=== PATIENT | female | born 1940 | race Caucasian/White ===

== ENCOUNTER 2016-06-15 11:02 | Inpatient (IN) | payer OTHER ==
[2016-06-15 11:31] VITALS: BMI 35.0
--- NOTE | 2016-06-15 11:35 | PDOC ---
History of Present Illness <Jos Kothari - Last Filed: 06/15/16 13:16> - General History Source: Patient, Old Records Exam Limitations: No Limitations - History of Present Illness Initial Comments: 06/15/16 12:43 The patient is a 76 year old female, accompanied by daughter, with a significant past medical history of Diabetes, HTN, Vascular insufficiency, and CAD, breast cancer (s/p mastectomy) and extensive surgical history presents to the emergency department, from wound clinic by Dr. White, for further evaluation of left lower extremity ischemia. As per daughter the patients left great toe is black. The patient presents for a further evaluation and work up. <Be Sainz - Last Filed: 06/15/16 13:28> - General Chief Complaint: Wound Infection Stated Complaint: (WOUND CARE SENT) Time Seen by Provider: 06/15/16 11:35 Past History - Past Medical History Cancer: Yes (BREAST CANCER) Cardiac Disorders: Yes (OPEN HEART SX 02/19/12 3 BLOCKAGES) Dementia: Yes Diabetes: Yes HTN: Yes Hypercholesterolemia: Yes - Surgical History Cardiac Surgery: Yes (3 BLOCKAGES 02/20) Cholecystectomy: Yes (1980) - Psycho/Social/Smoking Cessation Hx Suicidal Ideation: No Smoking Status: No Smoking History: Former smoker Have you smoked in the past 12 months: No Number of Cigarettes Smoked Daily: 0 If you are a former smoker, when did you quit?: FEBRUARY Information on smoking cessation initiated: No Hx Alcohol Use: No Drug/Substance Use Hx: No Substance Use Type: None <Jos Kothari - Last Filed: 06/15/16 13:16> <Be Sainz - Last Filed: 06/15/16 13:28> - Past Medical History Allergies/Adverse Reactions: Allergies Allergy/AdvReac Type Severity Reaction Status Date / Time Anesthetics - Amide Type AdvReac Vomiting Verified 06/15/16 11:27 Home Medications: Ambulatory Orders Amiodarone HCl [Cordarone -] 200 mg PO DAILY 02/27/12 Aspirin [ASA -] 162 mg PO DAILY 02/27/12 Folic Acid - 1 mg PO DAILY 02/27/12 Metoprolol Tartrate [Lopressor -] 50 mg PO BID 02/27/12 Glipizide [Glipizide ER] 10 mg PO BID 05/20/12 Lisinopril [Prinivil -] 20 mg PO DAILY 05/20/12 Metformin HCl [Glucophage -] 1,000 mg PO BID 05/20/12 Oxycodone HCl/Acetaminophen [Percocet 5-325 mg Tablet] 1 tab PO Q6H #120 tablet MDD 4 01/27/16 Atorvastatin Ca [Lipitor] 40 mg PO HS 06/15/16 Cholecalciferol (Vitamin D3) [Vitamin D3 -] 400 unit PO BID 06/15/16 Clopidogrel Bisulfate [Plavix -] 75 mg PO DAILY 06/15/16 Review of Systems - Review of Systems Able to Perform ROS?: Yes Comments:: 06/15/16 12:43 GENERAL/CONSTITUTIONAL: No fever or chills. No weakness. HEAD, EYES, EARS, NOSE AND THROAT: No change in vision. No ear pain or discharge. No sore throat. CARDIOVASCULAR: No chest pain or shortness of breath. RESPIRATORY: No cough, wheezing, or hemoptysis. GASTROINTESTINAL: No nausea, vomiting, diarrhea or constipation. GENITOURINARY: No dysuria, frequency, or change in urination. MUSCULOSKELETAL: Yes Left great toe ischemia. No joint or muscle swelling or pain. No neck or back pain. SKIN: No rash NEUROLOGIC: No headache, vertigo, loss of consciousness, or change in strength/ sensation. ENDOCRINE: No increased thirst. No abnormal weight change. HEMATOLOGIC/LYMPHATIC: No anemia, easy bleeding, or history of blood clots. ALLERGIC/IMMUNOLOGIC: No hives or skin allergy. <Be Sainz - Last Filed: 06/15/16 13:28> *Physical Exam - Vital Signs Last Vital Signs Temp Pulse Resp BP Pulse Ox 97.9 F 72 19 169/45 95 06/15/16 11:27 06/15/16 11:27 06/15/16 11:27 06/15/16 11:27 06/15/16 11:27 <Jos Kothari - Last Filed: 06/15/16 13:16> - Vital Signs Last Vital Signs Temp Pulse Resp BP Pulse Ox 97.9 F 72 19 169/45 95 06/15/16 11:27 06/15/16 11:27 06/15/16 11:27 06/15/16 11:27 06/15/16 11:27 - Physical Exam Comments: 06/15/16 12:43 GENERAL: Awake, alert, and fully oriented, in no acute distress HEAD: No signs of trauma EYES: PERRLA, EOMI, sclera anicteric, conjunctiva clear ENT: Auricles normal inspection, hearing grossly normal, nares patent, oropharynx clear without exudates. Moist mucosa NECK: Normal ROM, supple, no lymphadenopathy, JVD, or masses LUNGS: Breath sounds equal, clear to auscultation bilaterally. No wheezes, and no crackles HEART: Regular rate and rhythm, normal S1 and S2, no murmurs, rubs or gallops ABDOMEN: Soft, nontender, normoactive bowel sounds. No guarding, no rebound. No masses EXTREMITIES: Normal range of motion, no edema. No clubbing or cyanosis. No cords, erythema, or tenderness NEUROLOGICAL: Cranial nerves II through XII grossly intact. Normal speech. SKIN: Warm, Dry, normal turgor, no rashes or lesions noted. <Be Sainz - Last Filed: 06/15/16 13:28> Heart Score/ECG Review - ECG Impressions Comment:: 06/15/16 13:04 ECG Impression: Accelerated junctional rhythm. Left axis deviation. Anterior infarct , age undetermined. Prolonged QT. Abnormal ECG. <Be Sainz - Last Filed: 06/15/16 13:28> ED Treatment Course - LABORATORY CBC & Chemistry Diagram: 06/15/16 12:18 06/15/16 12:18 <Jos Kothari - Last Filed: 06/15/16 13:16> - LABORATORY CBC & Chemistry Diagram: 06/15/16 12:18 06/15/16 12:18 - RADIOLOGY Radiograph Interpretation: 06/15/16 13:28 EXAM#: TYPE/EXAM: RESULT: [id number] RAD/CHEST X-RAY PORTABLE* Clinical history: This of breath. COMPARISON: None. A lordotic and rotated portable chest film shows post CABG status with cardiomegaly and mild vascular prominence. There are clips over the right axilla as well as possible post mastectomy status. There are small calcifications in the apical regions and there are is unfolding of the aorta. IMPRESSION: Status post CABG with cardiomegaly and mild vascular engorgement. Right axillary clips and possible right mastectomy. Clinical correlation advised. Reported By: Victor M Paniagua MD 06/15/16 1303 <EmeliBe - Last Filed: 06/15/16 13:28> Medical Decision Making - Medical Decision Making 06/15/16 12:06 Dr. White Called. Case discussed. <LayocheoBe - Last Filed: 06/15/16 13:28> *DC/Admit/Observation/Transfer - Discharge Dispostion Admit: Yes - Attestations Physician Attestion: 06/15/16 11:35 I, Dr. Jos Kothari, attest that this document has been prepared under my direction and personally reviewed by me in its entirety. I further attest, that it accurately reflects all work, treatment, procedures and medical decision -making performed by me. <Jos Kothari - Last Filed: 06/15/16 13:16> - Attestations Scribe Attestion: 06/15/16 12:43 Documentation prepared by Be Sainz, acting as certified court/medical interpreter for Jos Kothari DO. <Be Sainz - Last Filed: 06/15/16 13:28> Diagnosis at time of Disposition: Vascular disease Diabetes mellitus Qualifiers: Diabetes mellitus type: type 2 Diabetes mellitus complication status: with circulatory complication Diabetes mellitus complication detail: with peripheral angiopathy without gangrene Diabetes mellitus termite control representative insulin use: with alf use Qualified Code(s): E11.51 - Type 2 diabetes mellitus with diabetic peripheral angiopathy without gangrene Hypertension Qualifiers: Hypertension type: essential hypertension Qualified Code(s): I10 - Essential ( primary) hypertension Coronary artery disease Qualifiers: Coronary Disease-Associated Artery/Lesion type: unspecified vessel or lesion type [place] vs. transplanted heart: [place] heart Associated angina: angina presence unspecified Qualified Code(s): I25.10 - Atherosclerotic heart disease of [place] coronary artery without angina pectoris Cellulitis Qualifiers: Site of cellulitis: extremity Site of cellulitis of extremity: lower extremity Laterality: left Qualified Code(s): L03.116 - Cellulitis of left lower limb Foot ulcer, left Qualifiers: Non-pressure ulcer stage: with necrosis of muscle Qualified Code(s): L97.523 - Non-pressure chronic ulcer of other part of left foot with necrosis of muscle - Discharge Dispostion Condition at time of disposition: Improved - Referrals Referrals: Carmen Salazar MD [Primary Care Provider] -
[2016-06-15 12:56] LABS: BASOPHIL 0.7 % (0-2.0); EOSINOPHIL 0.2 % (0-4.5); MCH 30.6 pg (25.7-33.7); MCHC 33.1 g/dl (32.0-36.0); MEAN CELL VOLUME 92.2 fl (80-96); MEAN PLT VOLUME 8.1 fl (7.5-11.1); NEUTROPHILS 88.5 % (42.8-82.8); PLATELET COUNT 321 K/MM3 (134-434); RDW 13.6 % (11.6-15.6); WHITE BLOOD COUNT 25.5 K/mm3 (4.0-10.0)
[2016-06-15 12:59] LABS: VENOUS PH 7.37 (7.32-7.42)
[2016-06-15 13:00] LABS: VENOUS BLOOD GAS HCO3 23.5 meq/L (19-25)
[2016-06-15 13:09] LABS: INR 1.25 (0.82-1.09); PROTHROMBIN TIME (PATIENT) 13.8 SEC (9.98-11.88)
[2016-06-15] MEDS ORDERED: PIPERACILLIN/TAZOB 3.375 GM/50 ML PRE-DOCKED IV ONE (13:24)
[2016-06-15] MEDS ORDERED: VANCOMYCIN 1 GRAM (PRE-DOCKED) 1,000 MG/250 ML BAG IVPB ONE (13:24)
[2016-06-15 13:30] LABS: ALBUMIN 2.1 g/dl (3.4-5.0); ALK PHOS 124 U/L (45-117); ANION GAP 14 (8-16); BILIRUBIN,TOTAL 0.5 mg/dL (0.2-1.0); CALCIUM 7.8 mg/dL (8.5-10.1); CO2 24 mmol/L (21-32); CREATININE 0.9 mg/dL (0.55-1.02); SGOT/AST 13 U/L (15-37); SGPT/ALT 22 U/L (12-78)
[2016-06-15 13:33] LABS: GLUCOSE,RANDOM 308 mg/dL (74-106)
[2016-06-15] MEDS ORDERED: PIPERACILLIN/TAZOB 3.375 GM 50 ML IVPB ONE (13:34)
[2016-06-15 13:43] LABS: PLATELET ESTIMATE ADEQUATE (NORMAL)
[2016-06-15] MEDS ORDERED: VANCOMYCIN 1 GRAM (PRE-DOCKED) 250 ML IVPB ONE (13:44)
[2016-06-15] MEDS ORDERED: HEPARIN NA (PORCINE) 5,000 UNITS/ML 1ML VIAL IVPUSH ONE (15:27)
[2016-06-15] MEDS ORDERED: HEPARIN NA (PORCINE) 5,000 UNITS/ML 1ML VIAL IVPUSH PRN (15:28)
[2016-06-15] MEDS ORDERED: SODIUM CHLORIDE 1,000 ML IV SCH ×2 (15:30→17:30)
[2016-06-15] MEDS ORDERED: OXYCODONE/APAP 5/325MG COMBO TABLET PO PRN (17:20)
[2016-06-15] MEDS ORDERED: DOCUSATE SODIUM 100 MG CAPSULE (FP) PO PRN (17:22)
--- NOTE | 2016-06-15 17:37 | HP ---
Admitting History and Physical - Primary Care Physician PCP: Carmen Salazar - Admission History of Present Illness: The patient is a 76 year old female, accompanied by daughter, with a significant past medical history of Diabetes, HTN, Vascular insufficiency, and CAD,-- s/p cabg , obesity , peripheral vascular disease--status post right lower extremity bypass, breast cancer (s/p mastectomy) and extensive surgical history presents to the emergency department, from wound clinic by Dr. White, for further evaluation of left lower extremity ischemia. I discussed the case with Dr. White patient being admitted to the hospital for further management and possibly bypass of left lower extremity. pt seen / examined in er. Patient given broad-spectrum antibiotics patient is elevated to 25,000 patient otherwise comfortable Denies chest pain or shortness of breath Denies fever or chills No headache or dizziness. History Source: Patient Limitations to Obtaining History: No Limitations - Past Medical History ...: No - Smoking History Smoking history: Former smoker Have you smoked in the past 12 months: No Aproximately how many cigarettes per day: 0 If you are a former smoker, when did you quit?: FEBRUARY - Alcohol/Substance Use Hx Alcohol Use: No Home Medications - Allergies Allergies/Adverse Reactions: Allergies Allergy/AdvReac Type Severity Reaction Status Date / Time Anesthetics - Amide Type AdvReac Vomiting Verified 06/15/16 11:27 - Home Medications Home Medications: Ambulatory Orders Amiodarone HCl [Cordarone -] 200 mg PO DAILY 02/27/12 Aspirin [ASA -] 162 mg PO DAILY 02/27/12 Folic Acid - 1 mg PO DAILY 02/27/12 Metoprolol Tartrate [Lopressor -] 50 mg PO BID 02/27/12 Glipizide [Glipizide ER] 10 mg PO BID 05/20/12 Lisinopril [Prinivil -] 20 mg PO DAILY 05/20/12 Metformin HCl [Glucophage -] 1,000 mg PO BID 05/20/12 Atorvastatin Ca [Lipitor] 40 mg PO HS 06/15/16 Cholecalciferol (Vitamin D3) [Vitamin D3 -] 400 unit PO BID 06/15/16 Clopidogrel Bisulfate [Plavix -] 75 mg PO DAILY 06/15/16 Oxycodone HCl/Acetaminophen [Percocet 5-325 mg Tablet] 1 tab PO Q6H PRN MDD 4 Review of Systems Findings/Remarks: see [place] Physical Examination Vital Signs: Vital Signs Temperature 98.4 F 06/15/16 17:07 Pulse Rate 73 06/15/16 17:07 Respiratory Rate 18 06/15/16 17:07 Blood Pressure 193/73 06/15/16 17:07 O2 Sat by Pulse Oximetry (%) 98 06/15/16 17:07 Constitutional: Yes: No Distress, Calm Eyes: Yes: Conjunctiva Clear Neck: Yes: Supple Cardiovascular: Yes: Regular Rate and Rhythm Respiratory: Yes: CTA Bilaterally Gastrointestinal: Yes: Soft, Abdomen, Obese Extremities: Yes: Cool, Other (left lower extremity). No: Cold Edema: No Neurological: Yes: Alert Imaging - Results Chest X-ray: Report Reviewed EKG: Report Reviewed Problem List - Problems (1) Cellulitis Code(s): L03.90 - CELLULITIS, UNSPECIFIED Qualifiers: Site of cellulitis: extremity Site of cellulitis of extremity: lower extremity Laterality: left Qualified Code(s): L03.116 - Cellulitis of left lower limb (2) Coronary artery disease Code(s): I25.10 - ATHSCL HEART DISEASE OF [place] CORONARY ARTERY W/O ANG PCTRS Qualifiers: Coronary Disease-Associated Artery/Lesion type: unspecified vessel or lesion type [place] vs. transplanted heart: [place] heart Associated angina: angina presence unspecified Qualified Code(s): I25.10 - Atherosclerotic heart disease of [place] coronary artery without angina pectoris (3) Diabetes mellitus Code(s): E11.9 - TYPE 2 DIABETES MELLITUS WITHOUT COMPLICATIONS Qualifiers: Diabetes mellitus type: type 2 Diabetes mellitus complication status: with circulatory complication Diabetes mellitus complication detail: with peripheral angiopathy without gangrene Diabetes mellitus director long term care insulin use: with director long term care use Qualified Code(s): E11.51 - Type 2 diabetes mellitus with diabetic peripheral angiopathy without gangrene; Z79.4 - watermaster (current) use of insulin (4) Foot ulcer, left Code(s): L97.529 - NON-PRESSURE CHRONIC ULCER OTH PRT LEFT FOOT W UNSP SEVERITY Qualifiers: Non-pressure ulcer stage: with necrosis of muscle Qualified Code(s): L97.523 - Non-pressure chronic ulcer of other part of left foot with necrosis of muscle (5) Hypertension Code(s): I10 - ESSENTIAL (PRIMARY) HYPERTENSION Qualifiers: Hypertension type: essential hypertension Qualified Code(s): I10 - Essential (primary) hypertension (7) Ischemia of both lower extremities Code(s): I99.8 - OTHER DISORDER OF CIRCULATORY SYSTEM (8) Obesity Code(s): E66.9 - OBESITY, UNSPECIFIED Assessment/Plan admit to [facility] evaluation Antibiotics Discontinue fluids Monitor blood sugar and blood pressure Discontinue by mouth diabetic medications Start on basal insulin--- it should be noted that patient has been refusing insulin in outpatient setting Continue other medications heparin drip Cardiology evaluation Will follow
[2016-06-15] MEDS: HEPARIN INFUSION - 500 ML IVPB SCH (18:03)
[2016-06-15] MEDS ORDERED: ACETAMINOPHEN 325 MG TABLET (FP) PO PRN (18:04)
--- NOTE | 2016-06-15 18:13 | PN ---
Progress Note (short form) - Note Progress Note: Vascular surgery Left foot gangrene for over 2 weeks. Saw pt in wound care clinic today. US shows SFA occlusion. SFA has been occluded for years. But now pt is symptomatic. Right lower ext bypass done in past by us. Will need angiogram, possible bypass next week. Please intiiate cardiology clearance. IV heparin started. Will follow Abhilash White DO
--- NOTE | 2016-06-15 18:14 | PN ---
Progress Note (short form) - Note Progress Note: Vascular surgery WBC is 25.5. Will need IV antibiotics. Rec ID connor White DO
[2016-06-15] MEDS ORDERED: METOPROLOL TARTRATE 50 MG TABLET (FP) PO ONE ×2 (18:30→22:00)
[2016-06-15] MEDS: ACETAMINOPHEN 325 MG TABLET (FP) PO PRN (18:45)
[2016-06-15] MEDS: oxyCODONE HCL 5 MG TABLET PO PRN (18:48)
[2016-06-15] MEDS ORDERED: INSULIN (NOVOLOG) ASPART 100 UNITS/ML 10ML VIAL SQ ONE (19:00)
[2016-06-15 19:03] LABS: MCH 30.6 pg (25.7-33.7); MCHC 33.2 g/dl (32.0-36.0); MEAN CELL VOLUME 92.1 fl (80-96); MEAN PLT VOLUME 8.6 fl (7.5-11.1); PLATELET COUNT 340 K/MM3 (134-434); RDW 13.7 % (11.6-15.6); WHITE BLOOD COUNT 21.8 K/mm3 (4.0-10.0)
[2016-06-15 19:29] LABS: INR 1.41 (0.82-1.09); PROTHROMBIN TIME (PATIENT) 15.6 SEC (9.98-11.88)
[2016-06-15 19:30] LABS: ALBUMIN 1.9 g/dl (3.4-5.0); BILIRUBIN,TOTAL 0.4 mg/dL (0.2-1.0); CALCIUM 7.6 mg/dL (8.5-10.1); COCKROFT - GAULT 75.565; TOT PROT 5.9 g/dl (6.4-8.2)
[2016-06-15 20:04] LABS: URINE APPEARANCE CLEAR; URINE BILIRUBIN NEGATIVE (NEGATIVE); URINE COLOR LTYELLOW; URINE GLUCOSE (UA) 3+ (NEGATIVE); URINE KETONE 1+ (NEGATIVE); URINE LEUK ESTERASE NEGATIVE (NEGATIVE); URINE NITRITE NEGATIVE (NEGATIVE); URINE UROBILINOGEN NEGATIVE E.U./dl (0.2-1.0)
[2016-06-15 20:11] LABS: URINE BLOOD 1+ (NEGATIVE); URINE PROTEIN 1+ (NEGATIVE)
[2016-06-15 20:18] LABS: URINE RBC 1 /hpf (0-3); URINE WBC 2 /hpf (3-5)
[2016-06-15] MEDS ORDERED: PT OWN MED DRAWER 7, Y5N ONE (21:44)
[2016-06-15] MEDS ORDERED: INSULIN (NOVOLOG) ASPART 100 UNITS/ML 10ML VIAL ONE (21:45)
[2016-06-15] MEDS ORDERED: INSULIN DETEMIR 100 UNITS/ML MDV SQ SCH (22:00)
[2016-06-15 22:05] LABS: HYPOCHROMIA 1+; MICROCYTOSIS 1+; PLATELET ESTIMATE ADEQUATE (NORMAL)
[2016-06-15] MEDS: CHOLECALCIFEROL (VITAMIN D3) 400 UNIT TABLET (FP) PO SCH (22:40)
[2016-06-15] MEDS: ATORVASTATIN CA 40 MG TABLET (FP) PO SCH (22:40)
[2016-06-15] MEDS: INSULIN SLIDING SCALE (NOVOLOG) 1 VIAL SQ SCH (22:48)
[2016-06-16] MEDS: HEPARIN NA (PORCINE) 5,000 UNITS/ML 1ML VIAL IVPUSH PRN (02:59)
[2016-06-16] MEDS: HEPARIN INFUSION - 500 ML IVPB SCH ×3 (02:59→15:45)
[2016-06-16] MEDS: INSULIN SLIDING SCALE (NOVOLOG) 1 VIAL SQ SCH ×4 (06:20→21:50)
[2016-06-16] MEDS: oxyCODONE HCL 5 MG TABLET PO PRN ×2 (06:22→12:50)
[2016-06-16] MEDS ORDERED: INSULIN DETEMIR 100 UNITS/ML MDV SQ ONE (07:11)
[2016-06-16] MEDS ORDERED: INSULIN (NOVOLOG) ASPART 100 UNITS/ML 10ML VIAL ONE ×3 (07:12→20:12)
[2016-06-16] MEDS ORDERED: PT OWN MED DRAWER 7, Y5N ONE ×3 (09:05→11:39)
[2016-06-16 09:15] LABS: THYROID STIMULATING HORMONE 0.62 uIU/ml (0.358-3.74)
[2016-06-16] MEDS: CHOLECALCIFEROL (VITAMIN D3) 400 UNIT TABLET (FP) PO SCH ×2 (09:40→21:56)
[2016-06-16] MEDS: PANTOPRAZOLE 20 MG TABLET (FP) PO SCH (09:40)
[2016-06-16] MEDS: CLOPIDOGREL BISULFATE 75 MG TABLET (FP) PO SCH (09:40)
[2016-06-16] MEDS: METOPROLOL TARTRATE 50 MG TABLET (FP) PO SCH ×2 (09:40→21:50)
[2016-06-16] MEDS: FOLIC ACID 1 MG TABLET (FP) PO SCH (09:40)
[2016-06-16] MEDS: AMIODARONE HCL 200 MG TABLET (FP) PO SCH (09:40)
[2016-06-16] MEDS: LISINOPRIL 20 MG TABLET (FP) PO SCH (09:40)
[2016-06-16] MEDS: ASPIRIN 81 MG CHEWABLE TABLETS PO SCH (09:40)
--- NOTE | 2016-06-16 09:50 | PN ---
Progress Note, Physician Chief Complaint: Events noted Foul smelling left foot wound No distress No diarrhea no pain in foot - Current Medication List Current Medications: Active Medications Acetaminophen (Tylenol -) 650 mg PO Q4H PRN PRN Reason: FEVER OR PAIN Last Admin: 06/15/16 18:45 Dose: 650 mg Acetaminophen (Tylenol -) 325 mg PO Q6H PRN PRN Reason: FEVER OR PAIN Amiodarone HCl (Cordarone -) 200 mg PO DAILY [facility] Last Admin: 06/16/16 09:40 Dose: 200 mg Aspirin (Asa -) 81 mg PO DAILY [facility] Last Admin: 06/16/16 09:40 Dose: 81 mg Atorvastatin Calcium (Lipitor -) 40 mg PO HS [facility] Last Admin: 06/15/16 22:40 Dose: 40 mg Cholecalciferol (Vitamin D3 -) 400 unit PO BID [facility] Last Admin: 06/16/16 09:40 Dose: 400 unit Clopidogrel Bisulfate (Plavix -) 75 mg PO DAILY [facility] Last Admin: 06/16/16 09:40 Dose: 75 mg Docusate Sodium (Colace -) 100 mg PO Q12H PRN PRN Reason: CONSTIPATION Folic Acid (Folic Acid -) 1 mg PO DAILY [facility] Last Admin: 06/16/16 09:40 Dose: 1 mg Heparin Sodium (Porcine) (Heparin -) 1,000 unit IVPUSH PRN PRN PRN Reason: Heparin Heparin Sodium (Porcine) (Heparin -) 5,000 unit IVPUSH PRN PRN PRN Reason: Heparin Last Admin: 06/16/16 02:59 Dose: 5,000 unit Heparin Sodium/Dextrose (Heparin Infusion -) 500 mls @ 20 mls/hr IVPB TITR [facility] ; 1,000 UNITS/HR PRN Reason: Protocol Last Admin: 06/16/16 02:59 Dose: 23 mls/hr Insulin Aspart (Novolog Vial Sliding Scale -) 1 vial SQ ACHS [facility] PRN Reason: Protocol Last Admin: 06/16/16 06:20 Dose: 3 units Insulin Detemir (Levemir Vial) 15 units SQ HS [facility] Last Admin: 06/15/16 22:48 Dose: 15 units Lisinopril (Prinivil) 20 mg PO DAILY [facility] Last Admin: 06/16/16 09:40 Dose: 20 mg Metoprolol Tartrate (Lopressor -) 50 mg PO BID [facility] Last Admin: 06/16/16 09:40 Dose: 50 mg Oxycodone HCl (Roxicodone -) 5 mg PO Q6H PRN Last Admin: 06/16/16 06:22 Dose: 5 mg Pantoprazole Sodium (Protonix -) 20 mg PO DAILY [facility] Last Admin: 06/16/16 09:40 Dose: 20 mg - Objective Vital Signs: Vital Signs Temperature 98.2 F 06/16/16 06:00 Pulse Rate 64 06/16/16 06:00 Respiratory Rate 18 06/16/16 06:00 Blood Pressure 136/54 06/16/16 06:00 O2 Sat by Pulse Oximetry (%) 99 06/15/16 21:00 Constitutional: Yes: No Distress Cardiovascular: Yes: Regular Rate and Rhythm Respiratory: Yes: Diminished Gastrointestinal: Yes: Normal Bowel Sounds, Soft. No: Distention, Tenderness Extremities: Yes: Other (left foot wound) Edema: Yes Edema: LLE: 1+ Psychiatric: Yes: Alert, Oriented Labs: CBC, BMP 06/15/16 18:30 06/15/16 18:30 INR, PTT INR 1.41 (0.82-1.09) H 06/15/16 18:30 Problem List - Problems (1) Coronary artery disease Code(s): I25.10 - ATHSCL HEART DISEASE OF [place] CORONARY ARTERY W/O ANG PCTRS Qualifiers: Coronary Disease-Associated Artery/Lesion type: unspecified vessel or lesion type [place] vs. transplanted heart: [place] heart Associated angina: angina presence unspecified Qualified Code(s): I25.10 - Atherosclerotic heart disease of [place] coronary artery without angina pectoris (2) Diabetes mellitus Code(s): E11.9 - TYPE 2 DIABETES MELLITUS WITHOUT COMPLICATIONS Qualifiers: Diabetes mellitus type: type 2 Diabetes mellitus complication status: with circulatory complication Diabetes mellitus complication detail: with peripheral angiopathy without gangrene Diabetes mellitus long term care social worker insulin use: with correction use Qualified Code(s): E11.51 - Type 2 diabetes mellitus with diabetic peripheral angiopathy without gangrene; Z79.4 - [facility] (current) use of insulin (3) Foot ulcer, left Code(s): L97.529 - NON-PRESSURE CHRONIC ULCER OTH PRT LEFT FOOT W UNSP SEVERITY Qualifiers: Non-pressure ulcer stage: with necrosis of muscle Qualified Code(s): L97.523 - Non-pressure chronic ulcer of other part of left foot with necrosis of muscle (4) Hypertension Code(s): I10 - ESSENTIAL (PRIMARY) HYPERTENSION Qualifiers: Hypertension type: essential hypertension Qualified Code(s): I10 - Essential (primary) hypertension (5) Obesity Code(s): E66.9 - OBESITY, UNSPECIFIED Assessment/Plan PLAN continue with Zosyn- pending ID approval- contacted Dr [facility]iology eval for clearance Echo ordered Continue with meds Increase Levemir-- blood sugars elevated likely due to infection check ESR and CRP received Zosyn and Vanco yesterday on Heparin infusion for PAD --SFA occlusion
[2016-06-16] MEDS ORDERED: PATIENT'S OWN MEDICATION (NON-FORMULARY) (Lisinopril [Prinivil -] 20 MG) PO SCH (10:00)
[2016-06-16] MEDS ORDERED: PIPERACILLIN/TAZOB 2.25 GM 2.25 GM in DEXTROSE 5%-WATER - 50 ML IVPB SCH (10:15)
--- NOTE | 2016-06-16 10:42 | PN ---
Progress Note (short form) - Note Progress Note: ID Consult dictated Gangrene L great toe Marked leukocytosis, possible sepsis Perpheral vascular disease Pending sepsis workup, empiric vancomycin/ zosyn
[2016-06-16] MEDS: PIPERACILLIN/TAZOB 2.25 GM 50 ML IVPB SCH ×2 (11:33→17:33)
[2016-06-16] MEDS: VANCOMYCIN 1 GRAM (PRE-DOCKED) 250 ML IVPB SCH ×3 (11:34→22:51)
--- NOTE | 2016-06-16 11:41 | CONS ---
DATE OF CONSULTATION: DATE OF DICTATION: 06/16/2016 HISTORY OF PRESENT ILLNESS: The patient is a 76-year-old female with a history of diabetes mellitus and peripheral vascular disease evaluated for marked leukocytosis. The patient developed worsening gangrene of the left great toe. She has had worsening necrotic changes of the left great toe over the past 2 weeks. She also developed ulcerations on the 2nd, 3rd, and 4th toes as well as the plantar aspect of the foot and the heel. [facility] a [facility]ogram showed superficial femoral artery occlusion. She was referred to the hospital for admission. On admission, her white blood cell count was noted to be 25,000. She has been afebrile. Patient complains of pain of the left foot especially with manipulation. No reports of high grade fever or shaking chills. No reports of purulent wound drainage. PAST MEDICAL HISTORY: Positive for diabetes mellitus, peripheral vascular disease, hypertension, coronary artery disease, breast cancer. PAST SURGICAL HISTORY: Status post right lower extremity bypass, mastectomy, coronary artery bypass. ALLERGIES: To AMIDE-TYPE ANESTHETICS. MEDICATIONS: Include Cordarone, aspirin, folic acid, Lopressor, glipizide, Prinivil, Glucophage, Lipitor, Plavix. SOCIAL HISTORY: She lives at home. She is a former smoker. SYSTEMS REVIEW: Neurologic: No loss of consciousness, seizure activity, or focal weakness. Cardiac: Negative for chest pain or palpitations. Respiratory: Negative for cough or sputum production. Gastrointestinal: Negative for vomiting or diarrhea. Genitourinary: Negative for urinary tract infection. LABORATORY DATA: White count on admission 25,000, hematocrit 32.4, platelets 340. BUN 14, creatinine 1.0. Urinalysis 2 white cells. Glucose 354. PHYSICAL EXAMINATION: General: She is awake and alert. She is not acutely toxic-appearing. She is morbidly obese. Vital signs: Temperature 98.2, blood pressure 136/54, pulse 64 and regular, respirations 18 per minute. HEENT: Sclerae anicteric. Heart: Heart sounds S1, S2. Lungs: Clear bilaterally. No rhonchi, rales, or wheezing. Abdomen: Obese, soft, nontender. Extremities: Examination of the right lower extremity, there is a healed surgical scar present on the right lower extremity, no lesions present on the right foot. Examination of the left foot, there is dry gangrene involving the left great toe. There are ischemic changes involving the remaining toes with dry ulcerations present on the 2nd, 3rd, and 4th toes, and in addition, an ulceration is present on the plantar aspect of the foot and on the heel. There is no purulent wound drainage. IMPRESSION: 1. Gangrene of the left great toe. 2. Marked leukocytosis, possible sepsis. 3. Peripheral vascular disease. 4. Diabetes mellitus. Pending sepsis workup, empiric antibiotic coverage in this diabetic female with Zosyn and vancomycin, surgical followup, local wound care. Will follow. Thank you for the kind referral. DANIELLA WARNER M.D. DULCE [id number]
--- NOTE | 2016-06-16 15:12 | CON.CARD ---
Consult Consult Specialty:: cardiology Reason for Consultation:: severe PAD; for planned revasularization - History of Present Illness Chief Complaint: Pt c/o intense pain in left foot/great toe History of Present Illness: The patient is a 76 year old white female, accompanied by daughter earlier in ER , with a significant past medical history of Diabetes, HTN, Vascular insufficiency, and CAD (?CABG 10 yrs ago), breast cancer (s/p right mastectomy) and extensive surgical history presents to the emergency department, from wound clinic by Dr. White, for further evaluation of left lower extremity ischemia. As per daughter the patients left great toe is black. The patient presents for a further evaluation and work up. 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) Cardio/Vascular: Yes: CAD, CHF, HTN Pulmonary: No: COPD Reproductive: Yes: Postmenopausal ...: No - Past Surgical History Additional Surgical History: right LE revascularization - Alcohol/Substance Use Hx Alcohol Use: No - Smoking History Smoking history: Former smoker Have you smoked in the past 12 months: No Aproximately how many cigarettes per day: 0 If you are a former smoker, when did you quit?: FEBRUARY Home Medications - Allergies Allergies/Adverse Reactions: Allergies Allergy/AdvReac Type Severity Reaction Status Date / Time Anesthetics - Amide Type AdvReac Vomiting Verified 06/15/16 11:27 - Home Medications Home Medications: Ambulatory Orders Amiodarone HCl [Cordarone -] 200 mg PO DAILY 02/27/12 Aspirin [ASA -] 162 mg PO DAILY 02/27/12 Folic Acid - 1 mg PO DAILY 02/27/12 Metoprolol Tartrate [Lopressor -] 50 mg PO BID 02/27/12 Glipizide [Glipizide ER] 10 mg PO BID 05/20/12 Lisinopril [Prinivil -] 20 mg PO DAILY 05/20/12 Metformin HCl [Glucophage -] 1,000 mg PO BID 05/20/12 Atorvastatin Ca [Lipitor] 40 mg PO HS 06/15/16 Cholecalciferol (Vitamin D3) [Vitamin D3 -] 400 unit PO BID 06/15/16 Clopidogrel Bisulfate [Plavix -] 75 mg PO DAILY 06/15/16 Oxycodone HCl/Acetaminophen [Percocet 5-325 mg Tablet] 1 tab PO Q6H PRN MDD 4 Family Disease History - Family Disease History Family History: Denies Review of Systems - Review of Systems Constitutional: reports: Weakness Eyes: reports: No Symptoms HENT: reports: No Symptoms Neck: reports: No Symptoms Cardiovascular: denies: Chest Pain Respiratory: reports: No Symptoms Gastrointestinal: reports: No Symptoms Breasts: reports: No Symptoms Reported Musculoskeletal: reports: Extremity Pain (left foot), Muscle Weakness Integumentary: reports: Change in Color (left foot), Wound Neurological: reports: Unsteady Gait, Weakness Psychiatric: reports: No Symptoms - Risk Factors Known Risk Factors: Yes: Age, Hypertension, Physical Inactivity, Other (obesity) Vital Signs: Vital Signs Temperature 98.2 F 06/16/16 06:00 Pulse Rate 64 06/16/16 06:00 Respiratory Rate 18 06/16/16 06:00 Blood Pressure 136/54 06/16/16 06:00 O2 Sat by Pulse Oximetry (%) 99 06/15/16 21:00 Constitutional: Yes: Calm Eyes: Yes: WNL HENT: Yes: WNL Neck: Yes: WNL Respiratory: Yes: Regular Gastrointestinal: Yes: Soft, Abdomen, Obese Renal/: No: Anuria Heart Sounds: Yes: S1 (split), Split S2, S4 Murmur: Yes: Systolic Murmur, Grade 2 Musculoskeletal: Yes: Joint Stiffness, Muscle Weakness Extremities: Yes: Cool, Other (left foot large area of purpura, left big toe blackened with spongy blue-quinn large lesion leading from big toe along top of foot; punctate lesions on sole) Peripheral Pulses WNL: No Peripheral Pulses: 1+ Left Doralis Pedis Integumentary: Yes: Bruising, Venous Stasis Changes, Other Neurological: Yes: Alert, Oriented Psychiatric: Yes: WNL - Other Data Labs, Other Data: CBC, BMP 06/15/16 18:30 06/15/16 18:30 INR, PTT INR 1.41 (0.82-1.09) H 06/15/16 18:30 Troponin, BNP 06/16/16 07:40 B-Natriuretic Peptide 3784.30 H Troponin, BNP 06/16/16 07:40 B-Natriuretic Peptide 3784.30 H Imaging - Results Chest X-ray: Image Reviewed (no acute pathology) EKG: Image Reviewed (NSR; incomplete LBBB; 1st degress AVB) Problem List - Problems (1) Cellulitis Code(s): L03.90 - CELLULITIS, UNSPECIFIED Qualifiers: Site of cellulitis: extremity Site of cellulitis of extremity: lower extremity Laterality: left Qualified Code(s): L03.116 - Cellulitis of left lower limb (2) Coronary artery disease Assessment/Plan: s/p CABG ? 2006 (obtain records, if possible). On amiodarone; she says it was restarted 3 years ago, but she says she has not seen a mechanical design drafter since. F/u ECHO for LVEF, chamber sizes, wall motion, valve status. Would stronly consider stopping amiodarone because of its many potential side effects (eg, pt believes a rash across her chest started after the mediication was restarted, and has been there ever since). Of more concern is the potential for thyroid disorder, pulmonary fibrosis. Code(s): I25.10 - ATHSCL HEART DISEASE OF [place] CORONARY ARTERY W/O ANG PCTRS Qualifiers: Coronary Disease-Associated Artery/Lesion type: unspecified vessel or lesion type [place] vs. transplanted heart: [place] heart Associated angina: angina presence unspecified Qualified Code(s): I25.10 - Atherosclerotic heart disease of [place] coronary artery without angina pectoris (3) Diabetes mellitus Code(s): E11.9 - TYPE 2 DIABETES MELLITUS WITHOUT COMPLICATIONS Qualifiers: Diabetes mellitus type: type 2 Diabetes mellitus complication status: with circulatory complication Diabetes mellitus complication detail: with peripheral angiopathy without gangrene Diabetes mellitus machine long goods helper insulin use: with machine long goods helper use Qualified Code(s): E11.51 - Type 2 diabetes mellitus with diabetic peripheral angiopathy without gangrene; Z79.4 - bed bug exterminator (current) use of insulin (4) Hypertension Code(s): I10 - ESSENTIAL (PRIMARY) HYPERTENSION Qualifiers: Hypertension type: essential hypertension Qualified Code(s): I10 - Essential (primary) hypertension (5) Ischemia of both lower extremities Assessment/Plan: Examined pt's left foot with Dr. White;: severe ischemia, with imperative need for early revascularization; left great toe almost surely will need to be amputated. F/u ECHO for LVEF, wall motion, valve status. Pt's BP is elevated: pain and anxiety management; start hydralazine and Imdur; f/u LVEF, BUN/Cr, electrolytes. Code(s): I99.8 - OTHER DISORDER OF CIRCULATORY SYSTEM (6) Obesity Code(s): E66.9 - OBESITY, UNSPECIFIED (7) On amiodarone therapy Assessment/Plan: It is unclear why pt is on this medication; she says it was restarted three years ago, and she has not seen a mechanical design drafter since then (was seeing Dr. Johnson until that time). She feels she has had a rash across her chest since restarting amiodarone. Given the many potential and serious side-effects, will get blood level, ECHO, records of prior cardiac workup, and strongly consider stopping the medication unless she has refractory arrhythmias. TSH is WNL. Code(s): Z79.899 - OTHER DETENTION (CURRENT) DRUG THERAPY
[2016-06-16] MEDS: ISOSORBIDE MONONITRATE 30 MG TAB.SR.24H (FP) PO SCH (15:38)
[2016-06-16] MEDS: hydrALAZINE HCL 25 MG TABLET (FP) PO SCH ×2 (15:38→21:48)
--- NOTE | 2016-06-16 15:49 | PN ---
Progress Note (short form) - Note Progress Note: VAscular Surgery Pt seen and examined. Left foot gangrene. WBC now 21 Echo ordered for saturday by cardio. Will do angiogram on then. Spoke to pt about plan and she understands. Cont iv antibiotics and IV heparin. Abhilash White DO
--- NOTE | 2016-06-16 16:19 | EKG ---
Test Reason : Blood Pressure : / mmHG Vent. Rate : 063 BPM Atrial Rate : 063 BPM P-R Int : 000 ms QRS Dur : 112 ms QT Int : 502 ms P-R-T Axes : 006 025 075 degrees QTc Int : 513 ms SINUS RHYTHM WITH 1ST DEGREE A-V BLOCK INCOMPLETE LEFT BUNDLE BRANCH BLOCK PROLONGED QT ABNORMAL ECG WHEN COMPARED WITH ECG OF 15-JUN-2016 12:48, SINUS RHYTHM HAS REPLACED JUNCTIONAL RHYTHM Confirmed by VENU SWANSON, STEVE ([id number]) on 06/16/2016 4:18:30 PM Referred By: Sindy JOE Confirmed By:STEVE LEA MD
--- NOTE | 2016-06-16 16:27 | EKG ---
Test Reason : Blood Pressure : / mmHG Vent. Rate : 072 BPM Atrial Rate : 074 BPM P-R Int : 000 ms QRS Dur : 116 ms QT Int : 468 ms P-R-T Axes : 000 -46 070 degrees QTc Int : 512 ms ACCELERATED JUNCTIONAL RHYTHM LEFT AXIS DEVIATION ANTERIOR INFARCT , AGE UNDETERMINED PROLONGED QT ABNORMAL ECG WHEN COMPARED WITH ECG OF 23-MAY-2012 09:23, SIGNIFICANT CHANGES HAVE OCCURRED Confirmed by STEVE LEA MD ([id number]) on 06/16/2016 4:27:12 PM Referred By: Confirmed By:STEVE LEA MD
[2016-06-16] MEDS: INSULIN DETEMIR 100 UNITS/ML MDV SQ SCH (21:49)
[2016-06-16] MEDS: ATORVASTATIN CA 40 MG TABLET (FP) PO SCH (21:50)
[2016-06-16] MEDS ORDERED: hydrALAZINE HCL 25 MG TABLET (FP) PO SCH (22:00)
[2016-06-16] MEDS ORDERED: ONDANSETRON 4 MG/2 ML VIAL IVPB PRN (22:12)
[2016-06-17] MEDS: PIPERACILLIN/TAZOB 2.25 GM 50 ML IVPB SCH ×3 (02:08→17:40)
[2016-06-17] MEDS: INSULIN SLIDING SCALE (NOVOLOG) 1 VIAL SQ SCH ×4 (06:32→21:58)
[2016-06-17 08:01] LABS: MCH 30.4 pg (25.7-33.7); MCHC 33.4 g/dl (32.0-36.0); MEAN CELL VOLUME 91.1 fl (80-96); MEAN PLT VOLUME 8.1 fl (7.5-11.1); PLATELET COUNT 350 K/MM3 (134-434); RDW 13.7 % (11.6-15.6); WHITE BLOOD COUNT 21.3 K/mm3 (4.0-10.0)
--- NOTE | 2016-06-17 08:03 | PN ---
Progress Note, Physician Chief Complaint: Events noted Foul smelling left foot wound No distress No diarrhea no pain in foot - Current Medication List Current Medications: Active Medications Acetaminophen (Tylenol -) 650 mg PO Q4H PRN PRN Reason: FEVER OR PAIN Last Admin: 06/15/16 18:45 Dose: 650 mg Acetaminophen (Tylenol -) 325 mg PO Q6H PRN PRN Reason: FEVER OR PAIN Amiodarone HCl (Cordarone -) 200 mg PO DAILY [facility] Last Admin: 06/16/16 09:40 Dose: 200 mg Aspirin (Asa -) 81 mg PO DAILY [facility] Last Admin: 06/16/16 09:40 Dose: 81 mg Atorvastatin Calcium (Lipitor -) 40 mg PO HS [facility] Last Admin: 06/16/16 21:50 Dose: 40 mg Cholecalciferol (Vitamin D3 -) 400 unit PO BID [facility] Last Admin: 06/16/16 21:56 Dose: 400 unit Clopidogrel Bisulfate (Plavix -) 75 mg PO DAILY [facility] Last Admin: 06/16/16 09:40 Dose: 75 mg Docusate Sodium (Colace -) 100 mg PO Q12H PRN PRN Reason: CONSTIPATION Folic Acid (Folic Acid -) 1 mg PO DAILY [facility] Last Admin: 06/16/16 09:40 Dose: 1 mg Heparin Sodium (Porcine) (Heparin -) 1,000 unit IVPUSH PRN PRN PRN Reason: Heparin Heparin Sodium (Porcine) (Heparin -) 5,000 unit IVPUSH PRN PRN PRN Reason: Heparin Last Admin: 06/16/16 02:59 Dose: 5,000 unit Hydralazine HCl (Apresoline -) 25 mg PO BID [facility] Last Admin: 06/16/16 21:48 Dose: 25 mg Heparin Sodium/Dextrose (Heparin Infusion -) 500 mls @ 20 mls/hr IVPB TITR [facility] ; 1,000 UNITS/HR PRN Reason: Protocol Last Admin: 06/16/16 15:45 Dose: 26 mls/hr Vancomycin HCl (Vancomycin (Pre-Docked)) 250 mls @ 166.667 mls/hr IVPB 1130, 2330 [facility] Last Admin: 06/16/16 22:51 Dose: 166.667 mls/hr Piperacillin Sod/Tazobactam Sod (Zosyn 2.25gm Ivpb (Pre-Docked)) 50 mls @ 100 mls/hr IVPB Q8H-IV [facility] PRN Reason: Protocol Last Admin: 06/17/16 02:08 Dose: 100 mls/hr Insulin Aspart (Novolog Vial Sliding Scale -) 1 vial SQ ACHS [facility] PRN Reason: Protocol Last Admin: 06/17/16 06:32 Dose: 5 units Insulin Detemir (Levemir Vial) 18 units SQ HS [facility] Last Admin: 06/16/16 21:49 Dose: 18 units Isosorbide Mononitrate (Imdur -) 30 mg PO DAILY [facility] Last Admin: 06/16/16 15:38 Dose: 30 mg Lisinopril (Prinivil) 20 mg PO DAILY [facility] Last Admin: 06/16/16 09:40 Dose: 20 mg Metoprolol Tartrate (Lopressor -) 50 mg PO BID [facility] Last Admin: 06/16/16 21:50 Dose: 50 mg Ondansetron HCl (Zofran Injection) 4 mg IVPB Q8H PRN PRN Reason: NAUSEA AND/OR VOMITING Last Admin: 06/16/16 22:51 Dose: 4 mg Oxycodone HCl (Roxicodone -) 5 mg PO Q6H PRN Last Admin: 06/16/16 12:50 Dose: 5 mg Pantoprazole Sodium (Protonix -) 20 mg PO DAILY [facility] Last Admin: 06/16/16 09:40 Dose: 20 mg - Objective Vital Signs: Vital Signs Temperature 98 F 06/17/16 06:37 Pulse Rate 65 06/17/16 06:37 Respiratory Rate 20 06/17/16 06:37 Blood Pressure 138/62 06/17/16 06:37 O2 Sat by Pulse Oximetry (%) 90 L 06/16/16 21:00 Constitutional: Yes: No Distress Cardiovascular: Yes: Regular Rate and Rhythm Respiratory: Yes: Diminished Gastrointestinal: Yes: Normal Bowel Sounds, Soft. No: Tenderness Extremities: Yes: Other (left foot examined along with nurse-- extensive wet and dry gangrene over dorsum of left big toe and entire big toe.cyanotic toes, foul smelling, plantar surface has a necrotic ulcer) Edema: Yes Labs: CBC, BMP 06/15/16 18:30 INR, PTT INR 1.41 (0.82-1.09) H 06/15/16 18:30 Problem List - Problems (1) Coronary artery disease Code(s): I25.10 - ATHSCL HEART DISEASE OF [place] CORONARY ARTERY W/O ANG PCTRS Qualifiers: Coronary Disease-Associated Artery/Lesion type: unspecified vessel or lesion type [place] vs. transplanted heart: [place] heart Associated angina: angina presence unspecified Qualified Code(s): I25.10 - Atherosclerotic heart disease of [place] coronary artery without angina pectoris (2) Diabetes mellitus Code(s): E11.9 - TYPE 2 DIABETES MELLITUS WITHOUT COMPLICATIONS Qualifiers: Diabetes mellitus type: type 2 Diabetes mellitus complication status: with circulatory complication Diabetes mellitus complication detail: with peripheral angiopathy without gangrene Diabetes mellitus buttermaker helper insulin use: with usp use Qualified Code(s): E11.51 - Type 2 diabetes mellitus with diabetic peripheral angiopathy without gangrene; Z79.4 - halfway (current) use of insulin (3) Foot ulcer, left Code(s): L97.529 - NON-PRESSURE CHRONIC ULCER OTH PRT LEFT FOOT W UNSP SEVERITY Qualifiers: Non-pressure ulcer stage: with necrosis of muscle Qualified Code(s): L97.523 - Non-pressure chronic ulcer of other part of left foot with necrosis of muscle (4) Hypertension Code(s): I10 - ESSENTIAL (PRIMARY) HYPERTENSION Qualifiers: Hypertension type: essential hypertension Qualified Code(s): I10 - Essential (primary) hypertension (5) Obesity Code(s): E66.9 - OBESITY, UNSPECIFIED Assessment/Plan PLAN continue with Zosyn Cardiology eval noted or clearance Echo ordered Continue with meds Increase Levemir-- blood sugars elevated likely due to infection on Heparin infusion for PAD --SFA occlusion for angiogram likely Saturday
[2016-06-17] MEDS ORDERED: SENNOSIDES 8.6MG TABLET (FP) PO PRN (08:34)
[2016-06-17] MEDS: HEPARIN NA (PORCINE) 5,000 UNITS/ML 1ML VIAL IVPUSH PRN ×2 (09:19→18:51)
[2016-06-17] MEDS: DOCUSATE SODIUM 100 MG CAPSULE (FP) PO SCH ×2 (09:21→21:45)
[2016-06-17] MEDS: hydrALAZINE HCL 25 MG TABLET (FP) PO SCH ×2 (09:25→21:48)
[2016-06-17] MEDS: FOLIC ACID 1 MG TABLET (FP) PO SCH (09:26)
[2016-06-17] MEDS: ISOSORBIDE MONONITRATE 30 MG TAB.SR.24H (FP) PO SCH (09:26)
[2016-06-17] MEDS: METOPROLOL TARTRATE 50 MG TABLET (FP) PO SCH ×2 (09:26→21:48)
[2016-06-17] MEDS: ASPIRIN 81 MG CHEWABLE TABLETS PO SCH (09:26)
[2016-06-17] MEDS: AMIODARONE HCL 200 MG TABLET (FP) PO SCH (09:26)
[2016-06-17] MEDS: LISINOPRIL 20 MG TABLET (FP) PO SCH (09:27)
[2016-06-17] MEDS: CLOPIDOGREL BISULFATE 75 MG TABLET (FP) PO SCH (09:27)
[2016-06-17] MEDS: PANTOPRAZOLE 20 MG TABLET (FP) PO SCH (09:27)
[2016-06-17] MEDS: CHOLECALCIFEROL (VITAMIN D3) 400 UNIT TABLET (FP) PO SCH ×2 (09:27→21:48)
[2016-06-17] MEDS: oxyCODONE HCL 5 MG TABLET PO PRN ×2 (09:28→15:27)
[2016-06-17] MEDS: POLYETHYLENE GLYCOL 3350 119 GM BTL PO SCH (09:31)
[2016-06-17] MEDS: VANCOMYCIN 1 GRAM (PRE-DOCKED) 250 ML IVPB SCH ×2 (10:42→23:52)
[2016-06-17] MEDS: HEPARIN INFUSION - 500 ML IVPB SCH ×2 (12:32→18:52)
[2016-06-17] MEDS: ACETAMINOPHEN 325 MG TABLET (FP) PO PRN (14:33)
[2016-06-17] MEDS ORDERED: LISINOPRIL 10 MG TABLET (FP) PO ONE (15:07)
--- NOTE | 2016-06-17 15:11 | PN ---
Progress Note, Physician Chief Complaint: Pt denies chest pain, palpitations, dyspnea. still with + pain in left foot. History of Present Illness: The patient is a 76 year old white female, accompanied by daughter earlier in ER , with a significant past medical history of Diabetes, HTN, Vascular insufficiency, and CAD (?CABG 10 yrs ago), breast cancer (s/p right mastectomy) and extensive surgical history, who presents to the emergency department, from wound clinic by Dr. White, for further evaluation of left lower extremity ischemia. As per daughter the patients left great toe is black. The patient presents for a further evaluation and work up. - Current Medication List Current Medications: Active Medications Acetaminophen (Tylenol -) 650 mg PO Q4H PRN PRN Reason: FEVER OR PAIN Last Admin: 06/17/16 14:33 Dose: 650 mg Amiodarone HCl (Cordarone -) 200 mg PO DAILY [facility] Last Admin: 06/17/16 09:26 Dose: 200 mg Aspirin (Asa -) 81 mg PO DAILY [facility] Last Admin: 06/17/16 09:26 Dose: 81 mg Atorvastatin Calcium (Lipitor -) 40 mg PO HS [facility] Last Admin: 06/16/16 21:50 Dose: 40 mg Cholecalciferol (Vitamin D3 -) 400 unit PO BID [facility] Last Admin: 06/17/16 09:27 Dose: 400 unit Clopidogrel Bisulfate (Plavix -) 75 mg PO DAILY [facility] Docusate Sodium (Colace -) 100 mg PO Q12H [facility] Last Admin: 06/17/16 09:21 Dose: 100 mg Folic Acid (Folic Acid -) 1 mg PO DAILY [facility] Last Admin: 06/17/16 09:26 Dose: 1 mg Heparin Sodium (Porcine) (Heparin -) 1,000 unit IVPUSH PRN PRN PRN Reason: Heparin Heparin Sodium (Porcine) (Heparin -) 5,000 unit IVPUSH PRN PRN PRN Reason: Heparin Last Admin: 06/17/16 09:19 Dose: 5,000 unit Hydralazine HCl (Apresoline -) 25 mg PO BID [facility] Last Admin: 06/17/16 09:25 Dose: 25 mg Heparin Sodium/Dextrose (Heparin Infusion -) 500 mls @ 20 mls/hr IVPB TITR [facility] ; 1,000 UNITS/HR PRN Reason: Protocol Last Admin: 06/17/16 12:32 Dose: 29 mls/hr Vancomycin HCl (Vancomycin (Pre-Docked)) 250 mls @ 166.667 mls/hr IVPB 1130, 2330 [facility] Last Admin: 06/17/16 10:42 Dose: 166.667 mls/hr Piperacillin Sod/Tazobactam Sod (Zosyn 2.25gm Ivpb (Pre-Docked)) 50 mls @ 100 mls/hr IVPB Q8H-IV [facility] PRN Reason: Protocol Last Admin: 06/17/16 09:27 Dose: 100 mls/hr Insulin Aspart (Novolog Vial Sliding Scale -) 1 vial SQ ACHS [facility] PRN Reason: Protocol Last Admin: 06/17/16 12:15 Dose: 7 units Insulin Detemir (Levemir Vial) 18 units SQ HS [facility] Last Admin: 06/16/16 21:49 Dose: 18 units Isosorbide Mononitrate (Imdur -) 30 mg PO DAILY [facility] Last Admin: 06/17/16 09:26 Dose: 30 mg Lisinopril (Prinivil) 20 mg PO DAILY [facility] Last Admin: 06/17/16 09:27 Dose: 20 mg Metoprolol Tartrate (Lopressor -) 50 mg PO BID [facility] Last Admin: 06/17/16 09:26 Dose: 50 mg Ondansetron HCl (Zofran Injection) 4 mg IVPB Q8H PRN PRN Reason: NAUSEA AND/OR VOMITING Last Admin: 06/16/16 22:51 Dose: 4 mg Oxycodone HCl (Roxicodone -) 10 mg PO Q6H PRN PRN Reason: PAIN LEVEL 6-10 Last Admin: 06/17/16 09:28 Dose: 10 mg Pantoprazole Sodium (Protonix -) 20 mg PO DAILY [facility] Last Admin: 06/17/16 09:27 Dose: 20 mg Polyethylene Glycol (Miralax (For Daily Use) -) 17 gm PO DAILY [facility] Last Admin: 06/17/16 09:31 Dose: 17 gm Senna (Senna -) 2 tab PO HS PRN PRN Reason: CONSTIPATION - Objective Vital Signs: Vital Signs Temperature 98.2 F 06/17/16 09:35 Pulse Rate 64 06/17/16 09:35 Respiratory Rate 20 06/17/16 09:35 Blood Pressure 159/64 06/17/16 09:35 O2 Sat by Pulse Oximetry (%) 92 L 06/17/16 09:00 Constitutional: Yes: Calm Eyes: Yes: WNL HENT: Yes: WNL Neck: Yes: WNL Cardiovascular: Yes: Regular Rate and Rhythm, S4 Gastrointestinal: Yes: Soft ...Rectal Exam: Yes: Deferred Genitourinary: No: Anuria Musculoskeletal: Yes: Muscle Weakness Extremities: Yes: Cold Edema: Yes Edema: LLE: 1+ Peripheral Pulses WNL: No Peripheral Pulses: Left Doralis Pedis: 0, Right Dorsalis Pedis: 1+ Integumentary: Yes: Other Wound/Incision: Yes: Open to air, Other Neurological: Yes: Alert, Oriented, Weakness Psychiatric: Yes: Alert, Oriented Labs: CBC, BMP 06/17/16 07:00 06/15/16 18:30 INR, PTT INR 1.41 (0.82-1.09) H 06/15/16 18:30 Problem List - Problems (1) Cellulitis Code(s): L03.90 - CELLULITIS, UNSPECIFIED Qualifiers: Site of cellulitis: extremity Site of cellulitis of extremity: lower extremity Laterality: left Qualified Code(s): L03.116 - Cellulitis of left lower limb (2) Coronary artery disease Assessment/Plan: s/p CABG ? 2006 (obtain records, if possible). On amiodarone; she says it was restarted 3 years ago, but she says she has not seen a supervisor concrete block plant since. F/u ECHO for LVEF, chamber sizes, wall motion, valve status. Would strongly consider stopping amiodarone because of its many potential side effects (eg, pt believes a rash across her chest started after the mediication was restarted, and has been there ever since. Of more concern is the potential for eg thyroid disorder, pulmonary fibrosis). Code(s): I25.10 - ATHSCL HEART DISEASE OF [place] CORONARY ARTERY W/O ANG PCTRS Qualifiers: Coronary Disease-Associated Artery/Lesion type: unspecified vessel or lesion type [place] vs. transplanted heart: [place] heart Associated angina: angina presence unspecified Qualified Code(s): I25.10 - Atherosclerotic heart disease of [place] coronary artery without angina pectoris (3) Diabetes mellitus Code(s): E11.9 - TYPE 2 DIABETES MELLITUS WITHOUT COMPLICATIONS Qualifiers: Diabetes mellitus type: type 2 Diabetes mellitus complication status: with circulatory complication Diabetes mellitus complication detail: with peripheral angiopathy without gangrene Diabetes mellitus superintendent container terminal insulin use: with superintendent container terminal use Qualified Code(s): E11.51 - Type 2 diabetes mellitus with diabetic peripheral angiopathy without gangrene; Z79.4 - correction (current) use of insulin (4) Hypertension Assessment/Plan: BP remains elevated. Will increase lisinopril from 20 mg to 30 mg daily; F/u BP, BUN/Cr, electrolytes. Code(s): I10 - ESSENTIAL (PRIMARY) HYPERTENSION Qualifiers: Hypertension type: essential hypertension Qualified Code(s): I10 - Essential (primary) hypertension (5) Ischemia of both lower extremities Assessment/Plan: Examined pt's left foot with Dr. White;: severe ischemia, with imperative need for early revascularization; left great toe almost surely will need to be amputated. F/u ECHO for LVEF, wall motion, valve status. Pt's BP is elevated: pain and anxiety management; start hydralazine and Imdur; f/u LVEF, BUN/Cr, electrolytes. Planning for left LE revascularization and possible amputation of toe/s/foot tomorrow. Will get ECHO early, as this will help determine medical management. Pt has multiple risks for jillian-operative cardiac event, but needs the surgery as soon as possible. Code(s): I99.8 - OTHER DISORDER OF CIRCULATORY SYSTEM (6) Obesity Code(s): E66.9 - OBESITY, UNSPECIFIED (7) On amiodarone therapy Assessment/Plan: It is unclear why pt is on this medication; she says it was restarted three years ago, and she has not seen a supervisor concrete block plant since then (was seeing Dr. Johnson until that time). She feels she has had a rash across her chest since restarting amiodarone. Given the many potential and serious side-effects, will get blood level, ECHO, records of prior cardiac workup, and strongly consider stopping the medication unless she has refractory arrhythmias combined with severe LV dysfunction. TSH is WNL. Code(s): Z79.899 - OTHER JAIL (CURRENT) DRUG THERAPY
[2016-06-17] MEDS ORDERED: oxyCODONE HCL 5 MG TABLET PO PRN (15:47)
[2016-06-17] MEDS ORDERED: INSULIN (NOVOLOG) ASPART 100 UNITS/ML 10ML VIAL ONE (21:34)
[2016-06-17] MEDS: INSULIN DETEMIR 100 UNITS/ML MDV SQ SCH (21:48)
[2016-06-17] MEDS: ATORVASTATIN CA 40 MG TABLET (FP) PO SCH (21:48)
[2016-06-18] MEDS: PIPERACILLIN/TAZOB 2.25 GM 50 ML IVPB SCH ×3 (02:42→17:26)
[2016-06-18] MEDS: HEPARIN NA (PORCINE) 5,000 UNITS/ML 1ML VIAL IVPUSH PRN ×2 (03:04→09:53)
[2016-06-18] MEDS: HEPARIN INFUSION - 500 ML IVPB SCH ×5 (03:05→22:43)
[2016-06-18] MEDS: INSULIN SLIDING SCALE (NOVOLOG) 1 VIAL SQ SCH ×4 (06:11→22:46)
[2016-06-18] MEDS: DOCUSATE SODIUM 100 MG CAPSULE (FP) PO SCH ×2 (07:57→22:41)
[2016-06-18 08:56] LABS: BASOPHIL 0.4 % (0-2.0); EOSINOPHIL 1.2 % (0-4.5); MCH 30.5 pg (25.7-33.7); MCHC 33.1 g/dl (32.0-36.0); MEAN CELL VOLUME 92.2 fl (80-96); NEUTROPHILS 84.6 % (42.8-82.8); PLATELET COUNT 378 K/MM3 (134-434); RDW 13.9 % (11.6-15.6); WHITE BLOOD COUNT 20.7 K/mm3 (4.0-10.0)
--- NOTE | 2016-06-18 09:02 | PN ---
Progress Note (short form) - Note Progress Note: Subjective Patient seen and examined. Chart reviewed. For angiogram today. Denies chest pain or SOB. Pain in L foot. Objective Last Vital Signs Temp Pulse Resp BP Pulse Ox 98.2 F 62 20 157/62 94 L 06/18/16 05:00 06/18/16 05:00 06/18/16 05:00 06/18/16 05:00 06/17/16 21:00 CBC, BMP 06/18/16 07:10 06/18/16 07:10 Laboratory Results - last 24 hr 06/17/16 06/17/16 06/17/16 11:16 16:54 18:11 WBC RBC Hgb Hct MCV MCHC RDW Plt Count MPV Neutrophils % Lymphocytes % Monocytes % Eosinophils % Basophils % PTT (Actin FS) 39.2 H Sodium Potassium Chloride Carbon Dioxide Anion Gap BUN Creatinine Creat Clearance w eGFR POC Glucometer 267 263 Random Glucose Calcium Total Bilirubin AST ALT Alkaline Phosphatase Total Protein Albumin 06/17/16 06/18/16 06/18/16 21:54 00:50 06:10 WBC RBC Hgb Hct MCV MCHC RDW Plt Count MPV Neutrophils % Lymphocytes % Monocytes % Eosinophils % Basophils % PTT (Actin FS) 31.7 Sodium Potassium Chloride Carbon Dioxide Anion Gap BUN Creatinine Creat Clearance w eGFR POC Glucometer 204 259 Random Glucose Calcium Total Bilirubin AST ALT Alkaline Phosphatase Total Protein Albumin 06/18/16 06/18/16 06/18/16 07:10 07:10 07:10 WBC 20.7 H RBC 3.28 L Hgb 10.0 L Hct 30.3 L MCV 92.2 MCHC 33.1 RDW 13.9 Plt Count 378 MPV 8.0 Neutrophils % 84.6 H Lymphocytes % 7.0 L D Monocytes % 6.8 Eosinophils % 1.2 D Basophils % 0.4 PTT (Actin FS) 33.0 Sodium 132 L Potassium 3.8 Chloride 92 L Carbon Dioxide 30 Anion Gap 10 BUN 10 D Creatinine 1.1 H Creat Clearance w eGFR 48.16 POC Glucometer Random Glucose 219 H D Calcium 7.5 L Total Bilirubin 0.3 D AST 11 L D ALT 19 Alkaline Phosphatase 112 Total Protein 5.4 L Albumin 1.5 L D Physical Exam Constitutional: Yes: No Distress Cardiovascular: Yes: Regular Rate and Rhythm Respiratory: Yes: Diminished Gastrointestinal: Yes: Normal Bowel Sounds, Soft. No: Distention, Tenderness Extremities: Yes: Other (left foot wound)--- L greater toe necrotic/ischemic Edema: Yes Edema: LLE: 1+ Psychiatric: Yes: Alert, Oriented Assessment and Plan Continue abx. Heparin Monitor BGM. Increase Levemir. Scheduled for angiogram today. Will need amputation of L great toe. Will follow. Echo today. Cardiology on case. Documentation prepared by Carrie Marsh, acting as a medical oncology physician for Carmen Salazar MD. <Carrie Marsh - Last Filed: 06/18/16 09:47> Problem List - Problems (1) Cellulitis Code(s): L03.90 - CELLULITIS, UNSPECIFIED Qualifiers: Site of cellulitis: extremity Site of cellulitis of extremity: lower extremity Laterality: left Qualified Code(s): L03.116 - Cellulitis of left lower limb (2) Coronary artery disease Code(s): I25.10 - ATHSCL HEART DISEASE OF [place] CORONARY ARTERY W/O ANG PCTRS Qualifiers: Coronary Disease-Associated Artery/Lesion type: unspecified vessel or lesion type [place] vs. transplanted heart: [place] heart Associated angina: angina presence unspecified Qualified Code(s): I25.10 - Atherosclerotic heart disease of [place] coronary artery without angina pectoris (3) Diabetes mellitus Code(s): E11.9 - TYPE 2 DIABETES MELLITUS WITHOUT COMPLICATIONS Qualifiers: Diabetes mellitus type: type 2 Diabetes mellitus complication status: with circulatory complication Diabetes mellitus complication detail: with peripheral angiopathy without gangrene Diabetes mellitus termination clerk insulin use: with termination clerk use Qualified Code(s): E11.51 - Type 2 diabetes mellitus with diabetic peripheral angiopathy without gangrene; Z79.4 - rn long term care (current) use of insulin (4) Foot ulcer, left Code(s): L97.529 - NON-PRESSURE CHRONIC ULCER OTH PRT LEFT FOOT W UNSP SEVERITY Qualifiers: Non-pressure ulcer stage: with necrosis of muscle Qualified Code(s) : L97.523 - Non-pressure chronic ulcer of other part of left foot with necrosis of muscle (5) Hypertension Code(s): I10 - ESSENTIAL (PRIMARY) HYPERTENSION Qualifiers: Hypertension type: essential hypertension Qualified Code(s): I10 - Essential (primary) hypertension (7) Ischemia of both lower extremities Code(s): I99.8 - OTHER DISORDER OF CIRCULATORY SYSTEM (8) Obesity Code(s): E66.9 - OBESITY, UNSPECIFIED <Carmen Salazar - Last Filed: 06/18/16 09:01>
[2016-06-18 09:09] LABS: ALBUMIN 1.5 g/dl (3.4-5.0); CALCIUM 7.5 mg/dL (8.5-10.1); COCKROFT - GAULT 68.697; CREATININE 1.1 mg/dL (0.55-1.02)
[2016-06-18 09:11] LABS: BILIRUBIN,TOTAL 0.3 mg/dL (0.2-1.0); TOT PROT 5.4 g/dl (6.4-8.2)
[2016-06-18] MEDS: hydrALAZINE HCL 25 MG TABLET (FP) PO SCH ×2 (09:31→22:41)
[2016-06-18] MEDS: METOPROLOL TARTRATE 50 MG TABLET (FP) PO SCH ×2 (09:31→22:41)
[2016-06-18] MEDS: ISOSORBIDE MONONITRATE 30 MG TAB.SR.24H (FP) PO SCH (09:31)
[2016-06-18] MEDS: ASPIRIN 81 MG CHEWABLE TABLETS PO SCH (09:31)
[2016-06-18] MEDS: PANTOPRAZOLE 20 MG TABLET (FP) PO SCH (09:32)
[2016-06-18] MEDS: AMIODARONE HCL 200 MG TABLET (FP) PO SCH (09:32)
[2016-06-18] MEDS: POLYETHYLENE GLYCOL 3350 119 GM BTL PO SCH (09:32)
[2016-06-18] MEDS: CHOLECALCIFEROL (VITAMIN D3) 400 UNIT TABLET (FP) PO SCH ×2 (09:32→22:41)
[2016-06-18] MEDS: FOLIC ACID 1 MG TABLET (FP) PO SCH (09:32)
--- NOTE | 2016-06-18 09:36 | PN ---
Progress Note (short form) - Note Progress Note: Vascular Surgery Pt seen and examined. Left foot gangrene for the last two weeks. White count elevated -- 21. For angiogram, with crosser device to open occluded SFA. Echo done this morning. awaiting results. Cont IV heparin. Abhilash White DO
[2016-06-18] MEDS ORDERED: CLOPIDOGREL BISULFATE 75 MG TABLET (FP) PO SCH (10:00)
[2016-06-18] MEDS ORDERED: LISINOPRIL 10 MG TABLET (FP) PO SCH (10:00)
[2016-06-18] MEDS: VANCOMYCIN 1 GRAM (PRE-DOCKED) 250 ML IVPB SCH (10:41)
[2016-06-18] MEDS ORDERED: HEPARIN INFUSION - 500 ML IVPB SCH ×2 (11:00→13:46)
[2016-06-18] MEDS ORDERED: HEPARIN NA (PORCINE) 5,000 UNITS/ML 1ML VIAL IVPUSH PRN ×8 (11:01→13:46)
[2016-06-18] MEDS ORDERED: INSULIN (NOVOLOG) ASPART 100 UNITS/ML 10ML VIAL ONE (11:25)
[2016-06-18] MEDS ORDERED: MIDAZOLAM HCL 2 MG/2 ML SINGLE DOSE VIAL ONE (11:54)
[2016-06-18] MEDS ORDERED: ceFAZolin SODIUM 1 GM VIAL ONE (12:31)
[2016-06-18] MEDS ORDERED: ceFAZolin SODIUM 1 GM VIAL IVPB ONE (12:38)
[2016-06-18] MEDS ORDERED: HEPARIN NA (PORCINE) 5,000 UNITS/ML 1ML VIAL ONE (12:39)
[2016-06-18] MEDS ORDERED: ACETAMINOPHEN 1000 MG/100 ML VIAL (NON FORMULARY) IVPB PRN (13:29)
--- NOTE | 2016-06-18 13:29 | PN ---
Progress Note (short form) - Note Progress Note: Vascular Surgery Angiogram LLE performed. Pt has severe calicifications of all blood vessels. Left SFA is occluded from the origin. Reconstitutes at popliteal level. Will perform angiogram, retrograde santo to open SFA. If unsuccessful , pt will need fem-distal bypass. Echo reading pending. NPO past midnight. Cont IV heparin. Abhilash White DO
[2016-06-18] MEDS ORDERED: SODIUM CHLORIDE 1,000 ML IV SCH (13:30)
[2016-06-18] MEDS ORDERED: SENNOSIDES 8.6MG TABLET (FP) PO PRN (13:46)
[2016-06-18] MEDS ORDERED: ONDANSETRON 4 MG/2 ML VIAL IVPB PRN (13:46)
[2016-06-18] MEDS ORDERED: oxyCODONE HCL 5 MG TABLET PO PRN (13:46)
[2016-06-18] MEDS ORDERED: ACETAMINOPHEN 325 MG TABLET (FP) PO PRN (13:46)
[2016-06-18] MEDS ORDERED: ATORVASTATIN CA 40 MG TABLET (FP) PO SCH (22:00)
[2016-06-18] MEDS ORDERED: INSULIN DETEMIR 100 UNITS/ML MDV SQ SCH ×2 (22:00)
[2016-06-18 22:17] LABS: INR 1.31 (0.82-1.09); PROTHROMBIN TIME (PATIENT) 14.5 SEC (9.98-11.88)
[2016-06-19] MEDS: VANCOMYCIN 1 GRAM (PRE-DOCKED) 250 ML IVPB SCH ×2 (00:18→12:09)
[2016-06-19] MEDS: HEPARIN INFUSION - 500 ML IVPB SCH ×2 (02:00→16:40)
[2016-06-19] MEDS: PIPERACILLIN/TAZOB 2.25 GM 50 ML IVPB SCH ×3 (03:01→17:28)
[2016-06-19] MEDS: INSULIN SLIDING SCALE (NOVOLOG) 1 VIAL SQ SCH ×4 (06:39→22:17)
[2016-06-19 08:43] LABS: MCH 30.2 pg (25.7-33.7); MEAN CELL VOLUME 91.6 fl (80-96); PLATELET COUNT 412 K/MM3 (134-434); RDW 13.8 % (11.6-15.6); WHITE BLOOD COUNT 19.5 K/mm3 (4.0-10.0)
[2016-06-19] MEDS: hydrALAZINE HCL 25 MG TABLET (FP) PO SCH ×2 (09:23→21:54)
[2016-06-19] MEDS: METOPROLOL TARTRATE 50 MG TABLET (FP) PO SCH ×2 (09:23→21:54)
[2016-06-19] MEDS: DOCUSATE SODIUM 100 MG CAPSULE (FP) PO SCH ×2 (09:27→21:53)
[2016-06-19] MEDS: CHOLECALCIFEROL (VITAMIN D3) 400 UNIT TABLET (FP) PO SCH ×2 (09:28→21:55)
--- NOTE | 2016-06-19 09:50 | PN ---
Progress Note, Physician Chief Complaint: Denies chest pain. History of Present Illness: Dr. Paige's weekend notes reviewed: "76 year old white female, accompanied by daughter earlier in ER, with a significant past medical history of Diabetes, HTN, Vascular insufficiency, and CAD (?CABG 10 yrs ago), breast cancer (s/p right mastectomy) and extensive surgical history, who presents to the emergency department, from wound clinic by Dr. White, for further evaluation of left lower extremity ischemia. As per daughter the patients left great toe is black. The patient presents for a further evaluation and work up. " Discussed with Dr. White: plan is for attempt at perc revasc today. May need open bypass if not successful (would be tomorrow or ) Echo: EF low normal. - Current Medication List Current Medications: Active Medications Acetaminophen (Tylenol -) 650 mg PO Q4H PRN PRN Reason: FEVER OR PAIN Amiodarone HCl (Cordarone -) 200 mg PO DAILY [facility] Last Admin: 06/19/16 09:28 Dose: Not Given Aspirin (Asa -) 81 mg PO DAILY [facility] Last Admin: 06/19/16 09:27 Dose: Not Given Atorvastatin Calcium (Lipitor -) 40 mg PO HS [facility] Last Admin: 06/18/16 22:41 Dose: 40 mg Cholecalciferol (Vitamin D3 -) 400 unit PO BID [facility] Last Admin: 06/19/16 09:28 Dose: Not Given Clopidogrel Bisulfate (Plavix -) 75 mg PO DAILY [facility] Last Admin: 06/19/16 09:28 Dose: Not Given Docusate Sodium (Colace -) 100 mg PO BID [facility] Last Admin: 06/19/16 09:27 Dose: Not Given Fentanyl (Sublimaze Injection -) 25 mcg IVPUSH [id number] PRN PRN Reason: PAIN Stop: 06/21/16 13:31 Folic Acid (Folic Acid -) 1 mg PO DAILY [facility] Last Admin: 06/19/16 09:28 Dose: Not Given Heparin Sodium (Porcine) (Heparin -) 1,000 unit IVPUSH PRN PRN PRN Reason: Heparin Heparin Sodium (Porcine) (Heparin -) 5,000 unit IVPUSH PRN PRN PRN Reason: Heparin Heparin Sodium (Porcine) (Heparin -) 1,000 unit IVPUSH PRN PRN PRN Reason: Heparin Heparin Sodium (Porcine) (Heparin -) 5,000 unit IVPUSH PRN PRN PRN Reason: Heparin Hydralazine HCl (Apresoline -) 25 mg PO BID [facility] Last Admin: 06/19/16 09:23 Dose: 25 mg Heparin Sodium/Dextrose (Heparin Infusion -) 500 mls @ 20 mls/hr IVPB TITR [facility] ; 1,000 UNITS/HR PRN Reason: Protocol Last Admin: 06/19/16 02:00 Dose: 20 mls/hr Heparin Sodium/Dextrose (Heparin Infusion -) 500 mls @ 20 mls/hr IVPB TITR [facility] ; 1,000 UNITS/HR PRN Reason: Protocol Last Admin: 06/18/16 17:54 Dose: Not Given Piperacillin Sod/Tazobactam Sod (Zosyn 2.25gm Ivpb (Pre-Docked)) 50 mls @ 100 mls/hr IVPB Q8H-IV [facility] PRN Reason: Protocol Last Admin: 06/19/16 09:24 Dose: 100 mls/hr Vancomycin HCl (Vancomycin (Pre-Docked)) 250 mls @ 166.667 mls/hr IVPB 1130, 2330 [facility] Last Admin: 06/19/16 00:18 Dose: 166.667 mls/hr Insulin Aspart (Novolog Vial Sliding Scale -) 1 vial SQ ACHS [facility] PRN Reason: Protocol Last Admin: 06/19/16 06:39 Dose: 7 unit Insulin Detemir (Levemir Vial) 22 units SQ HS [facility] Last Admin: 06/18/16 22:41 Dose: Not Given Isosorbide Mononitrate (Imdur -) 30 mg PO DAILY [facility] Last Admin: 06/19/16 09:23 Dose: 30 mg Lisinopril (Prinivil) 30 mg PO DAILY [facility] Last Admin: 06/19/16 09:23 Dose: 30 mg Metoprolol Tartrate (Lopressor -) 50 mg PO BID [facility] Last Admin: 06/19/16 09:23 Dose: 50 mg Ondansetron HCl (Zofran Injection) 4 mg IVPB Q8H PRN PRN Reason: NAUSEA AND/OR VOMITING Oxycodone HCl (Roxicodone -) 10 mg PO Q4H PRN PRN Reason: PAIN LEVEL 6-10 Last Admin: 04/11/17 09:22 Dose: 10 mg Pantoprazole Sodium (Protonix -) 20 mg PO DAILY [facility] Last Admin: 06/19/16 09:28 Dose: Not Given Polyethylene Glycol (Miralax (For Daily Use) -) 17 gm PO DAILY [facility] Last Admin: 06/19/16 09:28 Dose: Not Given Senna (Senna -) 2 tab PO HS PRN PRN Reason: CONSTIPATION - Objective Vital Signs: Vital Signs Temperature 99.4 F 06/19/16 09:36 Pulse Rate 63 06/19/16 09:36 Respiratory Rate 18 06/19/16 09:36 Blood Pressure 175/82 06/19/16 09:36 O2 Sat by Pulse Oximetry (%) 98 06/18/16 21:00 Constitutional: Yes: No Distress Cardiovascular: Yes: Regular Rate and Rhythm Respiratory: Yes: CTA Bilaterally Gastrointestinal: Yes: Soft (non-tender) Edema: No Labs: CBC, BMP 06/19/16 07:45 06/18/16 07:10 INR, PTT INR 1.31 (0.82-1.09) H 06/18/16 20:20 Assessment/Plan IMP: Severe PAD w/ gangrene LLE History CAD REC: Plan is for attempt at percutaneous revascularization today, no cardiac contraindications. If patient requires open bypass, would perform persantine MIBI prior for further risk stratification. D/W Dr. White- we can stress in AM with possible open bypass later in day pending results. BP is slightly above goal this AM, would monitor closely through day and titrate Lisinopril if remains persistently elevated. AC and antiplatelet therapy as per Vascular Surgery.
--- NOTE | 2016-06-19 09:54 | PN ---
Progress Note, Physician Chief Complaint: Pt A&Ox3; besides pain in left foot, pt denies symptoms. History of Present Illness: The patient is a 76 year old white female, accompanied by daughter earlier in ER , with a significant past medical history of Diabetes, HTN, Vascular insufficiency, and CAD (?CABG 10 yrs ago), breast cancer (s/p right mastectomy) and extensive surgical history, who presents to the emergency department, from wound clinic by Dr. White, for further evaluation of left lower extremity ischemia. As per daughter the patients left great toe is black. The patient presents for a further evaluation and work up. - Current Medication List Current Medications: Active Medications Acetaminophen (Tylenol -) 650 mg PO Q4H PRN PRN Reason: FEVER OR PAIN Amiodarone HCl (Cordarone -) 200 mg PO DAILY [facility] Last Admin: 06/19/16 09:28 Dose: Not Given Aspirin (Asa -) 81 mg PO DAILY [facility] Last Admin: 06/19/16 09:27 Dose: Not Given Atorvastatin Calcium (Lipitor -) 40 mg PO HS [facility] Last Admin: 06/18/16 22:41 Dose: 40 mg Cholecalciferol (Vitamin D3 -) 400 unit PO BID [facility] Last Admin: 06/19/16 09:28 Dose: Not Given Clopidogrel Bisulfate (Plavix -) 75 mg PO DAILY [facility] Last Admin: 06/19/16 09:28 Dose: Not Given Docusate Sodium (Colace -) 100 mg PO BID [facility] Last Admin: 06/19/16 09:27 Dose: Not Given Fentanyl (Sublimaze Injection -) 25 mcg IVPUSH [id number] PRN PRN Reason: PAIN Stop: 06/21/16 13:31 Folic Acid (Folic Acid -) 1 mg PO DAILY [facility] Last Admin: 06/19/16 09:28 Dose: Not Given Heparin Sodium (Porcine) (Heparin -) 1,000 unit IVPUSH PRN PRN PRN Reason: Heparin Heparin Sodium (Porcine) (Heparin -) 5,000 unit IVPUSH PRN PRN PRN Reason: Heparin Heparin Sodium (Porcine) (Heparin -) 1,000 unit IVPUSH PRN PRN PRN Reason: Heparin Heparin Sodium (Porcine) (Heparin -) 5,000 unit IVPUSH PRN PRN PRN Reason: Heparin Hydralazine HCl (Apresoline -) 25 mg PO BID [facility] Last Admin: 04/11/17 09:23 Dose: 25 mg Heparin Sodium/Dextrose (Heparin Infusion -) 500 mls @ 20 mls/hr IVPB TITR [facility] ; 1,000 UNITS/HR PRN Reason: Protocol Last Admin: 06/19/16 02:00 Dose: 20 mls/hr Heparin Sodium/Dextrose (Heparin Infusion -) 500 mls @ 20 mls/hr IVPB TITR [facility] ; 1,000 UNITS/HR PRN Reason: Protocol Last Admin: 06/18/16 17:54 Dose: Not Given Piperacillin Sod/Tazobactam Sod (Zosyn 2.25gm Ivpb (Pre-Docked)) 50 mls @ 100 mls/hr IVPB Q8H-IV [facility] PRN Reason: Protocol Last Admin: 06/19/16 09:24 Dose: 100 mls/hr Vancomycin HCl (Vancomycin (Pre-Docked)) 250 mls @ 166.667 mls/hr IVPB 1130, 2330 [facility] Last Admin: 06/19/16 00:18 Dose: 166.667 mls/hr Insulin Aspart (Novolog Vial Sliding Scale -) 1 vial SQ ACHS [facility] PRN Reason: Protocol Last Admin: 06/19/16 06:39 Dose: 7 unit Insulin Detemir (Levemir Vial) 22 units SQ HS [facility] Last Admin: 06/18/16 22:41 Dose: Not Given Isosorbide Mononitrate (Imdur -) 30 mg PO DAILY [facility] Last Admin: 06/19/16 09:23 Dose: 30 mg Lisinopril (Prinivil) 30 mg PO DAILY [facility] Last Admin: 06/19/16 09:23 Dose: 30 mg Metoprolol Tartrate (Lopressor -) 50 mg PO BID [facility] Last Admin: 06/19/16 09:23 Dose: 50 mg Ondansetron HCl (Zofran Injection) 4 mg IVPB Q8H PRN PRN Reason: NAUSEA AND/OR VOMITING Oxycodone HCl (Roxicodone -) 10 mg PO Q4H PRN PRN Reason: PAIN LEVEL 6-10 Last Admin: 06/19/16 09:22 Dose: 10 mg Pantoprazole Sodium (Protonix -) 20 mg PO DAILY [facility] Last Admin: 06/19/16 09:28 Dose: Not Given Polyethylene Glycol (Miralax (For Daily Use) -) 17 gm PO DAILY [facility] Last Admin: 06/19/16 09:28 Dose: Not Given Senna (Senna -) 2 tab PO HS PRN PRN Reason: CONSTIPATION - Objective Vital Signs: Vital Signs Temperature 99.4 F 06/19/16 09:36 Pulse Rate 63 06/19/16 09:36 Respiratory Rate 18 06/19/16 09:36 Blood Pressure 175/82 06/19/16 09:36 O2 Sat by Pulse Oximetry (%) 98 06/18/16 21:00 Constitutional: Yes: Calm Eyes: Yes: WNL HENT: Yes: WNL Neck: Yes: WNL Cardiovascular: Yes: Regular Rate and Rhythm Respiratory: Yes: Regular Gastrointestinal: Yes: Soft, Abdomen, Obese ...Rectal Exam: Yes: Deferred Genitourinary: No: Anuria Musculoskeletal: Yes: Muscle Weakness Extremities: Yes: Cool Peripheral Pulses WNL: No Wound/Incision: Yes: Other (gangrene big toe (left)) Neurological: Yes: Alert, Oriented, Weakness Psychiatric: Yes: WNL Labs: CBC, BMP 06/19/16 07:45 06/18/16 07:10 INR, PTT INR 1.31 (0.82-1.09) H 06/18/16 20:20 Problem List - Problems (1) Cellulitis Code(s): L03.90 - CELLULITIS, UNSPECIFIED Qualifiers: Site of cellulitis: extremity Site of cellulitis of extremity: lower extremity Laterality: left Qualified Code(s): L03.116 - Cellulitis of left lower limb (2) Coronary artery disease Assessment/Plan: s/p CABG ? 2006 (obtain records, if possible). On amiodarone; she says it was restarted 3 years ago, but she says she has not seen a fashion consultant sales since. ECHO: low normal LVEF. . WIll stop amiodarone; await cardiac records. Code(s): I25.10 - ATHSCL HEART DISEASE OF [place] CORONARY ARTERY W/O ANG PCTRS Qualifiers: Coronary Disease-Associated Artery/Lesion type: unspecified vessel or lesion type [place] vs. transplanted heart: [place] heart Associated angina: angina presence unspecified Qualified Code(s): I25.10 - Atherosclerotic heart disease of [place] coronary artery without angina pectoris (3) Diabetes mellitus Code(s): E11.9 - TYPE 2 DIABETES MELLITUS WITHOUT COMPLICATIONS Qualifiers: Diabetes mellitus type: type 2 Diabetes mellitus complication status: with circulatory complication Diabetes mellitus complication detail: with peripheral angiopathy without gangrene Diabetes mellitus predatory animal exterminator insulin use: with mcc use Qualified Code(s): E11.51 - Type 2 diabetes mellitus with diabetic peripheral angiopathy without gangrene; Z79.4 - intermediate school teacher (current) use of insulin (4) Hypertension Code(s): I10 - ESSENTIAL (PRIMARY) HYPERTENSION Qualifiers: Hypertension type: essential hypertension Qualified Code(s): I10 - Essential (primary) hypertension (5) Ischemia of both lower extremities Assessment/Plan: Examined pt's left foot with Dr. White;: severe ischemia, with imperative need for early revascularization; left great toe almost surely will need to be amputated. F/u ECHO for LVEF, wall motion, valve status. Pt's BP is elevated: pain and anxiety management; start hydralazine and Imdur; f/u LVEF, BUN/Cr, electrolytes. ECHO: preliminary reading shows minimally decreased or normal LVEF; +mild MR and TR. From a cardiac standpoint, there are no absolute contraindications for Ms. Alberto to undergo LE angiogram and possible amputation of toes and/or foot. Code(s): I99.8 - OTHER DISORDER OF CIRCULATORY SYSTEM (6) Obesity Code(s): E66.9 - OBESITY, UNSPECIFIED (7) On amiodarone therapy Code(s): Z79.899 - OTHER CINDER BLOCK MAKER (CURRENT) DRUG THERAPY
[2016-06-19] MEDS ORDERED: PANTOPRAZOLE 20 MG TABLET (FP) PO SCH (10:00)
[2016-06-19] MEDS ORDERED: LISINOPRIL 10 MG TABLET (FP) PO SCH (10:00)
[2016-06-19] MEDS ORDERED: FOLIC ACID 1 MG TABLET (FP) PO SCH (10:00)
[2016-06-19] MEDS ORDERED: CLOPIDOGREL BISULFATE 75 MG TABLET (FP) PO SCH (10:00)
[2016-06-19] MEDS ORDERED: POLYETHYLENE GLYCOL 3350 119 GM BTL PO SCH (10:00)
[2016-06-19] MEDS ORDERED: AMIODARONE HCL 200 MG TABLET (FP) PO SCH (10:00)
[2016-06-19] MEDS ORDERED: ISOSORBIDE MONONITRATE 30 MG TAB.SR.24H (FP) PO SCH (10:00)
[2016-06-19] MEDS ORDERED: ASPIRIN 81 MG CHEWABLE TABLETS PO SCH (10:00)
[2016-06-19] MEDS ORDERED: HEPARIN NA (PORCINE) 5,000 UNITS/ML 1ML VIAL ONE (10:33)
[2016-06-19] MEDS ORDERED: LIDOCAINE HCL 1%, 10 MG/ML (20ML VIAL) ONE (10:34)
[2016-06-19] MEDS ORDERED: MIDAZOLAM HCL 2 MG/2 ML SINGLE DOSE VIAL ONE (10:42)
[2016-06-19] MEDS ORDERED: PROPOFOL 20 ML ONE ×2 (10:43)
--- NOTE | 2016-06-19 11:21 | PN ---
[id number]: Active Medications Acetaminophen (Tylenol -) 650 mg PO Q4H PRN PRN Reason: FEVER OR PAIN Amiodarone HCl (Cordarone -) 200 mg PO DAILY [facility] Last Admin: 06/19/16 09:28 Dose: Not Given Aspirin (Asa -) 81 mg PO DAILY [facility] Last Admin: 06/19/16 09:27 Dose: Not Given Atorvastatin Calcium (Lipitor -) 40 mg PO HS [facility] Last Admin: 06/18/16 22:41 Dose: 40 mg Cholecalciferol (Vitamin D3 -) 400 unit PO BID [facility] Last Admin: 06/19/16 09:28 Dose: Not Given Clopidogrel Bisulfate (Plavix -) 75 mg PO DAILY [facility] Last Admin: 06/19/16 09:28 Dose: Not Given Docusate Sodium (Colace -) 100 mg PO BID [facility] Last Admin: 06/19/16 09:27 Dose: Not Given Fentanyl (Sublimaze Injection -) 25 mcg IVPUSH [id number] PRN PRN Reason: PAIN Stop: 06/21/16 13:31 Folic Acid (Folic Acid -) 1 mg PO DAILY [facility] Last Admin: 06/19/16 09:28 Dose: Not Given Heparin Sodium (Porcine) (Heparin -) 1,000 unit IVPUSH PRN PRN PRN Reason: Heparin Heparin Sodium (Porcine) (Heparin -) 5,000 unit IVPUSH PRN PRN PRN Reason: Heparin Last Admin: 06/19/16 10:20 Dose: 5,000 unit Heparin Sodium (Porcine) (Heparin -) 1,000 unit IVPUSH PRN PRN PRN Reason: Heparin Heparin Sodium (Porcine) (Heparin -) 5,000 unit IVPUSH PRN PRN PRN Reason: Heparin Hydralazine HCl (Apresoline -) 25 mg PO BID [facility] Last Admin: 06/19/16 09:23 Dose: 25 mg Heparin Sodium/Dextrose (Heparin Infusion -) 500 mls @ 20 mls/hr IVPB TITR [facility] ; 1,000 UNITS/HR PRN Reason: Protocol Last Admin: 06/19/16 02:00 Dose: 20 mls/hr Heparin Sodium/Dextrose (Heparin Infusion -) 500 mls @ 20 mls/hr IVPB TITR [facility] ; 1,000 UNITS/HR PRN Reason: Protocol Last Admin: 06/18/16 17:54 Dose: Not Given Piperacillin Sod/Tazobactam Sod (Zosyn 2.25gm Ivpb (Pre-Docked)) 50 mls @ 100 mls/hr IVPB Q8H-IV [facility] PRN Reason: Protocol Last Admin: 06/19/16 09:24 Dose: 100 mls/hr Vancomycin HCl (Vancomycin (Pre-Docked)) 250 mls @ 166.667 mls/hr IVPB 1130, 2330 [facility] Last Admin: 06/19/16 00:18 Dose: 166.667 mls/hr Insulin Aspart (Novolog Vial Sliding Scale -) 1 vial SQ ACHS [facility] PRN Reason: Protocol Last Admin: 06/19/16 06:39 Dose: 7 unit Insulin Detemir (Levemir Vial) 22 units SQ HS [facility] Last Admin: 06/18/16 22:41 Dose: Not Given Isosorbide Mononitrate (Imdur -) 30 mg PO DAILY [facility] Last Admin: 06/19/16 09:23 Dose: 30 mg Lisinopril (Prinivil) 30 mg PO DAILY [facility] Last Admin: 06/19/16 09:23 Dose: 30 mg Metoprolol Tartrate (Lopressor -) 50 mg PO BID [facility] Last Admin: 06/19/16 09:23 Dose: 50 mg Ondansetron HCl (Zofran Injection) 4 mg IVPB Q8H PRN PRN Reason: NAUSEA AND/OR VOMITING Oxycodone HCl (Roxicodone -) 10 mg PO Q4H PRN PRN Reason: PAIN LEVEL 6-10 Last Admin: 06/19/16 09:22 Dose: 10 mg Pantoprazole Sodium (Protonix -) 20 mg PO DAILY [facility] Last Admin: 06/19/16 09:28 Dose: Not Given Polyethylene Glycol (Miralax (For Daily Use) -) 17 gm PO DAILY [facility] Last Admin: 06/19/16 09:28 Dose: Not Given Senna (Senna -) 2 tab PO HS PRN PRN Reason: CONSTIPATION - Objective Vital Signs: Vital Signs Temperature 99.4 F 06/19/16 09:36 Pulse Rate 63 06/19/16 09:36 Respiratory Rate 18 06/19/16 09:36 Blood Pressure 175/82 06/19/16 09:36 O2 Sat by Pulse Oximetry (%) 98 06/18/16 21:00 Constitutional: Yes: No Distress Cardiovascular: Yes: Regular Rate and Rhythm Respiratory: Yes: Diminished Gastrointestinal: Yes: Normal Bowel Sounds, Soft, Abdomen, Obese. No: Tenderness Edema: Yes Labs: CBC, BMP 06/19/16 07:45 06/18/16 07:10 INR, PTT INR 1.31 (0.82-1.09) H 06/18/16 20:20 Problem List - Problems (1) Coronary artery disease Code(s): I25.10 - ATHSCL HEART DISEASE OF [place] CORONARY ARTERY W/O ANG PCTRS Qualifiers: Coronary Disease-Associated Artery/Lesion type: unspecified vessel or lesion type [place] vs. transplanted heart: [place] heart Associated angina: angina presence unspecified Qualified Code(s): I25.10 - Atherosclerotic heart disease of [place] coronary artery without angina pectoris (2) Diabetes mellitus Code(s): E11.9 - TYPE 2 DIABETES MELLITUS WITHOUT COMPLICATIONS Qualifiers: Diabetes mellitus type: type 2 Diabetes mellitus complication status: with circulatory complication Diabetes mellitus complication detail: with peripheral angiopathy without gangrene Diabetes mellitus keno terminal operator insulin use: with keno terminal operator use Qualified Code(s): E11.51 - Type 2 diabetes mellitus with diabetic peripheral angiopathy without gangrene; Z79.4 - half-way (current) use of insulin (3) Foot ulcer, left Code(s): L97.529 - NON-PRESSURE CHRONIC ULCER OTH PRT LEFT FOOT W UNSP SEVERITY Qualifiers: Non-pressure ulcer stage: with necrosis of muscle Qualified Code(s): L97.523 - Non-pressure chronic ulcer of other part of left foot with necrosis of muscle (4) Hypertension Code(s): I10 - ESSENTIAL (PRIMARY) HYPERTENSION Qualifiers: Hypertension type: essential hypertension Qualified Code(s): I10 - Essential (primary) hypertension (5) Obesity Code(s): E66.9 - OBESITY, UNSPECIFIED Assessment/Plan PLAN continue with antibiotics for angiogram will need stress test prior to bypass surgery Echo noted Continue with meds on Heparin infusion for PAD --SFA occlusion
[2016-06-19] MEDS ORDERED: LIDOCAINE HCL 1%, 10 MG/ML (50 mL VIAL) IJ ONE ×2 (11:37)
[2016-06-19] MEDS ORDERED: GLYCOPYRROLATE 0.2 MG/1 ML VIAL ONE (11:39)
[2016-06-19] MEDS ORDERED: VANCOMYCIN 1,000 MG VIAL (RESTRICTED TO ID ONLY) IVPB ONE (12:15)
--- NOTE | 2016-06-19 13:34 | PN ---
Progress Note (short form) - Note Progress Note: Vascular Surgery Angiogram done left lower ext - retrograde from popliteal artery Unable to cross entire occlusion. Pt has peroneal runoff into foot. Spoke to cardiology -- they will perform stress test on her santo Will do bypass santo. Explained to pt that her bypass might have to be done with PTFE instead of vein. Vein is small in left thigh and might not have adequate length. Also patency rates for fem-distal bypass with PTFE are about 30% at one year. Explained this to pt as well. Left foot infection secondary to ulcer on plantar aspect. Now infected and not able to heal due to circulation being compromised. Also spoke to pt about other options such as BKA. Will speak to family again to decide on a plan. Abhilash White DO
[2016-06-19] MEDS ORDERED: HEPARIN NA (PORCINE) 5,000 UNITS/ML 1ML VIAL IVPUSH PRN ×3 (13:38→13:45)
[2016-06-19] MEDS ORDERED: ONDANSETRON 4 MG/2 ML VIAL IVPB PRN (13:45)
[2016-06-19] MEDS ORDERED: ACETAMINOPHEN 325 MG TABLET (FP) PO PRN (13:45)
[2016-06-19] MEDS ORDERED: HEPARIN INFUSION - 500 ML IVPB SCH (13:45)
[2016-06-19] MEDS ORDERED: SENNOSIDES 8.6MG TABLET (FP) PO PRN (13:45)
[2016-06-19] MEDS ORDERED: ACETAMINOPHEN 500 MG TABLET (FP) PO PRN (13:50)
[2016-06-19] MEDS ORDERED: LACTATED RINGERS SOLUTION 1,000 ML IV SCH (14:00)
[2016-06-19] MEDS: oxyCODONE HCL 5 MG TABLET PO PRN ×2 (17:30→22:07)
[2016-06-19] MEDS: HEPARIN NA (PORCINE) 5,000 UNITS/ML 1ML VIAL IVPUSH PRN (21:55)
[2016-06-19] MEDS ORDERED: INSULIN DETEMIR 100 UNITS/ML MDV SQ SCH (22:00)
[2016-06-19] MEDS ORDERED: ATORVASTATIN CA 40 MG TABLET (FP) PO SCH (22:00)
[2016-06-19] MEDS ORDERED: INSULIN (NOVOLOG) ASPART 100 UNITS/ML 10ML VIAL ONE (22:15)
[2016-06-19] MEDS ORDERED: POLYETHYLENE GLYCOL 3350 119 GM BTL PO ONE (22:45)
[2016-06-20 00:06] LABS: AMIODARONE 1.6 ug/mL (1.0-2.5); NORAMIODARONE 1.2 ug/mL (1.0-2.5)
[2016-06-20] MEDS: VANCOMYCIN 1 GRAM (PRE-DOCKED) 250 ML IVPB SCH ×2 (00:22→14:08)
[2016-06-20] MEDS: PIPERACILLIN/TAZOB 2.25 GM 50 ML IVPB SCH ×3 (03:34→18:56)
[2016-06-20] MEDS: HEPARIN INFUSION - 500 ML IVPB SCH ×2 (03:34→15:05)
[2016-06-20] MEDS: HEPARIN NA (PORCINE) 5,000 UNITS/ML 1ML VIAL IVPUSH PRN ×2 (04:34→15:02)
[2016-06-20] MEDS: INSULIN SLIDING SCALE (NOVOLOG) 1 VIAL SQ SCH ×3 (06:22→17:45)
[2016-06-20 09:07] LABS: ALBUMIN 1.4 g/dl (3.4-5.0); CALCIUM 7.6 mg/dL (8.5-10.1)
[2016-06-20 09:10] LABS: BILIRUBIN,TOTAL 0.6 mg/dL (0.2-1.0); COCKROFT - GAULT 62.968; CREATININE 1.2 mg/dL (0.55-1.02); TOT PROT 5.2 g/dl (6.4-8.2)
[2016-06-20] MEDS ORDERED: DIPYRIDAMOLE STRESS TEST 50 MG in DEXTROSE 5%-WATER - 40 ML IVPB ONE (09:30)
[2016-06-20] MEDS ORDERED: POLYETHYLENE GLYCOL 3350 119 GM BTL PO SCH (10:00)
[2016-06-20] MEDS ORDERED: CLOPIDOGREL BISULFATE 75 MG TABLET (FP) PO SCH (10:00)
[2016-06-20] MEDS ORDERED: ASPIRIN 81 MG CHEWABLE TABLETS PO SCH (10:00)
[2016-06-20] MEDS ORDERED: LISINOPRIL 10 MG TABLET (FP) PO SCH (10:00)
[2016-06-20] MEDS ORDERED: PANTOPRAZOLE 20 MG TABLET (FP) PO SCH (10:00)
[2016-06-20] MEDS ORDERED: AMIODARONE HCL 200 MG TABLET (FP) PO SCH (10:00)
[2016-06-20] MEDS ORDERED: ISOSORBIDE MONONITRATE 30 MG TAB.SR.24H (FP) PO SCH (10:00)
[2016-06-20] MEDS ORDERED: FOLIC ACID 1 MG TABLET (FP) PO SCH (10:00)
--- NOTE | 2016-06-20 10:33 | PN ---
Progress Note (short form) - Note Progress Note: VAscular Surgery Pt seen and examined. Left foot gangrene. Now with positive blood cultures. Will debride foot and do great toe amputation today to drain foot. Abhilash White DO
--- NOTE | 2016-06-20 11:14 | PN ---
[id number] 06/19/16 06/19/16 06/19/16 13:05 13:20 13:35 Temperature 98 F Pulse Rate 62 63 60 Respiratory 16 18 18 Rate Blood Pressure 145/49 156/47 155/51 O2 Sat by Pulse 95 95 95 Oximetry (%) 06/19/16 06/19/16 06/19/16 13:50 14:05 14:20 Temperature 98.2 F Pulse Rate 60 60 61 Respiratory 18 18 18 Rate Blood Pressure 168/53 168/52 165/55 O2 Sat by Pulse 94 L 97 96 Oximetry (%) 06/19/16 06/19/16 06/19/16 14:41 18:59 21:00 Temperature 97.9 F 97.6 F Pulse Rate 62 64 Respiratory 17 18 18 Rate Blood Pressure 161/59 156/50 O2 Sat by Pulse 98 98 Oximetry (%) 06/20/16 06/20/16 02:00 06:00 Temperature 98.4 F 98.0 F Pulse Rate 62 61 Respiratory 18 20 Rate Blood Pressure 179/72 176/68 O2 Sat by Pulse Oximetry (%) Current Medications Generic Name Dose Route Start Last Admin Trade Name Freq PRN Reason Stop Dose Admin Acetaminophen 650 mg 06/19/16 13:45 Tylenol - PO Q4H PRN FEVER OR PAIN Amiodarone HCl 200 mg 06/20/16 10:00 Cordarone - PO DAILY [facility] Aspirin 81 mg 06/20/16 10:00 Asa - PO DAILY [facility] Atorvastatin Calcium 40 mg 06/19/16 22:00 06/19/16 21:54 Lipitor - PO 40 mg HS [facility] Administration Cholecalciferol 400 unit 06/19/16 22:00 06/19/16 21:55 Vitamin D3 - PO 400 unit BID [facility] Administration Clopidogrel Bisulfate 75 mg 06/20/16 10:00 Plavix - PO DAILY [facility] Docusate Sodium 100 mg 06/19/16 22:00 06/19/16 21:53 Colace - PO 100 mg BID [facility] Administration Folic Acid 1 mg 06/20/16 10:00 Folic Acid - PO DAILY [facility] Heparin Sodium (Porcine) 1,000 unit 06/19/16 13:45 Heparin - IVPUSH PRN PRN Heparin Heparin Sodium (Porcine) 5,000 unit 06/19/16 13:45 06/20/16 04:34 Heparin - IVPUSH 5,000 unit PRN PRN Administration Heparin Hydralazine HCl 25 mg 06/19/16 22:00 06/19/16 21:54 Apresoline - PO 25 mg BID [facility] Administration Heparin Sodium/Dextrose 500 mls @ 20 mls/hr 06/19/16 13:45 06/20/16 04:35 Heparin Infusion - IVPB 1,300 units/hr TITR [facility] Titration Protocol 1,000 UNITS/HR Piperacillin Sod/Tazobactam Sod 50 mls @ 100 mls/hr 06/19/16 18:00 06/20/16 03: 34 Zosyn 2.25gm Ivpb (Pre-Docked) IVPB 100 mls/hr Q8H-IV [facility] Administration Protocol Vancomycin HCl 250 mls @ 166.667 mls/hr 06/19/16 23:30 06/20/16 00:22 Vancomycin (Pre-Docked) IVPB 166.667 mls/hr 1130,2330 [facility] Administration Insulin Aspart 1 vial 06/19/16 16:30 06/20/16 06:22 Novolog Vial Sliding Scale - SQ 7 units ACHS [facility] Administration Protocol Insulin Detemir 22 units 06/19/16 22:00 Levemir Vial SQ HS [facility] Isosorbide Mononitrate 30 mg 06/20/16 10:00 Imdur - PO DAILY [facility] Lisinopril 30 mg 06/20/16 10:00 Prinivil PO DAILY [facility] Metoprolol Tartrate 50 mg 06/19/16 22:00 06/19/16 21:54 Lopressor - PO 50 mg BID [facility] Administration Ondansetron HCl 4 mg 06/19/16 13:45 Zofran Injection IVPB Q8H PRN NAUSEA AND/OR VOMITING Oxycodone HCl 10 mg 06/19/16 13:45 06/19/16 22:07 Roxicodone - PO 10 mg Q4H PRN Administration PAIN LEVEL 6-10 Pantoprazole Sodium 20 mg 06/20/16 10:00 Protonix - PO DAILY [facility] Polyethylene Glycol 17 gm 06/20/16 10:00 Miralax (For Daily Use) - PO DAILY [facility] Senna 2 tab 06/19/16 13:45 06/19/16 21:55 Senna - PO 2 tab HS PRN Administration CONSTIPATION Laboratory Results - last 24 hr 06/17/16 06/19/1606/19/17 07:00 16:41 19:24 PTT (Actin FS) 27.4 Sodium Potassium Chloride Carbon Dioxide Anion Gap BUN Creatinine Creat Clearance w eGFR POC Glucometer 270 Random Glucose Calcium Total Bilirubin AST ALT Alkaline Phosphatase Total Protein Albumin Amiodarone 1.6 Noramiodarone 1.2 06/19/16 06/20/16 06/20/16 22:12 03:28 06:18 PTT (Actin FS) 28.5 Sodium Potassium Chloride Carbon Dioxide Anion Gap BUN Creatinine Creat Clearance w eGFR POC Glucometer 245 283 Random Glucose Calcium Total Bilirubin AST ALT Alkaline Phosphatase Total Protein Albumin Amiodarone Noramiodarone 06/20/16 06/20/16 07:45 07:45 PTT (Actin FS) 32.6 Sodium 130 L Potassium 3.8 Chloride 89 L Carbon Dioxide 30 Anion Gap 11 BUN 10 Creatinine 1.2 H Creat Clearance w eGFR 43.56 POC Glucometer Random Glucose 253 H Calcium 7.6 L Total Bilirubin 0.6 D AST 6 L D ALT 12 D Alkaline Phosphatase 114 Total Protein 5.2 L Albumin 1.4 L Amiodarone Noramiodarone left foot foul smelling, dressing in place edema+ PLAN spoke with ID and Vascular pt now has positive blood cultures She will need foot debridement first unable to undergo bypass due to positive cultures iv antibiotics repeat cultures Problem List - Problems (1) Coronary artery disease Code(s): I25.10 - ATHSCL HEART DISEASE OF [place] CORONARY ARTERY W/O ANG PCTRS Qualifiers: Coronary Disease-Associated Artery/Lesion type: unspecified vessel or lesion type [place] vs. transplanted heart: [place] heart Associated angina: angina presence unspecified Qualified Code(s): I25.10 - Atherosclerotic heart disease of [place] coronary artery without angina pectoris (2) Diabetes mellitus Code(s): E11.9 - TYPE 2 DIABETES MELLITUS WITHOUT COMPLICATIONS Qualifiers: Diabetes mellitus type: type 2 Diabetes mellitus complication status: with circulatory complication Diabetes mellitus complication detail: with peripheral angiopathy without gangrene Diabetes mellitus exterminator helper insulin use: with exterminator helper use Qualified Code(s): E11.51 - Type 2 diabetes mellitus with diabetic peripheral angiopathy without gangrene; Z79.4 - FPC (current) use of insulin (3) Foot ulcer, left Code(s): L97.529 - NON-PRESSURE CHRONIC ULCER OTH PRT LEFT FOOT W UNSP SEVERITY Qualifiers: Non-pressure ulcer stage: with necrosis of muscle Qualified Code(s): L97.523 - Non-pressure chronic ulcer of other part of left foot with necrosis of muscle (4) Hypertension Code(s): I10 - ESSENTIAL (PRIMARY) HYPERTENSION Qualifiers: Hypertension type: essential hypertension Qualified Code(s): I10 - Essential (primary) hypertension (5) Obesity Code(s): E66.9 - OBESITY, UNSPECIFIED
--- NOTE | 2016-06-20 11:27 | PN ---
Progress Note, Physician Chief Complaint: seen and examined in stress lab + blood cultures Has not yet started stress test - Current Medication List Current Medications: Active Medications Acetaminophen (Tylenol -) 650 mg PO Q4H PRN PRN Reason: FEVER OR PAIN Amiodarone HCl (Cordarone -) 200 mg PO DAILY [facility] Aspirin (Asa -) 81 mg PO DAILY [facility] Atorvastatin Calcium (Lipitor -) 40 mg PO HS [facility] Last Admin: 06/19/16 21:54 Dose: 40 mg Cholecalciferol (Vitamin D3 -) 400 unit PO BID [facility] Last Admin: 06/19/16 21:55 Dose: 400 unit Clopidogrel Bisulfate (Plavix -) 75 mg PO DAILY [facility] Docusate Sodium (Colace -) 100 mg PO BID [facility] Last Admin: 06/19/16 21:53 Dose: 100 mg Folic Acid (Folic Acid -) 1 mg PO DAILY [facility] Heparin Sodium (Porcine) (Heparin -) 1,000 unit IVPUSH PRN PRN PRN Reason: Heparin Heparin Sodium (Porcine) (Heparin -) 5,000 unit IVPUSH PRN PRN PRN Reason: Heparin Last Admin: 06/20/16 04:34 Dose: 5,000 unit Hydralazine HCl (Apresoline -) 25 mg PO BID [facility] Last Admin: 06/19/16 21:54 Dose: 25 mg Heparin Sodium/Dextrose (Heparin Infusion -) 500 mls @ 20 mls/hr IVPB TITR [facility] ; 1,000 UNITS/HR PRN Reason: Protocol Last Titration: 06/20/16 04:35 Dose: 1,300 units/hr Piperacillin Sod/Tazobactam Sod (Zosyn 2.25gm Ivpb (Pre-Docked)) 50 mls @ 100 mls/hr IVPB Q8H-IV [facility] PRN Reason: Protocol Last Admin: 06/20/16 03:34 Dose: 100 mls/hr Vancomycin HCl (Vancomycin (Pre-Docked)) 250 mls @ 166.667 mls/hr IVPB 1130, 2330 [facility] Last Admin: 06/20/16 00:22 Dose: 166.667 mls/hr Insulin Aspart (Novolog Vial Sliding Scale -) 1 vial SQ ACHS [facility] PRN Reason: Protocol Last Admin: 06/20/16 06:22 Dose: 7 units Insulin Detemir (Levemir Vial) 22 units SQ HS [facility] Isosorbide Mononitrate (Imdur -) 30 mg PO DAILY [facility] Lisinopril (Prinivil) 30 mg PO DAILY [facility] Metoprolol Tartrate (Lopressor -) 50 mg PO BID [facility] Last Admin: 06/19/16 21:54 Dose: 50 mg Ondansetron HCl (Zofran Injection) 4 mg IVPB Q8H PRN PRN Reason: NAUSEA AND/OR VOMITING Oxycodone HCl (Roxicodone -) 10 mg PO Q4H PRN PRN Reason: PAIN LEVEL 6-10 Last Admin: 06/19/16 22:07 Dose: 10 mg Pantoprazole Sodium (Protonix -) 20 mg PO DAILY [facility] Polyethylene Glycol (Miralax (For Daily Use) -) 17 gm PO DAILY [facility] Senna (Senna -) 2 tab PO HS PRN PRN Reason: CONSTIPATION Last Admin: 06/19/16 21:55 Dose: 2 tab - Objective Vital Signs: Vital Signs Temperature 98.0 F 06/20/16 06:00 Pulse Rate 61 06/20/16 06:00 Respiratory Rate 20 06/20/16 06:00 Blood Pressure 176/68 06/20/16 06:00 O2 Sat by Pulse Oximetry (%) 98 06/19/16 21:00 Constitutional: Yes: No Distress Cardiovascular: Yes: Regular Rate and Rhythm Respiratory: Yes: CTA Bilaterally Gastrointestinal: Yes: Soft (non-tender) Edema: Yes Edema: LLE: 1+, RLE: 1+ Neurological: Yes: Alert, Oriented ...Motor Strength: WNL Labs: CBC, BMP 06/20/16 07:45 INR, PTT INR 1.31 (0.82-1.09) H 06/18/16 20:20 Laboratory Tests 06/20/16 06/20/16 07:45 07:45 WBC Pending Hgb Pending Plt Count Pending Sodium 130 L Potassium 3.8 Creatinine 1.2 H Assessment/Plan IMP: Severe PAD w/ gangrene LLE History CAD REC: Attempted perc revasc yesterday was not successful due to anatomy. Now needs urgent debridement as blood cultures + this AM D/W Dr. White, no absolute cardiac contraindication to this urgent debridement planned for early afternoon. Ultimate plan for LE bypass, although likelihood of evaluation assistant success is unclear given her anatomy. This was reviewed w/ patient and with family by Vascular Surgery and they have decided to try the bypass. Stress test to be completed this AM. (Cannot adequately assess her exercise capacity and sx because she is rather sedentary)
[2016-06-20] MEDS ORDERED: AMINOPHYLLINE 250 MG/10 ML VIAL ONE (13:22)
[2016-06-20] MEDS: hydrALAZINE HCL 25 MG TABLET (FP) PO SCH (13:25)
[2016-06-20] MEDS: METOPROLOL TARTRATE 50 MG TABLET (FP) PO SCH (13:26)
[2016-06-20] MEDS ORDERED: LIDOCAINE HCL 1%, 10 MG/ML (20ML VIAL) ONE (13:54)
[2016-06-20] MEDS: DOCUSATE SODIUM 100 MG CAPSULE (FP) PO SCH (14:10)
[2016-06-20] MEDS: CHOLECALCIFEROL (VITAMIN D3) 400 UNIT TABLET (FP) PO SCH (14:10)
[2016-06-20] MEDS: oxyCODONE HCL 5 MG TABLET PO PRN (16:33)
--- NOTE | 2016-06-20 17:14 | PN ---
Progress Note (short form) - Note Progress Note: Nuclear stress test was reviewed. Pt. deemed to high risk for vascular surgery here given anterior wall ischemia seen on nuclear stress test. She was accepted [facility] by Vascular surgery and interventional cardiology with a plan for either cardiac cath prior to surgery or surgery first with cardiac collaborating supervising physician on standby in case of a cardiac complication during surgery.
[2016-06-20 17:23] LABS: MCH 30.5 pg (25.7-33.7); MCHC 32.5 g/dl (32.0-36.0); MEAN CELL VOLUME 93.7 fl (80-96); MEAN PLT VOLUME 8.1 fl (7.5-11.1); PLATELET COUNT 461 K/MM3 (134-434); RDW 14.4 % (11.6-15.6); WHITE BLOOD COUNT 21.3 K/mm3 (4.0-10.0)
[2016-06-20 18:34] LABS: METAMYELOCYTE 1 % (0-2)
[2016-06-20 18:35] LABS: PLATELET ESTIMATE INCREASED (NORMAL)
[2016-06-20 18:54] VITALS: BP 161/72; PULSE 65; TEMP 97.5
--- NOTE | 2016-06-20 23:12 | DS ---
[id number] Rate 20 06/20/16 18:50 Blood Pressure 161/72 06/20/16 18:50 O2 Sat by Pulse Oximetry (%) 94 L 06/20/16 08:30 Constitutional: Yes: No Distress Cardiovascular: Yes: Regular Rate and Rhythm Respiratory: Yes: Diminished Gastrointestinal: Yes: Normal Bowel Sounds, Soft, Abdomen, Obese. No: Tenderness Extremities: Yes: Other (left foot dressing in place) Edema: Yes Labs: CBC, BMP 06/20/16 07:45 06/20/16 07:45 Discharge Summary Reason For Visit: DIABETIC FOOT INFECTION/DM/CAD/CELLULITIS Hospital Course: Admitted for left foot gangrene - she was scheduled for bypass and salvaging the foot . Seen by Vascular , Cardiology and ID ON iv antibiotics Had undergone angiogram Stress test yesterday showed large area of anterior wall ischemia Pt transferred to [facility] for further management Condition: Guarded - Instructions Referrals: Carmen Salazar MD [Primary Care Provider] - Disposition: TRANSFER ACUTE CARE/OTHER HOSP - Home Medications Comprehensive Discharge Medication List: Ambulatory Orders Amiodarone HCl [Cordarone -] 200 mg PO DAILY 02/27/12 Aspirin [ASA -] 162 mg PO DAILY 02/27/12 Folic Acid - 1 mg PO DAILY 02/27/12 Metoprolol Tartrate [Lopressor -] 50 mg PO BID 02/27/12 Glipizide [Glipizide ER] 10 mg PO BID 05/20/12 Lisinopril [Prinivil -] 20 mg PO DAILY 05/20/12 Metformin HCl [Glucophage -] 1,000 mg PO BID 05/20/12 Atorvastatin Ca [Lipitor] 40 mg PO HS 06/15/16 Cholecalciferol (Vitamin D3) [Vitamin D3 -] 400 unit PO BID 06/15/16 Clopidogrel Bisulfate [Plavix -] 75 mg PO DAILY 06/15/16 Oxycodone HCl/Acetaminophen [Percocet 5-325 mg Tablet] 1 tab PO Q6H PRN MDD 4
== END 2016-06-20 20:00 | disposition short-term general hospital (02) | DRG 300 ==
LOC: JER 11:02 → JERBED 13:23 → J5S 16:10
PROVIDERS: ADMIT Internal Medicine; ATTEND Internal Medicine
PROC: B40GYZZ Plain Radiography of Left Lower Extremity Arteries using Other Contrast (ICD-10-PCS; principal; 2016-06-18 12:00)
DX: E11.52 Type 2 diabetes mellitus with diabetic peripheral angiopathy with gangrene (principal); L03.116 Cellulitis of left lower limb; I25.10 Atherosclerotic heart disease of native coronary artery without angina pectoris; E78.5 Hyperlipidemia, unspecified; I10 Essential (primary) hypertension; I99.8 Other disorder of circulatory system; E11.621 Type 2 diabetes mellitus with foot ulcer; L97.529 Non-pressure chronic ulcer of other part of left foot with unspecified severity; R94.39 Abnormal result of other cardiovascular function study; N95.9 Unspecified menopausal and perimenopausal disorder; E66.8 Other obesity; Z68.35 Body mass index [BMI] 35.0-35.9, adult; Z71.3 Dietary counseling and surveillance; Z79.899 Other long term (current) drug therapy; Z79.4 Long term (current) use of insulin; Z85.3 Personal history of malignant neoplasm of breast; Z95.1 Presence of aortocoronary bypass graft; Z87.891 Personal history of nicotine dependence
CPT/HCPCS: 36415; 71010-TC; 76000-TC; 78452-TC; 80053; 80061; 80299; 81003; 81015; 82009; 82803; 83605; 83721; 83880; 84443; 85025; 85027; 85610; 85651; 85730; 86140; 87040; 87086; 93005; 93010; 93017; 93306-TC; 94760; 99282-25; A9502; G0463-25; J1245; J1644

== ENCOUNTER 2017-08-13 10:28 | Inpatient (IN) | payer OTHER ==
--- NOTE | 2017-08-13 10:58 | PDOC ---
History of Present Illness - General Chief Complaint: Chest Pain Stated Complaint: IRREGULAR HEARTBEAT (PCP SENT) Time Seen by Provider: 08/13/17 10:53 - History of Present Illness Initial Comments: 08/13/17 11:38 The patient is a 77 year old female with a history of HTN, HLD, DM, CAD s/p CABG , Breast CA who presents for evaluation of right shoulder pain and SOB. The patient reports worsening right shoulder pain with radiation to her back and neck over the past 3 weeks with associated SOB. The patient initially presented to her PCP Dr. Salazar today and was noted to have EKG changes prompting her presentation to the ED for further evaluation. The patient otherwise denies fevers, chills, chest pain, nausea, vomiting, abdominal pain, or changes with urination or bowel movements. Past History - Past Medical History Allergies/Adverse Reactions: Allergies Allergy/AdvReac Type Severity Reaction Status Date / Time Anesthetics - Amide Type AdvReac Vomiting Verified 08/13/17 10:30 Home Medications: Ambulatory Orders Amiodarone HCl [Cordarone -] 200 mg PO DAILY 02/27/12 Aspirin [ASA -] 162 mg PO DAILY 02/27/12 Folic Acid - 1 mg PO DAILY 02/27/12 Metoprolol Tartrate [Lopressor -] 50 mg PO BID 02/27/12 Glipizide [Glipizide ER] 10 mg PO BID 05/20/12 Lisinopril [Prinivil -] 20 mg PO DAILY 05/20/12 metFORMIN HCL [Glucophage -] 1,000 mg PO BID 05/20/12 Atorvastatin Ca [Lipitor] 40 mg PO HS 06/15/16 Cholecalciferol (Vitamin D3) [Vitamin D3 -] 400 unit PO BID 06/15/16 Clopidogrel Bisulfate [Plavix -] 75 mg PO DAILY 06/15/16 Oxycodone HCl/Acetaminophen [Percocet 5-325 mg Tablet] 1 tab PO Q6H PRN MDD 4 Unobtainable 08/13/17 Cancer: Yes (BREAST CANCER) Cardiac Disorders: Yes (OPEN HEART SX 02/19/12 3 BLOCKAGES) COPD: No Dementia: Yes Diabetes: Yes HTN: Yes Hypercholesterolemia: Yes - Surgical History Cardiac Surgery: Yes (3 BLOCKAGES 02/20) Cholecystectomy: Yes (1980) - Immunization History Immunization Up to Date: Yes - Suicide/Smoking/Psychosocial Hx Smoking Status: No Smoking History: Former smoker Have you smoked in the past 12 months: No Number of Cigarettes Smoked Daily: 0 If you are a former smoker, when did you quit?: 2011 Information on smoking cessation initiated: No Hx Alcohol Use: No Drug/Substance Use Hx: No Substance Use Type: None Review of Systems - Review of Systems Comments:: 08/13/17 11:45 Constitutional: No fevers, chills, fatigue, malaise HEENT: No Rhinorrhea, nasal congestion, visual changes Cardiovascular: No chest pain, syncope, palpitations, lightheadedness Respiratory: SOB. No Cough, Hemoptysis, Gastrointestinal: No Abdominal pain, Nausea, Vomiting, Constipation, Diarrhea, Melena Genitourinary: No Dysuria, Frequency, Urgency, Hesitancy, Hematuria, Flank pain Musculoskeletal: Right shoulder, neck and back pain. No Myalgia, arthralgia Skin: No rashes, itching, bruising, pallor Neurologic: No Headache, Dizziness, Numbness, Weakness, or Tingling Psychiatric: No Hallucinations. No SI or HI *Physical Exam - Vital Signs Last Vital Signs Temp Pulse Resp BP Pulse Ox 97.6 F 66 18 140/71 91 L 08/13/17 10:31 08/13/17 10:31 08/13/17 10:31 08/13/17 10:31 08/13/17 10:31 - Physical Exam Comments: 08/13/17 11:45 General Appearance: Nourished. No Apparent Distress HEENT: EOMI, ANGELA. No Pharyngeal Erythema, Tonsillar Exudate, Tonsillar Erythema Neck: No Cervical Lymphadenopathy Respiratory/Chest: Lungs Clear, Normal Breath Sounds. No Crackles, Rales, Rhonchi, Wheezing Cardiovascular: Regular Rhythm, Regular Rate. 2/6 Systolic murmur noted on exam. No Gallops, Rubs Gastrointestinal/Abdominal: Normal Bowel Sounds, Soft. No Guarding, Rebound, Tenderness Musculoskeletal: No CVA Tenderness Extremity: 3+ pitting edema in the right lower extremity. BKA of the left lower extremity. Normal Capillary Refill Integumentary: Normal Color, Dry, Warm Neurologic: Fully Oriented, Alert, Normal Mood/Affect, Normal Response, Heart Score/ECG Review #1 ECG reviewed & interpreted by me at: 11:47 (Atrial Fibullation) General ECG Interpretation: Normal Rate, Normal Intervals, No acute ischemic changes ED Treatment Course - LABORATORY CBC & Chemistry Diagram: 08/14/17 06:20 08/14/17 06:20 Medical Decision Making - Medical Decision Making 08/13/17 11:47 The patient is a 77 year old female with a history of HTN, HLD, DM, CAD s/p CABG , Breast CA who presents for evaluation of right shoulder pain and SOB. Differential includes but is not limited to: Afib, CHF, COPD, Pneumonia, Pneumothorax, infectious, metabolic derangement. The patient appears to have new onset afib on ekg, however, we will obtain a cbc, cmp, tsh, troponin, bnp, chest plain film to evaluate further for possible etiologies. We will treat with iv tylenol here in the meantime and continue to monitor and reassess while in the ED. 08/13/17 14:51 CBC, cmp, tsh are unremarkable. Troponin is elevated to 0.06. BNP is elevated to 9000s. CT chest is negative for PE. It is likely the patient's symptoms are due to new onset afib with CHF. We discussed the case with Dr. Paige who recommended treatment with heparin drip at this time and will evaluate the patient. We will treat with iv lasix and a heparin drip. We discussed the case with the admitting team who accepted the patient for admission. *DC/Admit/Observation/Transfer Diagnosis at time of Disposition: Afib Qualifiers: Atrial fibrillation type: unspecified Qualified Code(s): I48.91 - Unspecified atrial fibrillation CHF (congestive heart failure) Qualifiers: Heart failure type: unspecified Heart failure chronicity: unspecified Qualified Code(s): I50.9 - Heart failure, unspecified - Discharge Dispostion Condition at time of disposition: Stable Decision to Admit order: Yes - Referrals - Patient Instructions - Post Discharge Activity
[2017-08-13] MEDS ORDERED: ACETAMINOPHEN 1000 MG/100 ML VIAL (NON FORMULARY) IVPB ONE (11:23)
[2017-08-13 11:26] LABS: BASO % 0.9 % (0-2.0); EOS % 2.8 % (0-4.5); HEMATOCRIT 38.7 % (32.4-45.2); HEMOGLOBIN 12.7 GM/dL (10.7-15.3); LYMPH % 16.4 % (8-40); MCH 29.5 pg (25.7-33.7); MCHC 32.9 g/dl (32.0-36.0); MEAN CELL VOLUME 89.9 fl (80-96); MEAN PLT VOLUME 8.6 fl (7.5-11.1); NEUT % 73.9 % (42.8-82.8); PLATELET COUNT 339 K/MM3 (134-434); RBC 4.31 M/mm3 (3.60-5.2); WHITE BLOOD COUNT 10.7 K/mm3 (4.0-10.0)
[2017-08-13 11:41] LABS: INR 1.06 (0.82-1.09)
[2017-08-13] MEDS ORDERED: ACETAMINOPHEN INJECTION 100 ML IVPB ONE (11:48)
[2017-08-13 11:54] LABS: ALBUMIN 3.5 g/dl (3.4-5.0); ANION GAP 10 (8-16); BLOOD UREA NITROGEN 23 mg/dL (7-18); CALCIUM 8.8 mg/dL (8.5-10.1); CHLORIDE 103 mmol/L (98-107); CO2 24 mmol/L (21-32); GLUCOSE,RANDOM 187 mg/dL (74-106); POTASSIUM 4.4 mmol/L (3.5-5.1); SODIUM 137 mmol/L (136-145)
--- NOTE | 2017-08-13 11:56 | PDOC ---
Attending Attestation - HPI HPI: 08/13/17 12:00 The patient is a 77 year old female, with a significant PMH of diabetes mellitus , hypertension, vascular insufficiency, CAD s/p CABG , breast cancer (s/p mastectomy), who presents to the emergency department with pleuritic chest pain that radiates to the right shoulder and jaw. The patient states she has noted audible wheezing when lying down. The patient states she was sent to the ER from Dr. Edwards office who noted EKG changes. The patient also reports a productive cough with white sputum. She denies any recent fever or chills. The patient states she has a history of blood clots approx. 20 years ago at the time of her mastectomy. She denies any recent calf swelling or tenderness. Denies fever, chills, nausea, vomit, diarrhea and constipation. Denies dysuria, frequency, urgency and hematuria. Allergies: anesthetics - amide type Documentation prepared by Sanjeev Moser, acting as medical appointment clerk for Mary Mueller MD. <Sanjeev Moser - Last Filed: 08/13/17 12:00> - Resident Resident Name: Maximo Lobo - ED Attending Attestation I have performed the following: I have examined & evaluated the patient, The case was reviewed & discussed with the resident, I agree w/resident's findings & plan, Exceptions are as noted - Physicial Exam PE: 08/13/17 12:18 Lungs are noted for faint crackles at the right lung base and increased crackles left lung base normal respiratory effort. No wheezing. Cardiac exam is known for irregular regular rhythm no murmurs rubs or gallops. Abdomen is soft and nontender extremities are noted for a right lower extremity warm well perfused she does have lateral partial Padilla dictations. She is a left AKA amputation skin is warm and dry no rash no swelling noted. - Medical Decision Making 08/13/17 12:19 Differential diagnosis includes pneumonia, CHF, with pleural effusion, atypical ACS, PE is considered to the pleuritic nature the pain patient's history of prior PE plan bedside echo lung evaluation as well as DrAbhay of right lower extremity. We'll give patient aspirin if she has not taken already today likely admit to telemetry patient has new onset A. fib discuss with Dr. Salazar her blind lacer consider anticoagulation for A. fib <Mary Mueller - Last Filed: 08/13/17 12:21> Heart Score/ECG Review #1 General ECG Interpretation: Normal Rate, Normal Intervals, No acute ischemic changes (TWI I AVL) Compared to previous ECG there are: Changes noted (new onset afib) - ECG Intrepretation Rhythm: Irregularly Irregular - [place]: Normal - ECG Impressions Tachycardia: Afib w/controlled rate <Mary Mueller - Last Filed: 08/13/17 12:21>
[2017-08-13 11:58] LABS: CHOLESTEROL 174 mg/dL (50-200); TRIGLYCERIDES 90 mg/dL (35-160)
[2017-08-13 12:05] LABS: ALK PHOS 137 U/L (45-117); BILIRUBIN,TOTAL 0.5 mg/dL (0.2-1.0); CREATININE 1.3 mg/dL (0.55-1.02); N-TERMINAL BNP 9244.58 pg/ml (5-450); SGOT/AST 15 U/L (15-37); SGPT/ALT 34 U/L (12-78); TOT PROT 7.6 g/dl (6.4-8.2)
[2017-08-13 13:37] LABS: HDL CHOLESTEROL 53 mg/dL (40-60)
[2017-08-13 14:09] LABS: URINE APPEARANCE CLEAR; URINE BILIRUBIN NEGATIVE (<2.0 mg/dL); URINE BLOOD NEGATIVE (NEGATIVE); URINE COLOR LTYELLOW; URINE GLUCOSE (UA) NEGATIVE (NEGATIVE); URINE KETONE NEGATIVE (NEGATIVE); URINE LEUK ESTERASE NEGATIVE (NEGATIVE); URINE NITRITE NEGATIVE (NEGATIVE); URINE PROTEIN NEGATIVE (NEGATIVE); URINE UROBILINOGEN NEGATIVE mg/dL (0.2-1.0)
[2017-08-13] MEDS ORDERED: HEPARIN NA (PORCINE) 5,000 UNITS/ML 1ML VIAL IVPUSH PRN (16:39)
[2017-08-13] MEDS ORDERED: FUROSEMIDE 40 MG/4 ML INJECTABLE VIAL IVPUSH ONE (16:43)
[2017-08-13] MEDS ORDERED: FUROSEMIDE 40 MG/4 ML INJECTABLE VIAL ONE (16:48)
[2017-08-13] MEDS ORDERED: HEPARIN NA (PORCINE) 5,000 UNITS/ML 1ML VIAL ONE (16:48)
[2017-08-13] MEDS ORDERED: HEPARIN INFUSION - 25,000 UNITS/500 ML INFUS.BAG IVPB ONE (16:49)
[2017-08-13] MEDS: HEPARIN - 25,000 UNIT in SODIUM CHLORIDE 495 ML IV SCH (17:00)
[2017-08-13] MEDS: HEPARIN NA (PORCINE) 5,000 UNITS/ML 1ML VIAL IVPUSH PRN (17:00)
--- NOTE | 2017-08-13 17:59 | EKG ---
Test Reason : Blood Pressure : / mmHG Vent. Rate : 061 BPM Atrial Rate : 076 BPM P-R Int : 000 ms QRS Dur : 126 ms QT Int : 462 ms P-R-T Axes : 000 046 109 degrees QTc Int : 465 ms POOR DATA QUALITY, INTERPRETATION MAY BE ADVERSELY AFFECTED ATRIAL FIBRILLATION WITH PREMATURE VENTRICULAR OR ABERRANTLY CONDUCTED COMPLEXES NON-SPECIFIC INTRA-VENTRICULAR CONDUCTION BLOCK CANNOT RULE OUT SEPTAL INFARCT , AGE UNDETERMINED T WAVE ABNORMALITY, CONSIDER LATERAL ISCHEMIA ABNORMAL ECG Confirmed by MD MARIANELA, JOE ([id number]) on 08/13/2017 5:58:39 PM Referred By: Confirmed By:JOE BEAR MD
--- NOTE | 2017-08-13 18:10 | CON.CARD ---
Consult Consult Specialty:: cardiology Reason for Consultation:: new-onset AF - History of Present Illness Chief Complaint: Pt alert; no chest pain or dyspnea; no palpitations; +right shoulder pain. History of Present Illness: The patient is a 77 year old female with a history of HTN, HLD, DM, CAD s/p CABG , Breast CA, morbid obesity, s/p LE amputation, who presents for evaluation of right shoulder pain and SOB. The patient reports worsening right shoulder pain with radiation to her back and neck over the past 3 weeks with associated SOB. The patient initially presented to her PCP Dr. Salazar today and was noted to have EKG changes of new-onset AF, prompting her presentation to the ED for further evaluation. The patient otherwise denies fevers, chills, chest pain, nausea, vomiting, abdominal pain, or changes with urination or bowel movements. 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) Cardio/Vascular: Yes: CAD, CHF, HTN Reproductive: Yes: Postmenopausal ...: No Heme/Onc: No: Anemia - Past Surgical History Past Surgical History: Yes: CABG - Alcohol/Substance Use Hx Alcohol Use: No - Smoking History Smoking history: Former smoker Have you smoked in the past 12 months: No Aproximately how many cigarettes per day: 0 If you are a former smoker, when did you quit?: 2011 Home Medications - Allergies Allergies/Adverse Reactions: Allergies Allergy/AdvReac Type Severity Reaction Status Date / Time Anesthetics - Amide Type AdvReac Vomiting Verified 08/13/17 10:30 - Home Medications Home Medications: Ambulatory Orders Amiodarone HCl [Cordarone -] 200 mg PO DAILY 02/27/12 Aspirin [ASA -] 162 mg PO DAILY 02/27/12 Folic Acid - 1 mg PO DAILY 02/27/12 Metoprolol Tartrate [Lopressor -] 50 mg PO BID 02/27/12 Glipizide [Glipizide ER] 10 mg PO BID 05/20/12 Lisinopril [Prinivil -] 20 mg PO DAILY 05/20/12 metFORMIN HCL [Glucophage -] 1,000 mg PO BID 05/20/12 Atorvastatin Ca [Lipitor] 40 mg PO HS 06/15/16 Cholecalciferol (Vitamin D3) [Vitamin D3 -] 400 unit PO BID 06/15/16 Clopidogrel Bisulfate [Plavix -] 75 mg PO DAILY 06/15/16 Oxycodone HCl/Acetaminophen [Percocet 5-325 mg Tablet] 1 tab PO Q6H PRN MDD 4 Unobtainable 08/13/17 Family Disease History - Family Disease History Family History: Denies Review of Systems - Review of Systems Constitutional: reports: Weakness Eyes: reports: No Symptoms HENT: reports: No Symptoms Neck: reports: No Symptoms Cardiovascular: reports: Palpitations Respiratory: reports: SOB on Exertion Genitourinary: reports: No Symptoms Breasts: reports: Other (s/p right mastectomy) Musculoskeletal: reports: Muscle Weakness Neurological: reports: Unsteady Gait, Weakness - Risk Factors Known Risk Factors: Yes: Age, Diabetes Mellitus, Hypercholesterolemia, Hypertension, Physical Inactivity, Other (CAD-->CABG) Vital Signs: Vital Signs Temperature 97.6 F 08/13/17 10:31 Pulse Rate 64 08/13/17 14:31 Respiratory Rate 18 08/13/17 10:31 Blood Pressure 148/68 08/13/17 14:31 O2 Sat by Pulse Oximetry (%) 98 08/13/17 14:31 Constitutional: Yes: Obese Eyes: Yes: WNL HENT: Yes: WNL Neck: Yes: WNL Respiratory: Yes: Regular Gastrointestinal: Yes: Soft, Abdomen, Obese Renal/: No: Anuria Cardiovascular: Yes: Pulse Irregular JVD: No Carotid Bruit: No PMI: Displaced Heart Sounds: Yes: S1 (varies in intensity), S2 Murmur: Yes: Systolic Murmur, Grade 2 Musculoskeletal: Yes: Muscle Weakness Extremities: Yes: Cool, Other (LLE amputee) Edema: No Peripheral Pulses WNL: Yes Integumentary: Yes: Other (right mastectomy) Neurological: Yes: Alert, Oriented, Weakness Psychiatric: Yes: Alert, Oriented - Other Data Labs, Other Data: CBC, BMP 08/13/17 11:15 08/13/17 11:15 INR, PTT INR 1.06 (0.82-1.09) 08/13/17 11:15 Troponin, BNP 08/13/17 11:15 Troponin I 0.06 H B-Natriuretic Peptide 9244.58 H Troponin, BNP 08/13/17 11:15 Troponin I 0.06 H B-Natriuretic Peptide 9244.58 H Imaging - Results Chest X-ray: Image Reviewed (left pleural effusion) Cat Scan: Image Reviewed (pleural effusion; No PE) EKG: Image Reviewed (AF) Problem List - Problems (1) New onset a-fib Assessment/Plan: Continue metoprolol for HR control. It is unclear why pt is on amiodarone. Start IV heparin, and decide on either warfarin or NOAC. (If amiodarone needs to be continued, NOACs should likely be avoided due to significantly increased bleeding risk with this combination. Warfarin and amiodarone may also have increased bleeding, but dose of warfarin can be adjusted to lower the risk). Code(s): I48.91 - UNSPECIFIED ATRIAL FIBRILLATION (2) Acute on chronic systolic and diastolic heart failure, NYHA class 1 Assessment/Plan: BNP >9,000. CT chest and CXR: CHF TNI 0.06 Continue metoprolol. 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 F/u LFTs, TFTs, chest CT serially. Start lisinopril 2.5 mg daily (systolic CHF; HTN; DM); follow BUN/Cr closely, in view of present renal insufficiency. F/u BUN/Cr, electrolytes, daily weight, Is and Os. Code(s): I50.43 - ACUTE ON CHRONIC COMBINED SYSTOLIC AND DIASTOLIC HRT FAIL (3) Hyperlipidemia Assessment/Plan: on statin; aggressive lowering of LDL. Code(s): E78.5 - HYPERLIPIDEMIA, UNSPECIFIED (4) Coronary artery disease Code(s): I25.10 - ATHSCL HEART DISEASE OF [place] CORONARY ARTERY W/O ANG PCTRS Qualifiers: Coronary Disease-Associated Artery/Lesion type: unspecified vessel or lesion type [place] vs. transplanted heart: [place] heart Associated angina: angina presence unspecified Qualified Code(s): I25.10 - Atherosclerotic heart disease of [place] coronary artery without angina pectoris (5) Diabetes mellitus Code(s): E11.9 - TYPE 2 DIABETES MELLITUS WITHOUT COMPLICATIONS Qualifiers: Diabetes mellitus type: type 2 Diabetes mellitus meterman insulin use: with meterman use Diabetes mellitus complication status: with circulatory complication Diabetes mellitus complication detail: with peripheral angiopathy without gangrene Qualified Code(s): E11.51 - Type 2 diabetes mellitus with diabetic peripheral angiopathy without gangrene (6) Hypertension Code(s): I10 - ESSENTIAL (PRIMARY) HYPERTENSION Qualifiers: Hypertension type: essential hypertension Qualified Code(s): I10 - Essential (primary) hypertension (7) Obesity Code(s): E66.9 - OBESITY, UNSPECIFIED (9) S/P CABG (coronary artery bypass graft) Code(s): Z95.1 - PRESENCE OF AORTOCORONARY BYPASS GRAFT
[2017-08-13] MEDS ORDERED: LISINOPRIL 5 MG TABLET (FP) PO ONE (18:25)
[2017-08-13] MEDS ORDERED: ACETAMINOPHEN 325 MG TABLET (FP) ONE (20:05)
[2017-08-13] MEDS: ATORVASTATIN CA 40 MG TABLET (FP) PO SCH (21:56)
[2017-08-13] MEDS: METOPROLOL TARTRATE 50 MG TABLET (FP) PO SCH (21:57)
[2017-08-13] MEDS: INSULIN (LEVEMIR) 100 UNITS/ML UNITS SQ SCH (22:42)
[2017-08-13 23:18] VITALS: BMI 31.3
[2017-08-14] MEDS: glipiZIDE-XL 10 MG TAB.ER.24 (FP) PO SCH ×2 (06:44→17:33)
[2017-08-14] MEDS: INSULIN SLIDING SCALE (NOVOLOG) 1 VIAL SQ SCH ×3 (06:45→17:33)
[2017-08-14 08:00] LABS: BASO % 0.8 % (0-2.0); EOS % 4.2 % (0-4.5); HEMATOCRIT 32.5 % (32.4-45.2); HEMOGLOBIN 10.8 GM/dL (10.7-15.3); LYMPH % 18.8 % (8-40); MCH 29.7 pg (25.7-33.7); MCHC 33.2 g/dl (32.0-36.0); MEAN CELL VOLUME 89.5 fl (80-96); MONO % 6.1 % (3.8-10.2); NEUT % 70.1 % (42.8-82.8); PLATELET COUNT 253 K/MM3 (134-434); RBC 3.63 M/mm3 (3.60-5.2); RDW 13.8 % (11.6-15.6); WHITE BLOOD COUNT 7.8 K/mm3 (4.0-10.0)
[2017-08-14 08:16] LABS: CHLORIDE 101 mmol/L (98-107); POTASSIUM 4.3 mmol/L (3.5-5.1); SODIUM 135 mmol/L (136-145)
[2017-08-14 08:22] LABS: INR 1.08 (0.82-1.09); PROTHROMBIN TIME (PATIENT) 12.2 SEC (9.7-13.0)
[2017-08-14 08:25] LABS: ACTIVATED PTT 33.1 SECONDS (26.9-34.4)
[2017-08-14 08:34] LABS: ALBUMIN 2.9 g/dl (3.4-5.0); ALK PHOS 111 U/L (45-117); ANION GAP 9 (8-16); BILIRUBIN,TOTAL 0.3 mg/dL (0.2-1.0); BLOOD UREA NITROGEN 23 mg/dL (7-18); CALCIUM 8.1 mg/dL (8.5-10.1); CO2 25 mmol/L (21-32); CREATININE 1.2 mg/dL (0.55-1.02); GLUCOSE,RANDOM 282 mg/dL (74-106); SGOT/AST 9 U/L (15-37); SGPT/ALT 31 U/L (12-78); TOT PROT 6.1 g/dl (6.4-8.2)
--- NOTE | 2017-08-14 09:51 | PN ---
Progress Note, Physician History of Present Illness: The patient is a 77 year old female with a history of HTN, HLD, DM, CAD s/p CABG , Breast CA, morbid obesity, s/p LE amputation, who presents for evaluation of right shoulder pain and SOB. The patient reports worsening right shoulder pain with radiation to her back and neck over the past 3 weeks with associated SOB. The patient initially presented to her PCP Dr. Salazar today and was noted to have EKG changes of new-onset AF, prompting her presentation to the ED for further evaluation. The patient otherwise denies fevers, chills, chest pain, nausea, vomiting, abdominal pain, or changes with urination or bowel movements. - Current Medication List Current Medications: Active Medications Amiodarone HCl (Cordarone -) 200 mg PO DAILY [facility] Aspirin (Asa -) 162 mg PO DAILY [facility] Atorvastatin Calcium (Lipitor -) 40 mg PO HS [facility] Last Admin: 08/13/17 21:56 Dose: 40 mg Clopidogrel Bisulfate (Plavix -) 75 mg PO DAILY [facility] Furosemide (Lasix Injection -) 40 mg IVPUSH DAILY [facility] Glipizide (Glucotrol Xl -) 10 mg PO BIDAC [facility] Last Admin: 08/14/17 06:44 Dose: 10 mg Heparin Sodium (Porcine) (Heparin -) 1,000 unit IVPUSH PRN PRN PRN Reason: Heparin Last Admin: 08/13/17 23:33 Dose: 1,000 unit Heparin Sodium (Porcine) (Heparin -) 5,000 unit IVPUSH PRN PRN PRN Reason: Heparin Last Admin: 08/13/17 17:00 Dose: 5,000 unit Heparin Sodium (Porcine) 25, (000 unit/ Sodium Chloride) 500 mls @ 20 mls/hr IV TITR [facility]; Protocol Last Titration: 08/13/17 23:33 Dose: 1,100 unit/hr, 22 mls/hr Insulin Aspart (Novolog Vial Sliding Scale -) 1 vial SQ TIDAC [facility]; Protocol Last Admin: 08/14/17 06:45 Dose: 6 unit Insulin Detemir (Levemir Vial) 5 units SQ HS [facility] Last Admin: 08/13/17 22:42 Dose: 5 unit Lisinopril (Prinivil) 2.5 mg PO DAILY [facility] Metoprolol Tartrate (Lopressor -) 50 mg PO BID [facility] Last Admin: 08/13/17 21:57 Dose: 50 mg - Objective Vital Signs: Vital Signs Temperature 97.6 F 08/14/17 06:48 Pulse Rate 54 L 08/14/17 06:48 Respiratory Rate 20 08/14/17 06:48 Blood Pressure 137/54 08/14/17 06:48 O2 Sat by Pulse Oximetry (%) 94 L 08/13/17 21:40 Eyes: Yes: WNL, Conjunctiva Clear, EOM Intact HENT: Yes: WNL, Atraumatic, Normocephalic Neck: Yes: WNL, Supple, Trachea Midline Cardiovascular: Yes: Pulse Irregular, S1, S2 Respiratory: Yes: WNL, Regular, CTA Bilaterally Gastrointestinal: Yes: WNL, Normal Bowel Sounds Genitourinary: Yes: WNL Musculoskeletal: Yes: WNL Extremities: Yes: WNL Edema: No Integumentary: Yes: WNL Neurological: Yes: WNL, Alert, Oriented ...Motor Strength: WNL Psychiatric: Yes: WNL Labs: CBC, BMP 08/14/17 06:20 08/14/17 06:20 INR, PTT INR 1.08 (0.82-1.09) 08/14/17 06:20 Assessment/Plan - Problems (1) New onset a-fib Assessment/Plan: Continue metoprolol for HR control. It is unclear why pt is on amiodarone. Start IV heparin, and decide on either warfarin or NOAC. (If amiodarone needs to be continued, NOACs should likely be avoided due to significantly increased bleeding risk with this combination. Warfarin and amiodarone may also have increased bleeding, but dose of warfarin can be adjusted to lower the risk). Code(s): I48.91 - UNSPECIFIED ATRIAL FIBRILLATION (2) Acute on chronic systolic and diastolic heart failure, NYHA class 1 Assessment/Plan: BNP >9,000. CT chest and CXR: CHF TNI 0.06 Continue metoprolol. 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 F/u LFTs, TFTs, chest CT serially. Start lisinopril 2.5 mg daily (systolic CHF; HTN; DM); follow BUN/Cr closely, in view of present renal insufficiency. F/u BUN/Cr, electrolytes, daily weight, Is and Os. Code(s): I50.43 - ACUTE ON CHRONIC COMBINED SYSTOLIC AND DIASTOLIC HRT FAIL (3) Hyperlipidemia Assessment/Plan: on statin; aggressive lowering of LDL. Code(s): E78.5 - HYPERLIPIDEMIA, UNSPECIFIED (4) Coronary artery disease Code(s): I25.10 - ATHSCL HEART DISEASE OF [place] CORONARY ARTERY W/O ANG PCTRS Qualifiers: Coronary Disease-Associated Artery/Lesion type: unspecified vessel or lesion type [place] vs. transplanted heart: [place] heart Associated angina: angina presence unspecified Qualified Code(s): I25.10 - Atherosclerotic heart disease of [place] coronary artery without angina pectoris (5) Diabetes mellitus Code(s): E11.9 - TYPE 2 DIABETES MELLITUS WITHOUT COMPLICATIONS Qualifiers: Diabetes mellitus type: type 2 Diabetes mellitus [place] insulin use: with terminal clerk use Diabetes mellitus complication status: with circulatory complication Diabetes mellitus complication detail: with peripheral angiopathy without gangrene Qualified Code(s): E11.51 - Type 2 diabetes mellitus with diabetic peripheral angiopathy without gangrene (6) Hypertension Code(s): I10 - ESSENTIAL (PRIMARY) HYPERTENSION Qualifiers: Hypertension type: essential hypertension Qualified Code(s): I10 - Essential (primary) hypertension (7) Obesity Code(s): E66.9 - OBESITY, UNSPECIFIED (9) S/P CABG (coronary artery bypass graft) Code(s): Z95.1 - PRESENCE OF AORTOCORONARY BYPASS GRAFT
[2017-08-14] MEDS ORDERED: AMIODARONE HCL 200 MG TABLET (FP) PO SCH (10:00)
[2017-08-14] MEDS: METOPROLOL TARTRATE 50 MG TABLET (FP) PO SCH ×2 (10:47→22:16)
[2017-08-14] MEDS: LISINOPRIL 5 MG TABLET (FP) PO SCH (10:47)
[2017-08-14] MEDS: ASPIRIN 81 MG CHEWABLE TABLETS PO SCH (10:47)
[2017-08-14] MEDS: CLOPIDOGREL BISULFATE 75 MG TABLET (FP) PO SCH (10:47)
[2017-08-14] MEDS: FUROSEMIDE 40 MG/4 ML INJECTABLE VIAL IVPUSH SCH (10:47)
[2017-08-14] MEDS: HEPARIN NA (PORCINE) 5,000 UNITS/ML 1ML VIAL IVPUSH PRN (10:49)
[2017-08-14] MEDS ORDERED: ACETAMINOPHEN WITH CODEINE 300MG/30MG TABLET PO PRN (10:57)
--- NOTE | 2017-08-14 10:57 | HP ---
Admitting History and Physical - Primary Care Physician PCP: Carmen Salazar - Admission Chief Complaint: neck pain and SOB History of Present Illness: ER HISTORY - History of Present Illness Initial Comments: 08/13/17 11:38 The patient is a 77 year old female with a history of HTN, HLD, DM, CAD s/p CABG , Breast CA who presents for evaluation of right shoulder pain and SOB. The patient reports worsening right shoulder pain with radiation to her back and neck over the past 3 weeks with associated SOB. The patient initially presented to her PCP Dr. Salazar today and was noted to have EKG changes prompting her presentation to the ED for further evaluation. The patient otherwise denies fevers, chills, chest pain, nausea, vomiting, abdominal pain, or changes with urination or bowel movements. Pt seen by me in Telemetry- Pt had gone to see Dr Salazar for neck pain .Dr Salazar then sent her to ER for Afib and CHF decompensation. Pt feels SOB at times, she had swelling of right leg. Her pain is from neck to right shoulder She is able to move her right arm. 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) Cardiovascular: Yes: CAD, CHF, HTN - Smoking History Smoking history: Former smoker Have you smoked in the past 12 months: No Aproximately how many cigarettes per day: 0 If you are a former smoker, when did you quit?: 2011 - Alcohol/Substance Use Hx Alcohol Use: No Home Medications - Allergies Allergies/Adverse Reactions: Allergies Allergy/AdvReac Type Severity Reaction Status Date / Time Anesthetics - Amide Type AdvReac Vomiting Verified 08/13/17 10:30 - Home Medications Home Medications: Ambulatory Orders Amiodarone HCl [Cordarone -] 200 mg PO DAILY 02/27/12 Aspirin [ASA -] 162 mg PO DAILY 02/27/12 Folic Acid - 1 mg PO DAILY 02/27/12 Metoprolol Tartrate [Lopressor -] 50 mg PO BID 02/27/12 Glipizide [Glipizide ER] 10 mg PO BID 05/20/12 Lisinopril [Prinivil -] 20 mg PO DAILY 05/20/12 metFORMIN HCL [Glucophage -] 1,000 mg PO BID 05/20/12 Atorvastatin Ca [Lipitor] 40 mg PO HS 06/15/16 Cholecalciferol (Vitamin D3) [Vitamin D3 -] 400 unit PO BID 06/15/16 Clopidogrel Bisulfate [Plavix -] 75 mg PO DAILY 06/15/16 Oxycodone HCl/Acetaminophen [Percocet 5-325 mg Tablet] 1 tab PO Q6H PRN MDD 4 Unobtainable 08/13/17 Review of Systems - Review of Systems Constitutional: denies: Chills, Weakness Cardiovascular: reports: Edema, Shortness of Breath. denies: Chest Pain, Palpitations Respiratory: reports: SOB Physical Examination Vital Signs: Vital Signs Temperature 97.6 F 08/14/17 06:48 Pulse Rate 54 L 08/14/17 06:48 Respiratory Rate 20 08/14/17 06:48 Blood Pressure 137/54 08/14/17 06:48 O2 Sat by Pulse Oximetry (%) 94 L 08/13/17 21:40 Constitutional: Yes: No Distress, Calm Cardiovascular: Yes: Pulse Irregular Respiratory: Yes: Diminished Gastrointestinal: Yes: Normal Bowel Sounds, Soft. No: Tenderness Extremities: Yes: Amputation (left BKA) Edema: Yes Edema: RLE: 2+ Labs: CBC, BMP 08/14/17 06:20 08/14/17 06:20 Imaging - Results Chest X-ray: Image Reviewed (congestion) X-ray: Image Reviewed Cat Scan: Report Reviewed Ultrasound: Report Reviewed (negative for DVT right leg) EKG: Image Reviewed (Afib) Problem List - Problems (1) Neck pain Code(s): M54.2 - CERVICALGIA (2) Acute on chronic systolic and diastolic heart failure, NYHA class 1 Code(s): I50.43 - ACUTE ON CHRONIC COMBINED SYSTOLIC AND DIASTOLIC HRT FAIL (3) Afib Code(s): I48.91 - UNSPECIFIED ATRIAL FIBRILLATION Qualifiers: Atrial fibrillation type: unspecified Qualified Code(s): I48.91 - Unspecified atrial fibrillation (4) CHF (congestive heart failure) Code(s): I50.9 - HEART FAILURE, UNSPECIFIED Qualifiers: Heart failure type: unspecified Heart failure chronicity: unspecified Qualified Code(s): I50.9 - Heart failure, unspecified (5) Hyperlipidemia Code(s): E78.5 - HYPERLIPIDEMIA, UNSPECIFIED (6) New onset a-fib Code(s): I48.91 - UNSPECIFIED ATRIAL FIBRILLATION (7) S/P CABG (coronary artery bypass graft) Code(s): Z95.1 - PRESENCE OF AORTOCORONARY BYPASS GRAFT Assessment/Plan PLAN Heparin drip Echo Cardiac enzymes flat cardiology eval noted Check xray c spine Add Tylenol #3 for pain relief Lasix daily monitor renal function I and O daily
[2017-08-14] MEDS ORDERED: INSULIN (NOVOLOG) ASPART 100 UNITS/ML 10ML VIAL ONE (11:41)
[2017-08-14] MEDS: LIDOCAINE 5% TOPICAL PATCH TP SCH (11:57)
[2017-08-14] MEDS ORDERED: PT OWN MED DRAWER 7, Y5N ONE ×2 (15:42→17:33)
[2017-08-14] MEDS: HEPARIN - 25,000 UNIT in SODIUM CHLORIDE 495 ML IV SCH (17:35)
[2017-08-14] MEDS ORDERED: POLYETHYLENE GLYCOL 3350 119 GM BTL PO ONE (20:38)
[2017-08-14] MEDS: SENNOSIDES 8.6MG TABLET (FP) PO SCH (22:14)
[2017-08-14] MEDS: ATORVASTATIN CA 40 MG TABLET (FP) PO SCH (22:14)
[2017-08-14] MEDS: INSULIN (LEVEMIR) 100 UNITS/ML UNITS SQ SCH (22:14)
[2017-08-14] MEDS: LIDOCAINE PATCH REMOVAL MC SCH (22:15)
[2017-08-14] MEDS: DOCUSATE SODIUM 100 MG CAPSULE (FP) PO SCH (22:15)
[2017-08-15] MEDS ORDERED: PT OWN MED DRAWER 7, Y5N ONE ×3 (06:02→17:06)
[2017-08-15] MEDS: INSULIN SLIDING SCALE (NOVOLOG) 1 VIAL SQ SCH ×3 (06:10→17:18)
[2017-08-15] MEDS: DOCUSATE SODIUM 100 MG CAPSULE (FP) PO SCH ×3 (06:10→22:22)
[2017-08-15] MEDS: glipiZIDE-XL 10 MG TAB.ER.24 (FP) PO SCH ×2 (06:10→17:17)
[2017-08-15 08:19] LABS: CHLORIDE 101 mmol/L (98-107); POTASSIUM 4.2 mmol/L (3.5-5.1); SODIUM 136 mmol/L (136-145)
[2017-08-15 08:46] LABS: ANION GAP 12 (8-16); BLOOD UREA NITROGEN 23 mg/dL (7-18); CALCIUM 7.9 mg/dL (8.5-10.1); CO2 23 mmol/L (21-32); CREATININE 1.1 mg/dL (0.55-1.02); GLUCOSE,RANDOM 175 mg/dL (74-106)
[2017-08-15] MEDS: LIDOCAINE 5% TOPICAL PATCH TP SCH (09:38)
[2017-08-15] MEDS: FUROSEMIDE 40 MG/4 ML INJECTABLE VIAL IVPUSH SCH (09:42)
[2017-08-15] MEDS: METOPROLOL TARTRATE 50 MG TABLET (FP) PO SCH (09:42)
[2017-08-15] MEDS: CLOPIDOGREL BISULFATE 75 MG TABLET (FP) PO SCH (09:43)
[2017-08-15] MEDS: ASPIRIN 81 MG CHEWABLE TABLETS PO SCH ×2 (09:44→14:57)
[2017-08-15] MEDS ORDERED: AMIODARONE HCL 200 MG TABLET (FP) PO SCH (10:00)
--- NOTE | 2017-08-15 10:48 | PN ---
Progress Note, Physician Chief Complaint: feels better no SOB neck pain much improved - Current Medication List Current Medications: Active Medications Acetaminophen/Codeine Phosphate (Tylenol # 3 -) 1 tab PO Q6H PRN PRN Reason: PAIN LEVEL 6-10 Last Admin: 08/14/17 11:56 Dose: 1 tab Aspirin (Asa -) 162 mg PO DAILY [facility] Last Admin: 08/15/17 09:44 Dose: 162 mg Atorvastatin Calcium (Lipitor -) 40 mg PO HS [facility] Last Admin: 08/14/17 22:14 Dose: 40 mg Clopidogrel Bisulfate (Plavix -) 75 mg PO DAILY [facility] Last Admin: 08/15/17 09:43 Dose: 75 mg Docusate Sodium (Colace -) 100 mg PO TID [facility] Last Admin: 08/15/17 06:10 Dose: 100 mg Furosemide (Lasix Injection -) 40 mg IVPUSH DAILY [facility] Last Admin: 08/15/17 09:42 Dose: 40 mg Glipizide (Glucotrol Xl -) 10 mg PO BIDAC [facility] Last Admin: 08/15/17 06:10 Dose: 10 mg Heparin Sodium (Porcine) (Heparin -) 1,000 unit IVPUSH PRN PRN PRN Reason: Heparin Last Admin: 08/13/17 23:33 Dose: 1,000 unit Heparin Sodium (Porcine) (Heparin -) 5,000 unit IVPUSH PRN PRN PRN Reason: Heparin Last Admin: 08/14/17 10:49 Dose: 5,000 unit Heparin Sodium (Porcine) 25, (000 unit/ Sodium Chloride) 500 mls @ 20 mls/hr IV TITR [facility]; Protocol Last Titration: 08/15/17 10:06 Dose: 1,350 unit/hr, 27 mls/hr Insulin Aspart (Novolog Vial Sliding Scale -) 1 vial SQ TIDAC [facility]; Protocol Last Admin: 08/15/17 06:10 Dose: 4 unit Insulin Detemir (Levemir Vial) 5 units SQ [facility] Last Admin: 08/14/17 22:14 Dose: 5 unit Lidocaine (Lidoderm Patch -) 1 patch TP DAILY [facility] Last Admin: 08/15/17 09:38 Dose: 1 patch Lisinopril (Prinivil) 2.5 mg PO DAILY [facility] Last Admin: 08/14/17 10:47 Dose: 2.5 mg Metoprolol Tartrate (Lopressor -) 50 mg PO BID [facility] Last Admin: 08/15/17 09:42 Dose: 50 mg Miscellaneous (Lidoderm Patch Removal) 1 each MC DAILY@2200 [facility] Last Admin: 08/14/17 22:15 Dose: 1 each Senna (Senna -) 2 tab PO HS [facility] Last Admin: 08/14/17 22:14 Dose: 2 tab - Objective Vital Signs: Vital Signs Temperature 97.9 F 08/15/17 06:00 Pulse Rate 63 08/15/17 06:00 Respiratory Rate 18 08/15/17 06:00 Blood Pressure 140/49 08/15/17 06:00 O2 Sat by Pulse Oximetry (%) 95 08/14/17 21:00 Constitutional: Yes: No Distress Cardiovascular: Yes: Pulse Irregular Respiratory: Yes: Diminished. No: Rales Gastrointestinal: Yes: Normal Bowel Sounds, Soft. No: Tenderness Extremities: Yes: Amputation Edema: No Labs: CBC, BMP 08/14/17 06:20 08/15/17 06:00 INR, PTT INR 1.08 (0.82-1.09) 08/14/17 06:20 Problem List - Problems (1) Neck pain Code(s): M54.2 - CERVICALGIA (2) Acute on chronic systolic and diastolic heart failure, NYHA class 1 Code(s): I50.43 - ACUTE ON CHRONIC COMBINED SYSTOLIC AND DIASTOLIC HRT FAIL (3) Afib Code(s): I48.91 - UNSPECIFIED ATRIAL FIBRILLATION Qualifiers: Atrial fibrillation type: unspecified Qualified Code(s): I48.91 - Unspecified atrial fibrillation (4) CHF (congestive heart failure) Code(s): I50.9 - HEART FAILURE, UNSPECIFIED Qualifiers: Heart failure type: unspecified Heart failure chronicity: unspecified Qualified Code(s): I50.9 - Heart failure, unspecified (5) Hyperlipidemia Code(s): E78.5 - HYPERLIPIDEMIA, UNSPECIFIED (6) New onset a-fib Code(s): I48.91 - UNSPECIFIED ATRIAL FIBRILLATION (7) S/P CABG (coronary artery bypass graft) Code(s): Z95.1 - PRESENCE OF AORTOCORONARY BYPASS GRAFT Assessment/Plan PLAN Heparin drip dc Echo noted Cardiac enzymes flat spoke with [facility] about NOAC- will start her on Eliquis dc Plavix-- she was on it for almost 7 years per pt after her CABG. Lidoderm patch and Tylenol #3 helping her neck pain Lasix daily - may change it to PO monitor renal function I and O daily
--- NOTE | 2017-08-15 11:26 | EKG ---
Test Reason : Blood Pressure : / mmHG Vent. Rate : 059 BPM Atrial Rate : 300 BPM P-R Int : 000 ms QRS Dur : 132 ms QT Int : 512 ms P-R-T Axes : 000 -05 113 degrees QTc Int : 506 ms ATRIAL FIBRILLATION WITH SLOW VENTRICULAR RESPONSE NON-SPECIFIC INTRA-VENTRICULAR CONDUCTION BLOCK T WAVE ABNORMALITY, CONSIDER LATERAL ISCHEMIA ABNORMAL ECG WHEN COMPARED WITH ECG OF 13-AUG-2017 10:40, NO SIGNIFICANT CHANGE WAS FOUND Confirmed by MEGHAN SWANSON, CORINNA ([id number]) on 08/15/2017 11:25:59 AM Referred By: STEVE LEA Confirmed By:CORINNA CHRISTIANSON MD
[2017-08-15] MEDS: LISINOPRIL 5 MG TABLET (FP) PO SCH (13:09)
--- NOTE | 2017-08-15 18:33 | PN ---
Progress Note, Physician Chief Complaint: Pt A&Ox3; no chest pain , palpitations, or dyspnea. History of Present Illness: The patient is a 77 year old female with a history of HTN, HLD, DM, CAD s/p CABG , Breast CA, morbid obesity, s/p LE amputation, who presents for evaluation of right shoulder pain and SOB. The patient reports worsening right shoulder pain with radiation to her back and neck over the past 3 weeks with associated SOB. The patient initially presented to her PCP Dr. Salazar today and was noted to have EKG changes of new-onset AF, prompting her presentation to the ED for further evaluation. The patient otherwise denies fevers, chills, chest pain, nausea, vomiting, abdominal pain, or changes with urination or bowel movements. - Current Medication List Current Medications: Active Medications Acetaminophen/Codeine Phosphate (Tylenol # 3 -) 1 tab PO Q6H PRN PRN Reason: PAIN LEVEL 6-10 Last Admin: 08/14/17 11:56 Dose: 1 tab Apixaban (Eliquis -) 5 mg PO BID [facility] Aspirin (Asa -) 81 mg PO DAILY [facility] Last Admin: 08/15/17 14:57 Dose: Not Given Atorvastatin Calcium (Lipitor -) 40 mg PO [facility] Last Admin: 08/14/17 22:14 Dose: 40 mg Clopidogrel Bisulfate (Plavix -) 75 mg PO DAILY [facility] Last Admin: 08/15/17 09:43 Dose: 75 mg Docusate Sodium (Colace -) 100 mg PO TID [facility] Last Admin: 08/15/17 15:00 Dose: 100 mg Furosemide (Lasix Injection -) 40 mg IVPUSH DAILY [facility] Last Admin: 08/15/17 09:42 Dose: 40 mg Glipizide (Glucotrol Xl -) 10 mg PO BIDAC [facility] Last Admin: 08/15/17 17:17 Dose: 10 mg Insulin Aspart (Novolog Vial Sliding Scale -) 1 vial SQ TIDAC [facility]; Protocol Last Admin: 08/15/17 17:18 Dose: 4 unit Insulin Detemir (Levemir Vial) 5 units SQ [facility] Last Admin: 08/14/17 22:14 Dose: 5 unit Lidocaine (Lidoderm Patch -) 1 patch TP DAILY [facility] Last Admin: 08/15/17 09:38 Dose: 1 patch Lisinopril (Prinivil) 2.5 mg PO DAILY [facility] Last Admin: 08/15/17 13:09 Dose: Not Given Metoprolol Tartrate (Lopressor -) 50 mg PO BID [facility] Last Admin: 08/15/17 09:42 Dose: 50 mg Miscellaneous (Lidoderm Patch Removal) 1 each MC DAILY@2200 [facility] Last Admin: 08/14/17 22:15 Dose: 1 each Senna (Senna -) 2 tab PO HS [facility] Last Admin: 08/14/17 22:14 Dose: 2 tab - Objective Vital Signs: Vital Signs Temperature 97.9 F 08/15/17 18:00 Pulse Rate 62 08/15/17 18:00 Respiratory Rate 18 08/15/17 18:00 Blood Pressure 128/63 08/15/17 18:00 O2 Sat by Pulse Oximetry (%) 95 08/15/17 10:00 Eyes: Yes: WNL HENT: Yes: WNL Labs: CBC, BMP 08/14/17 06:20 08/15/17 06:00 INR, PTT INR 1.08 (0.82-1.09) 08/14/17 06:20 Problem List - Problems (1) New onset a-fib Assessment/Plan: Continue metoprolol for HR control. Discontinued amiodarone. Agree with starting NOAC (considerchanging to once a day , e.g. rivaroxaban, as pt is tired of taking so many medications). Will lower dose of metoprolol, as pt has slow VR at times. Follow serially as outpatient (as effect of amiodarone "wears Off" over the next several weeks, HR may increase), and adjust metoprolol accordingly. Code(s): I48.91 - UNSPECIFIED ATRIAL FIBRILLATION (2) Acute on chronic systolic and diastolic heart failure, NYHA class 1 Assessment/Plan: BNP >9,000. CT chest and CXR: CHF TNI 0.06 Continue metoprolol. On lisinopril (ECHO: lownormal LVEF; dilated LV); also for renal protection with DM. Code(s): I50.43 - ACUTE ON CHRONIC COMBINED SYSTOLIC AND DIASTOLIC HRT FAIL (3) Hyperlipidemia Assessment/Plan: on statin; aggressive lowering of LDL. Code(s): E78.5 - HYPERLIPIDEMIA, UNSPECIFIED (4) Coronary artery disease Code(s): I25.10 - ATHSCL HEART DISEASE OF [place] CORONARY ARTERY W/O ANG PCTRS Qualifiers: Coronary Disease-Associated Artery/Lesion type: unspecified vessel or lesion type [place] vs. transplanted heart: [place] heart Associated angina: angina presence unspecified Qualified Code(s): I25.10 - Atherosclerotic heart disease of [place] coronary artery without angina pectoris (5) Diabetes mellitus Code(s): E11.9 - TYPE 2 DIABETES MELLITUS WITHOUT COMPLICATIONS Qualifiers: Diabetes mellitus type: type 2 Diabetes mellitus mcc insulin use: with mcc use Diabetes mellitus complication status: with circulatory complication Diabetes mellitus complication detail: with peripheral angiopathy without gangrene Qualified Code(s): E11.51 - Type 2 diabetes mellitus with diabetic peripheral angiopathy without gangrene (6) Hypertension Code(s): I10 - ESSENTIAL (PRIMARY) HYPERTENSION Qualifiers: Hypertension type: essential hypertension Qualified Code(s): I10 - Essential (primary) hypertension (7) Obesity Code(s): E66.9 - OBESITY, UNSPECIFIED (9) S/P CABG (coronary artery bypass graft) Code(s): Z95.1 - PRESENCE OF AORTOCORONARY BYPASS GRAFT
[2017-08-15] MEDS: LIDOCAINE PATCH REMOVAL MC SCH (22:00)
[2017-08-15] MEDS ORDERED: METOPROLOL TARTRATE 25 MG TABLET (FP) PO ONE (22:00)
[2017-08-15] MEDS: ATORVASTATIN CA 40 MG TABLET (FP) PO SCH (22:21)
[2017-08-15] MEDS: INSULIN (LEVEMIR) 100 UNITS/ML UNITS SQ SCH (22:22)
[2017-08-15] MEDS: APIXABAN 5 MG TABLET PO SCH (22:22)
[2017-08-15] MEDS: SENNOSIDES 8.6MG TABLET (FP) PO SCH (22:22)
[2017-08-16] MEDS ORDERED: PT OWN MED DRAWER 7, Y5N ONE (06:49)
[2017-08-16] MEDS ORDERED: INSULIN (NOVOLOG) ASPART 100 UNITS/ML 10ML VIAL ONE ×2 (06:50→11:45)
[2017-08-16] MEDS ORDERED: INSULIN (LEVEMIR) 100 UNITS/ML UNITS SQ ONE (06:50)
[2017-08-16] MEDS: glipiZIDE-XL 10 MG TAB.ER.24 (FP) PO SCH (06:52)
[2017-08-16] MEDS: DOCUSATE SODIUM 100 MG CAPSULE (FP) PO SCH (06:52)
[2017-08-16] MEDS: INSULIN SLIDING SCALE (NOVOLOG) 1 VIAL SQ SCH ×2 (06:53→11:55)
[2017-08-16] MEDS: FUROSEMIDE 40 MG/4 ML INJECTABLE VIAL IVPUSH SCH (09:45)
[2017-08-16] MEDS: APIXABAN 5 MG TABLET PO SCH (09:45)
[2017-08-16] MEDS: LISINOPRIL 5 MG TABLET (FP) PO SCH (09:45)
[2017-08-16] MEDS: LIDOCAINE 5% TOPICAL PATCH TP SCH (09:45)
[2017-08-16] MEDS: ASPIRIN 81 MG CHEWABLE TABLETS PO SCH (09:46)
[2017-08-16 10:03] VITALS: BP 168/65; PULSE 63; TEMP 98.2
--- NOTE | 2017-08-16 11:22 | PN ---
Progress Note, Physician History of Present Illness: The patient is a 77 year old female with a history of HTN, HLD, DM, CAD s/p CABG , Breast CA, morbid obesity, s/p LE amputation, who presents for evaluation of right shoulder pain and SOB. The patient reports worsening right shoulder pain with radiation to her back and neck over the past 3 weeks with associated SOB. The patient initially presented to her PCP Dr. Salazar today and was noted to have EKG changes of new-onset AF, prompting her presentation to the ED for further evaluation. The patient otherwise denies fevers, chills, chest pain, nausea, vomiting, abdominal pain, or changes with urination or bowel movements. - Current Medication List Current Medications: Active Medications Acetaminophen/Codeine Phosphate (Tylenol # 3 -) 1 tab PO Q6H PRN PRN Reason: PAIN LEVEL 6-10 Last Admin: 08/14/17 11:56 Dose: 1 tab Apixaban (Eliquis -) 5 mg PO BID [facility] Last Admin: 08/16/17 09:45 Dose: 5 mg Aspirin (Asa -) 81 mg PO DAILY [facility] Last Admin: 08/16/17 09:46 Dose: 81 mg Atorvastatin Calcium (Lipitor -) 40 mg PO HS [facility] Last Admin: 08/15/17 22:21 Dose: 40 mg Docusate Sodium (Colace -) 100 mg PO TID [facility] Last Admin: 08/16/17 06:52 Dose: 100 mg Furosemide (Lasix Injection -) 40 mg IVPUSH DAILY [facility] Last Admin: 08/16/17 09:45 Dose: 40 mg Glipizide (Glucotrol Xl -) 10 mg PO BIDAC [facility] Last Admin: 08/16/17 06:52 Dose: 10 mg Insulin Aspart (Novolog Vial Sliding Scale -) 1 vial SQ TIDAC [facility]; Protocol Last Admin: 08/16/17 06:53 Dose: Not Given Insulin Detemir (Levemir Vial) 5 units SQ [facility] Last Admin: 08/15/17 22:22 Dose: 5 unit Lidocaine (Lidoderm Patch -) 1 patch TP DAILY [facility] Last Admin: 08/16/17 09:45 Dose: 1 patch Metoprolol Succinate (Toprol Xl -) 50 mg PO DAILY [facility] Last Admin: 08/16/17 09:45 Dose: 50 mg Miscellaneous (Lidoderm Patch Removal) 1 each MC DAILY@2200 [facility] Last Admin: 08/15/17 22:00 Dose: 1 each Senna (Senna -) 2 tab PO HS [facility] Last Admin: 08/15/17 22:22 Dose: 2 tab - Objective Vital Signs: Vital Signs Temperature 98.2 F 08/16/17 09:00 Pulse Rate 63 08/16/17 09:00 Respiratory Rate 18 08/16/17 09:00 Blood Pressure 168/65 08/16/17 09:00 O2 Sat by Pulse Oximetry (%) 95 08/16/17 09:00 Eyes: Yes: WNL, Conjunctiva Clear, EOM Intact HENT: Yes: WNL, Atraumatic, Normocephalic Neck: Yes: WNL, Supple, Trachea Midline Cardiovascular: Yes: Pulse Irregular, S1, S2 Respiratory: Yes: WNL, Regular, CTA Bilaterally Gastrointestinal: Yes: WNL, Normal Bowel Sounds Genitourinary: Yes: WNL Musculoskeletal: Yes: WNL Extremities: Yes: Amputation Edema: No Integumentary: Yes: WNL Neurological: Yes: WNL, Alert, Oriented ...Motor Strength: WNL Psychiatric: Yes: WNL Labs: CBC, BMP 08/14/17 06:20 08/15/17 06:00 INR, PTT INR 1.08 (0.82-1.09) 08/14/17 06:20 Assessment/Plan - Problems (1) New onset a-fib Assessment/Plan: Continue metoprolol for HR control. Discontinued amiodarone. Agree with starting NOAC (considerchanging to once a day , e.g. rivaroxaban, as pt is tired of taking so many medications). Will lower dose of metoprolol, as pt has slow VR at times. Follow serially as outpatient (as effect of amiodarone "wears Off" over the next several weeks, HR may increase), and adjust metoprolol accordingly. Code(s): I48.91 - UNSPECIFIED ATRIAL FIBRILLATION (2) Acute on chronic systolic and diastolic heart failure, NYHA class 1 Assessment/Plan: BNP >9,000. CT chest and CXR: CHF TNI 0.06 Continue metoprolol. On lisinopril (ECHO: lownormal LVEF; dilated LV); also for renal protection with DM. Code(s): I50.43 - ACUTE ON CHRONIC COMBINED SYSTOLIC AND DIASTOLIC HRT FAIL (3) Hyperlipidemia Assessment/Plan: on statin; aggressive lowering of LDL. Code(s): E78.5 - HYPERLIPIDEMIA, UNSPECIFIED (4) Coronary artery disease Code(s): I25.10 - ATHSCL HEART DISEASE OF [place] CORONARY ARTERY W/O ANG PCTRS Qualifiers: Coronary Disease-Associated Artery/Lesion type: unspecified vessel or lesion type [place] vs. transplanted heart: [place] heart Associated angina: angina presence unspecified Qualified Code(s): I25.10 - Atherosclerotic heart disease of [place] coronary artery without angina pectoris MIBI stress test as outpatient. (5) Diabetes mellitus Code(s): E11.9 - TYPE 2 DIABETES MELLITUS WITHOUT COMPLICATIONS Qualifiers: Diabetes mellitus type: type 2 Diabetes mellitus long-term insulin use: with long-term use Diabetes mellitus complication status: with circulatory complication Diabetes mellitus complication detail: with peripheral angiopathy without gangrene Qualified Code(s): E11.51 - Type 2 diabetes mellitus with diabetic peripheral angiopathy without gangrene (6) Hypertension Code(s): I10 - ESSENTIAL (PRIMARY) HYPERTENSION Qualifiers: Hypertension type: essential hypertension Qualified Code(s): I10 - Essential (primary) hypertension (7) Obesity Code(s): E66.9 - OBESITY, UNSPECIFIED (9) S/P CABG (coronary artery bypass graft) Code(s): Z95.1 - PRESENCE OF AORTOCORONARY BYPASS GRAFT can be d/c home from cardiac point of view
--- NOTE | 2017-08-16 11:23 | PN ---
Progress Note (short form) - Note Progress Note: Vital Signs Temp 98.2 F 08/16/17 09:00 Pulse 63 08/16/17 09:00 Resp 18 08/16/17 09:00 BP 168/65 08/16/17 09:00 Pulse Ox 95 08/16/17 09:00 Intake & Output 08/15/17 08/15/17 08/16/17 11:59 23:59 11:59 Intake Total 300 200 240 Output Total 400 300 Balance 300 -200 -60 Weight 194 lb Intake: IV 300 Heparin - 25,000 Unit In 300 Normal Saline - 495 ml @ 1,000 UNIT/HR 20 mls/hr IV TITR [facility] Rx#: [id number] Oral 200 240 Output: Urine 400 300 Void 400 300 Other: Voiding Method Bedpan Bedpan Bedpan # Unmeasured Voids Void 1 2 1 Bowel Movement Yes Yes # Bowel Movements 1 1 Height 5 ft 6 in Body Mass Index (BMI) 31.3 Active Medications Acetaminophen/Codeine Phosphate (Tylenol # 3 -) 1 tab PO Q6H PRN PRN Reason: PAIN LEVEL 6-10 Last Admin: 08/14/17 11:56 Dose: 1 tab Apixaban (Eliquis -) 5 mg PO BID [facility] Last Admin: 08/16/17 09:45 Dose: 5 mg Aspirin (Asa -) 81 mg PO DAILY [facility] Last Admin: 08/16/17 09:46 Dose: 81 mg Atorvastatin Calcium (Lipitor -) 40 mg PO HS [facility] Last Admin: 08/15/17 22:21 Dose: 40 mg Docusate Sodium (Colace -) 100 mg PO TID [facility] Last Admin: 08/16/17 06:52 Dose: 100 mg Enalapril Maleate (Vasotec -) 10 mg PO DAILY [facility] Furosemide (Lasix Injection -) 40 mg IVPUSH DAILY [facility] Last Admin: 08/16/17 09:45 Dose: 40 mg Glipizide (Glucotrol Xl -) 10 mg PO BIDAC [facility] Last Admin: 08/16/17 06:52 Dose: 10 mg Insulin Aspart (Novolog Vial Sliding Scale -) 1 vial SQ TIDAC [facility]; Protocol Last Admin: 08/16/17 06:53 Dose: Not Given Insulin Detemir (Levemir Vial) 5 units SQ [facility] Last Admin: 08/15/17 22:22 Dose: 5 unit Lidocaine (Lidoderm Patch -) 1 patch TP DAILY [facility] Last Admin: 08/16/17 09:45 Dose: 1 patch Metoprolol Succinate (Toprol Xl -) 50 mg PO DAILY [facility] Last Admin: 08/16/17 09:45 Dose: 50 mg Miscellaneous (Lidoderm Patch Removal) 1 each MC DAILY@2200 [facility] Last Admin: 08/15/17 22:00 Dose: 1 each Senna (Senna -) 2 tab PO HS [facility] Last Admin: 08/15/17 22:22 Dose: 2 tab CBC, BMP 08/14/17 06:20 08/15/17 06:00
[2017-08-16] MEDS ORDERED: ENALAPRIL MALEATE 10 MG TABLET (FP) PO SCH (11:30)
--- NOTE | 2017-08-16 11:37 | DS ---
Physical Examination Vital Signs: Vital Signs Temperature 98.2 F 08/16/17 09:00 Pulse Rate 63 08/16/17 09:00 Respiratory Rate 18 08/16/17 09:00 Blood Pressure 168/65 08/16/17 09:00 O2 Sat by Pulse Oximetry (%) 95 08/16/17 09:00 Labs: CBC, BMP 08/14/17 06:20 08/15/17 06:00 Discharge Summary Reason For Visit: CONGESTIVE HEART FAILURE; ATRIAL FIBRILLATION Current Active Problems Acute on chronic systolic and diastolic heart failure, NYHA class 1 (Acute) Afib (Acute) CHF (congestive heart failure) (Acute) Hyperlipidemia (Acute) Neck pain (Acute) New onset a-fib (Acute) S/P CABG (coronary artery bypass graft) (Acute) Condition: Stable - Instructions Referrals: Carmen Salazar MD [Primary Care Provider] - - Home Medications Comprehensive Discharge Medication List: Ambulatory Orders Aspirin [ASA -] 162 mg PO DAILY 02/27/12 Folic Acid - 1 mg PO DAILY 02/27/12 Glipizide [Glipizide ER] 10 mg PO BID 05/20/12 metFORMIN HCL [Glucophage -] 1,000 mg PO BID 05/20/12 Atorvastatin Ca [Lipitor] 40 mg PO HS 06/15/16 Cholecalciferol (Vitamin D3) [Vitamin D -] 400 unit PO BID 06/15/16 Apixaban [Eliquis -] 5 mg PO BID 30 Days #60 tablet 08/16/17 Docusate Sodium [Colace -] 100 mg PO TID capsule 08/16/17 Enalapril Maleate [Vasotec -] 10 mg PO DAILY 30 Days #30 tablet 08/16/17 Furosemide [Lasix -] 40 mg PO DAILY #30 tablet 08/16/17 Insulin Sliding Scale [Novolog Vial Sliding Scale -] 1 vial SQ TIDAC units 10/26 Lidocaine 5% Patch [Lidoderm -] 1 patch TP DAILY patch 08/16/17 Metoprolol Succinate [Toprol XL -] 50 mg PO DAILY 30 Days #30 tab.sr.24h Sennosides [Senna -] 2 tab PO HS tablet 08/16/17
== END 2017-08-16 14:15 | disposition home or self-care (01) | DRG 308 ==
LOC: JER 10:28 → JERBED 16:44 → J4S 20:27
PROVIDERS: ADMIT Internal Medicine; ATTEND Internal Medicine
DX: I48.91 Unspecified atrial fibrillation (principal); I50.43 Acute on chronic combined systolic (congestive) and diastolic (congestive) heart failure; I11.0 Hypertensive heart disease with heart failure; I25.10 Atherosclerotic heart disease of native coronary artery without angina pectoris; E78.5 Hyperlipidemia, unspecified; I10 Essential (primary) hypertension; F03.90 Unspecified dementia, unspecified severity, without behavioral disturbance, psychotic disturbance, mood disturbance, and anxiety; E66.9 Obesity, unspecified; Z68.31 Body mass index [BMI] 31.0-31.9, adult; E11.51 Type 2 diabetes mellitus with diabetic peripheral angiopathy without gangrene; M54.2 Cervicalgia; Z95.1 Presence of aortocoronary bypass graft; Z87.891 Personal history of nicotine dependence; Z85.3 Personal history of malignant neoplasm of breast; Z89.522 Acquired absence of left knee
CPT/HCPCS: 36415; 71045-TC-FY; 71275-TC; 72050-TC-FY; 80048; 80053; 80061; 81003; 82550; 82962; 83721; 83880; 84439; 84443; 84484; 85025; 85610; 85730; 93005; 93010; 93306-TC; 93971-TC; 99284-25; J0131; J1644

== ENCOUNTER 2018-10-14 18:58 | Inpatient (IN) | payer OTHER ==
[2018-10-14] MEDS ORDERED: METOPROLOL TARTRATE 5 MG/5 ML VIAL ONE (19:20)
--- NOTE | 2018-10-14 21:28 | PDOC ---
History of Present Illness - General Chief Complaint: Respiratory Stated Complaint: DIFFICULTY BREATHING Time Seen by Provider: 10/14/18 21:02 History Source: Patient Exam Limitations: No Limitations - History of Present Illness Initial Comments: 10/14/18 21:43 Patient is a 78F with extensive medical history, including afib, CAD, CHF, IDDM , s/p L AKA, multiple vascular issues here today with shortness of breath slowly worsening over the past week. Patient also endorses increased swelling in her right leg since then. Denies fevers, chills, nausea, vomiting. Denies chest pain and abdominal pain. Endorses compliance with medications. Nursing reports patient was in afib with rvr in field, given 5 metoprolol. Past History - Past Medical History Allergies/Adverse Reactions: Allergies Allergy/AdvReac Type Severity Reaction Status Date / Time Anesthetics - Amide Type AdvReac Vomiting Verified 08/13/17 10:30 Home Medications: Ambulatory Orders Aspirin [ASA -] 162 mg PO BID 02/27/12 Insulin Sliding Scale [Novolog Vial Sliding Scale -] 1 vial SQ TIDAC units 10/26 Amlodipine Besylate 10 mg PO DAILY 10/14/18 Clopidogrel Bisulfate [Clopidogrel] 75 mg PO DAILY 10/14/18 Docusate Sodium [Colace -] 100 mg PO HS 10/14/18 Gabapentin 300 mg PO DAILY 10/14/18 Insulin Detemir [Levemir Flextouch] 14 units SQ HS 10/14/18 Insulin Detemir [Levemir Flextouch] 20 units SQ DAILY 10/14/18 Isosorbide Mononitrate [Isosorbide Mononitrate ER] 30 mg PO DAILY 10/14/18 Lisinopril 20 mg PO DAILY 10/14/18 Metoprolol Tartrate 50 mg PO BID 10/14/18 Pantoprazole Sodium [Protonix -] 20 mg PO DAILY 10/14/18 Cancer: Yes (BREAST CANCER) Cardiac Disorders: Yes (OPEN HEART SX 02/19/12 3 BLOCKAGES, afib) COPD: No Dementia: Yes Diabetes: Yes (IDDM) GI Disorders: Yes (DIverticulitis,gastric ulcers) HTN: Yes Hypercholesterolemia: Yes - Surgical History Cardiac Surgery: Yes (3 BLOCKAGES 2011) Cholecystectomy: Yes (1980) - Immunization History Immunization Up to Date: Yes - Suicide/Smoking/Psychosocial Hx Smoking Status: No Smoking History: Former smoker Have you smoked in the past 12 months: No Number of Cigarettes Smoked Daily: 0 If you are a former smoker, when did you quit?: 2002 Information on smoking cessation initiated: No Hx Alcohol Use: No Drug/Substance Use Hx: No Substance Use Type: None Review of Systems - Review of Systems Able to Perform ROS?: Yes Comments:: 10/14/18 21:46 GENERAL/CONSTITUTIONAL: No fever or chills. No weakness. HEAD, EYES, EARS, NOSE AND THROAT: No change in vision. No ear pain or discharge. No sore throat. CARDIOVASCULAR: No chest pain +shortness of breath RESPIRATORY: No cough, wheezing, or hemoptysis. GASTROINTESTINAL: No nausea, vomiting, diarrhea or constipation. GENITOURINARY: No dysuria, frequency, or change in urination. MUSCULOSKELETAL: +R leg swelling. No neck or back pain. SKIN: No rash NEUROLOGIC: No headache, vertigo, loss of consciousness, or change in strength/ sensation. ENDOCRINE: No increased thirst. No abnormal weight change HEMATOLOGIC/LYMPHATIC: No anemia, easy bleeding. ALLERGIC/IMMUNOLOGIC: No hives or skin allergy. *Physical Exam - Vital Signs Last Vital Signs Temp Pulse Resp BP Pulse Ox 97.9 F 86 19 144/69 86 L 10/14/18 19:26 10/14/18 19:26 10/14/18 19:26 10/14/18 19:26 10/14/18 19:26 - Physical Exam Comments: 10/14/18 21:47 GENERAL: Awake, alert, and fully oriented, in no acute distress HEAD: No signs of trauma, normocephalic, atraumatic EYES: PERRLA, EOMI, sclera anicteric, conjunctiva clear ENT: Auricles normal inspection, hearing grossly normal, nares patent, oropharynx clear without exudates. Moist mucosa NECK: Normal ROM, supple, no lymphadenopathy, JVD, or masses LUNGS: No distress, speaks full sentences, clear to auscultation bilaterally HEART: Regular rate and rhythm, normal S1 and S2, no murmurs, rubs or gallops, peripheral pulses normal and equal bilaterally. ABDOMEN: Soft, nontender, normoactive bowel sounds. No guarding, no rebound. No masses EXTREMITIES: L leg amputation, wound to right foot with surrounding erythema on several toes with minimal discharge, 2+ pitting edema above knee NEUROLOGICAL: Cranial nerves II through XII grossly intact. Normal speech, no focal sensorimotor deficits SKIN: Warm, Dry, normal turgor, no rashes or lesions noted. ED Treatment Course - LABORATORY CBC & Chemistry Diagram: 10/14/18 22:13 10/14/18 22:13 - ADDITIONAL ORDERS Additional order review: Laboratory Results 10/14/18 19:56 POC Glucometer 138 10/14/18 19:56 POC Glucometer 138 - RADIOLOGY Radiology Studies Ordered: Category Date Time Status CHEST X-RAY PORTABLE* [RAD] Stat Radiology 10/14/18 21:10 Ordered FOOT-RIGHT [RAD] Stat Radiology 10/14/18 21:12 Ordered Medical Decision Making - Medical Decision Making 10/14/18 21:48 Patient is a 78F with multiple comorbidities here today with shortness of breath. Vitals initially show hypoxia, resolved with 4L NC. Patient now appears comfortable. DDx includes, but is not limited to: chf, afib with rvr, pneumonia , dvt. Patient states that she takes an anticoagulant, but is not sure what it is. Will evaluate with cardiac labs, bnp, cxr, dvt us. 10/15/18 00:02 CXR consistent with CHF. BNP elevated. Trop 0.05 CBC normal. CMP reassuring. EKG shows afib with two PVCs. Left axis deviation. QRS widened to 132. No st elevations/depressions. No significant t wave abnormalities. Will admit. Will give lasix. 10/15/18 00:32 Jv Mandujano, accepted [facility] *DC/Admit/Observation/Transfer Diagnosis at time of Disposition: CHF exacerbation - Discharge Dispostion Condition at time of disposition: Stable Decision to Admit order: Yes - Referrals Referrals: Carmen Salazar MD [Primary Care Provider] - - Patient Instructions - Post Discharge Activity
[2018-10-14 23:00] LABS: BASO % 1.1 % (0-2.0); EOS % 3.1 % (0-4.5); HEMATOCRIT 43.7 % (32.4-45.2); LYMPH % 16.3 % (8-40); MCH 28.6 pg (25.7-33.7); MEAN CELL VOLUME 89.4 fl (80-96); MEAN PLT VOLUME 9.2 fl (7.5-11.1); MONO % 8.5 % (3.8-10.2); PLATELET COUNT 177 K/MM3 (134-434); RBC 4.88 M/mm3 (3.60-5.2); RDW 15.2 % (11.6-15.6); WHITE BLOOD COUNT 6.5 K/mm3 (4.0-10.0)
[2018-10-14 23:25] LABS: INR 0.93 (0.83-1.09)
[2018-10-14 23:39] LABS: ALBUMIN 3.1 g/dl (3.4-5.0); BILIRUBIN,TOTAL 0.7 mg/dL (0.2-1); BLOOD UREA NITROGEN 17.4 mg/dL (7-18); CALCIUM 8.5 mg/dL (8.5-10.1); CREATININE 0.9 mg/dL (0.55-1.3); N-TERMINAL BNP 31682.2 pg/ml (5-450); POTASSIUM 4.2 mmol/L (3.5-5.1); TOT PROT 7.1 g/dl (6.4-8.2)
[2018-10-15] MEDS ORDERED: FUROSEMIDE 40 MG/4 ML INJECTABLE VIAL IVPUSH ONE (00:04)
--- NOTE | 2018-10-15 00:23 | PDOC ---
Documentation entered by Maryam Reid SCRIBE, acting as scribe for Dorys Bateman DO. Dorys Bateman DO: This documentation has been prepared by the [place] fishman Brenda, SCRIBE, under my direction and personally reviewed by me in its entirety. I confirm that the documentation accurately reflects all work , treatment, procedures, and medical decision making performed by me. Attending Attestation - Resident Resident Name: Allen Dial - ED Attending Attestation I have performed the following: I have examined & evaluated the patient, The case was reviewed & discussed with the resident, I agree w/resident's findings & plan, Exceptions are as noted - HPI HPI: 10/14/18 23:45 The patient is a 78 year old female, with a significant PMH of CAD, CHF, IDDM, s /p L AKA, multiple vascular issues, hypertension, vascular insufficiency, CAD s/ p CABG , breast cancer (s/p mastectomy), who presents to the emergency department with 1 week of progressively worsening shortness of breath. The patient also endorses increased right leg swelling. The patient denies chest pain, headache and dizziness. Denies fever, chills, nausea, vomiting, diarrhea and constipation. Denies dysuria, frequency, urgency and hematuria. Denies any other symptoms. Allergies: NKA Past surgical history: Mastectomy, CABG , Cholecystectomy, OPEN HEART SX 3 BLOCKAGES Social history: Former smoker, quit 2002. PCP: Dr. Sandrita [facility] Vascular Surgeon: Dr. White - Physicial Exam PE: 10/14/18 21:11 Agree with resident's exam. - Medical Decision Making 10/15/18 00:20 78-year-old female with shortness of breath and leg swelling Exam consistent with CHF exacerbation Ultrasound of the right lower extremity is negative for DVT Low-dose of Lasix given IV push in the emergency department EKG does show atrial fibrillation with occasional PVCs , Left anterior fascicular block present Plan for admission to medical service
--- NOTE | 2018-10-15 01:18 | HP ---
Admitting History and Physical - Primary Care Physician PCP: Carmen Salazar - Admission Chief Complaint: SOB, RLE Swelling History of Present Illness: This is a 78 y/o woman with significant medical history of Afib, CAD, CHF, HTN, IDDM, s/p L AKA, PVD. Who presents to the ED with shortness of breath slowly worsening over the past week. Patient also endorses increased swelling in her right leg since then. Denies fevers, chills, nausea, vomiting. Denies chest pain and abdominal pain. Endorses compliance with medications. Nursing reports patient was in Afib with rvr in field, given 5 metoprolol. 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) Cardiovascular: Yes: AFIB, CAD, CHF, HTN Gastrointestinal: Yes: Diverticulitis, Peptic Ulcer Disease Heme/Onc: Yes: Cancer (Breast) - Past Surgical History Past Surgical History: Yes: CABG, Cholecystectomy, Hysterectomy, Mastectomy, Stent (L- leg), Tonsillectomy - Smoking History Smoking history: Former smoker Have you smoked in the past 12 months: No Aproximately how many cigarettes per day: 0 If you are a former smoker, when did you quit?: 2002 - Alcohol/Substance Use Hx Alcohol Use: No - Social History History of Recent Travel: No Home Medications - Allergies Allergies/Adverse Reactions: Allergies Allergy/AdvReac Type Severity Reaction Status Date / Time Anesthetics - Amide Type AdvReac Vomiting Verified 08/13/17 10:30 - Home Medications Home Medications: Ambulatory Orders Aspirin [ASA -] 162 mg PO BID 02/27/12 Insulin Sliding Scale [Novolog Vial Sliding Scale -] 1 vial SQ TIDAC units 10/26 Amlodipine Besylate 10 mg PO DAILY 10/14/18 Clopidogrel Bisulfate [Clopidogrel] 75 mg PO DAILY 10/14/18 Docusate Sodium [Colace -] 100 mg PO HS 10/14/18 Gabapentin 300 mg PO DAILY 10/14/18 Insulin Detemir [Levemir Flextouch] 14 units SQ HS 10/14/18 Insulin Detemir [Levemir Flextouch] 20 units SQ DAILY 10/14/18 Isosorbide Mononitrate [Isosorbide Mononitrate ER] 30 mg PO DAILY 10/14/18 Lisinopril 20 mg PO DAILY 10/14/18 Metoprolol Tartrate 50 mg PO BID 10/14/18 Pantoprazole Sodium [Protonix -] 20 mg PO DAILY 10/14/18 Family Disease History - Family Disease History Family History: Unable to Obtain Review of Systems - Review of Systems Constitutional: reports: No Symptoms Eyes: reports: No Symptoms HENT: reports: No Symptoms Neck: reports: No Symptoms Cardiovascular: reports: Edema, Shortness of Breath Respiratory: reports: SOB, SOB on Exertion Gastrointestinal: reports: No Symptoms Genitourinary: reports: No Symptoms Breasts: reports: No Symptoms Reported Musculoskeletal: reports: No Symptoms Integumentary: reports: No Symptoms Neurological: reports: No Symptoms Endocrine: reports: No Symptoms Hematology/Lymphatic: reports: No Symptoms Psychiatric: reports: No Symptoms Physical Examination Vital Signs: Vital Signs Temperature 98.0 F 10/15/18 00:41 Pulse Rate 93 H 10/15/18 00:41 Respiratory Rate 20 10/15/18 00:41 Blood Pressure 158/66 10/15/18 00:41 O2 Sat by Pulse Oximetry (%) 99 10/15/18 00:41 Constitutional: Yes: Well Nourished, No Distress, Calm, Obese Eyes: Yes: WNL, Conjunctiva Clear, EOM Intact, PERRL HENT: Yes: WNL, Atraumatic, Normocephalic Neck: Yes: WNL, Supple, Trachea Midline Cardiovascular: Yes: Pulse Irregular, S1, S2 Respiratory: Yes: Diminished, On Nasal O2, Rales, SOB on Exertion Gastrointestinal: Yes: Normal Bowel Sounds, Soft, Abdomen, Obese Renal/: Yes: WNL Breast(s): Yes: Right (mastectomy) Extremities: Yes: Amputation (L-Aka) Edema: Yes Edema: RLE: 3+ Peripheral Pulses WNL: Yes Integumentary: Yes: Other (non pressure ulcers to R- toes) Wound/Incision: Yes: Reddened Neurological: Yes: WNL, Alert, Oriented Psychiatric: Yes: WNL, Alert, Oriented Labs: CBC, BMP 10/14/18 22:13 10/14/18 22:13 Laboratory Results - last 24 hr 10/14/18 10/14/18 10/14/18 19:56 22:13 22:13 WBC 6.5 RBC 4.88 Hgb 14.0 Hct 43.7 D MCV 89.4 MCH 28.6 MCHC 32.0 RDW 15.2 D Plt Count 177 D MPV 9.2 Absolute Neuts (auto) 4.6 Neutrophils % 71.0 Lymphocytes % 16.3 Monocytes % 8.5 Eosinophils % 3.1 Basophils % 1.1 Nucleated RBC % 0 PT with INR INR Sodium 140 Potassium 4.2 Chloride 102 Carbon Dioxide 32 Anion Gap 6 L BUN 17.4 Creatinine 0.9 Est GFR (CKD-EPI)AfAm 70.48 Est GFR (CKD-EPI)NonAf 60.81 POC Glucometer 138 Random Glucose 191 H Lactic Acid Calcium 8.5 Magnesium Total Bilirubin 0.7 AST 8 L ALT 17 Alkaline Phosphatase 121 H Creatine Kinase 46 Troponin I 0.05 B-Natriuretic Peptide 71241.2 H Total Protein 7.1 Albumin 3.1 L 10/14/18 10/14/18 10/15/18 22:13 22:13 03:35 WBC RBC Hgb Hct MCV MCH MCHC RDW Plt Count MPV Absolute Neuts (auto) Neutrophils % Lymphocytes % Monocytes % Eosinophils % Basophils % Nucleated RBC % PT with INR 11.00 INR 0.93 Sodium Potassium Chloride Carbon Dioxide Anion Gap BUN Creatinine Est GFR (CKD-EPI)AfAm Est GFR (CKD-EPI)NonAf POC Glucometer Random Glucose Lactic Acid 1.3 Calcium Magnesium 1.9 Total Bilirubin AST ALT Alkaline Phosphatase Creatine Kinase Troponin I B-Natriuretic Peptide Total Protein Albumin 10/15/18 06:24 WBC RBC Hgb Hct MCV MCH MCHC RDW Plt Count MPV Absolute Neuts (auto) Neutrophils % Lymphocytes % Monocytes % Eosinophils % Basophils % Nucleated RBC % PT with INR INR Sodium Potassium Chloride Carbon Dioxide Anion Gap BUN Creatinine Est GFR (CKD-EPI)AfAm Est GFR (CKD-EPI)NonAf POC Glucometer 168 Random Glucose Lactic Acid Calcium Magnesium Total Bilirubin AST ALT Alkaline Phosphatase Creatine Kinase Troponin I B-Natriuretic Peptide Total Protein Albumin Intake & Output 10/12/18 10/13/18 10/14/18 10/15/18 23:59 23:59 23:59 23:59 Weight 86.183 kg 99.337 kg Current Medications Generic Name Dose Route Start Last Admin Trade Name Freq PRN Reason Stop Dose Admin Amlodipine Besylate 10 mg 10/15/18 10:00 10/15/18 09:37 Norvasc - PO 10 mg DAILY [facility] Administration Aspirin 81 mg 10/15/18 10:00 10/15/18 09:38 Asa - PO 81 mg BID [facility] Administration Clopidogrel Bisulfate 75 mg 10/15/18 10:00 10/15/18 09:37 Plavix - PO 75 mg DAILY [facility] Administration Furosemide 40 mg 10/15/18 10:00 10/15/18 09:39 Lasix Injection - IVPUSH 40 mg DAILY [facility] Administration Gabapentin 300 mg 10/15/18 10:00 10/15/18 09:38 Neurontin - PO 300 mg DAILY [facility] Administration Insulin Aspart 1 vial 10/15/18 11:00 Novolog Vial Sliding Scale - SQ TIDAC [facility] Protocol Insulin Detemir 14 units 10/15/18 22:00 Levemir Vial SQ HS [facility] Isosorbide Mononitrate 30 mg 10/15/18 10:00 10/15/18 09:37 Imdur - PO 30 mg DAILY [facility] Administration Lisinopril 20 mg 10/15/18 10:00 10/15/18 09:38 Prinivil PO 20 mg DAILY [facility] Administration Metoprolol Tartrate 50 mg 10/15/18 10:00 10/15/18 09:38 Lopressor - PO 50 mg BID [facility] Administration Pantoprazole Sodium 20 mg 10/15/18 10:00 10/15/18 09:37 Protonix - PO 20 mg DAILY [facility] Administration Imaging - Results Chest X-ray: Report Reviewed (vascular congestion, consolidation, atelectasis, small right plerual effusion probable infiltrates Left lung base), Image Reviewed X-ray: Image Reviewed Ultrasound: Report Reviewed (neg DVT RLE), Image Reviewed EKG: Image Reviewed Problem List - Problems (1) CHF exacerbation Code(s): I50.9 - HEART FAILURE, UNSPECIFIED (2) Acute on chronic systolic and diastolic heart failure, NYHA class 1 Code(s): I50.43 - ACUTE ON CHRONIC COMBINED SYSTOLIC AND DIASTOLIC HRT FAIL (3) Afib Code(s): I48.91 - UNSPECIFIED ATRIAL FIBRILLATION (4) Coronary artery disease Code(s): I25.10 - ATHSCL HEART DISEASE OF [place] CORONARY ARTERY W/O ANG PCTRS Qualifiers: (5) Diabetes mellitus Code(s): E11.9 - TYPE 2 DIABETES MELLITUS WITHOUT COMPLICATIONS (6) S/P CABG (coronary artery bypass graft) Code(s): Z95.1 - PRESENCE OF AORTOCORONARY BYPASS GRAFT Assessment/Plan This is a 78 y/o woman with a PMhx of HTN, IDDM, CAD s/p CABG, Breast Ca s/p mastectomy. Admitted for CHF Exacerbation, Diabetic Wounds R- foot for further evaluation of their emergent condition. Plan: Admit BNP> 3000 Lasix given in ED continue Strict INOs Daily weights EKG-reviewed Chest Xray- vascular congestion Appreciate Cardiology consult Appreciate Vascular consult for diabetic wounds to r- foot O2 Continue home meds BGMs ISS Monitor CBC, BMP Fall Precautions FEN- Replete lytes prn, Low Na, Diabetic Diet DVT ppx- SCD, Continue Plavix Dispo: Requires Inpatient Care Visit type - Emergency Visit Emergency Visit: Yes ED Registration Date: 10/14/18 Care time: The patient presented to the Emergency Department on the above date and was hospitalized for further evaluation of their emergent condition. - New Patient This patient is new to me today: Yes Date on this admission: 10/15/18 - Critical Care Critical Care patient: No
[2018-10-15] MEDS ORDERED: FUROSEMIDE 40 MG/4 ML INJECTABLE VIAL ONE ×2 (01:34→01:35)
[2018-10-15] MEDS: PANTOPRAZOLE 20 MG TABLET (FP) PO SCH (09:37)
[2018-10-15] MEDS: ISOSORBIDE MONONITRATE 30 MG TAB.SR.24H (FP) PO SCH (09:37)
[2018-10-15] MEDS: amLODIPine BESYLATE 10 MG TABLET (FP) PO SCH (09:37)
[2018-10-15] MEDS: LISINOPRIL 20 MG TABLET (FP) PO SCH (09:38)
[2018-10-15] MEDS: METOPROLOL TARTRATE 50 MG TABLET (FP) PO SCH ×2 (09:38→22:08)
[2018-10-15] MEDS: FUROSEMIDE 40 MG/4 ML INJECTABLE VIAL IVPUSH SCH (09:39)
[2018-10-15] MEDS ORDERED: ASPIRIN 81 MG CHEWABLE TABLETS PO SCH (10:00)
[2018-10-15] MEDS ORDERED: CLOPIDOGREL BISULFATE 75 MG TABLET (FP) PO SCH (10:00)
[2018-10-15] MEDS ORDERED: GABAPENTIN 100 MG CAPSULE (FP) PO SCH (10:00)
[2018-10-15 10:32] LABS: EOS % 5.2 % (0-4.5); HEMOGLOBIN 12.9 GM/dL (10.7-15.3); LYMPH % 12.5 % (8-40); MCH 28.7 pg (25.7-33.7); MCHC 32.2 g/dl (32.0-36.0); MEAN CELL VOLUME 88.9 fl (80-96); MEAN PLT VOLUME 9.3 fl (7.5-11.1); MONO % 9.1 % (3.8-10.2); NEUT % 72.2 % (42.8-82.8); PLATELET COUNT 161 K/MM3 (134-434); RDW 15.4 % (11.6-15.6); WHITE BLOOD COUNT 7.6 K/mm3 (4.0-10.0)
[2018-10-15 10:59] LABS: BLOOD UREA NITROGEN 16.9 mg/dL (7-18); CALCIUM 8.4 mg/dL (8.5-10.1); CREATININE 0.9 mg/dL (0.55-1.3)
[2018-10-15] MEDS ORDERED: INSULIN (NOVOLOG) ASPART 100 UNITS/ML 10ML VIAL ONE (11:36)
[2018-10-15] MEDS: INSULIN SLIDING SCALE (NOVOLOG) 1 VIAL SQ SCH ×2 (11:37→17:32)
--- NOTE | 2018-10-15 13:34 | EKG ---
Test Reason : Blood Pressure : / mmHG Vent. Rate : 089 BPM Atrial Rate : 125 BPM P-R Int : 000 ms QRS Dur : 132 ms QT Int : 398 ms P-R-T Axes : 000 -48 148 degrees QTc Int : 484 ms ATRIAL FIBRILLATION WITH PREMATURE VENTRICULAR OR ABERRANTLY CONDUCTED COMPLEXES LEFT AXIS DEVIATION NON-SPECIFIC INTRA-VENTRICULAR CONDUCTION BLOCK POSSIBLE ANTEROLATERAL INFARCT , AGE UNDETERMINED ABNORMAL ECG WHEN COMPARED WITH ECG OF 15-AUG-2017 08:58, SIGNIFICANT CHANGES HAVE OCCURRED Confirmed by STEVE LEA MD ([id number]) on 10/15/2018 1:33:49 PM Referred By: Confirmed By:STEVE LEA MD
--- NOTE | 2018-10-15 16:03 | PN ---
Progress Note, Physician History of Present Illness: pt seen/ examined chart reviewed awake feels better chronic ill appearance denies cp breathing better - Current Medication List Current Medications: Active Medications Amlodipine Besylate (Norvasc -) 10 mg PO DAILY [facility] Last Admin: 10/15/18 09:37 Dose: 10 mg Apixaban (Eliquis -) 5 mg PO BID [facility] Aspirin (Ecotrin -) 81 mg PO DAILY [facility] Atorvastatin Calcium (Lipitor -) 10 mg PO HS [facility] Furosemide (Lasix Injection -) 40 mg IVPUSH DAILY [facility] Last Admin: 10/15/18 09:39 Dose: 40 mg Gabapentin (Neurontin -) 300 mg PO DAILY [facility] Last Admin: 10/15/18 09:38 Dose: 300 mg Insulin Aspart (Novolog Vial Sliding Scale -) 1 vial SQ TIDAC [facility]; Protocol Last Admin: 10/15/18 11:37 Dose: 2 units Insulin Detemir (Levemir Vial) 14 units SQ HS [facility] Isosorbide Mononitrate (Imdur -) 30 mg PO DAILY [facility] Last Admin: 10/15/18 09:37 Dose: 30 mg Lisinopril (Prinivil) 20 mg PO DAILY [facility] Last Admin: 10/15/18 09:38 Dose: 20 mg Metoprolol Tartrate (Lopressor -) 50 mg PO BID [facility] Last Admin: 10/15/18 09:38 Dose: 50 mg Pantoprazole Sodium (Protonix -) 20 mg PO DAILY [facility] Last Admin: 10/15/18 09:37 Dose: 20 mg - Objective Vital Signs: Vital Signs Temperature 98.3 F 10/15/18 15:19 Pulse Rate 79 10/15/18 15:19 Respiratory Rate 18 10/15/18 15:19 Blood Pressure 118/59 L 10/15/18 15:19 O2 Sat by Pulse Oximetry (%) 100 10/15/18 09:00 Constitutional: Yes: No Distress, Obese Eyes: Yes: Conjunctiva Clear Neck: Yes: Supple Cardiovascular: Yes: Pulse Irregular Respiratory: Yes: Other (crackles at bases) Gastrointestinal: Yes: Abdomen, Obese Extremities: Yes: Amputation (left bka right toe-- reddened/ dry wound) Edema: RLE: 2+ Neurological: Yes: Alert Labs: CBC, BMP 10/15/18 10:03 10/15/18 10:03 INR, PTT INR 0.93 (0.83-1.09) 10/14/18 22:13 Problem List - Problems (1) Right foot ulcer Code(s): L97.519 - NON-PRS CHRONIC ULCER OTH PRT RIGHT FOOT W UNSP SEVERITY (2) Pneumonia Code(s): J18.9 - PNEUMONIA, UNSPECIFIED ORGANISM (3) CHF exacerbation Code(s): I50.9 - HEART FAILURE, UNSPECIFIED (4) Afib Code(s): I48.91 - UNSPECIFIED ATRIAL FIBRILLATION (5) Cellulitis Code(s): L03.90 - CELLULITIS, UNSPECIFIED Qualifiers: Site of cellulitis: extremity Site of cellulitis of extremity: lower extremity Laterality: left Qualified Code(s): L03.116 - Cellulitis of left lower limb (6) Coronary artery disease Code(s): I25.10 - ATHSCL HEART DISEASE OF [place] CORONARY ARTERY W/O ANG PCTRS Qualifiers: (7) Diabetes mellitus Code(s): E11.9 - TYPE 2 DIABETES MELLITUS WITHOUT COMPLICATIONS (8) Hyperlipidemia Code(s): E78.5 - HYPERLIPIDEMIA, UNSPECIFIED (9) Ischemia of both lower extremities Code(s): I99.8 - OTHER DISORDER OF CIRCULATORY SYSTEM (10) S/P CABG (coronary artery bypass graft) Code(s): Z95.1 - PRESENCE OF AORTOCORONARY BYPASS GRAFT Assessment/Plan Discussed in detail continue i/v lasix monitor lytes Pneumonia ? superimposed infiltrate ? Abx leg ulcer- vascular consulted will consult i/d also cardiology consult echo Compliance issues meds reviewed pt takes asa/ plaviz and Eliquis Discussed will hold plavix for now continue asa/ Eliquis f/u labs will follow Monitor bgm
[2018-10-15] MEDS ORDERED: ACETAMINOPHEN 325 MG TABLET (FP) PO PRN (16:41)
--- NOTE | 2018-10-15 17:03 | PN ---
Progress Note (short form) - Note Progress Note: ID consult dictated 78 yo female admitted with chf, noted to have some erythema of her right foot cannot r/o pneumonia but suspect chf cellulitis of the right foot prolonged qtc afib echo blood cultures urinary antigen rocephin/doxycycline cardiology consult Problem List - Problems (1) CHF (congestive heart failure) Code(s): I50.9 - HEART FAILURE, UNSPECIFIED Qualifiers: Heart failure type: unspecified Heart failure chronicity: unspecified Qualified Code(s): I50.9 - Heart failure, unspecified (2) Pneumonia Code(s): J18.9 - PNEUMONIA, UNSPECIFIED ORGANISM (3) Cellulitis Code(s): L03.90 - CELLULITIS, UNSPECIFIED Qualifiers: Site of cellulitis: extremity Site of cellulitis of extremity: lower extremity Laterality: left Qualified Code(s): L03.116 - Cellulitis of left lower limb (4) Afib Code(s): I48.91 - UNSPECIFIED ATRIAL FIBRILLATION
[2018-10-15] MEDS ORDERED: DEXTROSE 5%-WATER - 50 ML IVPB ONE (17:26)
[2018-10-15] MEDS ORDERED: ceFAZolin SODIUM 1 GM VIAL ONE (17:26)
[2018-10-15] MEDS ORDERED: DEXTROSE 5%-WATER 100 ML IVPB ONE (17:51)
[2018-10-15] MEDS: CEFTRIAXONE 2 GM in DEXTROSE 5%-WATER 100 ML IVPB SCH (17:52)
[2018-10-15] MEDS ORDERED: CEFAZOLIN 1 GM/D5W 1 GM/50 ML BAG IVPB SCH (18:00)
[2018-10-15] MEDS ORDERED: CEFAZOLIN 1 GM in DEXTROSE 5%-WATER - 50 ML IVPB SCH (18:00)
--- NOTE | 2018-10-15 18:22 | CON.CARD ---
Consult Consult Specialty:: cardiology Reason for Consultation:: shortness of breath - History of Present Illness History of Present Illness: 10/14/18 23:45 The patient is a 78 year old female, with a significant PMH of CAD, CHF, IDDM, s /p L AKA, multiple vascular issues, hypertension, vascular insufficiency, CAD s/ p CABG , breast cancer (s/p mastectomy), who presents to the emergency department with 1 week of progressively worsening shortness of breath. The patient also endorses increased right leg swelling. The patient denies chest pain, headache and dizziness. Denies fever, chills, nausea, vomiting, diarrhea and constipation. Denies dysuria, frequency, urgency and hematuria. Denies any other symptoms. Allergies: NKA Past surgical history: Mastectomy, Cholecystectomy, OPEN HEART SX (CABG) 2011: 3 BLOCKAGES Social history: Former smoker, quit 2002. PCP: Dr. Sandrita Salazar Vascular Surgeon: Dr. 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) Cardio/Vascular: Yes: AFIB, CAD, CHF, HTN Gastrointestinal: Yes: Diverticulitis, Peptic Ulcer Disease Reproductive: Yes: Postmenopausal ...: No Heme/Onc: Yes: Anemia - Past Surgical History Past Surgical History: Yes: CABG (2012), Cholecystectomy, Hysterectomy, Mastectomy, Stent (L- leg), Tonsillectomy - Alcohol/Substance Use Hx Alcohol Use: No - Smoking History Smoking history: Former smoker Have you smoked in the past 12 months: No Aproximately how many cigarettes per day: 0 If you are a former smoker, when did you quit?: 2002 - Social History History of Recent Travel: No Home Medications - Allergies Allergies/Adverse Reactions: Allergies Allergy/AdvReac Type Severity Reaction Status Date / Time Anesthetics - Amide Type AdvReac Vomiting Verified 08/13/17 10:30 - Home Medications Home Medications: Ambulatory Orders Aspirin [ASA -] 162 mg PO BID 02/27/12 Insulin Sliding Scale [Novolog Vial Sliding Scale -] 1 vial SQ TIDAC units 10/26 Amlodipine Besylate 10 mg PO DAILY 10/14/18 Clopidogrel Bisulfate [Clopidogrel] 75 mg PO DAILY 10/14/18 Docusate Sodium [Colace -] 100 mg PO HS 10/14/18 Gabapentin 300 mg PO DAILY 10/14/18 Insulin Detemir [Levemir Flextouch] 14 units SQ HS 10/14/18 Insulin Detemir [Levemir Flextouch] 20 units SQ DAILY 10/14/18 Isosorbide Mononitrate [Isosorbide Mononitrate ER] 30 mg PO DAILY 10/14/18 Lisinopril 20 mg PO DAILY 10/14/18 Metoprolol Tartrate 50 mg PO BID 10/14/18 Pantoprazole Sodium [Protonix -] 20 mg PO DAILY 10/14/18 Vital Signs: Vital Signs Temperature 98.3 F 10/15/18 15:19 Pulse Rate 79 10/15/18 15:19 Respiratory Rate 18 10/15/18 15:19 Blood Pressure 118/59 L 10/15/18 15:19 O2 Sat by Pulse Oximetry (%) 100 10/15/18 09:00 - Other Data Labs, Other Data: CBC, BMP 10/15/18 10:03 10/15/18 10:03 INR, PTT INR 0.93 (0.83-1.09) 10/14/18 22:13 Troponin, BNP 10/14/18 22:13 Troponin I 0.05 B-Natriuretic Peptide 07588.2 H Troponin, BNP 10/14/18 22:13 Troponin I 0.05 B-Natriuretic Peptide 75053.2 H Problem List - Problems (1) Acute on chronic systolic and diastolic heart failure, NYHA class 1 Assessment/Plan: BNP >30,000 (the highest recorded during visits here). CXR: CHF. Continue lisinopril, metoprolol. On furosemide. F/u Is and Os, daily weight, BUN/Cr, electrolytes. ECHO for LVEF, chamber sizes, wall motion, valve status. Code(s): I50.43 - ACUTE ON CHRONIC COMBINED SYSTOLIC AND DIASTOLIC HRT FAIL (2) Afib Assessment/Plan: On metorprolol for HR control (and CHF/HTN). On apixaban for anticoagulation. F/u ECHO. Code(s): I48.91 - UNSPECIFIED ATRIAL FIBRILLATION (3) Hyperlipidemia Assessment/Plan: On atrovastatin F/u lipid profile. Code(s): E78.5 - HYPERLIPIDEMIA, UNSPECIFIED (4) Hypertension Code(s): I10 - ESSENTIAL (PRIMARY) HYPERTENSION Qualifiers: Hypertension type: essential hypertension Qualified Code(s): I10 - Essential (primary) hypertension (5) Ischemia of both lower extremities Code(s): I99.8 - OTHER DISORDER OF CIRCULATORY SYSTEM (6) Obesity Code(s): E66.9 - OBESITY, UNSPECIFIED (7) S/P CABG (coronary artery bypass graft) Code(s): Z95.1 - PRESENCE OF AORTOCORONARY BYPASS GRAFT (8) Vascular disease Assessment/Plan: Hx left foot ulcer; now with likely cellulitis of RLE. bilateral PAD/ s/p LE stent. Antibiotics per ID. F/u with vascular surgeon. (9) Diabetes mellitus Code(s): E11.9 - TYPE 2 DIABETES MELLITUS WITHOUT COMPLICATIONS
[2018-10-15 18:33] LABS: EPI CELLS 2.1 /HPF (0-5/HPF); HYALINE CASTS 3 /lpf (0-8); URINE APPEARANCE CLEAR; URINE BACTERIA 3.9 /hpf (NEGATIVE); URINE BILIRUBIN NEGATIVE (NEGATIVE); URINE COLOR YELLOW; URINE GLUCOSE (UA) NEGATIVE (NEGATIVE); URINE KETONE NEGATIVE (NEGATIVE); URINE LEUK ESTERASE 2+ (NEGATIVE); URINE NITRITE NEGATIVE (NEGATIVE); URINE PROTEIN NEGATIVE (NEGATIVE); URINE RBC 1 /hpf (0-4); URINE UROBILINOGEN 0.2 mg/dL (0.2-1.0); URINE WBC 33 /hpf (0-5)
--- NOTE | 2018-10-15 18:51 | CONS ---
DATE OF CONSULTATION: DATE OF DICTATION: 10/15/2018 INFECTIOUS DISEASE CONSULTATION REQUESTING PHYSICIAN: Carmen Salazar M.D. CONSULTING PHYSICIAN: Burke Simms M.D. HISTORY OF PRESENT ILLNESS : This is a 78-year-old woman presents to the emergency room on the 6th, evening, complaining of shortness of breath. It has been worsening over the last week. She notes as well increasing edema of her right leg. She was noted to be in atrial fibrillation with rapid ventricular response and was given metoprolol. She was admitted for further evaluation. During the evaluation, she was noted to have a wound to her right foot with some surrounding erythema and some erythema of the 2nd toe. I am asked to see her for possible cellulitis of the foot. Patient denies any fevers or chills. She reports she has no abdominal pain. She reports shortness of breath. She is allergic to ANESTHETICS OF THE AMIDE TYPE. Her medications at home include insulin, amlodipine, Plavix, Colace, gabapentin, isosorbide, lisinopril, metoprolol, and pantoprazole. PAST MEDICAL HISTORY: Notable for atrial fibrillation, coronary artery disease, hypertension, diabetes. She has a history of breast cancer. She has had diverticulitis in the past. There is a history of hyperlipidemia. SURGICAL HISTORY: She is status post CABG. She has a history of mastectomy of the right breast. She is status post cholecystectomy, and she has had a left lower leg angiogram in the past as well as right lower lobe angiogram with angioplasty. She subsequently underwent a right femoral artery to peroneal artery bypass of the right leg with greater saphenous vein reversal in 2012. SOCIAL HISTORY: She lives alone in the community. She uses a wheelchair. She is unable to ambulate. She is a former smoker, quit in 2002. She denies any substance use. REVIEW OF SYSTEMS: As per HPI. PHYSICAL EXAMINATION: GENERAL: She is awake and alert. She complains of shortness of breath. VITAL SIGNS: Temperature 98.3, pulse 79, blood pressure 118/59, respiratory rate 18. HEENT: Normocephalic. Eyes are anicteric. NECK: Supple. LUNGS: Diminished breath sounds at the bases. HEART: Regular rate and rhythm. ABDOMEN: Soft. She has a well healed left AKA stump. EXTREMITIES: She has edema of the entire right leg with a well healed incision on the medial aspect. She has an ulcer and some erythema of the tips of her 2nd and 4th toe. LABORATORY: Notable for white count of 7.6, hemoglobin 12.9, platelets 161, BUN and creatinine are 16 and 0.9. BNP in the emergency room was 31,000. Duplex of the leg was done, showed no evidence of DVT in the right lower extremity. She had an x-ray of the foot that showed no bony destructive changes, and she had a chest x-ray that was notable for bibasilar atelectasis/effusion. IMPRESSION: In summary, this is a 78-year-old woman admitted with what appears to be rapid atrial fibrillation and congestive heart failure exacerbation with ulcers of her leg. I doubt she has pneumonia but given the degree of her dyspnea, would suspect we cannot rule out pneumonia at this point. Would obtain an echo. Would suggest she be seen by cardiology and will obtain a urinary antigen for legionella. Meanwhile will treat her with ceftriaxone and doxycycline at this time given her electrocardiogram with QTC prolongation. BURKE SIMMS M.D. [id number]
[2018-10-15] MEDS: DOXYCYCLINE INJECTION 100 MG in DEXTROSE 5%-WATER - 100 ML IVPB SCH (22:07)
[2018-10-15] MEDS: ATORVASTATIN CA 10 MG TABLET (FP) PO SCH (22:08)
[2018-10-15] MEDS: APIXABAN 5 MG TABLET PO SCH (22:08)
[2018-10-15] MEDS: INSULIN (LEVEMIR) 100 UNITS/ML UNITS SQ SCH (22:08)
[2018-10-16] MEDS: INSULIN SLIDING SCALE (NOVOLOG) 1 VIAL SQ SCH ×3 (06:37→16:40)
[2018-10-16 08:56] LABS: BASO % 1.2 % (0-2.0); EOS % 6.3 % (0-4.5); HEMATOCRIT 37.8 % (32.4-45.2); HEMOGLOBIN 12.1 GM/dL (10.7-15.3); LYMPH % 11.6 % (8-40); MCH 28.6 pg (25.7-33.7); MCHC 32.1 g/dl (32.0-36.0); MEAN CELL VOLUME 89.3 fl (80-96); MONO % 10.5 % (3.8-10.2); NEUT % 70.4 % (42.8-82.8); PLATELET COUNT 164 K/MM3 (134-434); RBC 4.23 M/mm3 (3.60-5.2); RDW 15.1 % (11.6-15.6); WHITE BLOOD COUNT 6.3 K/mm3 (4.0-10.0)
[2018-10-16 09:22] LABS: ALBUMIN 2.6 g/dl (3.4-5.0); BILIRUBIN,TOTAL 0.5 mg/dL (0.2-1); BLOOD UREA NITROGEN 20.6 mg/dL (7-18); CALCIUM 7.9 mg/dL (8.5-10.1); POTASSIUM 4.3 mmol/L (3.5-5.1); TOT PROT 6.3 g/dl (6.4-8.2)
[2018-10-16] MEDS ORDERED: DEXTROSE 5%-WATER 100 ML IVPB ONE (09:41)
[2018-10-16] MEDS: APIXABAN 5 MG TABLET PO SCH ×2 (09:50→23:12)
[2018-10-16] MEDS: CEFTRIAXONE 2 GM in DEXTROSE 5%-WATER 100 ML IVPB SCH (09:50)
[2018-10-16] MEDS: LISINOPRIL 20 MG TABLET (FP) PO SCH (09:50)
[2018-10-16] MEDS: FUROSEMIDE 40 MG/4 ML INJECTABLE VIAL IVPUSH SCH (09:50)
[2018-10-16] MEDS: ISOSORBIDE MONONITRATE 30 MG TAB.SR.24H (FP) PO SCH (09:50)
[2018-10-16] MEDS: METOPROLOL TARTRATE 50 MG TABLET (FP) PO SCH ×2 (09:50→23:11)
[2018-10-16] MEDS: PANTOPRAZOLE 20 MG TABLET (FP) PO SCH (09:50)
[2018-10-16] MEDS: GABAPENTIN 300 MG CAPSULE (FP) PO SCH (09:50)
[2018-10-16] MEDS: ASPIRIN COATED 81 MG TABLET.EC PO SCH (09:50)
[2018-10-16] MEDS: amLODIPine BESYLATE 10 MG TABLET (FP) PO SCH (09:50)
[2018-10-16] MEDS ORDERED: PT OWN MED DRAWER 7, Y5N ONE (09:55)
[2018-10-16] MEDS: DOXYCYCLINE INJECTION 100 MG in DEXTROSE 5%-WATER - 100 ML IVPB SCH ×2 (10:05→23:12)
--- NOTE | 2018-10-16 10:20 | PN ---
Progress Note (short form) - Note Progress Note: pt seen/ examined comfortable all consults noted/ appreciated. feels okay Vital Signs Temp 97.7 F 10/16/18 06:00 Pulse 89 10/16/18 06:00 Resp 18 10/16/18 06:00 BP 132/56 L 10/16/18 06:00 Pulse Ox 100 10/15/18 21:00 Intake & Output 10/15/18 10/15/18 10/16/18 11:59 23:59 11:59 Intake Total 1190 240 Balance 1190 240 Weight 219 lb 212 lb 2 oz Intake: Oral 1190 240 Other: Voiding Method Incontinent Incontinent # Unmeasured Voids Void 1 1 1 Bowel Movement No No Height 5 ft 6 in Body Mass Index (BMI) 35.3 Weight Measurement Method Patient Lift Scale Patient Lift Scale Active Medications Acetaminophen (Tylenol -) 650 mg PO Q6H PRN PRN Reason: PAIN LEVEL 1-5 Amlodipine Besylate (Norvasc -) 10 mg PO DAILY [facility] Last Admin: 10/16/18 09:50 Dose: 10 mg Apixaban (Eliquis -) 5 mg PO BID [facility] Last Admin: 10/16/18 09:50 Dose: 5 mg Aspirin (Ecotrin -) 81 mg PO DAILY [facility] Last Admin: 10/16/18 09:50 Dose: 81 mg Atorvastatin Calcium (Lipitor -) 10 mg PO HS [facility] Last Admin: 10/15/18 22:08 Dose: 10 mg Furosemide (Lasix Injection -) 40 mg IVPUSH DAILY [facility] Last Admin: 10/16/18 09:50 Dose: 40 mg Gabapentin (Neurontin -) 300 mg PO DAILY [facility] Last Admin: 10/16/18 09:50 Dose: 300 mg Ceftriaxone Sodium 2 gm/ (Dextrose) 100 mls @ 200 mls/hr IVPB DAILY [facility]; Protocol Last Admin: 10/16/18 09:50 Dose: 200 mls/hr Doxycycline Hyclate 100 mg/ (Dextrose) 100 mls @ 100 mls/hr IVPB BID [facility] Last Admin: 10/16/18 10:05 Dose: 100 mls/hr Insulin Aspart (Novolog Vial Sliding Scale -) 1 vial SQ TIDAC [facility]; Protocol Last Admin: 10/16/18 06:37 Dose: Not Given Insulin Detemir (Levemir Vial) 14 units SQ [facility] Last Admin: 10/15/18 22:08 Dose: 14 units Isosorbide Mononitrate (Imdur -) 30 mg PO DAILY [facility] Last Admin: 10/16/18 09:50 Dose: 30 mg Lisinopril (Prinivil) 20 mg PO DAILY [facility] Last Admin: 10/16/18 09:50 Dose: 20 mg Metoprolol Tartrate (Lopressor -) 50 mg PO BID [facility] Last Admin: 10/16/18 09:50 Dose: 50 mg Pantoprazole Sodium (Protonix -) 20 mg PO DAILY [facility] Last Admin: 10/16/18 09:50 Dose: 20 mg CBC, BMP 10/16/18 08:40 10/16/18 08:40 Microbiology 10/15/18 03:35 Blood Culture - Preliminary Blood - Peripheral Venous NO GROWTH OBTAINED AFTER 24 HOURS, INCUBATION TO CONTINUE FOR 4 DAYS. 10/15/18 03:35 Blood Culture - Preliminary Blood - Peripheral Venous NO GROWTH OBTAINED AFTER 24 HOURS, INCUBATION TO CONTINUE FOR 4 DAYS. Physical exam Constitutional: Yes: No Distress, Obese Eyes: Yes: Conjunctiva Clear Neck: Yes: Supple Cardiovascular: Yes: Pulse Irregular Respiratory: Yes: Other (crackles at bases) Gastrointestinal: Yes: Abdomen, Obese Extremities: Yes: Amputation (left bka right toe-- reddened/ dry wound) Edema: RLE: 2+ Neurological: Yes: Alert Assessment/Plan Discussed in detail continue i/v lasix monitor lytes Pneumonia ? superimposed infiltrate ? Abx leg ulcer- vascular consulted---awaiting consult--- likely need vascular studies continue present care labs noted and reviewed will follow Monitor bgm Will follow Problem List - Problems (1) Right foot ulcer Code(s): L97.519 - NON-PRS CHRONIC ULCER OTH PRT RIGHT FOOT W UNSP SEVERITY (2) Pneumonia Code(s): J18.9 - PNEUMONIA, UNSPECIFIED ORGANISM (3) CHF exacerbation Code(s): I50.9 - HEART FAILURE, UNSPECIFIED (4) Afib Code(s): I48.91 - UNSPECIFIED ATRIAL FIBRILLATION (5) Cellulitis Code(s): L03.90 - CELLULITIS, UNSPECIFIED Qualifiers: Site of cellulitis: extremity Site of cellulitis of extremity: lower extremity Laterality: left Qualified Code(s): L03.116 - Cellulitis of left lower limb (6) Coronary artery disease Code(s): I25.10 - ATHSCL HEART DISEASE OF [place] CORONARY ARTERY W/O ANG PCTRS Qualifiers: (7) Diabetes mellitus Code(s): E11.9 - TYPE 2 DIABETES MELLITUS WITHOUT COMPLICATIONS (8) Hyperlipidemia Code(s): E78.5 - HYPERLIPIDEMIA, UNSPECIFIED (9) Ischemia of both lower extremities Code(s): I99.8 - OTHER DISORDER OF CIRCULATORY SYSTEM (10) S/P CABG (coronary artery bypass graft) Code(s): Z95.1 - PRESENCE OF AORTOCORONARY BYPASS GRAFT
--- NOTE | 2018-10-16 12:29 | ECHO ---
Name: LISA EVANGELISTA Exam:Adult Echocardiogram Study Date: 10/16/2018 08:11 AM Age: 78 yrs Reason For Study: CHF Height: 66 in Weight: 219 lb BSA: 2.1 m2 MMode/2D Measurements & Calculations IVSd: 0.90 cm Ao root diam: 2.5 cm LVIDd: 4.1 cm LA dimension: 4.0 cm LVIDs: 3.7 cm ACS: 1.6 cm LVPWd: 1.2 cm EDV(Teich): 73.1 ml LVOT diam: 1.8 cm ESV(Teich): 57.9 ml Doppler Measurements & Calculations Ao V2 max: 104.2 cm/sec TR max waqar: 230.4 cm/sec Ao max P.3 mmHg TR max P.2 mmHg Ao V2 mean: 73.2 cm/sec Ao mean P.4 mmHg Ao V2 VTI: 22.7 cm Med Peak E' Waqar: 4.9 cm/sec Lat Peak E' Waqar: 7.7 cm/sec Procedure A complete two-dimensional transthoracic echocardiogram was performed (2D, M-mode, Doppler and color flow Doppler). Left Ventricle The left ventricle is normal in size. Left ventricular systolic function is severely reduced. Ejectio n Fraction = 15-20%. There is severe global hypokinesis of the left ventricle. Right Ventricle The right ventricle is not well visualized. Atria Normal left and right atrial size and function. Mitral Valve There is trace mitral regurgitation. Tricuspid Valve There is trace tricuspid regurgitation. Right ventricular systolic pressure is normal. Aortic Valve The aortic valve is trileaflet. There is mild aortic valve thickening. No hemodynamically significant valvular aortic stenosis. No aortic regurgitation is present. Pulmonic Valve There is no pulmonic valvular regurgitation. Great Vessels The aortic root is normal size. Pericardium/Pleura There is no pericardial effusion. There is a pleural effusion present. Interpretation Summary Left ventricular systolic function is severely reduced. There is severe global hypokinesis of the left ventricle. The right ventricle is not well visualized. There is trace mitral regurgitation. There is trace tricuspid regurgitation. There is a pleural effusion present. MD Tolu Marques 10/16/2018 12:28 PM
--- NOTE | 2018-10-16 13:42 | PN ---
Progress Note (short form) - Note Progress Note: Vascular surgery Asked to evaluate patient for right 2nd toe wound. Patient seen and examined at bedside with Dr White. This is a 78 y/o woman well known and followed by Dr. White with significant medical history of Afib, CAD, CHF, HTN, IDDM, s/p L AKA, PVD with Right Femoral peroneal bypass. Presented to the [facility] with shortness of breath slowly worsening over the past week. Patient also endorses increased swelling in her right leg since then. Denies fevers, chills, nausea, vomiting. Denies chest pain and abdominal pain. Endorses compliance with medications. Vital Signs Temp 98.4 F 10/16/18 10:00 Pulse 86 10/16/18 10:00 Resp 18 10/16/18 10:00 BP 144/72 10/16/18 10:00 Pulse Ox 100 10/15/18 21:00 Intake & Output 10/15/18 10/16/18 10/16/18 23:59 11:59 23:59 Intake Total 1190 240 Balance 1190 240 Weight 212 lb 2 oz Intake: Oral 1190 240 Other: Voiding Method Incontinent Incontinent # Unmeasured Voids Void 1 1 Bowel Movement No Weight Measurement Method Patient Lift Scale CBC, BMP 10/16/18 08:40 10/16/18 08:40 PE: A&Ox3, NAD Unlabored resp on RA Right LE, well healed scar over medial boarder of thigh consistent with previous bypass, thigh and LE compartments warm, soft and supple with no tenderness to palpation. Right foot with chronic, wound @1.5cm x 1.5cm over medial aspect of the 1st tmt joint, currently closed and healing well no evidence of d/c or foul odor, surrounding tissue intact with no tracking erythema or edema, right 2nd toe large stage 2 ulcer over the dorsum of toe extending from PIP to DIP. , beefy red base and well circumscribed with no evidence of tracking erythema or active d/c, no foul odor. +palpable pulses duplex/U/S: right LE- no evidence of DVT Problem List - Problems (1) Right foot ulcer Assessment/Plan: 78 yo with right 2nd toe chronic ulcer currently stable. Given the chronicity of the 2nd toes ulcer and the patient's difficulty with outpatient follow up, we will proceed with in house evaluation of the bypass 1) Arterial duplex of right LE to evaluate bypass patency 2) bacitracin to foot wounds daily 3) off load pressure sensitive areas 4) fall risk 5) d/c planning when stable per medicine Code(s): L97.519 - NON-PRS CHRONIC ULCER OTH PRT RIGHT FOOT W UNSP SEVERITY
--- NOTE | 2018-10-16 16:52 | PN ---
Progress Note (short form) - Note Progress Note: Arterial dupplex of right LE revealed no flow seen from right [employer] to proximal infrapopliteal arteries which represent her [place] arteries. The study was ordered specifically to evaluate the Right femoral peroneal artery bypass for patency. I spoke with Dr White regarding study findings. Will re-order study tomorrow and communicate directly with radiology regarding the evaluation of the vein bypass. Patient has warm foot with palpable pulses. Problem List - Problems (1) Right foot ulcer Code(s): L97.519 - NON-PRS CHRONIC ULCER OTH PRT RIGHT FOOT W UNSP SEVERITY
[2018-10-16] MEDS: ATORVASTATIN CA 10 MG TABLET (FP) PO SCH (23:12)
[2018-10-16] MEDS: BACITRACIN 15 GM TUBE TOPICAL OINTMENT TP SCH (23:12)
[2018-10-16] MEDS: INSULIN (LEVEMIR) 100 UNITS/ML UNITS SQ SCH (23:12)
[2018-10-17] MEDS: INSULIN SLIDING SCALE (NOVOLOG) 1 VIAL SQ SCH ×3 (06:55→16:24)
--- NOTE | 2018-10-17 10:33 | PN ---
Progress Note (short form) - Note Progress Note: breathing improved less swelling of the leg no fevers Vital Signs Period Temp Pulse Resp BP Sys/[place] Pulse Ox Last 24 Hr 97.4 F-97.8 F 61-74 18-20 108-123/46-72 98 cor-rrr lungs bibasilar crackles abd soft ext less edema right leg right BKA CBC, BMP 10/16/18 08:40 10/16/18 08:40 Microbiology 10/15/18 17:15 Urine - Urine Clean Catch Urine Culture - Preliminary Proteus Species Group D Strep Or Entero Coccus 10/15/18 03:35 Blood - Peripheral Venous Blood Culture - Preliminary NO GROWTH OBTAINED AFTER 48 HOURS, INCUBATION TO CONTINUE FOR 3 DAYS. 10/15/18 03:35 Blood - Peripheral Venous Blood Culture - Preliminary NO GROWTH OBTAINED AFTER 48 HOURS, INCUBATION TO CONTINUE FOR 3 DAYS. echo-ef 15-20% a/p suspect CHF doubt pneumonia- no fever,normal WBC erythema of foot improved will switch to cefazolin for cellulitis vascular- cardiology to f/u d/w dr teresa
--- NOTE | 2018-10-17 10:37 | PN ---
Progress Note (short form) - Note Progress Note: pt seen/ examined chart reviewed feels better passing urine all f/u noted and d/w today Vital Signs Temp 97.8 F 10/17/18 06:00 Pulse 68 10/17/18 06:00 Resp 20 10/17/18 06:00 BP 123/46 L 10/17/18 06:00 Pulse Ox 98 10/16/18 21:00 Intake & Output 10/16/18 10/16/18 10/17/18 11:59 23:59 11:59 Intake Total 240 1200 Balance 240 1200 Weight 212 lb 2 oz Intake: Oral 240 1200 Other: Voiding Method Incontinent Bedpan # Unmeasured Voids Void 1 2 1 Bowel Movement Yes # Bowel Movements 1 Weight Measurement Method Patient Lift Scale Active Medications Acetaminophen (Tylenol -) 650 mg PO Q6H PRN PRN Reason: PAIN LEVEL 1-5 Amlodipine Besylate (Norvasc -) 10 mg PO DAILY [facility] Last Admin: 10/16/18 09:50 Dose: 10 mg Apixaban (Eliquis -) 5 mg PO BID [facility] Last Admin: 10/16/18 23:12 Dose: 5 mg Aspirin (Ecotrin -) 81 mg PO DAILY [facility] Last Admin: 10/16/18 09:50 Dose: 81 mg Atorvastatin Calcium (Lipitor -) 10 mg PO HS [facility] Last Admin: 10/16/18 23:12 Dose: 10 mg Bacitracin (Bacitracin -) 1 applic TP DAILY [facility] Last Admin: 10/16/18 23:12 Dose: Not Given Furosemide (Lasix Injection -) 40 mg IVPUSH DAILY [facility] Last Admin: 10/16/18 09:50 Dose: 40 mg Gabapentin (Neurontin -) 300 mg PO DAILY [facility] Last Admin: 10/16/18 09:50 Dose: 300 mg Cefazolin Sodium (Ancef 1 Gm Premixed Ivpb -) 1 gm in 50 mls @ 100 mls/hr IVPB Q8H-IV [facility] Insulin Aspart (Novolog Vial Sliding Scale -) 1 vial SQ TIDAC [facility]; Protocol Last Admin: 10/17/18 06:55 Dose: 4 units Insulin Detemir (Levemir Vial) 14 units SQ [facility] Last Admin: 10/16/18 23:12 Dose: 14 units Isosorbide Mononitrate (Imdur -) 30 mg PO DAILY [facility] Last Admin: 10/16/18 09:50 Dose: 30 mg Lisinopril (Prinivil) 20 mg PO DAILY [facility] Last Admin: 10/16/18 09:50 Dose: 20 mg Metoprolol Tartrate (Lopressor -) 50 mg PO BID [facility] Last Admin: 10/16/18 23:11 Dose: 50 mg Pantoprazole Sodium (Protonix -) 20 mg PO DAILY [facility] Last Admin: 10/16/18 09:50 Dose: 20 mg CBC, BMP 10/16/18 08:40 10/16/18 08:40 doppler- no flow echo- severe global hypokinesia-- EF 20 % Physical exam Constitutional: Yes: No Distress, Obese Eyes: Yes: Conjunctiva Clear Neck: Yes: Supple Cardiovascular: Yes: Pulse Irregular Respiratory: Yes: Other (crackles at bases) Gastrointestinal: Yes: Abdomen, Obese Extremities: Yes: Amputation (left bka right toe-- reddened/ dry wound)--- improved erythema and edema Edema: RLE: 2+ Neurological: Yes: Alert Assessment/Plan Discussed in detail continue i/v lasix monitor lytes Pneumonia ? superimposed infiltrate ?likely CHF Abx per ID--- changed today leg ulcer- vascular consulted--- labs noted and reviewed will follow Monitor bgm Will follow Problem List - Problems (1) Right foot ulcer Code(s): L97.519 - NON-PRS CHRONIC ULCER OTH PRT RIGHT FOOT W UNSP SEVERITY (2) Pneumonia Code(s): J18.9 - PNEUMONIA, UNSPECIFIED ORGANISM (3) CHF exacerbation Code(s): I50.9 - HEART FAILURE, UNSPECIFIED (4) Afib Code(s): I48.91 - UNSPECIFIED ATRIAL FIBRILLATION (5) Cellulitis Code(s): L03.90 - CELLULITIS, UNSPECIFIED Qualifiers: Site of cellulitis: extremity Site of cellulitis of extremity: lower extremity Laterality: left Qualified Code(s): L03.116 - Cellulitis of left lower limb (6) Coronary artery disease Code(s): I25.10 - ATHSCL HEART DISEASE OF [place] CORONARY ARTERY W/O ANG PCTRS Qualifiers: (7) Diabetes mellitus Code(s): E11.9 - TYPE 2 DIABETES MELLITUS WITHOUT COMPLICATIONS (8) Hyperlipidemia Code(s): E78.5 - HYPERLIPIDEMIA, UNSPECIFIED (9) Ischemia of both lower extremities Code(s): I99.8 - OTHER DISORDER OF CIRCULATORY SYSTEM (10) S/P CABG (coronary artery bypass graft) Code(s): Z95.1 - PRESENCE OF AORTOCORONARY BYPASS GRAFT
[2018-10-17] MEDS: amLODIPine BESYLATE 10 MG TABLET (FP) PO SCH (10:49)
[2018-10-17] MEDS: APIXABAN 5 MG TABLET PO SCH ×2 (10:49→22:51)
[2018-10-17] MEDS: METOPROLOL TARTRATE 50 MG TABLET (FP) PO SCH ×2 (10:49→22:51)
[2018-10-17] MEDS: LISINOPRIL 20 MG TABLET (FP) PO SCH (10:49)
[2018-10-17] MEDS: ASPIRIN COATED 81 MG TABLET.EC PO SCH (10:50)
[2018-10-17] MEDS: PANTOPRAZOLE 20 MG TABLET (FP) PO SCH (10:50)
[2018-10-17] MEDS: ISOSORBIDE MONONITRATE 30 MG TAB.SR.24H (FP) PO SCH (10:50)
[2018-10-17] MEDS: GABAPENTIN 300 MG CAPSULE (FP) PO SCH (10:50)
[2018-10-17] MEDS: FUROSEMIDE 40 MG/4 ML INJECTABLE VIAL IVPUSH SCH (10:51)
[2018-10-17] MEDS: BACITRACIN 15 GM TUBE TOPICAL OINTMENT TP SCH (10:59)
[2018-10-17] MEDS: CEFTRIAXONE 2 GM in DEXTROSE 5%-WATER 100 ML IVPB SCH (11:22)
[2018-10-17] MEDS: CEFAZOLIN 1 GM in DEXTROSE 5%-WATER - 50 ML IVPB SCH ×2 (11:59→18:25)
[2018-10-17] MEDS ORDERED: ceFAZolin SODIUM 1 GM VIAL ONE ×2 (12:01→18:15)
[2018-10-17] MEDS ORDERED: DEXTROSE 5%-WATER - 50 ML IVPB ONE ×2 (12:01→18:15)
[2018-10-17] MEDS: DOXYCYCLINE INJECTION 100 MG in DEXTROSE 5%-WATER - 100 ML IVPB SCH (14:24)
--- NOTE | 2018-10-17 17:11 | PN ---
Progress Note (short form) - Note Progress Note: Vascular surgery Spoke with Dr Belcher who said he spoke directly to Dr White regarding the patient's arterial duplex study. He stated they evaluated the graft which showed no flow, however, since this is a vein graft this may be attributed to compression over graft. I have re-examined patient at bedside this afternoon and she denied any new or worsening symptoms. PE: A&Ox3, NAD Unlabored resp on 2L NC right LE with diffuse pitting edema and well healed scar from previous bypass. compartments soft, and supple. right foot warm and well perfused. no changes from yesterdays exam. Stable ulcers on 2nd and 3rd toes with chronic ulcerative changes over medial boarder of 1st tmt joint. No significant color changes throughout the foot and toes. No signal on bedside doppler over DP. Problem List - Problems (1) Right foot ulcer Assessment/Plan: Question of right fem-peroneal bypass patency in patient with no evidence of acute ischemic changes and chronic ulcers. Limb does not appear to be threatened at this time 1) Continue local wound care 2) Continue off loading pressure sensitive areas 3) Evaluate Limb for any acute changes in temperature, skin changes or worsening pain, Q4H 5) CTA right LE Code(s): L97.519 - NON-PRS CHRONIC ULCER OTH PRT RIGHT FOOT W UNSP SEVERITY
--- NOTE | 2018-10-17 17:45 | PN ---
Progress Note, Physician - Current Medication List Current Medications: Active Medications Acetaminophen (Tylenol -) 650 mg PO Q6H PRN PRN Reason: PAIN LEVEL 1-5 Apixaban (Eliquis -) 5 mg PO BID [facility] Last Admin: 10/17/18 10:49 Dose: 5 mg Aspirin (Ecotrin -) 81 mg PO DAILY [facility] Last Admin: 10/17/18 10:50 Dose: 81 mg Atorvastatin Calcium (Lipitor -) 10 mg PO HS [facility] Last Admin: 10/16/18 23:12 Dose: 10 mg Bacitracin (Bacitracin -) 1 applic TP DAILY [facility] Last Admin: 10/17/18 10:59 Dose: 1 applic Furosemide (Lasix Injection -) 40 mg IVPUSH DAILY [facility] Last Admin: 10/17/18 10:51 Dose: 40 mg Gabapentin (Neurontin -) 300 mg PO DAILY [facility] Last Admin: 10/17/18 10:50 Dose: 300 mg Cefazolin Sodium 1 gm/ (Dextrose) 50 mls @ 100 mls/hr IVPB Q8H-IV [facility] Last Admin: 10/17/18 11:59 Dose: 100 mls/hr Insulin Aspart (Novolog Vial Sliding Scale -) 1 vial SQ TIDAC [facility]; Protocol Last Admin: 10/17/18 16:24 Dose: 2 units Insulin Detemir (Levemir Vial) 14 units SQ [facility] Last Admin: 10/16/18 23:12 Dose: 14 units Isosorbide Mononitrate (Imdur -) 30 mg PO DAILY [facility] Last Admin: 10/17/18 10:50 Dose: 30 mg Metoprolol Tartrate (Lopressor -) 50 mg PO BID [facility] Last Admin: 10/17/18 10:49 Dose: 50 mg Pantoprazole Sodium (Protonix -) 20 mg PO DAILY [facility] Last Admin: 10/17/18 10:50 Dose: 20 mg - Objective Vital Signs: Vital Signs Temperature 98.8 F 10/17/18 16:12 Pulse Rate 76 10/17/18 16:12 Respiratory Rate 20 10/17/18 16:12 Blood Pressure 125/54 L 10/17/18 16:12 O2 Sat by Pulse Oximetry (%) 97 10/17/18 09:00 Labs: CBC, BMP 10/16/18 08:40 10/16/18 08:40 INR, PTT INR 0.93 (0.83-1.09) 10/14/18 22:13 Problem List - Problems (1) Acute on chronic systolic and diastolic heart failure, NYHA class 1 Code(s): I50.43 - ACUTE ON CHRONIC COMBINED SYSTOLIC AND DIASTOLIC HRT FAIL (2) Afib Code(s): I48.91 - UNSPECIFIED ATRIAL FIBRILLATION (3) Hyperlipidemia Code(s): E78.5 - HYPERLIPIDEMIA, UNSPECIFIED (4) Hypertension Code(s): I10 - ESSENTIAL (PRIMARY) HYPERTENSION Qualifiers: Hypertension type: essential hypertension Qualified Code(s): I10 - Essential (primary) hypertension (5) Ischemia of both lower extremities Code(s): I99.8 - OTHER DISORDER OF CIRCULATORY SYSTEM (6) Obesity Code(s): E66.9 - OBESITY, UNSPECIFIED (7) S/P CABG (coronary artery bypass graft) Code(s): Z95.1 - PRESENCE OF AORTOCORONARY BYPASS GRAFT (9) Diabetes mellitus Code(s): E11.9 - TYPE 2 DIABETES MELLITUS WITHOUT COMPLICATIONS
--- NOTE | 2018-10-17 17:46 | PN ---
Progress Note, Physician Chief Complaint: Pt A&Ox3; sitting up in bed; no chest pain or dyspnea. History of Present Illness: 10/14/18 23:45 The patient is a 78 year old female, with a significant PMH of CAD, severe systolic CHF, IDDM, s/p L AKA, multiple vascular issues, hypertension, vascular insufficiency, CAD s/p CABG , breast cancer (s/p mastectomy), who presents to the emergency department with 1 week of progressively worsening shortness of breath. The patient also endorses increased right leg swelling. The patient denies chest pain, headache and dizziness. Denies fever, chills, nausea, vomiting, diarrhea and constipation. Denies dysuria, frequency, urgency and hematuria. Denies any other symptoms. Allergies: NKA Past surgical history: Mastectomy, Cholecystectomy, OPEN HEART SX (CABG) 2011: 3 BLOCKAGES Social history: Former smoker, quit 2002. PCP: Dr. Sandrita Salazar Vascular Surgeon: Dr. Angelica White - Current Medication List Current Medications: Active Medications Acetaminophen (Tylenol -) 650 mg PO Q6H PRN PRN Reason: PAIN LEVEL 1-5 Apixaban (Eliquis -) 5 mg PO BID [facility] Last Admin: 10/17/18 10:49 Dose: 5 mg Aspirin (Ecotrin -) 81 mg PO DAILY [facility] Last Admin: 10/17/18 10:50 Dose: 81 mg Atorvastatin Calcium (Lipitor -) 10 mg PO HS [facility] Last Admin: 10/16/18 23:12 Dose: 10 mg Bacitracin (Bacitracin -) 1 applic TP DAILY [facility] Last Admin: 10/17/18 10:59 Dose: 1 applic Furosemide (Lasix Injection -) 40 mg IVPUSH DAILY [facility] Last Admin: 10/17/18 10:51 Dose: 40 mg Gabapentin (Neurontin -) 300 mg PO DAILY [facility] Last Admin: 10/17/18 10:50 Dose: 300 mg Cefazolin Sodium 1 gm/ (Dextrose) 50 mls @ 100 mls/hr IVPB Q8H-IV [facility] Last Admin: 10/17/18 11:59 Dose: 100 mls/hr Insulin Aspart (Novolog Vial Sliding Scale -) 1 vial SQ TIDAC [facility]; Protocol Last Admin: 10/17/18 16:24 Dose: 2 units Insulin Detemir (Levemir Vial) 14 units SQ [facility] Last Admin: 10/16/18 23:12 Dose: 14 units Isosorbide Mononitrate (Imdur -) 30 mg PO DAILY [facility] Last Admin: 10/17/18 10:50 Dose: 30 mg Metoprolol Tartrate (Lopressor -) 50 mg PO BID [facility] Last Admin: 10/17/18 10:49 Dose: 50 mg Pantoprazole Sodium (Protonix -) 20 mg PO DAILY [facility] Last Admin: 10/17/18 10:50 Dose: 20 mg - Objective Vital Signs: Vital Signs Temperature 98.8 F 10/17/18 16:12 Pulse Rate 76 10/17/18 16:12 Respiratory Rate 20 10/17/18 16:12 Blood Pressure 125/54 L 10/17/18 16:12 O2 Sat by Pulse Oximetry (%) 97 10/17/18 09:00 Constitutional: Yes: Calm Eyes: Yes: WNL HENT: Yes: WNL Neck: Yes: WNL Cardiovascular: Yes: S1 (varies in intensity), S2 Respiratory: Yes: Regular Gastrointestinal: Yes: Soft, Abdomen, Obese ...Rectal Exam: Yes: Deferred Genitourinary: No: Anuria Breast(s): Yes: WNL Musculoskeletal: Yes: Muscle Weakness Extremities: Yes: Cold Edema: Yes Edema: LLE: Trace, RLE: Trace Peripheral Pulses WNL: No Peripheral Pulses: Left Doralis Pedis: 1+, Right Dorsalis Pedis: 1+ Integumentary: Yes: Pressure Ulcer (right toes ulcerated, red) Neurological: Yes: Alert, Oriented, Unsteady Gait, Weakness Psychiatric: Yes: WNL Labs: CBC, BMP 10/16/18 08:40 10/16/18 08:40 INR, PTT INR 0.93 (0.83-1.09) 10/14/18 22:13 Problem List - Problems (1) Acute on chronic systolic and diastolic heart failure, NYHA class 1 Assessment/Plan: ECHO: severely reduced LVEF. Will plan to stop lisinopril, then start Entresto 36 hours later. Will discontinue amlodipine. On metoprolol, furosemide. F/u BUN/Cr, electrolytes, daily weight, Is and Os. F/u BP and HR. Code(s): I50.43 - ACUTE ON CHRONIC COMBINED SYSTOLIC AND DIASTOLIC HRT FAIL (2) Afib Assessment/Plan: On metorprolol for HR control (and CHF/HTN). On apixaban for anticoagulation. ECHO: severely reduced LVEF; normal atrial sizes. Code(s): I48.91 - UNSPECIFIED ATRIAL FIBRILLATION (3) Hyperlipidemia Assessment/Plan: On atrovastatin Total cholesterol: 108 mg/dL. Code(s): E78.5 - HYPERLIPIDEMIA, UNSPECIFIED (4) Hypertension Assessment/Plan: on metoprolol, amlodipine (now discontinued), lisinopril (now discontinued), and furosemide (the latter may be stopped as CHF improves; condsider spironolactone instead, due to severely reduced LVEF). Plan to start Entresto 10/19/18 for systolic CHF; this will also help with HTN. Code(s): I10 - ESSENTIAL (PRIMARY) HYPERTENSION Qualifiers: Hypertension type: essential hypertension Qualified Code(s): I10 - Essential (primary) hypertension (5) Ischemia of both lower extremities Code(s): I99.8 - OTHER DISORDER OF CIRCULATORY SYSTEM (6) Obesity Code(s): E66.9 - OBESITY, UNSPECIFIED (7) S/P CABG (coronary artery bypass graft) Code(s): Z95.1 - PRESENCE OF AORTOCORONARY BYPASS GRAFT (9) Diabetes mellitus Code(s): E11.9 - TYPE 2 DIABETES MELLITUS WITHOUT COMPLICATIONS
[2018-10-17] MEDS: ATORVASTATIN CA 10 MG TABLET (FP) PO SCH (22:51)
[2018-10-17] MEDS: INSULIN (LEVEMIR) 100 UNITS/ML UNITS SQ SCH (22:57)
[2018-10-18] MEDS ORDERED: ceFAZolin SODIUM 1 GM VIAL ONE ×3 (01:41→17:52)
[2018-10-18] MEDS ORDERED: DEXTROSE 5%-WATER - 50 ML IVPB ONE ×3 (01:42→17:52)
[2018-10-18] MEDS: CEFAZOLIN 1 GM in DEXTROSE 5%-WATER - 50 ML IVPB SCH ×3 (02:32→17:56)
[2018-10-18] MEDS: INSULIN SLIDING SCALE (NOVOLOG) 1 VIAL SQ SCH ×3 (06:38→17:35)
[2018-10-18] MEDS: ISOSORBIDE MONONITRATE 30 MG TAB.SR.24H (FP) PO SCH (09:37)
[2018-10-18] MEDS: GABAPENTIN 300 MG CAPSULE (FP) PO SCH (09:37)
[2018-10-18] MEDS: METOPROLOL TARTRATE 50 MG TABLET (FP) PO SCH ×2 (09:37→23:43)
[2018-10-18] MEDS: APIXABAN 5 MG TABLET PO SCH ×2 (09:37→23:42)
[2018-10-18] MEDS: PANTOPRAZOLE 20 MG TABLET (FP) PO SCH (09:37)
[2018-10-18] MEDS: ASPIRIN COATED 81 MG TABLET.EC PO SCH (09:38)
[2018-10-18] MEDS: FUROSEMIDE 40 MG/4 ML INJECTABLE VIAL IVPUSH SCH (09:38)
--- NOTE | 2018-10-18 12:53 | PN ---
Progress Note (short form) - Note Progress Note: pt seen/ examined all f/u noted daughter at bedside extensive talk with her/ pt both says pt getting more forgetful overall better denies headache Vital Signs Temp 97.8 F 10/18/18 08:55 Pulse 72 10/18/18 08:55 Resp 20 10/18/18 08:55 BP 117/60 10/18/18 08:55 Pulse Ox 96 10/17/18 21:00 Intake & Output 10/17/18 10/18/18 10/18/18 23:59 11:59 23:59 Intake Total 1100 50 Output Total 3 Balance 1097 50 Weight 212 lb Intake: IVPB 50 50 Oral 1050 Output: Urine 3 Void 3 Other: Voiding Method Bedpan # Unmeasured Voids Void 1 Bowel Movement No No # Bowel Movements 2 Height 5 ft 6 in Body Mass Index (BMI) 34.2 Active Medications Acetaminophen (Tylenol -) 650 mg PO Q6H PRN PRN Reason: PAIN LEVEL 1-5 Apixaban (Eliquis -) 5 mg PO BID [facility] Last Admin: 10/18/18 09:37 Dose: 5 mg Aspirin (Ecotrin -) 81 mg PO DAILY [facility] Last Admin: 10/18/18 09:38 Dose: 81 mg Atorvastatin Calcium (Lipitor -) 10 mg PO HS [facility] Last Admin: 10/17/18 22:51 Dose: 10 mg Bacitracin (Bacitracin -) 1 applic TP DAILY [facility] Last Admin: 10/17/18 10:59 Dose: 1 applic Furosemide (Lasix Injection -) 40 mg IVPUSH DAILY [facility] Last Admin: 10/18/18 09:38 Dose: 40 mg Gabapentin (Neurontin -) 300 mg PO DAILY [facility] Last Admin: 10/18/18 09:37 Dose: 300 mg Cefazolin Sodium 1 gm/ (Dextrose) 50 mls @ 100 mls/hr IVPB Q8H-IV [facility] Last Admin: 10/18/18 09:36 Dose: 100 mls/hr Insulin Aspart (Novolog Vial Sliding Scale -) 1 vial SQ TIDAC [facility]; Protocol Last Admin: 10/18/18 11:26 Dose: Not Given Insulin Detemir (Levemir Vial) 14 units SQ [facility] Last Admin: 10/17/18 22:57 Dose: 14 units Isosorbide Mononitrate (Imdur -) 30 mg PO DAILY [facility] Last Admin: 10/18/18 09:37 Dose: 30 mg Metoprolol Tartrate (Lopressor -) 50 mg PO BID [facility] Last Admin: 10/18/18 09:37 Dose: 50 mg Pantoprazole Sodium (Protonix -) 20 mg PO DAILY [facility] Last Admin: 10/18/18 09:37 Dose: 20 mg Sacubitril/Valsartan (Entresto 24 Mg-26 Mg Tablet) 1 tab PO BID [facility] CBC, BMP 10/16/18 08:40 10/16/18 08:40 Physical exam Constitutional: Yes: No Distress, Obese Eyes: Yes: Conjunctiva Clear Neck: Yes: Supple Cardiovascular: Yes: Pulse Irregular Respiratory: Yes: Other (crackles at bases) Gastrointestinal: Yes: Abdomen, Obese Extremities: Yes: Amputation (left bka right toe-- reddened/ dry wound)--- improved erythema and edema Edema: RLE: 2+ Neurological: Yes: Alert/ awake. Assessment/Plan Discussed in detail continue i/v lasix monitor lytes Pneumonia ? superimposed infiltrate ? likely CHF repet cxr uti Abx per ID--- leg ulcer- vascular consulted--- check b12 level will order ct head Monitor bgm Will follow Problem List - Problems (1) Right foot ulcer Code(s): L97.519 - NON-PRS CHRONIC ULCER OTH PRT RIGHT FOOT W UNSP SEVERITY (2) Pneumonia Code(s): J18.9 - PNEUMONIA, UNSPECIFIED ORGANISM (3) CHF exacerbation Code(s): I50.9 - HEART FAILURE, UNSPECIFIED (4) Afib Code(s): I48.91 - UNSPECIFIED ATRIAL FIBRILLATION (5) Cellulitis Code(s): L03.90 - CELLULITIS, UNSPECIFIED Qualifiers: Site of cellulitis: extremity Site of cellulitis of extremity: lower extremity Laterality: left Qualified Code(s): L03.116 - Cellulitis of left lower limb (6) Coronary artery disease Code(s): I25.10 - ATHSCL HEART DISEASE OF [place] CORONARY ARTERY W/O ANG PCTRS Qualifiers: (7) Diabetes mellitus Code(s): E11.9 - TYPE 2 DIABETES MELLITUS WITHOUT COMPLICATIONS (8) Hyperlipidemia Code(s): E78.5 - HYPERLIPIDEMIA, UNSPECIFIED (9) Ischemia of both lower extremities Code(s): I99.8 - OTHER DISORDER OF CIRCULATORY SYSTEM (10) S/P CABG (coronary artery bypass graft) Code(s): Z95.1 - PRESENCE OF AORTOCORONARY BYPASS GRAFT
[2018-10-18] MEDS: BACITRACIN 15 GM TUBE TOPICAL OINTMENT TP SCH (15:45)
[2018-10-18] MEDS: ATORVASTATIN CA 10 MG TABLET (FP) PO SCH (23:43)
[2018-10-18] MEDS: INSULIN (LEVEMIR) 100 UNITS/ML UNITS SQ SCH (23:43)
[2018-10-19] MEDS: CEFAZOLIN 1 GM in DEXTROSE 5%-WATER - 50 ML IVPB SCH ×3 (02:50→17:08)
[2018-10-19] MEDS ORDERED: DEXTROSE 5%-WATER - 50 ML IVPB ONE ×3 (02:57→16:30)
[2018-10-19] MEDS ORDERED: ceFAZolin SODIUM 1 GM VIAL ONE ×3 (02:57→16:30)
[2018-10-19] MEDS: INSULIN SLIDING SCALE (NOVOLOG) 1 VIAL SQ SCH ×3 (06:04→17:07)
[2018-10-19 09:11] LABS: BASO % 1.4 % (0-2.0); HEMATOCRIT 36.8 % (32.4-45.2); LYMPH % 13.8 % (8-40); MCHC 32.7 g/dl (32.0-36.0); MEAN CELL VOLUME 88.8 fl (80-96); MEAN PLT VOLUME 8.9 fl (7.5-11.1); MONO % 12.3 % (3.8-10.2); NEUT % 68.5 % (42.8-82.8); PLATELET COUNT 184 K/MM3 (134-434); RBC 4.15 M/mm3 (3.60-5.2); RDW 15.1 % (11.6-15.6); WHITE BLOOD COUNT 6.4 K/mm3 (4.0-10.0)
[2018-10-19 10:12] LABS: ALBUMIN 2.6 g/dl (3.4-5.0); BILIRUBIN,TOTAL 0.6 mg/dL (0.2-1); BLOOD UREA NITROGEN 29.4 mg/dL (7-18); CALCIUM 8.2 mg/dL (8.5-10.1); POTASSIUM 4.4 mmol/L (3.5-5.1); TOT PROT 6.4 g/dl (6.4-8.2)
[2018-10-19] MEDS ORDERED: PT OWN MED DRAWER 7, Y5N ONE (11:42)
--- NOTE | 2018-10-19 11:59 | PN ---
Progress Note (short form) - Note Progress Note: pt seen/ examined comfortable sleeping no distress afebrile Vital Signs Temp 97.6 F 10/19/18 06:00 Pulse 62 10/19/18 06:00 Resp 20 10/19/18 06:00 BP 117/52 L 10/19/18 06:00 Pulse Ox 96 10/18/18 21:00 Intake & Output 10/18/18 10/18/18 10/19/18 11:59 23:59 11:59 Intake Total 50 890 250 Balance 50 890 250 Intake: IVPB 50 100 50 Oral 790 200 Other: Voiding Method Incontinent Incontinent # Unmeasured Voids Void 1 Bowel Movement No No Active Medications Acetaminophen (Tylenol -) 650 mg PO Q6H PRN PRN Reason: PAIN LEVEL 1-5 Apixaban (Eliquis -) 5 mg PO BID [facility] Last Admin: 10/18/18 23:42 Dose: 5 mg Aspirin (Ecotrin -) 81 mg PO DAILY [facility] Last Admin: 10/18/18 09:38 Dose: 81 mg Atorvastatin Calcium (Lipitor -) 10 mg PO [facility] Last Admin: 10/18/18 23:43 Dose: 10 mg Bacitracin (Bacitracin -) 1 applic TP DAILY [facility] Last Admin: 10/18/18 15:45 Dose: 1 applic Furosemide (Lasix Injection -) 40 mg IVPUSH BID@0600,1400 [facility] Gabapentin (Neurontin -) 300 mg PO DAILY [facility] Last Admin: 10/18/18 09:37 Dose: 300 mg Cefazolin Sodium 1 gm/ (Dextrose) 50 mls @ 100 mls/hr IVPB Q8H-IV [facility] Last Admin: 10/19/18 02:50 Dose: 100 mls/hr Insulin Aspart (Novolog Vial Sliding Scale -) 1 vial SQ TIDAC [facility]; Protocol Last Admin: 10/19/18 06:04 Dose: Not Given Insulin Detemir (Levemir Vial) 14 units SQ [facility] Last Admin: 10/18/18 23:43 Dose: 14 units Isosorbide Mononitrate (Imdur -) 30 mg PO DAILY [facility] Last Admin: 10/18/18 09:37 Dose: 30 mg Metoprolol Tartrate (Lopressor -) 50 mg PO BID [facility] Last Admin: 10/18/18 23:43 Dose: 50 mg Pantoprazole Sodium (Protonix -) 20 mg PO DAILY [facility] Last Admin: 10/18/18 09:37 Dose: 20 mg Sacubitril/Valsartan (Entresto 24 Mg-26 Mg Tablet) 1 tab PO BID [facility] CBC,CMP WBC 6.4 K/mm3 (4.0-10.0) 10/19/18 08:30 RBC 4.15 M/mm3 (3.60-5.2) 10/19/18 08:30 Hgb 12.0 GM/dL (10.7-15.3) 10/19/18 08:30 Hct 36.8 % (32.4-45.2) 10/19/18 08:30 MCV 88.8 fl (80-96) 10/19/18 08:30 MCH 29.0 pg (25.7-33.7) 10/19/18 08:30 MCHC 32.7 g/dl (32.0-36.0) 10/19/18 08:30 RDW 15.1 % (11.6-15.6) 10/19/18 08:30 Plt Count 184 K/MM3 (134-434) 10/19/18 08:30 MPV 8.9 fl (7.5-11.1) 10/19/18 08:30 Absolute Neuts (auto) 4.4 K/mm3 (1.5-8.0) 10/19/18 08:30 Neutrophils % 68.5 % (42.8-82.8) 10/19/18 08:30 Lymphocytes % 13.8 % (8-40) 10/19/18 08:30 Monocytes % 12.3 % (3.8-10.2) H 10/19/18 08:30 Eosinophils % 4.0 % (0-4.5) 10/19/18 08:30 Basophils % 1.4 % (0-2.0) 10/19/18 08:30 Nucleated RBC % 0 % (0-0) 10/19/18 08:30 Sodium 138 mmol/L (136-145) 10/19/18 08:30 Potassium 4.4 mmol/L (3.5-5.1) 10/19/18 08:30 Chloride 100 mmol/L (98-107) 10/19/18 08:30 Carbon Dioxide 34 mmol/L (21-32) H 10/19/18 08:30 Anion Gap 5 MMOL/L (8-16) L 10/19/18 08:30 BUN 29.4 mg/dL (7-18) H 10/19/18 08:30 Creatinine 1.0 mg/dL (0.55-1.3) 10/19/18 08:30 Est GFR (CKD-EPI)AfAm 62.05 10/19/18 08:30 Est GFR (CKD-EPI)NonAf 53.54 10/19/18 08:30 POC Glucometer 105 UNITS (80-120) 10/19/18 05:53 Random Glucose 100 mg/dL (74-106) 10/19/18 08:30 Hemoglobin A1c % 7.1 % (4.2-6.3) H 10/16/18 08:40 Lactic Acid 1.3 mmol/L (0.4-2.0) 10/15/18 03:35 Calcium 8.2 mg/dL (8.5-10.1) L 10/19/18 08:30 Magnesium 1.9 mg/dL (1.8-2.4) 10/14/18 22:13 Total Bilirubin 0.6 mg/dL (0.2-1) 10/19/18 08:30 AST 9 U/L (15-37) L 10/19/18 08:30 ALT 11 U/L (13-61) L 10/19/18 08:30 Alkaline Phosphatase 107 U/L (45-117) 10/19/18 08:30 Creatine Kinase 46 U/L (26-192) 10/14/18 22:13 Troponin I 0.02 ng/ml (0.00-0.05) 10/16/18 12:34 B-Natriuretic Peptide 87469.2 pg/ml (5-450) H 10/14/18 22:13 Total Protein 6.4 g/dl (6.4-8.2) 10/19/18 08:30 Albumin 2.6 g/dl (3.4-5.0) L 10/19/18 08:30 Triglycerides 43 mg/dL (0-150) 10/16/18 08:40 Cholesterol 108 mg/dL (50-200) 10/16/18 08:40 Total LDL Cholesterol 57 mg/dL (5-100) 10/16/18 08:40 HDL Cholesterol 43 mg/dL (40-60) 10/16/18 08:40 Vitamin B12 607 pg/ml (193-986) 10/19/18 08:30 cxr - worsened ct head- no acute changes Physical exam Constitutional: Yes: No Distress, Obese Eyes: Yes: Conjunctiva Clear Neck: Yes: Supple Cardiovascular: Yes: Pulse Irregular Respiratory: Yes: Other (crackles at bases) Gastrointestinal: Yes: Abdomen, Obese Extremities: Yes: Amputation (left bka right toe-- reddened/ dry wound)--- improved erythema and edema Edema: RLE: 2+ Neurological: Yes: Alert/ awake. Assessment/Plan Discussed in detail continue i/v lasix- Increase to bid monitor lytes CHF uti Abx per ID--- leg ulcer- vascular consulted--- Monitor bgm Will follow Problem List - Problems (1) Right foot ulcer Code(s): L97.519 - NON-PRS CHRONIC ULCER OTH PRT RIGHT FOOT W UNSP SEVERITY (2) Pneumonia Code(s): J18.9 - PNEUMONIA, UNSPECIFIED ORGANISM (3) CHF exacerbation Code(s): I50.9 - HEART FAILURE, UNSPECIFIED (4) Afib Code(s): I48.91 - UNSPECIFIED ATRIAL FIBRILLATION (5) Cellulitis Code(s): L03.90 - CELLULITIS, UNSPECIFIED Qualifiers: Site of cellulitis: extremity Site of cellulitis of extremity: lower extremity Laterality: left Qualified Code(s): L03.116 - Cellulitis of left lower limb (6) Coronary artery disease Code(s): I25.10 - ATHSCL HEART DISEASE OF [place] CORONARY ARTERY W/O ANG PCTRS Qualifiers: (7) Diabetes mellitus Code(s): E11.9 - TYPE 2 DIABETES MELLITUS WITHOUT COMPLICATIONS (8) Hyperlipidemia Code(s): E78.5 - HYPERLIPIDEMIA, UNSPECIFIED (9) Ischemia of both lower extremities Code(s): I99.8 - OTHER DISORDER OF CIRCULATORY SYSTEM (10) S/P CABG (coronary artery bypass graft) Code(s): Z95.1 - PRESENCE OF AORTOCORONARY BYPASS GRAFT
[2018-10-19] MEDS: GABAPENTIN 300 MG CAPSULE (FP) PO SCH (12:19)
[2018-10-19] MEDS: METOPROLOL TARTRATE 50 MG TABLET (FP) PO SCH ×2 (12:19→21:43)
[2018-10-19] MEDS: ASPIRIN COATED 81 MG TABLET.EC PO SCH (12:20)
[2018-10-19] MEDS: APIXABAN 5 MG TABLET PO SCH ×2 (12:20→21:43)
[2018-10-19] MEDS: FUROSEMIDE 40 MG/4 ML INJECTABLE VIAL IVPUSH SCH ×2 (12:20→16:54)
[2018-10-19] MEDS: SACUBITRIL/VALSARTAN 24 MG-26 MG TABLET PO SCH ×2 (12:20→21:43)
[2018-10-19] MEDS: PANTOPRAZOLE 20 MG TABLET (FP) PO SCH (12:20)
[2018-10-19] MEDS: ISOSORBIDE MONONITRATE 30 MG TAB.SR.24H (FP) PO SCH (12:20)
[2018-10-19] MEDS: BACITRACIN 15 GM TUBE TOPICAL OINTMENT TP SCH (12:20)
[2018-10-19] MEDS: ATORVASTATIN CA 10 MG TABLET (FP) PO SCH (21:43)
[2018-10-19] MEDS: INSULIN (LEVEMIR) 100 UNITS/ML UNITS SQ SCH (21:44)
[2018-10-20] MEDS ORDERED: DEXTROSE 5%-WATER - 50 ML IVPB ONE ×3 (02:24→18:00)
[2018-10-20] MEDS ORDERED: ceFAZolin SODIUM 1 GM VIAL ONE ×3 (02:24→17:59)
[2018-10-20] MEDS: CEFAZOLIN 1 GM in DEXTROSE 5%-WATER - 50 ML IVPB SCH ×3 (02:57→18:23)
[2018-10-20] MEDS: INSULIN SLIDING SCALE (NOVOLOG) 1 VIAL SQ SCH ×3 (06:34→17:55)
[2018-10-20] MEDS: FUROSEMIDE 40 MG/4 ML INJECTABLE VIAL IVPUSH SCH ×2 (06:35→15:59)
[2018-10-20 08:38] LABS: ALBUMIN 2.4 g/dl (3.4-5.0); BILIRUBIN,TOTAL 0.7 mg/dL (0.2-1); BLOOD UREA NITROGEN 26.2 mg/dL (7-18); CALCIUM 8.4 mg/dL (8.5-10.1); CREATININE 0.8 mg/dL (0.55-1.3); POTASSIUM 4.4 mmol/L (3.5-5.1); TOT PROT 5.9 g/dl (6.4-8.2)
[2018-10-20 09:18] LABS: BASO % 1.9 % (0-2.0); EOS % 3.9 % (0-4.5); HEMATOCRIT 39.2 % (32.4-45.2); HEMOGLOBIN 12.7 GM/dL (10.7-15.3); LYMPH % 13.9 % (8-40); MCH 29.1 pg (25.7-33.7); MCHC 32.5 g/dl (32.0-36.0); MEAN CELL VOLUME 89.5 fl (80-96); MEAN PLT VOLUME 9.3 fl (7.5-11.1); MONO % 12.2 % (3.8-10.2); NEUT % 68.1 % (42.8-82.8); PLATELET COUNT 184 K/MM3 (134-434); RBC 4.37 M/mm3 (3.60-5.2); RDW 14.8 % (11.6-15.6); WHITE BLOOD COUNT 5.5 K/mm3 (4.0-10.0)
--- NOTE | 2018-10-20 09:22 | PN ---
Progress Note, Physician History of Present Illness: The patient is a 78 year old female, with a significant PMH of CAD, severe systolic CHF, IDDM, s/p L AKA, multiple vascular issues, hypertension, vascular insufficiency, CAD s/p CABG , breast cancer (s/p mastectomy), who presents to the emergency department with 1 week of progressively worsening shortness of breath. The patient also endorses increased right leg swelling. The patient denies chest pain, headache and dizziness. Denies fever, chills, nausea, vomiting, diarrhea and constipation. Denies dysuria, frequency, urgency and hematuria. Denies any other symptoms. Allergies: NKA Past surgical history: Mastectomy, Cholecystectomy, OPEN HEART SX (CABG) 2011: 3 BLOCKAGES Social history: Former smoker, quit 2002. PCP: Dr. Sandrita Salazar Vascular Surgeon: Dr. Angelica White - Current Medication List Current Medications: Active Medications Acetaminophen (Tylenol -) 650 mg PO Q6H PRN PRN Reason: PAIN LEVEL 1-5 Last Admin: 10/20/18 04:17 Dose: 650 mg Apixaban (Eliquis -) 5 mg PO BID [facility] Last Admin: 10/19/18 21:43 Dose: 5 mg Aspirin (Ecotrin -) 81 mg PO DAILY [facility] Last Admin: 10/19/18 12:20 Dose: 81 mg Atorvastatin Calcium (Lipitor -) 10 mg PO HS [facility] Last Admin: 10/19/18 21:43 Dose: 10 mg Bacitracin (Bacitracin -) 1 applic TP DAILY [facility] Last Admin: 10/19/18 12:20 Dose: 1 applic Furosemide (Lasix Injection -) 40 mg IVPUSH BID@0600,1400 [facility] Last Admin: 10/20/18 06:35 Dose: 40 mg Gabapentin (Neurontin -) 300 mg PO DAILY [facility] Last Admin: 10/19/18 12:19 Dose: 300 mg Cefazolin Sodium 1 gm/ (Dextrose) 50 mls @ 100 mls/hr IVPB Q8H-IV [facility] Last Admin: 10/20/18 02:57 Dose: 100 mls/hr Insulin Aspart (Novolog Vial Sliding Scale -) 1 vial SQ TIDAC [facility]; Protocol Last Admin: 10/20/18 06:34 Dose: Not Given Insulin Detemir (Levemir Vial) 14 units SQ [facility] Last Admin: 10/19/18 21:44 Dose: 14 units Isosorbide Mononitrate (Imdur -) 30 mg PO DAILY [facility] Last Admin: 10/19/18 12:20 Dose: 30 mg Metoprolol Tartrate (Lopressor -) 50 mg PO BID [facility] Last Admin: 10/19/18 21:43 Dose: 50 mg Pantoprazole Sodium (Protonix -) 20 mg PO DAILY [facility] Last Admin: 10/19/18 12:20 Dose: 20 mg Sacubitril/Valsartan (Entresto 24 Mg-26 Mg Tablet) 1 tab PO BID [facility] Last Admin: 10/19/18 21:43 Dose: 1 tab - Objective Vital Signs: Vital Signs Temperature 97.7 F 10/20/18 06:00 Pulse Rate 56 L 10/20/18 06:00 Respiratory Rate 16 10/20/18 06:00 Blood Pressure 140/53 L 10/20/18 06:00 O2 Sat by Pulse Oximetry (%) 96 10/19/18 17:00 Eyes: Yes: WNL, Conjunctiva Clear, EOM Intact HENT: Yes: WNL, Atraumatic, Normocephalic Neck: Yes: WNL, Supple, Trachea Midline Cardiovascular: Yes: WNL, Regular Rate and Rhythm Respiratory: Yes: Diminished Gastrointestinal: Yes: WNL, Normal Bowel Sounds Genitourinary: Yes: WNL Musculoskeletal: Yes: WNL Extremities: Yes: WNL Edema: Yes Integumentary: Yes: WNL Neurological: Yes: WNL, Alert, Oriented ...Motor Strength: WNL Psychiatric: Yes: WNL Labs: CBC, BMP 10/20/18 05:10 INR, PTT INR 0.93 (0.83-1.09) 10/14/18 22:13 Assessment/Plan - Problems (1) Acute on chronic systolic and diastolic heart failure, NYHA class 1 Assessment/Plan: ECHO: severely reduced LVEF. cont Entresto . Will discontinue amlodipine. On metoprolol, furosemide. F/u BUN/Cr, electrolytes, daily weight, Is and Os. F/u BP and HR. Code(s): I50.43 - ACUTE ON CHRONIC COMBINED SYSTOLIC AND DIASTOLIC HRT FAIL (2) Afib Assessment/Plan: On metorprolol for HR control (and CHF/HTN). On apixaban for anticoagulation. ECHO: severely reduced LVEF; normal atrial sizes. Code(s): I48.91 - UNSPECIFIED ATRIAL FIBRILLATION (3) Hyperlipidemia Assessment/Plan: On atrovastatin Total cholesterol: 108 mg/dL. Code(s): E78.5 - HYPERLIPIDEMIA, UNSPECIFIED (4) Hypertension Assessment/Plan: on metoprolol, amlodipine (now discontinued), lisinopril (now discontinued), and furosemide (the latter may be stopped as CHF improves; condsider spironolactone instead, due to severely reduced LVEF). Plan to start Entresto 10/19/18 for systolic CHF; this will also help with HTN. Code(s): I10 - ESSENTIAL (PRIMARY) HYPERTENSION Qualifiers: Hypertension type: essential hypertension Qualified Code(s): I10 - Essential (primary) hypertension (5) Ischemia of both lower extremities Code(s): I99.8 - OTHER DISORDER OF CIRCULATORY SYSTEM (6) Obesity Code(s): E66.9 - OBESITY, UNSPECIFIED (7) S/P CABG (coronary artery bypass graft) Code(s): Z95.1 - PRESENCE OF AORTOCORONARY BYPASS GRAFT (9) Diabetes mellitus Code(s): E11.9 - TYPE 2 DIABETES MELLITUS WITHOUT COMPLICATIONS
--- NOTE | 2018-10-20 09:42 | PN ---
Progress Note (short form) - Note Progress Note: pt seen/ examined on vm 35 percent drowsy but arousable. denies pain. Vital Signs Temp 97.7 F 10/20/18 06:00 Pulse 56 L 10/20/18 06:00 Resp 16 10/20/18 06:00 BP 140/53 L 10/20/18 06:00 Pulse Ox 96 10/19/18 17:00 Intake & Output 10/19/18 10/19/18 10/20/18 11:59 23:59 11:59 Intake Total 250 1110 250 Balance 250 1110 250 Intake: IVPB 50 50 50 Oral 200 1060 200 Other: Voiding Method Diaper # Unmeasured Voids Void 1 1 Bowel Movement Yes # Bowel Movements 1 Active Medications Acetaminophen (Tylenol -) 650 mg PO Q6H PRN PRN Reason: PAIN LEVEL 1-5 Last Admin: 10/20/18 04:17 Dose: 650 mg Apixaban (Eliquis -) 5 mg PO BID [facility] Last Admin: 10/19/18 21:43 Dose: 5 mg Aspirin (Ecotrin -) 81 mg PO DAILY [facility] Last Admin: 10/19/18 12:20 Dose: 81 mg Atorvastatin Calcium (Lipitor -) 10 mg PO HS [facility] Last Admin: 10/19/18 21:43 Dose: 10 mg Bacitracin (Bacitracin -) 1 applic TP DAILY [facility] Last Admin: 10/19/18 12:20 Dose: 1 applic Furosemide (Lasix Injection -) 40 mg IVPUSH BID@0600,1400 [facility] Last Admin: 10/20/18 06:35 Dose: 40 mg Gabapentin (Neurontin -) 300 mg PO DAILY [facility] Last Admin: 10/19/18 12:19 Dose: 300 mg Cefazolin Sodium 1 gm/ (Dextrose) 50 mls @ 100 mls/hr IVPB Q8H-IV [facility] Last Admin: 10/20/18 02:57 Dose: 100 mls/hr Insulin Aspart (Novolog Vial Sliding Scale -) 1 vial SQ TIDAC [facility]; Protocol Last Admin: 10/20/18 06:34 Dose: Not Given Insulin Detemir (Levemir Vial) 14 units SQ HS [facility] Last Admin: 10/19/18 21:44 Dose: 14 units Isosorbide Mononitrate (Imdur -) 30 mg PO DAILY [facility] Last Admin: 10/19/18 12:20 Dose: 30 mg Metoprolol Tartrate (Lopressor -) 50 mg PO BID [facility] Last Admin: 10/19/18 21:43 Dose: 50 mg Pantoprazole Sodium (Protonix -) 20 mg PO DAILY [facility] Last Admin: 10/19/18 12:20 Dose: 20 mg Sacubitril/Valsartan (Entresto 24 Mg-26 Mg Tablet) 1 tab PO BID [facility] Last Admin: 10/19/18 21:43 Dose: 1 tab CBC, BMP 10/20/18 05:10 10/20/18 05:10 Microbiology 10/15/18 03:35 Blood Culture - Final Blood - Peripheral Venous NO GROWTH AFTER 5 DAYS INCUBATION 10/15/18 03:35 Blood Culture - Final Blood - Peripheral Venous NO GROWTH AFTER 5 DAYS INCUBATION 10/15/18 17:15 Urine Culture - Preliminary Urine - Urine Clean Catch Proteus Mirabilis Group D Strep Or Entero Coccus Physical exam Constitutional: Yes: No Distress, Obese. Eyes: Yes: Conjunctiva Clear Neck: Yes: Supple. no jvd Cardiovascular: Yes: Pulse Irregular Respiratory: Yes: Other (crackles at bases) Gastrointestinal: Yes: Abdomen, Obese Extremities: Yes: Amputation (left bka right toe-- reddened/ dry wound)--- improved erythema and edema Edema: RLE: 2+ Neurological: Yes: Alert/ awake. Assessment/Plan Discussed with RN continue i/v lasix- monitor lytes CHF uti Abx per ID--- leg ulcer- vascular consulted--- Monitor bgm ABG Congestion - Likely related to chf Will follow Overall condition guarded Pulmonary/ Palliative consults. Problem List - Problems (1) Right foot ulcer Code(s): L97.519 - NON-PRS CHRONIC ULCER OTH PRT RIGHT FOOT W UNSP SEVERITY (2) Pneumonia Code(s): J18.9 - PNEUMONIA, UNSPECIFIED ORGANISM (3) CHF exacerbation Code(s): I50.9 - HEART FAILURE, UNSPECIFIED (4) Afib Code(s): I48.91 - UNSPECIFIED ATRIAL FIBRILLATION (5) Cellulitis Code(s): L03.90 - CELLULITIS, UNSPECIFIED Qualifiers: Site of cellulitis: extremity Site of cellulitis of extremity: lower extremity Laterality: left Qualified Code(s): L03.116 - Cellulitis of left lower limb (6) Coronary artery disease Code(s): I25.10 - ATHSCL HEART DISEASE OF [place] CORONARY ARTERY W/O ANG PCTRS Qualifiers: (7) Diabetes mellitus Code(s): E11.9 - TYPE 2 DIABETES MELLITUS WITHOUT COMPLICATIONS (8) Hyperlipidemia Code(s): E78.5 - HYPERLIPIDEMIA, UNSPECIFIED (9) Ischemia of both lower extremities Code(s): I99.8 - OTHER DISORDER OF CIRCULATORY SYSTEM (10) S/P CABG (coronary artery bypass graft) Code(s): Z95.1 - PRESENCE OF AORTOCORONARY BYPASS GRAFT
[2018-10-20] MEDS ORDERED: PT OWN MED DRAWER 7, Y5N ONE (10:07)
[2018-10-20] MEDS: ASPIRIN COATED 81 MG TABLET.EC PO SCH (10:18)
[2018-10-20] MEDS: APIXABAN 5 MG TABLET PO SCH ×2 (10:18→21:57)
[2018-10-20] MEDS: PANTOPRAZOLE 20 MG TABLET (FP) PO SCH (10:18)
[2018-10-20] MEDS: METOPROLOL TARTRATE 50 MG TABLET (FP) PO SCH ×2 (10:18→21:57)
[2018-10-20] MEDS: GABAPENTIN 300 MG CAPSULE (FP) PO SCH (10:18)
[2018-10-20] MEDS: BACITRACIN 15 GM TUBE TOPICAL OINTMENT TP SCH (10:18)
[2018-10-20] MEDS: ISOSORBIDE MONONITRATE 30 MG TAB.SR.24H (FP) PO SCH (10:18)
[2018-10-20] MEDS: SACUBITRIL/VALSARTAN 24 MG-26 MG TABLET PO SCH ×2 (10:19→21:57)
[2018-10-20 11:03] LABS: ARTERIAL BLD GAS O2 SATURATION 96.6 % (95-98); ARTERIAL BLOOD GAS BASE EXCESS 5.1 meq/l (-2-2); ARTERIAL BLOOD GAS PCO2 65.5 mmHg (35-45); ARTERIAL BLOOD GAS PO2 89.7 mmHg (80-105); ARTERIAL BLOOD GAS pH 7.32 (7.35-7.45)
[2018-10-20 11:11] LABS: ALLENS TEST POSITIVE
[2018-10-20] MEDS ORDERED: FUROSEMIDE 40 MG/4 ML INJECTABLE VIAL IVPUSH ONE (12:53)
--- NOTE | 2018-10-20 13:55 | PN ---
Progress Note (short form) - Note Progress Note: Vascular Surgery Pt seen and examined. Right leg arterial duplex did not look at bypass. Right foot is stable . Cont bacitracin. Can work up vascular workup as outpt. Cont medical management. Abhilash White DO
--- NOTE | 2018-10-20 16:17 | CON.PULM ---
Consult Consult Specialty:: PULM/CCM Referred by:: CHRISTIN Reason for Consultation:: SOB - History of Present Illness Chief Complaint: SOB History of Present Illness: 78 F, Afib, CAD, CHF, HTN, IDDM, s/p L AKA, and PVD. History likely consistent with OSAS. Admitted via the ER due to progressive shortness of breath slowly that has worsened over the past week. No travel history or sick contacts. No hemoptysis or night sweats. CXR: worsening bilateral pleural effusions with increasing pulmonary vascular congestion - History Source History Provided By: Patient, Medical Record Limitations to Obtaining History: Poor Historian - Past Medical History FOOD AND BEVERAGE INTERN: Yes: Other (pt says her memory has deteriorated) Cardio/Vascular: Yes: AFIB, CAD, CHF, HTN Pulmonary: Yes: Pneumonia. No: Asthma, Bronchitis, Cancer, COPD, O2 Dependent, Previously Intubated, Pulmonary Embolus, Pulmonary Fibrosis Gastrointestinal: Yes: Diverticulitis, Peptic Ulcer Disease ...: No - Past Surgical History Past Surgical History: Yes: CABG (2012), Cholecystectomy, Hysterectomy, Mastectomy, Stent (L- leg), Tonsillectomy - Alcohol/Substance Use Hx Alcohol Use: No - Smoking History Smoking history: Former smoker Have you smoked in the past 12 months: No Aproximately how many cigarettes per day: 0 If you are a former smoker, when did you quit?: 2002 - Social History History of Recent Travel: No Home Medications - Allergies Allergies/Adverse Reactions: Allergies Allergy/AdvReac Type Severity Reaction Status Date / Time Anesthetics - Amide Type AdvReac Vomiting Verified 08/13/17 10:30 - Home Medications Home Medications: Ambulatory Orders Aspirin [ASA -] 162 mg PO BID 02/27/12 Insulin Sliding Scale [Novolog Vial Sliding Scale -] 1 vial SQ TIDAC units 10/26 Amlodipine Besylate 10 mg PO DAILY 10/14/18 Clopidogrel Bisulfate [Clopidogrel] 75 mg PO DAILY 10/14/18 Docusate Sodium [Colace -] 100 mg PO HS 10/14/18 Gabapentin 300 mg PO DAILY 10/14/18 Insulin Detemir [Levemir Flextouch] 14 units SQ HS 10/14/18 Insulin Detemir [Levemir Flextouch] 20 units SQ DAILY 10/14/18 Isosorbide Mononitrate [Isosorbide Mononitrate ER] 30 mg PO DAILY 10/14/18 Lisinopril 20 mg PO DAILY 10/14/18 Metoprolol Tartrate 50 mg PO BID 10/14/18 Pantoprazole Sodium [Protonix -] 20 mg PO DAILY 10/14/18 Review of Systems Unable to obtain ROS, reason: confused/poor historian Physical Exam Vital Sings: Vital Signs Temperature 97.7 F 10/20/18 14:58 Pulse Rate 66 10/20/18 14:58 Respiratory Rate 22 H 10/20/18 14:58 Blood Pressure 146/62 10/20/18 14:58 O2 Sat by Pulse Oximetry (%) 94 L 10/20/18 09:00 Constitutional: Yes: Mild Distress, Obese Eyes: Yes: Conjunctiva Clear, EOM Intact HENT: Yes: Atraumatic, Normocephalic Neck: Yes: Supple, Trachea Midline Cardiovascular: Yes: Pulse Irregular Respiratory: Yes: Diminished, On Venti-Mask, Rales, Rhonchi, SOB, SOB on Exertion, Tachypnea. No: Stridor, Wheezes ...Inspection: Yes: WNL ...Clubbing: No Gastrointestinal: Yes: Normal Bowel Sounds, Soft, Abdomen, Obese Renal/: Yes: WNL Musculoskeletal: Yes: WNL Extremities: Yes: Other (Left AKA) Edema: Yes Peripheral Pulses WNL: Yes (Left AKA ) Integumentary: Yes: Venous Stasis Changes Neurological: Yes: Confusion, Lethargy Labs: CBC, BMP 10/20/18 05:10 10/20/18 05:10 ABG Results ABG pH 7.32 (7.35-7.45) L 10/20/18 10:45 ABG pCO2 at Pt Temp 65.5 mmHg (35-45) H 10/20/18 10:45 ABG pO2 at Pt Temp 89.7 mmHg (80-105) 10/20/18 10:45 ABG HCO3 32.8 mmol/L (22-27) H 10/20/18 10:45 ABG O2 Sat (Measured) 96.6 % (95-98) 10/20/18 10:45 ABG O2 Content 18.0 % vol (15-22) 10/20/18 10:45 ABG Base Excess 5.1 meq/l (-2-2) H 10/20/18 10:45 Imaging - Results Chest X-ray: Report Reviewed, Image Reviewed Problem List - Problems (1) Shortness of breath Code(s): R06.02 - SHORTNESS OF BREATH (2) Pleural effusion due to CHF (congestive heart failure) Code(s): I50.9 - HEART FAILURE, UNSPECIFIED (3) CHF exacerbation Code(s): I50.9 - HEART FAILURE, UNSPECIFIED (4) Right foot ulcer Code(s): L97.519 - NON-PRS CHRONIC ULCER OTH PRT RIGHT FOOT W UNSP SEVERITY (5) Acute on chronic systolic and diastolic heart failure, NYHA class 1 Code(s): I50.43 - ACUTE ON CHRONIC COMBINED SYSTOLIC AND DIASTOLIC HRT FAIL (6) Afib Code(s): I48.91 - UNSPECIFIED ATRIAL FIBRILLATION (7) CHF (congestive heart failure) Code(s): I50.9 - HEART FAILURE, UNSPECIFIED Qualifiers: Heart failure type: unspecified Heart failure chronicity: unspecified Qualified Code(s): I50.9 - Heart failure, unspecified (8) Coronary artery disease Code(s): I25.10 - ATHSCL HEART DISEASE OF [place] CORONARY ARTERY W/O ANG PCTRS Qualifiers: (9) Hypertension Code(s): I10 - ESSENTIAL (PRIMARY) HYPERTENSION Qualifiers: Hypertension type: essential hypertension Qualified Code(s): I10 - Essential (primary) hypertension (10) Obesity Code(s): E66.9 - OBESITY, UNSPECIFIED (11) S/P CABG (coronary artery bypass graft) Code(s): Z95.1 - PRESENCE OF AORTOCORONARY BYPASS GRAFT Assessment/Plan IMP: Do not suspect PNA Mild hypercapnea due to CHF Suspect OSAS PLAN: Lasix BID O2 via VM and can titrate If respiratory status worsens, can order NIPPV support Aspiration precautions Daily weights Follow I & O HOB to 45% and caution with laying the patient flat Will follow Thank you Dr Alvares
[2018-10-20] MEDS: ATORVASTATIN CA 10 MG TABLET (FP) PO SCH (21:57)
[2018-10-20] MEDS: INSULIN (LEVEMIR) 100 UNITS/ML UNITS SQ SCH (21:57)
[2018-10-21] MEDS ORDERED: ceFAZolin SODIUM 1 GM VIAL ONE ×2 (03:06→10:59)
[2018-10-21] MEDS ORDERED: DEXTROSE 5%-WATER - 50 ML IVPB ONE ×2 (03:06→10:59)
[2018-10-21] MEDS: CEFAZOLIN 1 GM in DEXTROSE 5%-WATER - 50 ML IVPB SCH ×2 (03:08→11:09)
[2018-10-21] MEDS: FUROSEMIDE 40 MG/4 ML INJECTABLE VIAL IVPUSH SCH ×2 (06:37→15:01)
[2018-10-21] MEDS: INSULIN SLIDING SCALE (NOVOLOG) 1 VIAL SQ SCH ×3 (06:41→17:55)
--- NOTE | 2018-10-21 10:16 | PN ---
Progress Note (short form) - Note Progress Note: pt seen/ examined. all follow-ups noted patient--- saturating well on 2 L nasal cannula Sleepy but arousable She reports no complaints and denies pain Vital Signs Temp 97.2 F L 10/21/18 06:00 Pulse 85 10/21/18 06:00 Resp 16 10/21/18 06:00 BP 113/68 10/21/18 06:00 Pulse Ox 98 10/20/18 21:00 Intake & Output 10/20/18 10/20/18 10/21/18 11:59 23:59 11:59 Intake Total 250 765 150 Balance 250 765 150 Intake: IVPB 50 50 50 Oral 200 475 100 Oral Supplement 240 Other: Voiding Method Diaper Diaper # Unmeasured Voids Void 1 2 1 Bowel Movement No No Active Medications Acetaminophen (Tylenol -) 650 mg PO Q6H PRN PRN Reason: PAIN LEVEL 1-5 Last Admin: 10/20/18 04:17 Dose: 650 mg Apixaban (Eliquis -) 5 mg PO BID [facility] Last Admin: 10/20/18 21:57 Dose: 5 mg Aspirin (Ecotrin -) 81 mg PO DAILY [facility] Last Admin: 10/20/18 10:18 Dose: 81 mg Atorvastatin Calcium (Lipitor -) 10 mg PO HS [facility] Last Admin: 10/20/18 21:57 Dose: 10 mg Bacitracin (Bacitracin -) 1 applic TP DAILY [facility] Last Admin: 10/20/18 10:18 Dose: 1 applic Furosemide (Lasix Injection -) 40 mg IVPUSH BID@0600,1400 [facility] Last Admin: 10/21/18 06:37 Dose: 40 mg Gabapentin (Neurontin -) 300 mg PO DAILY [facility] Last Admin: 10/20/18 10:18 Dose: 300 mg Cefazolin Sodium 1 gm/ (Dextrose) 50 mls @ 100 mls/hr IVPB Q8H-IV [facility] Last Admin: 10/21/18 03:08 Dose: 100 mls/hr Insulin Aspart (Novolog Vial Sliding Scale -) 1 vial SQ TIDAC [facility]; Protocol Last Admin: 10/21/18 06:41 Dose: Not Given Insulin Detemir (Levemir Vial) 14 units SQ HS [facility] Last Admin: 10/20/18 21:57 Dose: 14 units Isosorbide Mononitrate (Imdur -) 30 mg PO DAILY [facility] Last Admin: 10/20/18 10:18 Dose: 30 mg Metoprolol Tartrate (Lopressor -) 50 mg PO BID [facility] Last Admin: 10/20/18 21:57 Dose: 50 mg Pantoprazole Sodium (Protonix -) 20 mg PO DAILY [facility] Last Admin: 10/20/18 10:18 Dose: 20 mg Sacubitril/Valsartan (Entresto 24 Mg-26 Mg Tablet) 1 tab PO BID [facility] Last Admin: 10/20/18 21:57 Dose: 1 tab CBC, BMP 10/20/18 05:10 10/20/18 05:10 Microbiology 10/15/18 17:15 Urine Culture - Final Urine - Urine Clean Catch Proteus Mirabilis Enterococcus Faecalis Physical exam Constitutional: Yes: No Distress, Obese. Eyes: Yes: Conjunctiva Clear Neck: Yes: Supple. no jvd Cardiovascular: Yes: Pulse Irregular Respiratory: Yes: Other (crackles at bases) Gastrointestinal: Yes: Abdomen, Obese Extremities: Yes: Amputation (left bka right toe-- reddened/ dry wound)--- improved erythema and edema Edema: RLE: 2+ Neurological: Yes: Alert/ awake. Assessment/Plan Continue present care continue i/v lasix- monitor lytes CHF uti Abx per ID--- leg ulcer- vascular consulted---no workup recommended Monitor bgm ABG Congestion - Likely related to chf Will follow Overall condition guarded Pulmonary/ Palliative consults noted and appreciated Patient is DNR--- I signed the forms also. Will follow Problem List - Problems (1) Right foot ulcer Code(s): L97.519 - NON-PRS CHRONIC ULCER OTH PRT RIGHT FOOT W UNSP SEVERITY (2) Pneumonia Code(s): J18.9 - PNEUMONIA, UNSPECIFIED ORGANISM (3) CHF exacerbation Code(s): I50.9 - HEART FAILURE, UNSPECIFIED (4) Afib Code(s): I48.91 - UNSPECIFIED ATRIAL FIBRILLATION (5) Cellulitis Code(s): L03.90 - CELLULITIS, UNSPECIFIED Qualifiers: Site of cellulitis: extremity Site of cellulitis of extremity: lower extremity Laterality: left Qualified Code(s): L03.116 - Cellulitis of left lower limb (6) Coronary artery disease Code(s): I25.10 - ATHSCL HEART DISEASE OF [place] CORONARY ARTERY W/O ANG PCTRS Qualifiers: (7) Diabetes mellitus Code(s): E11.9 - TYPE 2 DIABETES MELLITUS WITHOUT COMPLICATIONS (8) Hyperlipidemia Code(s): E78.5 - HYPERLIPIDEMIA, UNSPECIFIED (9) Ischemia of both lower extremities Code(s): I99.8 - OTHER DISORDER OF CIRCULATORY SYSTEM (10) S/P CABG (coronary artery bypass graft) Code(s): Z95.1 - PRESENCE OF AORTOCORONARY BYPASS GRAFT
[2018-10-21] MEDS: GABAPENTIN 300 MG CAPSULE (FP) PO SCH (11:08)
[2018-10-21] MEDS: APIXABAN 5 MG TABLET PO SCH ×2 (11:09→22:45)
[2018-10-21] MEDS: METOPROLOL TARTRATE 50 MG TABLET (FP) PO SCH ×2 (11:09→22:45)
[2018-10-21] MEDS: ISOSORBIDE MONONITRATE 30 MG TAB.SR.24H (FP) PO SCH (11:09)
[2018-10-21] MEDS: ASPIRIN COATED 81 MG TABLET.EC PO SCH (11:09)
[2018-10-21] MEDS: PANTOPRAZOLE 20 MG TABLET (FP) PO SCH (11:09)
[2018-10-21] MEDS: BACITRACIN 15 GM TUBE TOPICAL OINTMENT TP SCH (11:10)
[2018-10-21] MEDS: SACUBITRIL/VALSARTAN 24 MG-26 MG TABLET PO SCH ×2 (11:11→22:46)
--- NOTE | 2018-10-21 13:15 | PN ---
Progress Note, Physician History of Present Illness: pulmonary awake,alert,less dyspneic on o2 - Current Medication List Current Medications: Active Medications Acetaminophen (Tylenol -) 650 mg PO Q6H PRN PRN Reason: PAIN LEVEL 1-5 Last Admin: 10/20/18 04:17 Dose: 650 mg Apixaban (Eliquis -) 5 mg PO BID [facility] Last Admin: 10/21/18 11:09 Dose: 5 mg Aspirin (Ecotrin -) 81 mg PO DAILY [facility] Last Admin: 10/21/18 11:09 Dose: 81 mg Atorvastatin Calcium (Lipitor -) 10 mg PO HS [facility] Last Admin: 10/20/18 21:57 Dose: 10 mg Bacitracin (Bacitracin -) 1 applic TP DAILY [facility] Last Admin: 10/21/18 11:10 Dose: 1 applic Furosemide (Lasix Injection -) 40 mg IVPUSH BID@0600,1400 [facility] Last Admin: 10/21/18 06:37 Dose: 40 mg Gabapentin (Neurontin -) 300 mg PO DAILY [facility] Last Admin: 10/21/18 11:08 Dose: 300 mg Cefazolin Sodium 1 gm/ (Dextrose) 50 mls @ 100 mls/hr IVPB Q8H-IV [facility] Last Admin: 10/21/18 11:09 Dose: 100 mls/hr Insulin Aspart (Novolog Vial Sliding Scale -) 1 vial SQ TIDAC [facility]; Protocol Last Admin: 10/21/18 11:23 Dose: Not Given Insulin Detemir (Levemir Vial) 14 units SQ [facility] Last Admin: 10/20/18 21:57 Dose: 14 units Isosorbide Mononitrate (Imdur -) 30 mg PO DAILY [facility] Last Admin: 10/21/18 11:09 Dose: 30 mg Metoprolol Tartrate (Lopressor -) 50 mg PO BID [facility] Last Admin: 10/21/18 11:09 Dose: 50 mg Pantoprazole Sodium (Protonix -) 20 mg PO DAILY [facility] Last Admin: 10/21/18 11:09 Dose: 20 mg Sacubitril/Valsartan (Entresto 24 Mg-26 Mg Tablet) 1 tab PO BID [facility] Last Admin: 10/21/18 11:11 Dose: 1 tab - Objective Vital Signs: Vital Signs Temperature 97.2 F L 10/21/18 06:00 Pulse Rate 85 10/21/18 06:00 Respiratory Rate 16 10/21/18 06:00 Blood Pressure 113/68 10/21/18 06:00 O2 Sat by Pulse Oximetry (%) 98 10/20/18 21:00 Constitutional: Yes: Well Nourished, Calm Eyes: Yes: WNL HENT: Yes: WNL Neck: Yes: WNL Cardiovascular: Yes: Regular Rate and Rhythm, S1, S2 Respiratory: Yes: Diminished (diminished bs on r) Gastrointestinal: Yes: Normal Bowel Sounds, Soft Extremities: Yes: Amputation (left aka) Edema: No Labs: CBC, BMP Assessment/Plan Problem List - Problems (1) Shortness of breath Code(s): R06.02 - SHORTNESS OF BREATH (2) Pleural effusion due to CHF (congestive heart failure) Code(s): I50.9 - HEART FAILURE, UNSPECIFIED (3) CHF exacerbation Code(s): I50.9 - HEART FAILURE, UNSPECIFIED (4) Right foot ulcer Code(s): L97.519 - NON-PRS CHRONIC ULCER OTH PRT RIGHT FOOT W UNSP SEVERITY (5) Acute on chronic systolic and diastolic heart failure, NYHA class 1 Code(s): I50.43 - ACUTE ON CHRONIC COMBINED SYSTOLIC AND DIASTOLIC HRT FAIL (6) Afib Code(s): I48.91 - UNSPECIFIED ATRIAL FIBRILLATION (7) CHF (congestive heart failure) Code(s): I50.9 - HEART FAILURE, UNSPECIFIED Qualifiers: Heart failure type: unspecified Heart failure chronicity: unspecified Qualified Code(s): I50.9 - Heart failure, unspecified (8) Coronary artery disease Code(s): I25.10 - ATHSCL HEART DISEASE OF [place] CORONARY ARTERY W/O ANG PCTRS Qualifiers: (9) Hypertension Code(s): I10 - ESSENTIAL (PRIMARY) HYPERTENSION Qualifiers: Hypertension type: essential hypertension Qualified Code(s): I10 - Essential (primary) hypertension (10) Obesity Code(s): E66.9 - OBESITY, UNSPECIFIED (11) S/P CABG (coronary artery bypass graft) Code(s): Z95.1 - PRESENCE OF AORTOCORONARY BYPASS GRAFT Assessment/Plan IMP: Do not suspect PNA Mild hypercapnea due to CHF Suspect OSAS PLAN: Lasix BID O2 via VM If respiratory status worsens, can order NIPPV support Aspiration precautions Daily weights Follow I & O HOB to 45% and caution with laying the patient flat f/u chest x-rays DR MCCARTHY
--- NOTE | 2018-10-21 13:33 | PN ---
Progress Note, Physician Chief Complaint: Pt tired, lethargic but easily arousable; denies chest pain; tachypneic; on ventimask. History of Present Illness: 10/14/18 23:45 The patient is a 78 year old white female, with a significant PMH of CAD, severe systolic CHF, IDDM, s/p L AKA, multiple vascular issues, including left BKA, , hypertension, vascular insufficiency, CAD s/p CABG , breast cancer (s/p mastectomy), who presents to the emergency department with 1 week of progressively worsening shortness of breath. The patient also endorses increased right leg swelling, toes ulcerated. The patient denies chest pain, headache and dizziness. Denies fever, chills, nausea, vomiting, diarrhea and constipation. Denies dysuria, frequency, urgency and hematuria. Denies any other symptoms. Allergies: NKA Past surgical history: Mastectomy, Cholecystectomy, OPEN HEART SX (CABG) 2011: 3 BLOCKAGES Social history: Former smoker, quit 2002. PCP: Dr. Sandrita Salazar Vascular Surgeon: Dr. Angelica White - Current Medication List Current Medications: Active Medications Acetaminophen (Tylenol -) 650 mg PO Q6H PRN PRN Reason: PAIN LEVEL 1-5 Last Admin: 10/20/18 04:17 Dose: 650 mg Apixaban (Eliquis -) 5 mg PO BID [facility] Last Admin: 10/21/18 11:09 Dose: 5 mg Aspirin (Ecotrin -) 81 mg PO DAILY [facility] Last Admin: 10/21/18 11:09 Dose: 81 mg Atorvastatin Calcium (Lipitor -) 10 mg PO HS [facility] Last Admin: 10/20/18 21:57 Dose: 10 mg Bacitracin (Bacitracin -) 1 applic TP DAILY [facility] Last Admin: 10/21/18 11:10 Dose: 1 applic Furosemide (Lasix Injection -) 40 mg IVPUSH BID@0600,1400 [facility] Last Admin: 10/21/18 06:37 Dose: 40 mg Gabapentin (Neurontin -) 300 mg PO DAILY [facility] Last Admin: 10/21/18 11:08 Dose: 300 mg Cefazolin Sodium 1 gm/ (Dextrose) 50 mls @ 100 mls/hr IVPB Q8H-IV [facility] Last Admin: 10/21/18 11:09 Dose: 100 mls/hr Insulin Aspart (Novolog Vial Sliding Scale -) 1 vial SQ TIDAC [facility]; Protocol Last Admin: 10/21/18 11:23 Dose: Not Given Insulin Detemir (Levemir Vial) 14 units SQ HS [facility] Last Admin: 10/20/18 21:57 Dose: 14 units Isosorbide Mononitrate (Imdur -) 30 mg PO DAILY [facility] Last Admin: 10/21/18 11:09 Dose: 30 mg Metoprolol Tartrate (Lopressor -) 50 mg PO BID [facility] Last Admin: 10/21/18 11:09 Dose: 50 mg Pantoprazole Sodium (Protonix -) 20 mg PO DAILY [facility] Last Admin: 10/21/18 11:09 Dose: 20 mg Sacubitril/Valsartan (Entresto 24 Mg-26 Mg Tablet) 1 tab PO BID [facility] Last Admin: 10/21/18 11:11 Dose: 1 tab Spironolactone (Aldactone -) 25 mg PO DAILY [facility] - Objective Vital Signs: Vital Signs Temperature 97.2 F L 10/21/18 06:00 Pulse Rate 85 10/21/18 06:00 Respiratory Rate 16 10/21/18 06:00 Blood Pressure 113/68 10/21/18 06:00 O2 Sat by Pulse Oximetry (%) 98 10/20/18 21:00 Constitutional: Yes: Obese Cardiovascular: Yes: S1 (varies in intensity), S2 (split) Gastrointestinal: Yes: Soft, Abdomen, Obese ...Rectal Exam: Yes: Deferred Genitourinary: No: Anuria Extremities: Yes: Cool Edema: Yes Edema: RUE: 1+ Peripheral Pulses WNL: No Peripheral Pulses: Left Doralis Pedis: 1+, Right Dorsalis Pedis: 1+ Integumentary: Yes: Pressure Ulcer (right toes), Venous Stasis Changes, Other ( left BKA) Labs: CBC, BMP 10/20/18 05:10 10/20/18 05:10 INR, PTT INR 0.93 (0.83-1.09) 10/14/18 22:13 Problem List - Problems (1) Acute on chronic systolic and diastolic heart failure, NYHA class 1 Assessment/Plan: +JVD; increased respiratory compromise. F/u EKG and CXR. Now on Entresto, as well as metoprolol; furosemide. Will start spironolactone; f/u BUN/Cr and electrolytes. F/u Is and Os, daily weight. Code(s): I50.43 - ACUTE ON CHRONIC COMBINED SYSTOLIC AND DIASTOLIC HRT FAIL (2) Afib Assessment/Plan: On metorprolol for HR control (and CHF/HTN). On apixaban for anticoagulation. ECHO: severely reduced LVEF; normal atrial sizes. Code(s): I48.91 - UNSPECIFIED ATRIAL FIBRILLATION (3) Hyperlipidemia Assessment/Plan: On atrovastatin Total cholesterol: 108 mg/dL. Code(s): E78.5 - HYPERLIPIDEMIA, UNSPECIFIED (4) Hypertension Assessment/Plan: on metoprolol, amlodipine (now discontinued), lisinopril (now discontinued), and now on Entresto. furosemide (the latter may be reduced and/or stopped as CHF improves) start spironolactone due to severely reduced LVEF). Code(s): I10 - ESSENTIAL (PRIMARY) HYPERTENSION Qualifiers: Hypertension type: essential hypertension Qualified Code(s): I10 - Essential (primary) hypertension (5) Ischemia of both lower extremities Code(s): I99.8 - OTHER DISORDER OF CIRCULATORY SYSTEM (6) Obesity Code(s): E66.9 - OBESITY, UNSPECIFIED (7) S/P CABG (coronary artery bypass graft) Code(s): Z95.1 - PRESENCE OF AORTOCORONARY BYPASS GRAFT (8) Vascular disease Assessment/Plan: Hx left foot ulcer; now with likely cellulitis of RLE. bilateral PAD/ s/p LE stent. s/p left BKA. Antibiotics per ID. F/u with vascular surgeon. (9) Diabetes mellitus Code(s): E11.9 - TYPE 2 DIABETES MELLITUS WITHOUT COMPLICATIONS
[2018-10-21] MEDS: SPIRONOLACTONE 25 MG TABLET (FP) PO SCH (15:01)
--- NOTE | 2018-10-21 16:13 | PN ---
Progress Note (short form) - Note Progress Note: very lethargic wearing the ventimask o2 sat 94% Vital Signs Period Temp Pulse Resp BP Sys/Calderon Pulse Ox Last 24 Hr 97.2 F-98.6 F 66-85 16-20 113-136/52-68 98 cor-rrr lungs decreased bs at bases abd soft, ext +edema right leg foot ulcer and toes unchanged CBC, BMP 10/20/18 05:10 10/20/18 05:10 Microbiology 10/15/18 17:15 Urine - Urine Clean Catch Urine Culture - Final Proteus Mirabilis Enterococcus Faecalis 10/15/18 03:35 Blood - Peripheral Venous Blood Culture - Final NO GROWTH AFTER 5 DAYS INCUBATION 10/15/18 03:35 Blood - Peripheral Venous Blood Culture - Final NO GROWTH AFTER 5 DAYS INCUBATION 10/16/18 23:09 Urine For Antigen Detection Legionella Antigen - Final 10/16/18 23:09 Urine For Antigen Detection Streptococcus pneumoniae Antigen (M - Final echo-ef 15-20% a/p suspect CHF doubt pneumonia- no fever,normal WBC erythema resolved ulcer and toes unchanged will d/c cefazolin will orger ABG to evaluate lethargy- ?hypercapnea
[2018-10-21 16:46] LABS: ARTERIAL BLD GAS O2 SATURATION 91.6 % (95-98); ARTERIAL BLOOD GAS BASE EXCESS 9.2 meq/l (-2-2); ARTERIAL BLOOD GAS PCO2 67.2 mmHg (35-45); ARTERIAL BLOOD GAS PO2 64.3 mmHg (80-105); ARTERIAL BLOOD GAS pH 7.36 (7.35-7.45)
[2018-10-21 16:49] LABS: ALLENS TEST POSITIVE
[2018-10-21] MEDS: ATORVASTATIN CA 10 MG TABLET (FP) PO SCH (22:45)
[2018-10-21] MEDS: INSULIN (LEVEMIR) 100 UNITS/ML UNITS SQ SCH (22:46)
[2018-10-22] MEDS: INSULIN SLIDING SCALE (NOVOLOG) 1 VIAL SQ SCH ×3 (07:13→17:44)
[2018-10-22] MEDS: FUROSEMIDE 40 MG/4 ML INJECTABLE VIAL IVPUSH SCH ×2 (07:13→14:57)
[2018-10-22 07:33] LABS: EOS % 8.7 % (0-4.5); HEMOGLOBIN 11.6 GM/dL (10.7-15.3); LYMPH % 16.6 % (8-40); MCH 28.6 pg (25.7-33.7); MCHC 32.2 g/dl (32.0-36.0); MEAN PLT VOLUME 8.8 fl (7.5-11.1); MONO % 11.5 % (3.8-10.2); NEUT % 62.2 % (42.8-82.8); PLATELET COUNT 177 K/MM3 (134-434); RBC 4.05 M/mm3 (3.60-5.2); RDW 14.7 % (11.6-15.6)
[2018-10-22 08:10] LABS: ALBUMIN 2.3 g/dl (3.4-5.0); ALK PHOS 86 U/L (45-117); ANION GAP 5 MMOL/L (8-16); BILIRUBIN,TOTAL 0.5 mg/dL (0.2-1); BLOOD UREA NITROGEN 18.2 mg/dL (7-18); CALCIUM 8.1 mg/dL (8.5-10.1); CHLORIDE 97 mmol/L (98-107); CO2 37 mmol/L (21-32); CREATININE 0.7 mg/dL (0.55-1.3); GLUCOSE,RANDOM 83 mg/dL (74-106); POTASSIUM 3.7 mmol/L (3.5-5.1); SGOT/AST 10 U/L (15-37); SGPT/ALT < 6 U/L (13-61); SODIUM 139 mmol/L (136-145); TOT PROT 5.3 g/dl (6.4-8.2)
--- NOTE | 2018-10-22 09:57 | PN ---
Progress Note (short form) - Note Progress Note: overall condition same Drowsy but arousable all follow-ups noted and appreciated Denies chest pain Vital Signs Temp 98.3 F 10/22/18 06:00 Pulse 54 L 10/22/18 06:00 Resp 18 10/22/18 06:00 BP 127/51 L 10/22/18 06:00 Pulse Ox 97 10/21/18 21:00 Intake & Output 10/21/18 10/21/18 10/22/18 11:59 23:59 11:59 Intake Total 150 50 Balance 150 50 Intake: IVPB 50 50 Oral 100 Other: Voiding Method Diaper Diaper Diaper # Unmeasured Voids Void 1 2 Bowel Movement No No No Body Mass Index (BMI) 34.2 Active Medications Acetaminophen (Tylenol -) 650 mg PO Q6H PRN PRN Reason: PAIN LEVEL 1-5 Last Admin: 10/20/18 04:17 Dose: 650 mg Apixaban (Eliquis -) 5 mg PO BID [facility] Last Admin: 10/21/18 22:45 Dose: 5 mg Aspirin (Ecotrin -) 81 mg PO DAILY [facility] Last Admin: 10/21/18 11:09 Dose: 81 mg Atorvastatin Calcium (Lipitor -) 10 mg PO HS [facility] Last Admin: 10/21/18 22:45 Dose: 10 mg Bacitracin (Bacitracin -) 1 applic TP DAILY [facility] Last Admin: 10/21/18 11:10 Dose: 1 applic Furosemide (Lasix Injection -) 40 mg IVPUSH BID@0600,1400 [facility] Last Admin: 10/22/18 07:13 Dose: 40 mg Gabapentin (Neurontin -) 300 mg PO DAILY [facility] Last Admin: 10/21/18 11:08 Dose: 300 mg Insulin Aspart (Novolog Vial Sliding Scale -) 1 vial SQ TIDAC [facility]; Protocol Last Admin: 10/22/18 07:13 Dose: Not Given Insulin Detemir (Levemir Vial) 14 units SQ [facility] Last Admin: 10/21/18 22:46 Dose: 14 units Isosorbide Mononitrate (Imdur -) 30 mg PO DAILY [facility] Last Admin: 10/21/18 11:09 Dose: 30 mg Metoprolol Tartrate (Lopressor -) 50 mg PO BID [facility] Last Admin: 10/21/18 22:45 Dose: 50 mg Pantoprazole Sodium (Protonix -) 20 mg PO DAILY [facility] Last Admin: 10/21/18 11:09 Dose: 20 mg Sacubitril/Valsartan (Entresto 24 Mg-26 Mg Tablet) 1 tab PO BID [facility] Last Admin: 10/21/18 22:46 Dose: 1 tab Spironolactone (Aldactone -) 25 mg PO DAILY [facility] Last Admin: 10/21/18 15:01 Dose: 25 mg CBC, BMP 10/22/18 06:40 10/22/18 06:40 Microbiology 10/15/18 17:15 Urine Culture - Final Urine - Urine Clean Catch Proteus Mirabilis Enterococcus Faecalis cxr -- worsened CMP Sodium 139 mmol/L (136-145) 10/22/18 06:40 Potassium 3.7 mmol/L (3.5-5.1) 10/22/18 06:40 Chloride 97 mmol/L (98-107) L 10/22/18 06:40 Carbon Dioxide 37 mmol/L (21-32) H 10/22/18 06:40 Anion Gap 5 MMOL/L (8-16) L 10/22/18 06:40 BUN 18.2 mg/dL (7-18) H 10/22/18 06:40 Creatinine 0.7 mg/dL (0.55-1.3) 10/22/18 06:40 Est GFR (CKD-EPI)AfAm 95.51 10/22/18 06:40 Est GFR (CKD-EPI)NonAf 82.41 10/22/18 06:40 POC Glucometer 83 UNITS (80-120) 10/22/18 07:01 Random Glucose 83 mg/dL (74-106) 10/22/18 06:40 Hemoglobin A1c % 7.1 % (4.2-6.3) H 10/16/18 08:40 Lactic Acid 1.3 mmol/L (0.4-2.0) 10/15/18 03:35 Calcium 8.1 mg/dL (8.5-10.1) L 10/22/18 06:40 Magnesium 1.9 mg/dL (1.8-2.4) 10/14/18 22:13 Total Bilirubin 0.5 mg/dL (0.2-1) 10/22/18 06:40 AST 10 U/L (15-37) L 10/22/18 06:40 ALT < 6 U/L (13-61) L 10/22/18 06:40 Alkaline Phosphatase 86 U/L (45-117) 10/22/18 06:40 Creatine Kinase 46 U/L (26-192) 10/14/18 22:13 Troponin I 0.02 ng/ml (0.00-0.05) 10/16/18 12:34 B-Natriuretic Peptide 02093.2 pg/ml (5-450) H 10/14/18 22:13 Total Protein 5.3 g/dl (6.4-8.2) L 10/22/18 06:40 Albumin 2.3 g/dl (3.4-5.0) L 10/22/18 06:40 Triglycerides 43 mg/dL (0-150) 10/16/18 08:40 Cholesterol 108 mg/dL (50-200) 10/16/18 08:40 Total LDL Cholesterol 57 mg/dL (5-100) 10/16/18 08:40 HDL Cholesterol 43 mg/dL (40-60) 10/16/18 08:40 Vitamin B12 607 pg/ml (193-986) 10/19/18 08:30 ABG Results ABG pH 7.36 (7.35-7.45) 10/21/18 16:35 ABG pCO2 at Pt Temp 67.2 mmHg (35-45) H 10/21/18 16:35 ABG pO2 at Pt Temp 64.3 mmHg (80-105) L 10/21/18 16:35 ABG HCO3 36.7 mmol/L (22-27) H 10/21/18 16:35 ABG O2 Sat (Measured) 91.6 % (95-98) L 10/21/18 16:35 ABG O2 Content 15.4 % vol (15-22) 10/21/18 16:35 ABG Base Excess 9.2 meq/l (-2-2) H 10/21/18 16:35 Abnormal Lab Results 10/21/18 10/22/18 10/22/18 16:35 06:40 06:40 Monocytes % 11.5 H Eosinophils % 8.7 H D ABG pCO2 at Pt Temp 67.2 H ABG pO2 at Pt Temp 64.3 L ABG HCO3 36.7 H ABG O2 Sat (Measured) 91.6 L ABG Base Excess 9.2 H Chloride 97 L Carbon Dioxide 37 H Anion Gap 5 L BUN 18.2 H Calcium 8.1 L AST 10 L ALT < 6 L Total Protein 5.3 L Albumin 2.3 L Physical exam Constitutional: Yes: No Distress, Obese. Eyes: Yes: Conjunctiva Clear Neck: Yes: Supple. no jvd Cardiovascular: Yes: Pulse Irregular Respiratory: Yes: Other (crackles at bases) Gastrointestinal: Yes: Abdomen, Obese Extremities: Yes: Amputation (left bka right toe-- reddened/ dry wound)--- improved erythema and edema Edema: RLE: 2+ Neurological: Yes: Alert/ awake. Assessment/Plan Continue present care continue i/v lasix- monitor lytes CHF uti Abx per ID--- leg ulcer- vascular consulted---no workup recommended Monitor bgm ABG Congestion - Likely related to chf Overall condition guarded Patient is DNR--consider BiPAP at nighttime----and when necessary----retaining carbon dioxide Pulmonary to follow Will follow BIPAP Problem List - Problems (1) Right foot ulcer Code(s): L97.519 - NON-PRS CHRONIC ULCER OTH PRT RIGHT FOOT W UNSP SEVERITY (2) Pneumonia Code(s): J18.9 - PNEUMONIA, UNSPECIFIED ORGANISM (3) CHF exacerbation Code(s): I50.9 - HEART FAILURE, UNSPECIFIED (4) Afib Code(s): I48.91 - UNSPECIFIED ATRIAL FIBRILLATION (5) Cellulitis Code(s): L03.90 - CELLULITIS, UNSPECIFIED Qualifiers: Site of cellulitis: extremity Site of cellulitis of extremity: lower extremity Laterality: left Qualified Code(s): L03.116 - Cellulitis of left lower limb (6) Coronary artery disease Code(s): I25.10 - ATHSCL HEART DISEASE OF [place] CORONARY ARTERY W/O ANG PCTRS Qualifiers: (7) Diabetes mellitus Code(s): E11.9 - TYPE 2 DIABETES MELLITUS WITHOUT COMPLICATIONS (8) Hyperlipidemia Code(s): E78.5 - HYPERLIPIDEMIA, UNSPECIFIED (9) Ischemia of both lower extremities Code(s): I99.8 - OTHER DISORDER OF CIRCULATORY SYSTEM (10) S/P CABG (coronary artery bypass graft) Code(s): Z95.1 - PRESENCE OF AORTOCORONARY BYPASS GRAFT
[2018-10-22] MEDS ORDERED: PT OWN MED DRAWER 7, Y5N ONE ×2 (10:01→21:35)
[2018-10-22] MEDS: METOPROLOL TARTRATE 50 MG TABLET (FP) PO SCH ×2 (10:13→22:13)
[2018-10-22] MEDS: ISOSORBIDE MONONITRATE 30 MG TAB.SR.24H (FP) PO SCH (10:13)
[2018-10-22] MEDS: ASPIRIN COATED 81 MG TABLET.EC PO SCH (10:13)
[2018-10-22] MEDS: APIXABAN 5 MG TABLET PO SCH ×2 (10:13→22:13)
[2018-10-22] MEDS: PANTOPRAZOLE 20 MG TABLET (FP) PO SCH (10:13)
[2018-10-22] MEDS: GABAPENTIN 300 MG CAPSULE (FP) PO SCH (10:13)
[2018-10-22] MEDS: SPIRONOLACTONE 25 MG TABLET (FP) PO SCH (10:13)
[2018-10-22] MEDS: SACUBITRIL/VALSARTAN 24 MG-26 MG TABLET PO SCH ×2 (10:13→22:14)
[2018-10-22] MEDS: BACITRACIN 15 GM TUBE TOPICAL OINTMENT TP SCH (10:14)
--- NOTE | 2018-10-22 11:04 | PN ---
Progress Note, Physician History of Present Illness: The patient is a 78 year old female, with a significant PMH of CAD, severe systolic CHF, IDDM, s/p L AKA, multiple vascular issues, hypertension, vascular insufficiency, CAD s/p CABG , breast cancer (s/p mastectomy), who presents to the emergency department with 1 week of progressively worsening shortness of breath. The patient also endorses increased right leg swelling. The patient denies chest pain, headache and dizziness. Denies fever, chills, nausea, vomiting, diarrhea and constipation. Denies dysuria, frequency, urgency and hematuria. Denies any other symptoms. Allergies: NKA Past surgical history: Mastectomy, Cholecystectomy, OPEN HEART SX (CABG) 2011: 3 BLOCKAGES Social history: Former smoker, quit 2002. PCP: Dr. Sandrita Salazar Vascular Surgeon: Dr. Angelica White - Current Medication List Current Medications: Active Medications Acetaminophen (Tylenol -) 650 mg PO Q6H PRN PRN Reason: PAIN LEVEL 1-5 Last Admin: 10/20/18 04:17 Dose: 650 mg Apixaban (Eliquis -) 5 mg PO BID [facility] Last Admin: 10/22/18 10:13 Dose: 5 mg Aspirin (Ecotrin -) 81 mg PO DAILY [facility] Last Admin: 10/22/18 10:13 Dose: 81 mg Atorvastatin Calcium (Lipitor -) 10 mg PO HS [facility] Last Admin: 10/21/18 22:45 Dose: 10 mg Bacitracin (Bacitracin -) 1 applic TP DAILY [facility] Last Admin: 10/22/18 10:14 Dose: 1 applic Furosemide (Lasix Injection -) 40 mg IVPUSH BID@0600,1400 [facility] Last Admin: 10/22/18 07:13 Dose: 40 mg Gabapentin (Neurontin -) 300 mg PO DAILY [facility] Last Admin: 10/22/18 10:13 Dose: 300 mg Insulin Aspart (Novolog Vial Sliding Scale -) 1 vial SQ TIDAC [facility]; Protocol Last Admin: 10/22/18 07:13 Dose: Not Given Insulin Detemir (Levemir Vial) 14 units SQ HS [facility] Last Admin: 10/21/18 22:46 Dose: 14 units Isosorbide Mononitrate (Imdur -) 30 mg PO DAILY [facility] Last Admin: 10/22/18 10:13 Dose: 30 mg Metoprolol Tartrate (Lopressor -) 50 mg PO BID [facility] Last Admin: 10/22/18 10:13 Dose: 50 mg Pantoprazole Sodium (Protonix -) 20 mg PO DAILY [facility] Last Admin: 10/22/18 10:13 Dose: 20 mg Sacubitril/Valsartan (Entresto 24 Mg-26 Mg Tablet) 1 tab PO BID [facility] Last Admin: 10/22/18 10:13 Dose: 1 tab Spironolactone (Aldactone -) 25 mg PO DAILY [facility] Last Admin: 10/22/18 10:13 Dose: 25 mg - Objective Vital Signs: Vital Signs Temperature 98.3 F 10/22/18 06:00 Pulse Rate 54 L 10/22/18 06:00 Respiratory Rate 18 10/22/18 06:00 Blood Pressure 127/51 L 10/22/18 06:00 O2 Sat by Pulse Oximetry (%) 97 10/21/18 21:00 Eyes: Yes: WNL, Conjunctiva Clear, EOM Intact HENT: Yes: WNL, Atraumatic, Normocephalic Neck: Yes: WNL, Supple, Trachea Midline Cardiovascular: Yes: WNL, Regular Rate and Rhythm Respiratory: Yes: WNL, Regular, CTA Bilaterally Gastrointestinal: Yes: WNL, Normal Bowel Sounds Genitourinary: Yes: WNL Musculoskeletal: Yes: WNL Extremities: Yes: Amputation Edema: Yes Integumentary: Yes: WNL Neurological: Yes: WNL, Alert, Oriented ...Motor Strength: WNL Psychiatric: Yes: WNL Labs: CBC, BMP 10/22/18 06:40 10/22/18 06:40 INR, PTT INR 0.93 (0.83-1.09) 10/14/18 22:13 Assessment/Plan - Problems (1) Acute on chronic systolic and diastolic heart failure, NYHA class 1 Assessment/Plan: +JVD; increased respiratory compromise. F/u EKG and CXR. Now on Entresto, as well as metoprolol; furosemide. Will start spironolactone; f/u BUN/Cr and electrolytes. F/u Is and Os, daily weight. Code(s): I50.43 - ACUTE ON CHRONIC COMBINED SYSTOLIC AND DIASTOLIC HRT FAIL (2) Afib Assessment/Plan: On metorprolol for HR control (and CHF/HTN). On apixaban for anticoagulation. ECHO: severely reduced LVEF; normal atrial sizes. Code(s): I48.91 - UNSPECIFIED ATRIAL FIBRILLATION (3) Hyperlipidemia Assessment/Plan: On atrovastatin Total cholesterol: 108 mg/dL. Code(s): E78.5 - HYPERLIPIDEMIA, UNSPECIFIED (4) Hypertension Assessment/Plan: on metoprolol, amlodipine (now discontinued), lisinopril (now discontinued), and now on Entresto. furosemide (the latter may be reduced and/or stopped as CHF improves) start spironolactone due to severely reduced LVEF). Code(s): I10 - ESSENTIAL (PRIMARY) HYPERTENSION Qualifiers: Hypertension type: essential hypertension Qualified Code(s): I10 - Essential (primary) hypertension (5) Ischemia of both lower extremities Code(s): I99.8 - OTHER DISORDER OF CIRCULATORY SYSTEM (6) Obesity Code(s): E66.9 - OBESITY, UNSPECIFIED (7) S/P CABG (coronary artery bypass graft) Code(s): Z95.1 - PRESENCE OF AORTOCORONARY BYPASS GRAFT (8) Vascular disease Assessment/Plan: Hx left foot ulcer; now with likely cellulitis of RLE. bilateral PAD/ s/p LE stent. s/p left BKA. Antibiotics per ID. F/u with vascular surgeon. (9) Diabetes mellitus Code(s): E11.9 - TYPE 2 DIABETES MELLITUS WITHOUT COMPLICATIONS
--- NOTE | 2018-10-22 11:26 | EKG ---
Test Reason : Blood Pressure : / mmHG Vent. Rate : 051 BPM Atrial Rate : 357 BPM P-R Int : 000 ms QRS Dur : 138 ms QT Int : 460 ms P-R-T Axes : 000 -41 182 degrees QTc Int : 423 ms ATRIAL FIBRILLATION WITH SLOW VENTRICULAR RESPONSE LEFT AXIS DEVIATION NON-SPECIFIC INTRA-VENTRICULAR CONDUCTION BLOCK POSSIBLE LATERAL INFARCT (CITED ON OR BEFORE 14-OCT-2018) T WAVE ABNORMALITY, CONSIDER INFERIOR ISCHEMIA ABNORMAL ECG WHEN COMPARED WITH ECG OF 14-OCT-2018 21:41, VENT. RATE HAS DECREASED BY 38 BPM T WAVE INVERSION NOW EVIDENT IN INFERIOR LEADS T WAVE INVERSION MORE EVIDENT IN LATERAL LEADS QT HAS SHORTENED Confirmed by CORIN SWANSON, SHAQ ([id number]) on 10/22/2018 11:26:03 AM Referred By: Sindy JOE Confirmed By:SHAQ COOMBS MD
--- NOTE | 2018-10-22 14:38 | PN ---
Progress Note, Physician History of Present Illness: pulmonary alert comfortable on vm,-resp distress. - Current Medication List Current Medications: Active Medications Acetaminophen (Tylenol -) 650 mg PO Q6H PRN PRN Reason: PAIN LEVEL 1-5 Last Admin: 10/20/18 04:17 Dose: 650 mg Apixaban (Eliquis -) 5 mg PO BID [facility] Last Admin: 10/22/18 10:13 Dose: 5 mg Aspirin (Ecotrin -) 81 mg PO DAILY [facility] Last Admin: 10/22/18 10:13 Dose: 81 mg Atorvastatin Calcium (Lipitor -) 10 mg PO HS [facility] Last Admin: 10/21/18 22:45 Dose: 10 mg Bacitracin (Bacitracin -) 1 applic TP DAILY [facility] Last Admin: 10/22/18 10:14 Dose: 1 applic Furosemide (Lasix Injection -) 40 mg IVPUSH BID@0600,1400 [facility] Last Admin: 10/22/18 07:13 Dose: 40 mg Gabapentin (Neurontin -) 300 mg PO DAILY [facility] Last Admin: 10/22/18 10:13 Dose: 300 mg Insulin Aspart (Novolog Vial Sliding Scale -) 1 vial SQ TIDAC [facility]; Protocol Last Admin: 10/22/18 12:31 Dose: Not Given Insulin Detemir (Levemir Vial) 14 units SQ [facility] Last Admin: 10/21/18 22:46 Dose: 14 units Isosorbide Mononitrate (Imdur -) 30 mg PO DAILY [facility] Last Admin: 10/22/18 10:13 Dose: 30 mg Metoprolol Tartrate (Lopressor -) 50 mg PO BID [facility] Last Admin: 10/22/18 10:13 Dose: 50 mg Pantoprazole Sodium (Protonix -) 20 mg PO DAILY [facility] Last Admin: 10/22/18 10:13 Dose: 20 mg Sacubitril/Valsartan (Entresto 24 Mg-26 Mg Tablet) 1 tab PO BID [facility] Last Admin: 10/22/18 10:13 Dose: 1 tab Spironolactone (Aldactone -) 25 mg PO DAILY [facility] Last Admin: 10/22/18 10:13 Dose: 25 mg - Objective Vital Signs: Vital Signs Temperature 98.4 F 10/22/18 13:49 Pulse Rate 68 10/22/18 13:49 Respiratory Rate 21 H 10/22/18 13:49 Blood Pressure 134/68 10/22/18 13:49 O2 Sat by Pulse Oximetry (%) 97 10/21/18 21:00 Constitutional: Yes: Well Nourished, Calm Eyes: Yes: WNL HENT: Yes: Nasal Congestion Neck: Yes: WNL Cardiovascular: Yes: Regular Rate and Rhythm, S1 Respiratory: Yes: Rales (few bibasilar crackles) Gastrointestinal: Yes: Normal Bowel Sounds, Soft Extremities: Yes: Amputation (left bka) Edema: No Labs: CBC, BMP 10/22/18 06:40 10/22/18 06:40 INR, PTT INR 0.93 (0.83-1.09) 10/14/18 22:13 - ....Imaging Chest X-ray: Report Reviewed, Image Reviewed (nirmal pulmonary vascular congestion) Assessment/Plan Problem List - Problems (1) Shortness of breath Code(s): R06.02 - SHORTNESS OF BREATH (2) Pleural effusion due to CHF (congestive heart failure) Code(s): I50.9 - HEART FAILURE, UNSPECIFIED (3) CHF exacerbation Code(s): I50.9 - HEART FAILURE, UNSPECIFIED (4) Right foot ulcer Code(s): L97.519 - NON-PRS CHRONIC ULCER OTH PRT RIGHT FOOT W UNSP SEVERITY (5) Acute on chronic systolic and diastolic heart failure, NYHA class 1 Code(s): I50.43 - ACUTE ON CHRONIC COMBINED SYSTOLIC AND DIASTOLIC HRT FAIL (6) Afib Code(s): I48.91 - UNSPECIFIED ATRIAL FIBRILLATION (7) CHF (congestive heart failure) Code(s): I50.9 - HEART FAILURE, UNSPECIFIED Qualifiers: Heart failure type: unspecified Heart failure chronicity: unspecified Qualified Code(s): I50.9 - Heart failure, unspecified (8) Coronary artery disease Code(s): I25.10 - ATHSCL HEART DISEASE OF [place] CORONARY ARTERY W/O ANG PCTRS Qualifiers: (9) Hypertension Code(s): I10 - ESSENTIAL (PRIMARY) HYPERTENSION Qualifiers: Hypertension type: essential hypertension Qualified Code(s): I10 - Essential (primary) hypertension (10) Obesity Code(s): E66.9 - OBESITY, UNSPECIFIED (11) S/P CABG (coronary artery bypass graft) Code(s): Z95.1 - PRESENCE OF AORTOCORONARY BYPASS GRAFT Assessment/Plan IMP: Do not suspect PNA Mild hypercapnea due to CHF Suspect OSAS PLAN: Lasix BID ,Aldactone Entresto O2 via VM If respiratory status worsens, can order NIPPV support Aspiration precautions Daily weights Follow I & O HOB to 45% and caution with laying the patient flat f/u chest x-rays DR MCCARTHY
[2018-10-22] MEDS: ATORVASTATIN CA 10 MG TABLET (FP) PO SCH (22:13)
[2018-10-22] MEDS: INSULIN (LEVEMIR) 100 UNITS/ML UNITS SQ SCH (22:13)
[2018-10-23] MEDS: FUROSEMIDE 40 MG/4 ML INJECTABLE VIAL IVPUSH SCH ×2 (06:46→14:55)
[2018-10-23] MEDS: INSULIN SLIDING SCALE (NOVOLOG) 1 VIAL SQ SCH ×3 (06:47→17:27)
[2018-10-23] MEDS ORDERED: PT OWN MED DRAWER 7, Y5N ONE (09:34)
[2018-10-23] MEDS: BACITRACIN 15 GM TUBE TOPICAL OINTMENT TP SCH (10:27)
[2018-10-23] MEDS: ISOSORBIDE MONONITRATE 30 MG TAB.SR.24H (FP) PO SCH (10:38)
[2018-10-23] MEDS: APIXABAN 5 MG TABLET PO SCH ×2 (10:38→23:05)
[2018-10-23] MEDS: GABAPENTIN 300 MG CAPSULE (FP) PO SCH (10:38)
[2018-10-23] MEDS: SPIRONOLACTONE 25 MG TABLET (FP) PO SCH (10:38)
[2018-10-23] MEDS: ASPIRIN COATED 81 MG TABLET.EC PO SCH (10:38)
[2018-10-23] MEDS: METOPROLOL TARTRATE 50 MG TABLET (FP) PO SCH ×2 (10:38→23:05)
[2018-10-23] MEDS: PANTOPRAZOLE 20 MG TABLET (FP) PO SCH (10:38)
[2018-10-23] MEDS: SACUBITRIL/VALSARTAN 24 MG-26 MG TABLET PO SCH ×2 (10:40→23:05)
--- NOTE | 2018-10-23 13:04 | PN ---
Progress Note, Physician History of Present Illness: pulmonary alert,comfortable,-resp distress on nasal cannula O2 sat 95% - Current Medication List Current Medications: Active Medications Acetaminophen (Tylenol -) 650 mg PO Q6H PRN PRN Reason: PAIN LEVEL 1-5 Last Admin: 10/20/18 04:17 Dose: 650 mg Apixaban (Eliquis -) 5 mg PO BID [facility] Last Admin: 10/23/18 10:38 Dose: 5 mg Aspirin (Ecotrin -) 81 mg PO DAILY [facility] Last Admin: 10/23/18 10:38 Dose: 81 mg Atorvastatin Calcium (Lipitor -) 10 mg PO HS [facility] Last Admin: 10/22/18 22:13 Dose: 10 mg Bacitracin (Bacitracin -) 1 applic TP DAILY [facility] Last Admin: 10/22/18 10:14 Dose: 1 applic Furosemide (Lasix Injection -) 40 mg IVPUSH BID@0600,1400 [facility] Last Admin: 10/23/18 06:46 Dose: 40 mg Gabapentin (Neurontin -) 300 mg PO DAILY [facility] Last Admin: 10/23/18 10:38 Dose: 300 mg Insulin Aspart (Novolog Vial Sliding Scale -) 1 vial SQ TIDAC [facility]; Protocol Last Admin: 10/23/18 06:47 Dose: Not Given Insulin Detemir (Levemir Vial) 14 units SQ [facility] Last Admin: 10/22/18 22:13 Dose: 14 units Isosorbide Mononitrate (Imdur -) 30 mg PO DAILY [facility] Last Admin: 10/23/18 10:38 Dose: 30 mg Metoprolol Tartrate (Lopressor -) 50 mg PO BID [facility] Last Admin: 10/23/18 10:38 Dose: 50 mg Pantoprazole Sodium (Protonix -) 20 mg PO DAILY [facility] Last Admin: 10/23/18 10:38 Dose: 20 mg Sacubitril/Valsartan (Entresto 24 Mg-26 Mg Tablet) 1 tab PO BID [facility] Last Admin: 10/23/18 10:40 Dose: 1 tab Spironolactone (Aldactone -) 25 mg PO DAILY [facility] Last Admin: 10/23/18 10:38 Dose: 25 mg - Objective Vital Signs: Vital Signs Temperature 97.5 F L 10/23/18 10:00 Pulse Rate 62 10/23/18 10:00 Respiratory Rate 18 10/23/18 10:00 Blood Pressure 120/50 L 10/23/18 10:00 O2 Sat by Pulse Oximetry (%) 90 L 10/22/18 21:12 Constitutional: Yes: Well Nourished, Calm Eyes: Yes: WNL HENT: Yes: WNL Neck: Yes: WNL Cardiovascular: Yes: Pulse Irregular, S1, S2 Respiratory: Yes: Rales (crackles left base) Gastrointestinal: Yes: Normal Bowel Sounds, Soft Extremities: Yes: Amputation (left bka) Edema: Yes Labs: CBC, BMP 10/22/18 06:40 10/22/18 06:40 INR, PTT INR 0.93 (0.83-1.09) 10/14/18 22:13 - ....Imaging X-ray: Report Reviewed, Image Reviewed (increased congestion bilaterally) Assessment/Plan Problem List - Problems (1) Shortness of breath Code(s): R06.02 - SHORTNESS OF BREATH (2) Pleural effusion due to CHF (congestive heart failure) Code(s): I50.9 - HEART FAILURE, UNSPECIFIED (3) CHF exacerbation Code(s): I50.9 - HEART FAILURE, UNSPECIFIED (4) Right foot ulcer Code(s): L97.519 - NON-PRS CHRONIC ULCER OTH PRT RIGHT FOOT W UNSP SEVERITY (5) Acute on chronic systolic and diastolic heart failure, NYHA class 1 Code(s): I50.43 - ACUTE ON CHRONIC COMBINED SYSTOLIC AND DIASTOLIC HRT FAIL (6) Afib Code(s): I48.91 - UNSPECIFIED ATRIAL FIBRILLATION (7) CHF (congestive heart failure) Code(s): I50.9 - HEART FAILURE, UNSPECIFIED Qualifiers: Heart failure type: unspecified Heart failure chronicity: unspecified Qualified Code(s): I50.9 - Heart failure, unspecified (8) Coronary artery disease Code(s): I25.10 - ATHSCL HEART DISEASE OF [place] CORONARY ARTERY W/O ANG PCTRS Qualifiers: (9) Hypertension Code(s): I10 - ESSENTIAL (PRIMARY) HYPERTENSION Qualifiers: Hypertension type: essential hypertension Qualified Code(s): I10 - Essential (primary) hypertension (10) Obesity Code(s): E66.9 - OBESITY, UNSPECIFIED (11) S/P CABG (coronary artery bypass graft) Code(s): Z95.1 - PRESENCE OF AORTOCORONARY BYPASS GRAFT Assessment/Plan IMP: Do not suspect PNA Mild hypercapnea due to CHF Suspect OSAS PLAN: Lasix BID ,Aldactone Entresto O2 via VM Aspiration precautions Daily weights Follow I & O HOB to 45% and caution with laying the patient flat f/u chest x-rays nippv at night and prn DR MCCARTHY
--- NOTE | 2018-10-23 15:45 | PN ---
Progress Note (short form) - Note Progress Note: pt seen/ examined looks better alert / awake could not tolerate BIPAP Vital Signs Temp 97.5 F L 10/23/18 10:00 Pulse 62 10/23/18 10:00 Resp 18 10/23/18 10:00 BP 120/50 L 10/23/18 10:00 Pulse Ox 90 L 10/22/18 21:12 Intake & Output 10/22/18 10/23/18 10/23/18 23:59 11:59 23:59 Intake Total 650 240 Balance 650 240 Intake: Oral 650 240 Other: Voiding Method Diaper # Unmeasured Voids Void 1 1 Bowel Movement No Active Medications Acetaminophen (Tylenol -) 650 mg PO Q6H PRN PRN Reason: PAIN LEVEL 1-5 Last Admin: 10/20/18 04:17 Dose: 650 mg Apixaban (Eliquis -) 5 mg PO BID [facility] Last Admin: 10/23/18 10:38 Dose: 5 mg Aspirin (Ecotrin -) 81 mg PO DAILY [facility] Last Admin: 10/23/18 10:38 Dose: 81 mg Atorvastatin Calcium (Lipitor -) 10 mg PO HS [facility] Last Admin: 10/22/18 22:13 Dose: 10 mg Bacitracin (Bacitracin -) 1 applic TP DAILY [facility] Last Admin: 10/22/18 10:14 Dose: 1 applic Furosemide (Lasix Injection -) 40 mg IVPUSH BID@0600,1400 [facility] Last Admin: 10/23/18 06:46 Dose: 40 mg Gabapentin (Neurontin -) 300 mg PO DAILY [facility] Last Admin: 10/23/18 10:38 Dose: 300 mg Insulin Aspart (Novolog Vial Sliding Scale -) 1 vial SQ TIDAC [facility]; Protocol Last Admin: 10/23/18 12:00 Dose: Not Given Insulin Detemir (Levemir Vial) 14 units SQ [facility] Last Admin: 10/22/18 22:13 Dose: 14 units Isosorbide Mononitrate (Imdur -) 30 mg PO DAILY [facility] Last Admin: 10/23/18 10:38 Dose: 30 mg Metoprolol Tartrate (Lopressor -) 50 mg PO BID [facility] Last Admin: 10/23/18 10:38 Dose: 50 mg Pantoprazole Sodium (Protonix -) 20 mg PO DAILY [facility] Last Admin: 10/23/18 10:38 Dose: 20 mg Sacubitril/Valsartan (Entresto 24 Mg-26 Mg Tablet) 1 tab PO BID [facility] Last Admin: 10/23/18 10:40 Dose: 1 tab Spironolactone (Aldactone -) 25 mg PO DAILY [facility] Last Admin: 10/23/18 10:38 Dose: 25 mg CBC, BMP 10/22/18 06:40 10/22/18 06:40 Physical exam. Constitutional: Yes: No Distress, Obese. Eyes: Yes: Conjunctiva Clear Neck: Yes: Supple. no jvd Cardiovascular: Yes: Pulse Irregular Respiratory: Yes: Other (crackles at bases) Gastrointestinal: Yes: Abdomen, Obese Extremities: Yes: Amputation (left bka right toe-- reddened/ dry wound)--- improved erythema and edema Edema: RLE: 2+ Neurological: Yes: Alert/ awake. Assessment/Plan Continue present care continue i/v lasix- monitor lytes CHF uti Abx per ID--- leg ulcer- vascular consulted---no workup recommended Monitor bgm will follow f/u cxr Problem List - Problems (1) Right foot ulcer Code(s): L97.519 - NON-PRS CHRONIC ULCER OTH PRT RIGHT FOOT W UNSP SEVERITY (2) Pneumonia Code(s): J18.9 - PNEUMONIA, UNSPECIFIED ORGANISM (3) CHF exacerbation Code(s): I50.9 - HEART FAILURE, UNSPECIFIED (4) Afib Code(s): I48.91 - UNSPECIFIED ATRIAL FIBRILLATION (5) Cellulitis Code(s): L03.90 - CELLULITIS, UNSPECIFIED Qualifiers: Site of cellulitis: extremity Site of cellulitis of extremity: lower extremity Laterality: left Qualified Code(s): L03.116 - Cellulitis of left lower limb (6) Coronary artery disease Code(s): I25.10 - ATHSCL HEART DISEASE OF [place] CORONARY ARTERY W/O ANG PCTRS Qualifiers: (7) Diabetes mellitus Code(s): E11.9 - TYPE 2 DIABETES MELLITUS WITHOUT COMPLICATIONS (8) Hyperlipidemia Code(s): E78.5 - HYPERLIPIDEMIA, UNSPECIFIED (9) Ischemia of both lower extremities Code(s): I99.8 - OTHER DISORDER OF CIRCULATORY SYSTEM (10) S/P CABG (coronary artery bypass graft) Code(s): Z95.1 - PRESENCE OF AORTOCORONARY BYPASS GRAFT
[2018-10-23] MEDS: ATORVASTATIN CA 10 MG TABLET (FP) PO SCH (23:05)
[2018-10-23] MEDS: INSULIN (LEVEMIR) 100 UNITS/ML UNITS SQ SCH (23:13)
[2018-10-24] MEDS: FUROSEMIDE 40 MG/4 ML INJECTABLE VIAL IVPUSH SCH ×2 (06:45→15:48)
[2018-10-24] MEDS: INSULIN SLIDING SCALE (NOVOLOG) 1 VIAL SQ SCH ×3 (06:45→19:08)
[2018-10-24] MEDS ORDERED: INSULIN (NOVOLOG MIX 70/30) 100 UNITS/ML MDV SQ ONE (06:53)
[2018-10-24] MEDS ORDERED: INSULIN (NOVOLOG) ASPART 100 UNITS/ML 10ML VIAL ONE (06:53)
[2018-10-24] MEDS ORDERED: PT OWN MED DRAWER 7, Y5N ONE (10:56)
[2018-10-24] MEDS: ISOSORBIDE MONONITRATE 30 MG TAB.SR.24H (FP) PO SCH (11:18)
[2018-10-24] MEDS: ASPIRIN COATED 81 MG TABLET.EC PO SCH (11:19)
[2018-10-24] MEDS: APIXABAN 5 MG TABLET PO SCH ×2 (11:19→22:17)
[2018-10-24] MEDS: METOPROLOL TARTRATE 50 MG TABLET (FP) PO SCH ×2 (11:19→22:17)
[2018-10-24] MEDS: PANTOPRAZOLE 20 MG TABLET (FP) PO SCH (11:19)
[2018-10-24] MEDS: SPIRONOLACTONE 25 MG TABLET (FP) PO SCH (11:19)
[2018-10-24] MEDS: GABAPENTIN 300 MG CAPSULE (FP) PO SCH (11:19)
[2018-10-24] MEDS: BACITRACIN 15 GM TUBE TOPICAL OINTMENT TP SCH (11:20)
[2018-10-24] MEDS: SACUBITRIL/VALSARTAN 24 MG-26 MG TABLET PO SCH ×2 (11:21→22:18)
--- NOTE | 2018-10-24 13:51 | PN ---
Progress Note (short form) - Note Progress Note: Pt seen/ examined looks / feels better denies any complains today Vital Signs Temp 97.8 F 10/24/18 11:00 Pulse 64 10/24/18 11:00 Resp 19 10/24/18 11:00 BP 122/39 L 10/24/18 11:00 Pulse Ox 96 10/24/18 08:41 Intake & Output 10/23/18 10/24/18 10/24/18 23:59 11:59 23:59 Intake Total 740 50 Balance 740 50 Intake: IVPB 50 Oral 690 50 Other: Voiding Method Diaper Diaper # Unmeasured Voids Void 3 1 Bowel Movement No No Active Medications Acetaminophen (Tylenol -) 650 mg PO Q6H PRN PRN Reason: PAIN LEVEL 1-5 Last Admin: 10/20/18 04:17 Dose: 650 mg Apixaban (Eliquis -) 5 mg PO BID [facility] Last Admin: 10/24/18 11:19 Dose: 5 mg Aspirin (Ecotrin -) 81 mg PO DAILY [facility] Last Admin: 10/24/18 11:19 Dose: 81 mg Atorvastatin Calcium (Lipitor -) 10 mg PO HS [facility] Last Admin: 10/23/18 23:05 Dose: 10 mg Bacitracin (Bacitracin -) 1 applic TP DAILY [facility] Last Admin: 10/24/18 11:20 Dose: 1 applic Furosemide (Lasix Injection -) 40 mg IVPUSH BID@0600,1400 [facility] Last Admin: 10/24/18 06:45 Dose: 40 mg Gabapentin (Neurontin -) 300 mg PO DAILY [facility] Last Admin: 10/24/18 11:19 Dose: 300 mg Insulin Aspart (Novolog Vial Sliding Scale -) 1 vial SQ TIDAC [facility]; Protocol Last Admin: 10/24/18 12:48 Dose: Not Given Insulin Detemir (Levemir Vial) [address] [facility] Last Admin: 10/23/18 23:13 Dose: 14 units Isosorbide Mononitrate (Imdur -) 30 mg PO DAILY [facility] Last Admin: 10/24/18 11:18 Dose: 30 mg Metoprolol Tartrate (Lopressor -) 50 mg PO BID [facility] Last Admin: 10/24/18 11:19 Dose: 50 mg Pantoprazole Sodium (Protonix -) 20 mg PO DAILY [facility] Last Admin: 10/24/18 11:19 Dose: 20 mg Sacubitril/Valsartan (Entresto 24 Mg-26 Mg Tablet) 1 tab PO BID [facility] Last Admin: 10/24/18 11:21 Dose: 1 tab Spironolactone (Aldactone -) 25 mg PO DAILY [facility] Last Admin: 10/24/18 11:19 Dose: 25 mg CBC, BMP 10/22/18 06:40 10/22/18 06:40 Physical exam. Constitutional: Yes: No Distress, Obese. comfortable Eyes: Yes: Conjunctiva Clear Neck: Yes: Supple. no jvd Cardiovascular: Yes: Pulse Irregular Respiratory: Yes: Other (crackles at bases) Gastrointestinal: Yes: Abdomen, Obese Extremities: Yes: Amputation (left bka right toe-- reddened/ dry wound)--- improved erythema and edema Edema: RLE: 2+ Neurological: Yes: Alert/ awake. Assessment/Plan Continue present care continue i/v lasix- monitor lytes CHF uti Abx per ID--- leg ulcer- vascular consulted---no workup recommended Monitor bgm will follow should benefit from str discussed with pts daughter also who is at bedside Problem List - Problems (1) Right foot ulcer Code(s): L97.519 - NON-PRS CHRONIC ULCER OTH PRT RIGHT FOOT W UNSP SEVERITY (2) Pneumonia Code(s): J18.9 - PNEUMONIA, UNSPECIFIED ORGANISM (3) CHF exacerbation Code(s): I50.9 - HEART FAILURE, UNSPECIFIED (4) Afib Code(s): I48.91 - UNSPECIFIED ATRIAL FIBRILLATION (5) Cellulitis Code(s): L03.90 - CELLULITIS, UNSPECIFIED Qualifiers: Site of cellulitis: extremity Site of cellulitis of extremity: lower extremity Laterality: left Qualified Code(s): L03.116 - Cellulitis of left lower limb (6) Coronary artery disease Code(s): I25.10 - ATHSCL HEART DISEASE OF [place] CORONARY ARTERY W/O ANG PCTRS Qualifiers: (7) Diabetes mellitus Code(s): E11.9 - TYPE 2 DIABETES MELLITUS WITHOUT COMPLICATIONS (8) Hyperlipidemia Code(s): E78.5 - HYPERLIPIDEMIA, UNSPECIFIED (9) Ischemia of both lower extremities Code(s): I99.8 - OTHER DISORDER OF CIRCULATORY SYSTEM (10) S/P CABG (coronary artery bypass graft) Code(s): Z95.1 - PRESENCE OF AORTOCORONARY BYPASS GRAFT
--- NOTE | 2018-10-24 14:08 | PN ---
Progress Note, Physician History of Present Illness: PULMONARY ALERT,FEELING BETTER,DYSPNEA IMPROVING.,O2 SAT 96 0N 4L N/C - Current Medication List Current Medications: Active Medications Acetaminophen (Tylenol -) 650 mg PO Q6H PRN PRN Reason: PAIN LEVEL 1-5 Last Admin: 10/20/18 04:17 Dose: 650 mg Apixaban (Eliquis -) 5 mg PO BID [facility] Last Admin: 10/24/18 11:19 Dose: 5 mg Aspirin (Ecotrin -) 81 mg PO DAILY [facility] Last Admin: 10/24/18 11:19 Dose: 81 mg Atorvastatin Calcium (Lipitor -) 10 mg PO HS [facility] Last Admin: 10/23/18 23:05 Dose: 10 mg Bacitracin (Bacitracin -) 1 applic TP DAILY [facility] Last Admin: 10/24/18 11:20 Dose: 1 applic Furosemide (Lasix Injection -) 40 mg IVPUSH BID@0600,1400 [facility] Last Admin: 10/24/18 06:45 Dose: 40 mg Gabapentin (Neurontin -) 300 mg PO DAILY [facility] Last Admin: 10/24/18 11:19 Dose: 300 mg Insulin Aspart (Novolog Vial Sliding Scale -) 1 vial SQ TIDAC [facility]; Protocol Last Admin: 10/24/18 12:48 Dose: Not Given Insulin Detemir (Levemir Vial) 14 units SQ [facility] Last Admin: 10/23/18 23:13 Dose: 14 units Isosorbide Mononitrate (Imdur -) 30 mg PO DAILY [facility] Last Admin: 10/24/18 11:18 Dose: 30 mg Metoprolol Tartrate (Lopressor -) 50 mg PO BID [facility] Last Admin: 10/24/18 11:19 Dose: 50 mg Pantoprazole Sodium (Protonix -) 20 mg PO DAILY [facility] Last Admin: 10/24/18 11:19 Dose: 20 mg Sacubitril/Valsartan (Entresto 24 Mg-26 Mg Tablet) 1 tab PO BID [facility] Last Admin: 10/24/18 11:21 Dose: 1 tab Spironolactone (Aldactone -) 25 mg PO DAILY [facility] Last Admin: 10/24/18 11:19 Dose: 25 mg - Objective Vital Signs: Vital Signs Temperature 97.8 F 10/24/18 11:00 Pulse Rate 64 10/24/18 11:00 Respiratory Rate 19 10/24/19 11:00 Blood Pressure 122/39 L 10/24/18 11:00 O2 Sat by Pulse Oximetry (%) 96 10/24/18 08:41 Constitutional: Yes: Well Nourished, Calm Eyes: Yes: WNL HENT: Yes: WNL Neck: Yes: WNL Cardiovascular: Yes: Pulse Irregular, S1, S2 Respiratory: Yes: Rales (BIBASAILR RALES) Gastrointestinal: Yes: Normal Bowel Sounds, Soft Extremities: Yes: Amputation (LEFT BKA) Peripheral Pulses WNL: Yes Labs: CBC, BMP 10/22/18 06:40 Assessment/Plan Problem List - Problems (1) Shortness of breath Code(s): R06.02 - SHORTNESS OF BREATH (2) Pleural effusion due to CHF (congestive heart failure) Code(s): I50.9 - HEART FAILURE, UNSPECIFIED (3) CHF exacerbation Code(s): I50.9 - HEART FAILURE, UNSPECIFIED (4) Right foot ulcer Code(s): L97.519 - NON-PRS CHRONIC ULCER OTH PRT RIGHT FOOT W UNSP SEVERITY (5) Acute on chronic systolic and diastolic heart failure, NYHA class 1 Code(s): I50.43 - ACUTE ON CHRONIC COMBINED SYSTOLIC AND DIASTOLIC HRT FAIL (6) Afib Code(s): I48.91 - UNSPECIFIED ATRIAL FIBRILLATION (7) CHF (congestive heart failure) Code(s): I50.9 - HEART FAILURE, UNSPECIFIED Qualifiers: Heart failure type: unspecified Heart failure chronicity: unspecified Qualified Code(s): I50.9 - Heart failure, unspecified (8) Coronary artery disease Code(s): I25.10 - ATHSCL HEART DISEASE OF [place] CORONARY ARTERY W/O ANG PCTRS Qualifiers: (9) Hypertension Code(s): I10 - ESSENTIAL (PRIMARY) HYPERTENSION Qualifiers: Hypertension type: essential hypertension Qualified Code(s): I10 - Essential (primary) hypertension (10) Obesity Code(s): E66.9 - OBESITY, UNSPECIFIED (11) S/P CABG (coronary artery bypass graft) Code(s): Z95.1 - PRESENCE OF AORTOCORONARY BYPASS GRAFT Assessment/Plan IMP: Acute on chronic chf Mild hypercapnea due to CHF Suspect OSAS PLAN: Lasix BID ,Aldactone Entresto O2 to maintain O2 sat 90% or > Aspiration precautions Daily weights Follow I & O HOB to 45% and caution with laying the patient flat f/u chest x-rays nippv at night and prn DR MCCARTHY
[2018-10-24] MEDS: INSULIN (LEVEMIR) 100 UNITS/ML UNITS SQ SCH (22:17)
[2018-10-24] MEDS: ATORVASTATIN CA 10 MG TABLET (FP) PO SCH (22:17)
[2018-10-25] MEDS: FUROSEMIDE 40 MG/4 ML INJECTABLE VIAL IVPUSH SCH ×2 (06:25→15:11)
[2018-10-25] MEDS: INSULIN SLIDING SCALE (NOVOLOG) 1 VIAL SQ SCH ×3 (06:31→17:26)
--- NOTE | 2018-10-25 09:22 | PN ---
Progress Note (short form) - Note Progress Note: Events noted unable to tolerate BIPAP enitre night-- used it for 2 hours has pain in back-- sacral areas no sob has pain in right leg at times Vital Signs - 24 hr 10/24/18 10/24/18 10/24/18 11:00 14:55 18:00 Temperature 97.8 F 98.4 F 97.3 F L Pulse Rate 64 68 61 Respiratory 19 20 18 Rate Blood Pressure 122/39 L 143/56 L 109/40 L O2 Sat by Pulse Oximetry (%) 10/24/18 10/24/18 10/25/18 21:00 22:00 06:00 Temperature 97.9 F 97.8 F Pulse Rate 66 68 Respiratory 18 18 Rate Blood Pressure 123/66 144/50 L O2 Sat by Pulse 95 Oximetry (%) 10/25/18 08:38 Temperature Pulse Rate 72 Respiratory Rate Blood Pressure O2 Sat by Pulse 95 Oximetry (%) Current Medications Generic Name Dose Route Start Last Admin Trade Name Freq PRN Reason Stop Dose Admin Acetaminophen 650 mg 10/15/18 16:41 10/20/18 04:17 Tylenol - PO 650 mg Q6H PRN Administration PAIN LEVEL 1-5 Apixaban 5 mg 10/15/18 22:00 10/24/18 22:17 Eliquis - PO 5 mg BID [facility] Administration Aspirin 81 mg 10/16/18 10:00 10/24/18 11:19 Ecotrin - PO 81 mg DAILY [facility] Administration Atorvastatin Calcium 10 mg 10/15/18 22:00 10/24/18 22:17 Lipitor - PO 10 mg HS [facility] Administration Bacitracin 1 applic 10/16/18 14:15 10/24/18 11:20 Bacitracin - TP 1 applic DAILY [facility] Administration Furosemide 40 mg 10/19/18 14:00 10/25/18 06:25 Lasix Injection - IVPUSH 40 mg BID@0600,1400 [facility] Administration Gabapentin 300 mg 10/16/18 10:00 10/24/18 11:19 Neurontin - PO 300 mg DAILY [facility] Administration Insulin Aspart 1 vial 10/15/18 11:00 10/25/18 06:31 Novolog Vial Sliding Scale - SQ Not Given TIDAC [facility] Protocol Insulin Detemir 14 units 10/15/18 22:00 10/24/18 22:17 Levemir Vial SQ 14 units HS [facility] Administration Isosorbide Mononitrate 30 mg 10/15/18 10:00 10/24/18 11:18 Imdur - PO 30 mg DAILY [facility] Administration Metoprolol Tartrate 50 mg 10/15/18 10:00 10/24/18 22:17 Lopressor - PO 50 mg BID [facility] Administration Pantoprazole Sodium 20 mg 10/15/18 10:00 10/24/18 11:19 Protonix - PO 20 mg DAILY [facility] Administration Sacubitril/Valsartan 1 tab 10/19/18 10:00 10/24/18 22:18 Entresto 24 Mg-26 Mg Tablet PO 1 tab BID [facility] Administration Spironolactone 25 mg 10/21/18 13:45 10/24/18 11:19 Aldactone - PO 25 mg DAILY [facility] Administration Laboratory Results - last 24 hr 10/24/18 10/24/18 10/24/18 12:46 19:07 22:21 POC Glucometer 140 210 160 10/25/18 06:30 POC Glucometer 99 Physical exam. Constitutional: Yes: No Distress, Obese. comfortable Eyes: Yes: Conjunctiva Clear Neck: Yes: Supple. no jvd Cardiovascular: Yes: Pulse Irregular Respiratory: Yes: Other (crackles at bases)-- decreased breath sounds in Right > left Gastrointestinal: Yes: Abdomen, Obese Extremities: Yes: Amputation (left bka right toe-- reddened/ dry wound)--- improved erythema and edema Edema: RLE: 2+ Neurological: Yes: Alert/ awake. Assessment/Plan Continue present care continue i/v lasix- monitor lytes CHF uti Abx dc leg ulcer- vascular consulted---no workup recommended Monitor bgm will follow should benefit from str add tramadol for pain relief pt is DNR/DNI Problem List - Problems (1) CHF exacerbation Code(s): I50.9 - HEART FAILURE, UNSPECIFIED (2) Pleural effusion due to CHF (congestive heart failure) Code(s): I50.9 - HEART FAILURE, UNSPECIFIED (3) Acute on chronic systolic and diastolic heart failure, NYHA class 1 Code(s): I50.43 - ACUTE ON CHRONIC COMBINED SYSTOLIC AND DIASTOLIC HRT FAIL (4) Afib Code(s): I48.91 - UNSPECIFIED ATRIAL FIBRILLATION (5) CHF (congestive heart failure) Code(s): I50.9 - HEART FAILURE, UNSPECIFIED Qualifiers: Heart failure type: unspecified Heart failure chronicity: unspecified Qualified Code(s): I50.9 - Heart failure, unspecified
[2018-10-25] MEDS ORDERED: PT OWN MED DRAWER 7, Y5N ONE ×3 (10:05→21:35)
[2018-10-25] MEDS: ISOSORBIDE MONONITRATE 30 MG TAB.SR.24H (FP) PO SCH (10:54)
[2018-10-25] MEDS: SPIRONOLACTONE 25 MG TABLET (FP) PO SCH (10:54)
[2018-10-25] MEDS: METOPROLOL TARTRATE 50 MG TABLET (FP) PO SCH ×2 (10:54→23:29)
[2018-10-25] MEDS: PANTOPRAZOLE 20 MG TABLET (FP) PO SCH (10:54)
[2018-10-25] MEDS: APIXABAN 5 MG TABLET PO SCH ×2 (10:54→23:29)
[2018-10-25] MEDS: GABAPENTIN 300 MG CAPSULE (FP) PO SCH (10:54)
[2018-10-25] MEDS: ASPIRIN COATED 81 MG TABLET.EC PO SCH (10:55)
[2018-10-25] MEDS: SACUBITRIL/VALSARTAN 24 MG-26 MG TABLET PO SCH ×2 (10:55→23:30)
[2018-10-25] MEDS: traMADol HCL 50 MG TABLET PO PRN ×2 (11:15→17:59)
--- NOTE | 2018-10-25 11:53 | PN ---
Progress Note (short form) - Note Progress Note: Sitting in bed. Used NIPPV for 2 hours last night. Still with SETHI. No acute events overnight. Intake & Output 10/22/18 10/23/18 10/24/18 10/25/18 23:59 23:59 23:59 23:59 Intake Total 650 980 460 Output Total 2 1 Balance 650 980 458 -1 Last Vital Signs Temp Pulse Resp BP Pulse Ox 97.7 F 61 20 135/51 L 95 10/25/18 10:50 10/25/18 10:50 10/25/18 10:50 10/25/18 10:50 10/25/18 08:38 Active Medications Acetaminophen (Tylenol -) 650 mg PO Q6H PRN PRN Reason: PAIN LEVEL 1-5 Last Admin: 10/20/18 04:17 Dose: 650 mg Apixaban (Eliquis -) 5 mg PO BID [facility] Last Admin: 10/25/18 10:54 Dose: 5 mg Aspirin (Ecotrin -) 81 mg PO DAILY [facility] Last Admin: 10/25/18 10:55 Dose: 81 mg Atorvastatin Calcium (Lipitor -) 10 mg PO HS [facility] Last Admin: 10/24/18 22:17 Dose: 10 mg Bacitracin (Bacitracin -) 1 applic TP DAILY [facility] Last Admin: 10/24/18 11:20 Dose: 1 applic Furosemide (Lasix Injection -) 40 mg IVPUSH BID@0600,1400 [facility] Last Admin: 10/25/18 06:25 Dose: 40 mg Gabapentin (Neurontin -) 300 mg PO DAILY [facility] Last Admin: 10/25/18 10:54 Dose: 300 mg Insulin Aspart (Novolog Vial Sliding Scale -) 1 vial SQ TIDAC [facility]; Protocol Last Admin: 10/25/18 06:31 Dose: Not Given Insulin Detemir (Levemir Vial) 14 units SQ [facility] Last Admin: 10/24/18 22:17 Dose: 14 units Isosorbide Mononitrate (Imdur -) 30 mg PO DAILY [facility] Last Admin: 10/25/18 10:54 Dose: 30 mg Metoprolol Tartrate (Lopressor -) 50 mg PO BID [facility] Last Admin: 10/25/18 10:54 Dose: 50 mg Pantoprazole Sodium (Protonix -) 20 mg PO DAILY [facility] Last Admin: 10/25/18 10:54 Dose: 20 mg Sacubitril/Valsartan (Entresto 24 Mg-26 Mg Tablet) 1 tab PO BID [facility] Last Admin: 10/25/18 10:55 Dose: 1 tab Spironolactone (Aldactone -) 25 mg PO DAILY [facility] Last Admin: 10/25/18 10:54 Dose: 25 mg Tramadol HCl (Ultram -) 50 mg PO Q6H PRN PRN Reason: PAIN LEVEL 6-10 Last Admin: 10/25/18 11:15 Dose: 50 mg Constitutional: Yes: awake, NAD Eyes: Yes: WNL HENT: Yes: WNL Neck: Yes: WNL Cardiovascular: Yes: Pulse Irregular, S1, S2 Respiratory: Yes: Bilateral scattered rhonhci Gastrointestinal: Yes: Normal Bowel Sounds, Soft Extremities: Yes: Amputation (LEFT BKA) Peripheral Pulses WNL: Yes Labs: Laboratory Results - last 24 hr 10/24/18 10/24/18 10/24/18 12:46 19:07 22:21 POC Glucometer 140 210 160 10/25/18 10/25/18 06:30 11:21 POC Glucometer 99 108 Assessment/Plan Problem List - Problems (1) Shortness of breath Code(s): R06.02 - SHORTNESS OF BREATH (2) Pleural effusion due to CHF (congestive heart failure) Code(s): I50.9 - HEART FAILURE, UNSPECIFIED (3) CHF exacerbation Code(s): I50.9 - HEART FAILURE, UNSPECIFIED (4) Right foot ulcer Code(s): L97.519 - NON-PRS CHRONIC ULCER OTH PRT RIGHT FOOT W UNSP SEVERITY (5) Acute on chronic systolic and diastolic heart failure, NYHA class 1 Code(s): I50.43 - ACUTE ON CHRONIC COMBINED SYSTOLIC AND DIASTOLIC HRT FAIL (6) Afib Code(s): I48.91 - UNSPECIFIED ATRIAL FIBRILLATION (7) CHF (congestive heart failure) Code(s): I50.9 - HEART FAILURE, UNSPECIFIED Qualifiers: Heart failure type: unspecified Heart failure chronicity: unspecified Qualified Code(s): I50.9 - Heart failure, unspecified (8) Coronary artery disease Code(s): I25.10 - ATHSCL HEART DISEASE OF [place] CORONARY ARTERY W/O ANG PCTRS Qualifiers: (9) Hypertension Code(s): I10 - ESSENTIAL (PRIMARY) HYPERTENSION Qualifiers: Hypertension type: essential hypertension Qualified Code(s): I10 - Essential (primary) hypertension (10) Obesity Code(s): E66.9 - OBESITY, UNSPECIFIED (11) S/P CABG (coronary artery bypass graft) Code(s): Z95.1 - PRESENCE OF AORTOCORONARY BYPASS GRAFT Assessment/Plan IMP: Acute on chronic CHF Mild hypercapnea Suspect OSAS PLAN: Lasix BID, Aldactone Entresto O2 to maintain O2 sat 90% or > Aspiration precautions Daily weights Follow I & O HOB to 45% and caution with laying the patient flat NIPPV as tolerated Dr Alvares Problem List - Problems (1) Shortness of breath Code(s): R06.02 - SHORTNESS OF BREATH (2) Pleural effusion due to CHF (congestive heart failure) Code(s): I50.9 - HEART FAILURE, UNSPECIFIED (3) CHF exacerbation Code(s): I50.9 - HEART FAILURE, UNSPECIFIED (4) Right foot ulcer Code(s): L97.519 - NON-PRS CHRONIC ULCER OTH PRT RIGHT FOOT W UNSP SEVERITY (5) Acute on chronic systolic and diastolic heart failure, NYHA class 1 Code(s): I50.43 - ACUTE ON CHRONIC COMBINED SYSTOLIC AND DIASTOLIC HRT FAIL (6) Afib Code(s): I48.91 - UNSPECIFIED ATRIAL FIBRILLATION (7) CHF (congestive heart failure) Code(s): I50.9 - HEART FAILURE, UNSPECIFIED Qualifiers: Heart failure type: unspecified Heart failure chronicity: unspecified Qualified Code(s): I50.9 - Heart failure, unspecified (8) Coronary artery disease Code(s): I25.10 - ATHSCL HEART DISEASE OF [place] CORONARY ARTERY W/O ANG PCTRS Qualifiers: (9) Hypertension Code(s): I10 - ESSENTIAL (PRIMARY) HYPERTENSION Qualifiers: Hypertension type: essential hypertension Qualified Code(s): I10 - Essential (primary) hypertension (10) Obesity Code(s): E66.9 - OBESITY, UNSPECIFIED (11) S/P CABG (coronary artery bypass graft) Code(s): Z95.1 - PRESENCE OF AORTOCORONARY BYPASS GRAFT
[2018-10-25] MEDS: BACITRACIN 15 GM TUBE TOPICAL OINTMENT TP SCH (14:00)
[2018-10-25] MEDS: ATORVASTATIN CA 10 MG TABLET (FP) PO SCH (23:29)
[2018-10-25] MEDS: INSULIN (LEVEMIR) 100 UNITS/ML UNITS SQ SCH (23:30)
[2018-10-26] MEDS: INSULIN SLIDING SCALE (NOVOLOG) 1 VIAL SQ SCH ×3 (06:43→17:10)
[2018-10-26] MEDS: FUROSEMIDE 40 MG/4 ML INJECTABLE VIAL IVPUSH SCH ×2 (08:00→15:12)
--- NOTE | 2018-10-26 08:24 | PN ---
Progress Note (short form) - Note Progress Note: Events noted no distress feels better today Vital Signs - 24 hr 10/25/18 10/25/18 10/25/18 18:33 21:00 22:00 Temperature 97.8 F 97.8 F Pulse Rate 64 64 Respiratory 22 H 22 H Rate Blood Pressure 113/46 L 127/64 O2 Sat by Pulse 95 Oximetry (%) 10/26/18 10/26/18 10/26/18 06:00 09:22 10:00 Temperature 97.6 F Pulse Rate 64 Respiratory 20 Rate Blood Pressure 135/63 138/69 O2 Sat by Pulse 100 Oximetry (%) 10/26/18 10/26/18 10:58 15:11 Temperature 97.8 F Pulse Rate 66 Respiratory 20 Rate Blood Pressure 128/58 L O2 Sat by Pulse 98 Oximetry (%) Current Medications Generic Name Dose Route Start Last Admin Trade Name Freq PRN Reason Stop Dose Admin Acetaminophen 650 mg 10/15/18 16:41 10/20/18 04:17 Tylenol - PO 650 mg Q6H PRN Administration PAIN LEVEL 1-5 Apixaban 5 mg 10/15/18 22:00 10/26/18 09:13 Eliquis - PO 5 mg BID [facility] Administration Aspirin 81 mg 10/16/18 10:00 10/26/18 09:13 Ecotrin - PO 81 mg DAILY [facility] Administration Atorvastatin Calcium 10 mg 10/15/18 22:00 10/25/18 23:29 Lipitor - PO 10 mg HS [facility] Administration Bacitracin 1 applic 10/16/18 14:15 10/26/18 09:13 Bacitracin - TP 1 applic DAILY [facility] Administration Furosemide 40 mg 10/19/18 14:00 10/26/18 15:12 Lasix Injection - IVPUSH 40 mg BID@0600,1400 [facility] Administration Gabapentin 300 mg 10/16/18 10:00 10/26/18 09:12 Neurontin - PO 300 mg DAILY [facility] Administration Insulin Aspart 1 vial 10/15/18 11:00 10/26/18 17:10 Novolog Vial Sliding Scale - SQ 4 units TIDAC [facility] Administration Protocol Insulin Detemir 14 units 10/15/18 22:00 10/25/18 23:30 Levemir Vial SQ 14 units HS [facility] Administration Isosorbide Mononitrate 30 mg 10/15/18 10:00 10/26/18 09:13 Imdur - PO 30 mg DAILY [facility] Administration Metoprolol Tartrate 50 mg 10/15/18 10:00 10/26/18 09:12 Lopressor - PO 50 mg BID [facility] Administration Pantoprazole Sodium 20 mg 10/15/18 10:00 10/26/18 09:13 Protonix - PO 20 mg DAILY [facility] Administration Polyethylene Glycol 17 gm 10/26/18 17:00 10/26/18 17:04 Miralax (For Daily Use) - PO 17 gm DAILY [facility] Administration Sacubitril/Valsartan 1 tab 10/19/18 10:00 10/26/18 09:13 Entresto 24 Mg-26 Mg Tablet PO 1 tab BID [facility] Administration Spironolactone 25 mg 10/21/18 13:45 10/26/18 09:12 Aldactone - PO 25 mg DAILY [facility] Administration Tramadol HCl 50 mg 10/25/18 09:34 10/25/18 17:59 Ultram - PO 50 mg Q6H PRN Administration PAIN LEVEL 6-10 Laboratory Results - last 24 hr 10/25/18 10/26/18 10/26/18 23:33 06:42 11:33 POC Glucometer 134 125 95 10/26/18 17:00 POC Glucometer 203 Physical exam. Constitutional: Yes: No Distress, Obese. comfortable Eyes: Yes: Conjunctiva Clear Neck: Yes: Supple. no jvd Cardiovascular: Yes: Pulse Irregular Respiratory: Yes: Other (crackles at bases)-- decreased -- sounds better Gastrointestinal: Yes: Abdomen, Obese Extremities: Yes: Amputation (left bka right toe-- reddened/ dry wound)--- improved erythema and edema Edema: RLE: 2+ Neurological: Yes: Alert/ awake. Assessment/Plan Continue present care continue i/v lasix- monitor lytes CHF uti Abx dc leg ulcer- vascular consulted---no workup recommended Monitor bgm will follow should benefit from str add tramadol for pain relief pt is DNR/DNI clinically improving-- can change iv lasix to PO Problem List - Problems (1) CHF exacerbation Code(s): I50.9 - HEART FAILURE, UNSPECIFIED (2) Pleural effusion due to CHF (congestive heart failure) Code(s): I50.9 - HEART FAILURE, UNSPECIFIED (3) Acute on chronic systolic and diastolic heart failure, NYHA class 1 Code(s): I50.43 - ACUTE ON CHRONIC COMBINED SYSTOLIC AND DIASTOLIC HRT FAIL (4) Afib Code(s): I48.91 - UNSPECIFIED ATRIAL FIBRILLATION (5) CHF (congestive heart failure) Code(s): I50.9 - HEART FAILURE, UNSPECIFIED Qualifiers: Heart failure type: unspecified Heart failure chronicity: unspecified Qualified Code(s): I50.9 - Heart failure, unspecified
[2018-10-26] MEDS: METOPROLOL TARTRATE 50 MG TABLET (FP) PO SCH ×2 (09:12→23:04)
[2018-10-26] MEDS: GABAPENTIN 300 MG CAPSULE (FP) PO SCH (09:12)
[2018-10-26] MEDS: SPIRONOLACTONE 25 MG TABLET (FP) PO SCH (09:12)
[2018-10-26] MEDS: SACUBITRIL/VALSARTAN 24 MG-26 MG TABLET PO SCH ×2 (09:13→23:03)
[2018-10-26] MEDS: APIXABAN 5 MG TABLET PO SCH ×2 (09:13→23:03)
[2018-10-26] MEDS: ISOSORBIDE MONONITRATE 30 MG TAB.SR.24H (FP) PO SCH (09:13)
[2018-10-26] MEDS: BACITRACIN 15 GM TUBE TOPICAL OINTMENT TP SCH (09:13)
[2018-10-26] MEDS: ASPIRIN COATED 81 MG TABLET.EC PO SCH (09:13)
[2018-10-26] MEDS: PANTOPRAZOLE 20 MG TABLET (FP) PO SCH (09:13)
--- NOTE | 2018-10-26 13:19 | PN ---
Progress Note (short form) - Note Progress Note: Sitting in bed in NAD on NC O2. Used NIPPV for a few hours last night. Breathing feels about the same. Still with SETHI. No acute events overnight. Intake & Output 10/23/18 10/24/18 10/25/18 10/26/18 23:59 23:59 23:59 23:59 Intake Total 980 460 700 Output Total 2 1 Balance 980 458 699 Last Vital Signs Temp Pulse Resp BP Pulse Ox 97.6 F 64 20 138/69 98 10/26/18 10:00 10/26/18 10:00 10/26/18 10:00 10/26/18 10:00 10/26/18 10:58 Active Medications Acetaminophen (Tylenol -) 650 mg PO Q6H PRN PRN Reason: PAIN LEVEL 1-5 Last Admin: 10/20/18 04:17 Dose: 650 mg Apixaban (Eliquis -) 5 mg PO BID [facility] Last Admin: 10/26/18 09:13 Dose: 5 mg Aspirin (Ecotrin -) 81 mg PO DAILY [facility] Last Admin: 10/26/18 09:13 Dose: 81 mg Atorvastatin Calcium (Lipitor -) 10 mg PO HS [facility] Last Admin: 10/25/18 23:29 Dose: 10 mg Bacitracin (Bacitracin -) 1 applic TP DAILY [facility] Last Admin: 10/26/18 09:13 Dose: 1 applic Furosemide (Lasix Injection -) 40 mg IVPUSH BID@0600,1400 [facility] Last Admin: 10/26/18 08:00 Dose: 40 mg Gabapentin (Neurontin -) 300 mg PO DAILY [facility] Last Admin: 10/26/18 09:12 Dose: 300 mg Insulin Aspart (Novolog Vial Sliding Scale -) 1 vial SQ TIDAC [facility]; Protocol Last Admin: 10/26/18 11:58 Dose: Not Given Insulin Detemir (Levemir Vial) 14 units SQ [facility] Last Admin: 10/25/18 23:30 Dose: 14 units Isosorbide Mononitrate (Imdur -) 30 mg PO DAILY [facility] Last Admin: 10/26/18 09:13 Dose: 30 mg Metoprolol Tartrate (Lopressor -) 50 mg PO BID [facility] Last Admin: 10/26/18 09:12 Dose: 50 mg Pantoprazole Sodium (Protonix -) 20 mg PO DAILY [facility] Last Admin: 10/26/18 09:13 Dose: 20 mg Sacubitril/Valsartan (Entresto 24 Mg-26 Mg Tablet) 1 tab PO BID [facility] Last Admin: 10/26/18 09:13 Dose: 1 tab Spironolactone (Aldactone -) 25 mg PO DAILY [facility] Last Admin: 10/26/18 09:12 Dose: 25 mg Tramadol HCl (Ultram -) 50 mg PO Q6H PRN PRN Reason: PAIN LEVEL 6-10 Last Admin: 10/25/18 17:59 Dose: 50 mg Constitutional: Yes: awake, NAD Eyes: Yes: WNL HENT: Yes: WNL Neck: Yes: WNL Cardiovascular: Yes: Pulse Irregular, S1, S2 Respiratory: Yes: Bilateral scattered rhonhci Gastrointestinal: Yes: Normal Bowel Sounds, Soft Extremities: Yes: Amputation (LEFT BKA) Peripheral Pulses WNL: Yes Labs: Laboratory Results - last 24 hr 10/25/18 10/25/18 10/26/18 17:25 23:33 06:42 POC Glucometer 160 134 125 10/26/18 11:33 POC Glucometer 95 Assessment/Plan Problem List - Problems (1) Shortness of breath Code(s): R06.02 - SHORTNESS OF BREATH (2) Pleural effusion due to CHF (congestive heart failure) Code(s): I50.9 - HEART FAILURE, UNSPECIFIED (3) CHF exacerbation Code(s): I50.9 - HEART FAILURE, UNSPECIFIED (4) Right foot ulcer Code(s): L97.519 - NON-PRS CHRONIC ULCER OTH PRT RIGHT FOOT W UNSP SEVERITY (5) Acute on chronic systolic and diastolic heart failure, NYHA class 1 Code(s): I50.43 - ACUTE ON CHRONIC COMBINED SYSTOLIC AND DIASTOLIC HRT FAIL (6) Afib Code(s): I48.91 - UNSPECIFIED ATRIAL FIBRILLATION (7) CHF (congestive heart failure) Code(s): I50.9 - HEART FAILURE, UNSPECIFIED Qualifiers: Heart failure type: unspecified Heart failure chronicity: unspecified Qualified Code(s): I50.9 - Heart failure, unspecified (8) Coronary artery disease Code(s): I25.10 - ATHSCL HEART DISEASE OF [place] CORONARY ARTERY W/O ANG PCTRS Qualifiers: (9) Hypertension Code(s): I10 - ESSENTIAL (PRIMARY) HYPERTENSION Qualifiers: Hypertension type: essential hypertension Qualified Code(s): I10 - Essential (primary) hypertension (10) Obesity Code(s): E66.9 - OBESITY, UNSPECIFIED (11) S/P CABG (coronary artery bypass graft) Code(s): Z95.1 - PRESENCE OF AORTOCORONARY BYPASS GRAFT Assessment/Plan Acute on chronic CHF Mild hypercapnea Suspect OSAS PLAN: Lasix BID, Aldactone Entresto O2 to maintain O2 sat 90% or > Aspiration precautions Daily weights Follow I & O HOB to 45% and caution with laying the patient flat NIPPV as tolerated Dr Alvares Problem List - Problems (1) Shortness of breath Code(s): R06.02 - SHORTNESS OF BREATH (2) Pleural effusion due to CHF (congestive heart failure) Code(s): I50.9 - HEART FAILURE, UNSPECIFIED (3) CHF exacerbation Code(s): I50.9 - HEART FAILURE, UNSPECIFIED (4) Right foot ulcer Code(s): L97.519 - NON-PRS CHRONIC ULCER OTH PRT RIGHT FOOT W UNSP SEVERITY (5) Acute on chronic systolic and diastolic heart failure, NYHA class 1 Code(s): I50.43 - ACUTE ON CHRONIC COMBINED SYSTOLIC AND DIASTOLIC HRT FAIL (6) Afib Code(s): I48.91 - UNSPECIFIED ATRIAL FIBRILLATION (7) CHF (congestive heart failure) Code(s): I50.9 - HEART FAILURE, UNSPECIFIED Qualifiers: Heart failure type: unspecified Heart failure chronicity: unspecified Qualified Code(s): I50.9 - Heart failure, unspecified (8) Coronary artery disease Code(s): I25.10 - ATHSCL HEART DISEASE OF [place] CORONARY ARTERY W/O ANG PCTRS Qualifiers: (9) Hypertension Code(s): I10 - ESSENTIAL (PRIMARY) HYPERTENSION Qualifiers: Hypertension type: essential hypertension Qualified Code(s): I10 - Essential (primary) hypertension (10) Obesity Code(s): E66.9 - OBESITY, UNSPECIFIED (11) S/P CABG (coronary artery bypass graft) Code(s): Z95.1 - PRESENCE OF AORTOCORONARY BYPASS GRAFT
[2018-10-26] MEDS: POLYETHYLENE GLYCOL 3350 119 GM BTL PO SCH (17:04)
--- NOTE | 2018-10-26 20:52 | HOSP ---
Subjective - Review of Symptoms Events since last encounter: Hospitalist Encounter Notified by the RN, that the patient is reporting L arm weakness, was asked to assess. Arrived to bedside patient is alert, awake, oriented reports L- arm weakness occurring 30 minutes ago. Upon assessment +slurred speech, slight R facial droop and LUE weakness NIHSS 9 Code Diaz initiated. 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 Guaman, awaiting call back from Dr. Schneider who is covering [employer] Patient transferred to [facility] for cardiac monitoring Neurological: Yes: Weakness Physical Examination Vital Signs: Vital Signs Temperature 98.6 F 10/26/18 18:36 Pulse Rate 62 10/26/18 18:36 Respiratory Rate 20 10/26/18 18:36 Blood Pressure 139/57 L 10/26/18 18:36 O2 Sat by Pulse Oximetry (%) 98 10/26/18 10:58 Constitutional: Yes: Mild Distress, Obese Eyes: Yes: Conjunctiva Clear, EOM Intact, PERRL HENT: Yes: WNL, Atraumatic, Normocephalic Neck: Yes: WNL, Supple, Trachea Midline Cardiovascular: Yes: Pulse Irregular, S1, S2 Respiratory: Yes: Diminished, Rhonchi, SOB on Exertion, Other (Venturi Mask) Gastrointestinal: Yes: Normal Bowel Sounds, Soft, Abdomen, Obese Renal/: Yes: WNL Extremities: Yes: Amputation (L-Aka) Edema: Yes Edema: RLE: 2+ Neurological: Yes: Dysarthria, Facial Droop, Weakness. No: Numbness, Tingling ...Motor Strength: LUE (1/5), RUE Psychiatric: Yes: Alert Labs: CBC, BMP 10/22/18 06:40 10/22/18 06:40 Laboratory Results - last 24 hr 10/26/18 10/26/18 10/26/18 06:42 11:33 17:00 WBC RBC Hgb Hct MCV MCH MCHC RDW Plt Count MPV Absolute Neuts (auto) Neutrophils % Lymphocytes % Monocytes % Eosinophils % Basophils % Nucleated RBC % PT with INR INR PTT (Actin FS) Sodium Potassium Chloride Carbon Dioxide Anion Gap BUN Creatinine Est GFR (CKD-EPI)AfAm Est GFR (CKD-EPI)NonAf POC Glucometer 125 95 203 Random Glucose Calcium Total Bilirubin AST ALT Alkaline Phosphatase Creatine Kinase Troponin I Total Protein Albumin Triglycerides Cholesterol Total LDL Cholesterol HDL Cholesterol Urine Color Urine Appearance Urine pH Ur Specific [place] Urine Protein Urine Glucose (UA) Urine Ketones Urine Blood Urine Nitrite Urine Bilirubin Urine Urobilinogen Ur Leukocyte Esterase Urine WBC (Auto) Urine RBC (Auto) Urine Casts (Auto) U Epithel Cells (Auto) Urine Bacteria (Auto) Blood Type Antibody Screen 10/26/18 10/26/18 10/26/18 21:15 22:10 22:10 WBC 6.3 RBC 4.15 Hgb 11.8 Hct 36.8 MCV 88.7 MCH 28.5 MCHC 32.2 RDW 15.5 Plt Count 178 MPV 9.0 Absolute Neuts (auto) 4.2 Neutrophils % 66.2 Lymphocytes % 16.4 Monocytes % 11.1 H Eosinophils % 5.3 H Basophils % 1.0 Nucleated RBC % 0 PT with INR 21.10 H INR 1.78 H PTT (Actin FS) 35.1 Sodium Potassium Chloride Carbon Dioxide Anion Gap BUN Creatinine Est GFR (CKD-EPI)AfAm Est GFR (CKD-EPI)NonAf POC Glucometer 150 Random Glucose Calcium Total Bilirubin AST ALT Alkaline Phosphatase Creatine Kinase Troponin I Total Protein Albumin Triglycerides Cholesterol Total LDL Cholesterol HDL Cholesterol Urine Color Urine Appearance Urine pH Ur Specific [place] Urine Protein Urine Glucose (UA) Urine Ketones Urine Blood Urine Nitrite Urine Bilirubin Urine Urobilinogen Ur Leukocyte Esterase Urine WBC (Auto) Urine RBC (Auto) Urine Casts (Auto) U Epithel Cells (Auto) Urine Bacteria (Auto) Blood Type Antibody Screen 10/26/18 10/26/18 10/26/18 22:10 22:10 23:15 WBC RBC Hgb Hct MCV MCH MCHC RDW Plt Count MPV Absolute Neuts (auto) Neutrophils % Lymphocytes % Monocytes % Eosinophils % Basophils % Nucleated RBC % PT with INR INR PTT (Actin FS) Sodium 136 Potassium 4.5 Chloride 93 L Carbon Dioxide 40 H Anion Gap 3 L BUN 24.5 H Creatinine 1.0 Est GFR (CKD-EPI)AfAm 62.05 Est GFR (CKD-EPI)NonAf 53.54 POC Glucometer Random Glucose 147 H Calcium 8.2 L Total Bilirubin 0.4 AST 12 L ALT 7 L Alkaline Phosphatase 96 Creatine Kinase 26 Troponin I 0.02 Total Protein 5.9 L Albumin 2.5 L Triglycerides 58 Cholesterol 112 Total LDL Cholesterol 57 HDL Cholesterol 46 Urine Color Yellow Urine Appearance Clear Urine pH 5.5 Ur Specific [place] 1.015 Urine Protein Negative Urine Glucose (UA) Negative Urine Ketones Negative Urine Blood Negative Urine Nitrite Negative Urine Bilirubin Negative Urine Urobilinogen 0.2 Ur Leukocyte Esterase Negative Urine WBC (Auto) 1.9 Urine RBC (Auto) 1.3 Urine Casts (Auto) 11.6 U Epithel Cells (Auto) 0.5 Urine Bacteria (Auto) 0.0 Blood Type A POSITIVE Antibody Screen Negative Current Medications Generic Name Dose Route Start Last Admin Trade Name Freq PRN Reason Stop Dose Admin Acetaminophen 650 mg 10/15/18 16:41 10/20/18 04:17 Tylenol - PO 650 mg Q6H PRN Administration PAIN LEVEL 1-5 Apixaban 5 mg 10/15/18 22:00 10/26/18 23:03 Eliquis - PO Not Given BID [facility] Aspirin 81 mg 10/16/18 10:00 10/26/18 09:13 Ecotrin - PO 81 mg DAILY [facility] Administration Atorvastatin Calcium 10 mg 10/15/18 22:00 10/26/18 23:03 Lipitor - PO Not Given HS [facility] Bacitracin 1 applic 10/16/18 14:15 10/26/18 09:13 Bacitracin - TP 1 applic DAILY [facility] Administration Furosemide 40 mg 10/27/18 06:00 Lasix - PO BID@0600,1400 [facility] Gabapentin 300 mg 10/16/18 10:00 10/26/18 09:12 Neurontin - PO 300 mg DAILY [facility] Administration Insulin Aspart 1 vial 10/15/18 11:00 10/26/18 17:10 Novolog Vial Sliding Scale - SQ 4 units TIDAC [facility] Administration Protocol Insulin Detemir 14 units 10/15/18 22:00 10/26/18 23:03 Levemir Vial SQ Not Given HS [facility] Isosorbide Mononitrate 30 mg 10/15/18 10:00 10/26/18 09:13 Imdur - PO 30 mg DAILY [facility] Administration Metoprolol Tartrate 50 mg 10/15/18 10:00 10/26/18 23:04 Lopressor - PO Not Given BID [facility] Pantoprazole Sodium 20 mg 10/15/18 10:00 08/18/19 09:13 Protonix - PO 20 mg DAILY [facility] Administration Polyethylene Glycol 17 gm 10/26/18 17:00 10/26/18 17:04 Miralax (For Daily Use) - PO 17 gm DAILY [facility] Administration Sacubitril/Valsartan 1 tab 10/19/18 10:00 10/26/18 23:03 Entresto 24 Mg-26 Mg Tablet PO Not Given BID [facility] Spironolactone 25 mg 10/21/18 13:45 10/26/18 09:12 Aldactone - PO 25 mg DAILY [facility] Administration Tramadol HCl 50 mg 10/25/18 09:34 10/25/18 17:59 Ultram - PO 50 mg Q6H PRN Administration PAIN LEVEL 6-10 Hospitalist Encounter Assessment: This is a 78 y/o woman with significant medical history of Afib, CAD, CHF, HTN, IDDM, s/p L AKA, PVD. Admitted for Acute on Chronic CHF. Problem List 1. Acute CVA 2. Acute on Chronic CHF Exacerbation 3. Afib 4. CAD 5. HTN 6. IDDM 7. PVD Outcome: Head CT report- no acute intracranial hemorrhage mass effect or midline shift. Chronic infarct and encephalomalacia of the right frontal lobe, right basal ganglia and right temporal lobe white matter and cortex in the right middle cerebral artery distribution with ex vacuo dilatation of the right lateral ventricle. cannot exclude an acute infarct. if clinically indicated recommend correlation with an MRI of the brain Per Dr. Edgar the ICU resident, spoke with Dr. Schneider, the patient is not a candidate for TPA due to skilled nursing AC.He recommends a speech consult and Tele monitoring. Labs reviewed Critical Care Total Critical Care Time (in minutes): 45 Critical Care Statement: The care of this patient involved high complexity decision making to prevent further life threatening deterioration of the patient 's condition and/or to evaluate & treat vital organ system(s) failure or risk of failure.
[2018-10-26] MEDS ORDERED: PT OWN MED DRAWER 7, Y5N ONE (21:52)
[2018-10-26 22:21] LABS: EOS % 5.3 % (0-4.5); HEMATOCRIT 36.8 % (32.4-45.2); HEMOGLOBIN 11.8 GM/dL (10.7-15.3); LYMPH % 16.4 % (8-40); MCH 28.5 pg (25.7-33.7); MCHC 32.2 g/dl (32.0-36.0); MEAN CELL VOLUME 88.7 fl (80-96); MONO % 11.1 % (3.8-10.2); NEUT % 66.2 % (42.8-82.8); PLATELET COUNT 178 K/MM3 (134-434); RBC 4.15 M/mm3 (3.60-5.2); RDW 15.5 % (11.6-15.6); WHITE BLOOD COUNT 6.3 K/mm3 (4.0-10.0)
[2018-10-26 22:36] LABS: INR 1.78 (0.83-1.09); PROTHROMBIN TIME (PATIENT) 21.1 SEC (9.7-13.0)
[2018-10-26 22:38] LABS: ACTIVATED PTT 35.1 SECONDS (25.2-36.5)
[2018-10-26 22:45] LABS: ALBUMIN 2.5 g/dl (3.4-5.0); BILIRUBIN,TOTAL 0.4 mg/dL (0.2-1); BLOOD UREA NITROGEN 24.5 mg/dL (7-18); CALCIUM 8.2 mg/dL (8.5-10.1); POTASSIUM 4.5 mmol/L (3.5-5.1); TOT PROT 5.9 g/dl (6.4-8.2)
[2018-10-26] MEDS: INSULIN (LEVEMIR) 100 UNITS/ML UNITS SQ SCH (23:03)
[2018-10-26] MEDS: ATORVASTATIN CA 10 MG TABLET (FP) PO SCH (23:03)
[2018-10-26 23:28] LABS: PH,URINE 5.5 (5.0-8.0); URINE APPEARANCE Clear; URINE BILIRUBIN Negative (NEGATIVE); URINE COLOR Yellow; URINE GLUCOSE (UA) Negative (NEGATIVE); URINE KETONE Negative (NEGATIVE); URINE LEUK ESTERASE Negative (NEGATIVE); URINE NITRITE Negative (NEGATIVE); URINE PROTEIN Negative (NEGATIVE); URINE UROBILINOGEN 0.2 mg/dL (0.2-1.0)
[2018-10-26 23:31] LABS: URINE RBC 1.3 /hpf (0-4); URINE WBC 1.9 /hpf (0-5)
[2018-10-26 23:32] LABS: EPI CELLS 0.5 /HPF (0-5/HPF); HYALINE CASTS 11.6 /lpf (0-8)
--- NOTE | 2018-10-27 05:54 | PN ---
Progress Note, Physician Chief Complaint: Pt alert, but with slurred speech, and says her left arm feels weak (she believes it started 30-60 minutes ago); when asked to move it, she is able to do so, but with difficulty (decreaed ROM compared to right arm); hand strength fair. She says she feels better since oxygen was started (nasal cannula; says the mask "breaks my nose"). History of Present Illness: 10/14/18 23:45 The patient is a 78 year old white female, with a significant PMH of CAD, severe systolic CHF, IDDM, s/p L AKA, multiple vascular issues, including left BKA, , hypertension, vascular insufficiency, CAD s/p CABG , breast cancer (s/p mastectomy), who presents to the emergency department with 1 week of progressively worsening shortness of breath. The patient also endorses increased right leg swelling, toes ulcerated. The patient denies chest pain, headache and dizziness. Denies fever, chills, nausea, vomiting, diarrhea and constipation. Denies dysuria, frequency, urgency and hematuria. Denies any other symptoms. Allergies: NKA Past surgical history: Mastectomy, Cholecystectomy, OPEN HEART SX (CABG) 2011: 3 BLOCKAGES Social history: Former smoker, quit 2002. PCP: Dr. Sandrita Salazar Vascular Surgeon: Dr. Angelica White - Current Medication List Current Medications: Active Medications Acetaminophen (Tylenol -) 650 mg PO Q6H PRN PRN Reason: PAIN LEVEL 1-5 Last Admin: 10/20/18 04:17 Dose: 650 mg Apixaban (Eliquis -) 5 mg PO BID [facility] Last Admin: 10/26/18 23:03 Dose: Not Given Aspirin (Ecotrin -) 81 mg PO DAILY [facility] Last Admin: 10/26/18 09:13 Dose: 81 mg Atorvastatin Calcium (Lipitor -) 10 mg PO HS [facility] Last Admin: 10/26/18 23:03 Dose: Not Given Bacitracin (Bacitracin -) 1 applic TP DAILY [facility] Last Admin: 10/26/18 09:13 Dose: 1 applic Furosemide (Lasix -) 40 mg PO BID@0600,1400 [facility] Gabapentin (Neurontin -) 300 mg PO DAILY [facility] Last Admin: 10/26/18 09:12 Dose: 300 mg Insulin Aspart (Novolog Vial Sliding Scale -) 1 vial SQ TIDAC [facility]; Protocol Last Admin: 10/26/18 17:10 Dose: 4 units Insulin Detemir (Levemir Vial) 14 units SQ [facility] Last Admin: 10/26/18 23:03 Dose: Not Given Isosorbide Mononitrate (Imdur -) 30 mg PO DAILY [facility] Last Admin: 10/26/18 09:13 Dose: 30 mg Metoprolol Tartrate (Lopressor -) 50 mg PO BID [facility] Last Admin: 10/26/18 23:04 Dose: Not Given Pantoprazole Sodium (Protonix -) 20 mg PO DAILY [facility] Last Admin: 10/26/18 09:13 Dose: 20 mg Polyethylene Glycol (Miralax (For Daily Use) -) 17 gm PO DAILY [facility] Last Admin: 10/26/18 17:04 Dose: 17 gm Sacubitril/Valsartan (Entresto 24 Mg-26 Mg Tablet) 1 tab PO BID [facility] Last Admin: 10/26/18 23:03 Dose: Not Given Spironolactone (Aldactone -) 25 mg PO DAILY [facility] Last Admin: 10/26/18 09:12 Dose: 25 mg Tramadol HCl (Ultram -) 50 mg PO Q6H PRN PRN Reason: PAIN LEVEL 6-10 Last Admin: 10/25/18 17:59 Dose: 50 mg - Objective Vital Signs: Vital Signs Temperature 97.5 F L 10/26/18 22:00 Pulse Rate 70 10/27/18 04:00 Respiratory Rate 16 10/27/18 04:00 Blood Pressure 139/51 L 10/27/18 04:00 O2 Sat by Pulse Oximetry (%) 95 10/27/18 00:07 Constitutional: Yes: Anxious Eyes: Yes: WNL HENT: Yes: Other (mouth deviated slightly to right; mildly slurred speech) Neck: Yes: WNL Cardiovascular: Yes: Pulse Irregular, S1 (varies in intensity), S2 Respiratory: Yes: Diminished Gastrointestinal: Yes: Soft, Abdomen, Obese ...Rectal Exam: Yes: Deferred Genitourinary: No: Anuria Breast(s): Yes: WNL Musculoskeletal: Yes: Muscle Weakness Extremities: Yes: Cool Edema: No Peripheral Pulses WNL: No Integumentary: Yes: Other Wound/Incision: Yes: Other Neurological: Yes: Alert, Oriented, Facial Droop, Weakness Psychiatric: Yes: WNL Labs: CBC, BMP 10/26/18 22:10 10/26/18 22:10 INR, PTT INR 1.78 (0.83-1.09) H 10/26/18 22:10 Abnormal Lab Results 10/27/18 10/27/18 10/27/18 22:20 22:20 22:20 RDW Neutrophils % Lymphocytes % PT with INR 16.80 H INR 1.42 H PTT (Actin FS) 37.6 H ABG pH 7.34 L ABG pCO2 at Pt Temp 65.5 H ABG HCO3 34.5 H ABG Base Excess 6.8 H Sodium 135 L Chloride 91 L Carbon Dioxide 36 H BUN 20.0 H Random Glucose 235 H Lactic Acid AST 12 L ALT 9 L Alkaline Phosphatase 118 H Albumin 3.0 L 10/27/18 10/27/18 10/28/18 22:20 22:20 05:50 RDW 15.7 H Neutrophils % 86.0 H D Lymphocytes % 6.9 L D PT with INR INR PTT (Actin FS) ABG pH ABG pCO2 at Pt Temp ABG HCO3 ABG Base Excess Sodium Chloride Carbon Dioxide BUN Random Glucose Lactic Acid 2.5 H* AST ALT Alkaline Phosphatase Albumin Problem List - Problems (1) Acute on chronic systolic and diastolic heart failure, NYHA class 1 Assessment/Plan: Now on Entresto, as well as metoprolol; furosemide, spironolactone f/u BUN/Cr and electrolytes, Is and Os, daily weight. Code(s): I50.43 - ACUTE ON CHRONIC COMBINED SYSTOLIC AND DIASTOLIC HRT FAIL (2) Afib Assessment/Plan: On metorprolol for HR control (and CHF/HTN). On apixaban for anticoagulation. ECHO: severely reduced LVEF; normal atrial sizes. Code(s): I48.91 - UNSPECIFIED ATRIAL FIBRILLATION (3) Hyperlipidemia Assessment/Plan: On atrovastatin Total cholesterol: 108 mg/dL. Code(s): E78.5 - HYPERLIPIDEMIA, UNSPECIFIED (4) Hypertension Assessment/Plan: on metoprolol, amlodipine (now discontinued), lisinopril (now discontinued), and now on Entresto. furosemide (the latter may be reduced and/or stopped as CHF improves) start spironolactone due to severely reduced LVEF). Code(s): I10 - ESSENTIAL (PRIMARY) HYPERTENSION Qualifiers: Hypertension type: essential hypertension Qualified Code(s): I10 - Essential (primary) hypertension (5) Ischemia of both lower extremities Code(s): I99.8 - OTHER DISORDER OF CIRCULATORY SYSTEM (6) Obesity Code(s): E66.9 - OBESITY, UNSPECIFIED (7) S/P CABG (coronary artery bypass graft) Code(s): Z95.1 - PRESENCE OF AORTOCORONARY BYPASS GRAFT (9) Diabetes mellitus Code(s): E11.9 - TYPE 2 DIABETES MELLITUS WITHOUT COMPLICATIONS (10) CVA (cerebral vascular accident) Assessment/Plan: r/o acute CVA, given slurred speech and left arm weakness (pt says the latter started about thirty minutes ago). Pt has been on apixaban for PAF. As discussed with RN, CVA workup is in progress. For CT head. Code(s): I63.9 - CEREBRAL INFARCTION, UNSPECIFIED
[2018-10-27] MEDS ORDERED: FUROSEMIDE 40 MG TABLET (FP) PO SCH (06:00)
[2018-10-27 06:35] LABS: BASO % 0.6 % (0-2.0); EOS % 5.1 % (0-4.5); HEMATOCRIT 34.7 % (32.4-45.2); HEMOGLOBIN 11.3 GM/dL (10.7-15.3); LYMPH % 16.7 % (8-40); MCH 28.8 pg (25.7-33.7); MCHC 32.6 g/dl (32.0-36.0); MEAN CELL VOLUME 88.3 fl (80-96); MONO % 9.8 % (3.8-10.2); NEUT % 67.8 % (42.8-82.8); PLATELET COUNT 178 K/MM3 (134-434); RBC 3.93 M/mm3 (3.60-5.2); RDW 15.3 % (11.6-15.6); WHITE BLOOD COUNT 6.1 K/mm3 (4.0-10.0)
[2018-10-27 06:50] LABS: ALBUMIN 2.5 g/dl (3.4-5.0); BILIRUBIN,TOTAL 0.6 mg/dL (0.2-1); BLOOD UREA NITROGEN 22.7 mg/dL (7-18); CALCIUM 8.2 mg/dL (8.5-10.1); CREATININE 0.9 mg/dL (0.55-1.3); POTASSIUM 4.3 mmol/L (3.5-5.1); TOT PROT 5.8 g/dl (6.4-8.2)
[2018-10-27] MEDS: INSULIN SLIDING SCALE (NOVOLOG) 1 VIAL SQ SCH ×3 (06:55→18:09)
--- NOTE | 2018-10-27 08:52 | CONSULT ---
Consult - text type - Consultation Consultation Note: Neurology - Admission Chief Complaint: SOB, RLE Swelling History of Present Illness: 78 y/o woman with significant medical history of Afib, CAD, CHF, HTN, IDDM, s/p L AKA, PVD presented to the ED with shortness of breath slowly worsening over the past week. Patient also endorsed increased swelling in her right leg since as well. At time of admission denied fevers, chills, nausea, vomiting. Denies chest pain and abdominal pain. Endorses compliance with medications. I was consulted as patient with LUE weakness overnight and placed in ICU where she is getting critical care monitoring. CT head completed showed no acute changes but there was evidence of R frontal chronic infarct. During my visit, she was awake but with slurred speech, dysarthria, limited movement on motor testing. Discussed with PCP, Dr. Salazar, these are reportedly new findings. Eliquis on hold, concern for thromboembolic CVA and thus bleed risk with AC. Can restart tomorrow, will obtain MRI brain to evaluate further. 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 (pt says her memory has deteriorated) Cardiovascular: Yes: AFIB, CAD, CHF, HTN Gastrointestinal: Yes: Diverticulitis, Peptic Ulcer Disease Heme/Onc: Yes: Cancer (Breast) - Past Surgical History Past Surgical History: Yes: CABG, Cholecystectomy, Hysterectomy, Mastectomy, Stent (L- leg), Tonsillectomy - Smoking History Smoking history: Former smoker Have you smoked in the past 12 months: No Aproximately how many cigarettes per day: 0 If you are a former smoker, when did you quit?: 2002 - Alcohol/Substance Use Hx Alcohol Use: No - Social History History of Recent Travel: No FAMILY: HTN Home Medications - Allergies Allergies/Adverse Reactions: Allergies Allergy/AdvReac Type Severity Reaction Status Date / Time Anesthetics - Amide Type AdvReac Vomiting Verified 08/13/17 10:30 - Home Medications Home Medications: Ambulatory Orders Aspirin [ASA -] 162 mg PO BID 02/27/12 Insulin Sliding Scale [Novolog Vial Sliding Scale -] 1 vial SQ TIDAC units 10/26 Amlodipine Besylate 10 mg PO DAILY 10/14/18 Clopidogrel Bisulfate [Clopidogrel] 75 mg PO DAILY 10/14/18 Docusate Sodium [Colace -] 100 mg PO HS 10/14/18 Gabapentin 300 mg PO DAILY 10/14/18 Insulin Detemir [Levemir Flextouch] 14 units SQ HS 10/14/18 Insulin Detemir [Levemir Flextouch] 20 units SQ DAILY 10/14/18 Isosorbide Mononitrate [Isosorbide Mononitrate ER] 30 mg PO DAILY 10/14/18 Lisinopril 20 mg PO DAILY 10/14/18 Metoprolol Tartrate 50 mg PO BID 10/14/18 Pantoprazole Sodium [Protonix -] 20 mg PO DAILY 10/14/18 Review of Systems - Review of Systems Constitutional: reports: No Symptoms Eyes: reports: No Symptoms HENT: reports: No Symptoms Neck: reports: No Symptoms Cardiovascular: reports: Edema, Shortness of Breath Respiratory: reports: SOB, SOB on Exertion Gastrointestinal: reports: No Symptoms Genitourinary: reports: No Symptoms Breasts: reports: No Symptoms Reported Musculoskeletal: reports: No Symptoms Integumentary: reports: No Symptoms Neurological: reports: weakness, speech difficulty Endocrine: reports: No Symptoms Hematology/Lymphatic: reports: No Symptoms Psychiatric: reports: No Symptoms Physical Examination Vital Signs Period Temp Pulse Resp BP Sys/Calderon Pulse Ox Last 24 Hr 97.5 F-98.6 F 62-70 14-20 120-150/41-73 94-100 Constitutional: Yes: Well Nourished, No Distress, Calm, Obese Eyes: Yes: WNL, Conjunctiva Clear, EOM Intact, PERRL HENT: Yes: WNL, Atraumatic, Normocephalic Neck: Yes: WNL, Supple, Trachea Midline Cardiovascular: Yes: Pulse Irregular, S1, S2 Respiratory: Yes: Diminished, On Nasal O2, Rales, SOB on Exertion Gastrointestinal: Yes: Normal Bowel Sounds, Soft, Abdomen, Obese Renal/: Yes: WNL Breast(s): Yes: Right (mastectomy) Extremities: Yes: Amputation (L-Aka) Edema: Yes Edema: RLE: 3+ Peripheral Pulses WNL: Yes Integumentary: Yes: Other (non pressure ulcers to R- toes) Wound/Incision: Yes: Reddened Neurological: Slurred speech, dyarthric, JEFF, EOMI, sensory intact, BKA. CBCD WBC 6.1 K/mm3 (4.0-10.0) 10/27/18 05:45 RBC 3.93 M/mm3 (3.60-5.2) 10/27/18 05:45 Hgb 11.3 GM/dL (10.7-15.3) 10/27/18 05:45 Hct 34.7 % (32.4-45.2) 10/27/18 05:45 MCV 88.3 fl (80-96) 10/27/18 05:45 MCHC 32.6 g/dl (32.0-36.0) 10/27/18 05:45 RDW 15.3 % (11.6-15.6) 10/27/18 05:45 Plt Count 178 K/MM3 (134-434) 10/27/18 05:45 MPV 9.0 fl (7.5-11.1) 10/27/18 05:45 CMP Sodium 137 mmol/L (136-145) 10/27/18 05:45 Potassium 4.3 mmol/L (3.5-5.1) 10/27/18 05:45 Chloride 94 mmol/L (98-107) L 10/27/18 05:45 Carbon Dioxide 38 mmol/L (21-32) H 10/27/18 05:45 Anion Gap 4 MMOL/L (8-16) L 10/27/18 05:45 BUN 22.7 mg/dL (7-18) H 10/27/18 05:45 Creatinine 0.9 mg/dL (0.55-1.3) 10/27/18 05:45 Random Glucose 134 mg/dL (74-106) H 10/27/18 05:45 Calcium 8.2 mg/dL (8.5-10.1) L 10/27/18 05:45 Total Bilirubin 0.6 mg/dL (0.2-1) 10/27/18 05:45 AST 10 U/L (15-37) L 10/27/18 05:45 ALT 7 U/L (13-61) L 10/27/18 05:45 Alkaline Phosphatase 93 U/L (45-117) 10/27/18 05:45 Total Protein 5.8 g/dl (6.4-8.2) L 10/27/18 05:45 Albumin 2.5 g/dl (3.4-5.0) L 10/27/18 05:45 CARDIAC ENZYMES Creatine Kinase 26 U/L (26-192) 10/26/18 22:10 Troponin I 0.02 ng/ml (0.00-0.05) 10/26/18 22:10 Plan: 78 y/o woman with significant medical history of Afib, CAD, CHF, HTN, IDDM, s/p L AKA, PVD presented to the ED with shortness of breath slowly worsening over the past week. Patient also endorsed increased swelling in her right leg since as well. At time of admission denied fevers, chills, nausea, vomiting. Denies chest pain and abdominal pain. Endorses compliance with medications. I was consulted as patient with LUE weakness overnight and placed in ICU. CT head completed showed no acute changes but there was evidence of R frontal chronic infarct. During my visit, she was awake but with slurred speech, dysarthria, limited movement on motor testing. Discussed with PCP, Dr. Salazar, these are reportedly new findings. Eliquis on hold, concern for thromboembolic CVA and thus bleed risk with AC. Can restart tomorrow, will obtain MRI brain to evaluate further. Monitor bp, can allow permissive HTN until this evening up to 220/110, currently only slightly hypertensive. Carotid doppler, echo. Continue optimization of CHF and respiratory status, pulmonary following. Speech , swallow eval. Cardiology follow up, monitor glucose, maintain euglycemic range.
--- NOTE | 2018-10-27 09:33 | PN ---
Progress Note, Physician History of Present Illness: The patient is a 78 year old female, with a significant PMH of CAD, severe systolic CHF, IDDM, s/p L AKA, multiple vascular issues, hypertension, vascular insufficiency, CAD s/p CABG , breast cancer (s/p mastectomy), who presents to the emergency department with 1 week of progressively worsening shortness of breath. The patient also endorses increased right leg swelling. The patient denies chest pain, headache and dizziness. Denies fever, chills, nausea, vomiting, diarrhea and constipation. Denies dysuria, frequency, urgency and hematuria. Denies any other symptoms. Allergies: NKA Past surgical history: Mastectomy, Cholecystectomy, OPEN HEART SX (CABG) 2011: 3 BLOCKAGES Social history: Former smoker, quit 2002. PCP: Dr. Sandrita Salazar Vascular Surgeon: Dr. Angelica White - Current Medication List Current Medications: Active Medications Acetaminophen (Tylenol -) 650 mg PO Q6H PRN PRN Reason: PAIN LEVEL 1-5 Last Admin: 10/20/18 04:17 Dose: 650 mg Apixaban (Eliquis -) 5 mg PO BID [facility] Last Admin: 10/26/18 23:03 Dose: Not Given Aspirin (Ecotrin -) 81 mg PO DAILY [facility] Last Admin: 10/26/18 09:13 Dose: 81 mg Atorvastatin Calcium (Lipitor -) 10 mg PO HS [facility] Last Admin: 10/26/18 23:03 Dose: Not Given Bacitracin (Bacitracin -) 1 applic TP DAILY [facility] Last Admin: 10/26/18 09:13 Dose: 1 applic Furosemide (Lasix -) 40 mg PO BID@0600,1400 [facility] Last Admin: 10/27/18 06:25 Dose: Not Given Gabapentin (Neurontin -) 300 mg PO DAILY [facility] Last Admin: 10/26/18 09:12 Dose: 300 mg Insulin Aspart (Novolog Vial Sliding Scale -) 1 vial SQ TIDAC [facility]; Protocol Last Admin: 10/27/18 06:55 Dose: Not Given Insulin Detemir (Levemir Vial) 14 units SQ [facility] Last Admin: 10/26/18 23:03 Dose: Not Given Isosorbide Mononitrate (Imdur -) 30 mg PO DAILY [facility] Last Admin: 10/26/18 09:13 Dose: 30 mg Metoprolol Tartrate (Lopressor -) 50 mg PO BID [facility] Last Admin: 10/26/18 23:04 Dose: Not Given Pantoprazole Sodium (Protonix -) 20 mg PO DAILY [facility] Last Admin: 10/26/18 09:13 Dose: 20 mg Polyethylene Glycol (Miralax (For Daily Use) -) 17 gm PO DAILY [facility] Last Admin: 10/26/18 17:04 Dose: 17 gm Sacubitril/Valsartan (Entresto 24 Mg-26 Mg Tablet) 1 tab PO BID [facility] Last Admin: 10/26/18 23:03 Dose: Not Given Spironolactone (Aldactone -) 25 mg PO DAILY [facility] Last Admin: 10/26/18 09:12 Dose: 25 mg Tramadol HCl (Ultram -) 50 mg PO Q6H PRN PRN Reason: PAIN LEVEL 6-10 Last Admin: 10/25/18 17:59 Dose: 50 mg - Objective Vital Signs: Vital Signs Temperature 97.6 F 10/27/18 06:00 Pulse Rate 65 10/27/18 08:22 Respiratory Rate 16 10/27/18 08:00 Blood Pressure 137/42 L 10/27/18 08:00 O2 Sat by Pulse Oximetry (%) 97 10/27/18 08:22 Eyes: Yes: WNL, Conjunctiva Clear, EOM Intact HENT: Yes: WNL, Atraumatic, Normocephalic Neck: Yes: WNL, Supple, Trachea Midline Cardiovascular: Yes: WNL, Pulse Irregular Respiratory: Yes: Diminished Gastrointestinal: Yes: WNL, Normal Bowel Sounds Genitourinary: Yes: WNL Musculoskeletal: Yes: WNL Extremities: Yes: WNL Edema: No Integumentary: Yes: WNL Neurological: Yes: WNL, Alert, Oriented ...Motor Strength: WNL Psychiatric: Yes: WNL Labs: CBC, BMP 10/27/18 05:45 10/27/18 05:45 INR, PTT INR 1.78 (0.83-1.09) H 10/26/18 22:10 Assessment/Plan - Problems (1) Acute on chronic systolic and diastolic heart failure, NYHA class 1 Assessment/Plan: Now on Entresto, as well as metoprolol; furosemide, spironolactone f/u BUN/Cr and electrolytes, Is and Os, daily weight. Code(s): I50.43 - ACUTE ON CHRONIC COMBINED SYSTOLIC AND DIASTOLIC HRT FAIL (2) Afib Assessment/Plan: On metorprolol for HR control (and CHF/HTN). On apixaban for anticoagulation. ECHO: severely reduced LVEF; normal atrial sizes. Code(s): I48.91 - UNSPECIFIED ATRIAL FIBRILLATION (3) Hyperlipidemia Code(s): E78.5 - HYPERLIPIDEMIA, UNSPECIFIED (4) Hypertension Code(s): I10 - ESSENTIAL (PRIMARY) HYPERTENSION Qualifiers: Hypertension type: essential hypertension Qualified Code(s): I10 - Essential (primary) hypertension (5) Ischemia of both lower extremities Code(s): I99.8 - OTHER DISORDER OF CIRCULATORY SYSTEM (6) Obesity Code(s): E66.9 - OBESITY, UNSPECIFIED (7) S/P CABG (coronary artery bypass graft) Code(s): Z95.1 - PRESENCE OF AORTOCORONARY BYPASS GRAFT (9) Diabetes mellitus Code(s): E11.9 - TYPE 2 DIABETES MELLITUS WITHOUT COMPLICATIONS (10) CVA (cerebral vascular accident) Assessment/Plan: r/o acute CVA, given slurred speech and left arm weakness (pt says the latter started about thirty minutes ago). Pt has been on apixaban for PAF. CVA workup is in progress. Code(s): I63.9 - CEREBRAL INFARCTION, UNSPECIFIED cc time spent 37 min
[2018-10-27] MEDS: SPIRONOLACTONE 25 MG TABLET (FP) PO SCH (10:20)
[2018-10-27] MEDS: ASPIRIN COATED 81 MG TABLET.EC PO SCH (10:20)
[2018-10-27] MEDS: METOPROLOL TARTRATE 50 MG TABLET (FP) PO SCH ×2 (10:21→21:00)
[2018-10-27] MEDS: PANTOPRAZOLE 20 MG TABLET (FP) PO SCH (10:21)
[2018-10-27] MEDS: ISOSORBIDE MONONITRATE 30 MG TAB.SR.24H (FP) PO SCH (10:21)
[2018-10-27] MEDS: GABAPENTIN 300 MG CAPSULE (FP) PO SCH (10:21)
[2018-10-27] MEDS: POLYETHYLENE GLYCOL 3350 119 GM BTL PO SCH (10:21)
[2018-10-27] MEDS: SACUBITRIL/VALSARTAN 24 MG-26 MG TABLET PO SCH ×2 (10:21→20:59)
[2018-10-27] MEDS: BACITRACIN 15 GM TUBE TOPICAL OINTMENT TP SCH (10:30)
--- NOTE | 2018-10-27 10:35 | PN ---
Progress Note (short form) - Note Progress Note: pt seen/ examined events noted discussed with icu team/ Dr. Guaman/ RN awake acute cva Vital Signs Temp 97.8 F 10/27/18 10:00 Pulse 64 10/27/18 10:00 Resp 17 10/27/18 10:00 BP 137/56 L 10/27/18 10:00 Pulse Ox 97 10/27/18 08:22 Intake & Output 10/26/18 10/26/18 10/27/18 11:59 23:59 11:59 Intake Total 780 20 Output Total 850 Balance -70 20 Weight 200 lb 13.458 oz Intake: IV 20 LFA 10/26/18 20 Oral 780 Output: Urine 850 Straight Cath 850 Other: Voiding Method Diaper Incontinent Incontinent # Unmeasured Voids Void 1 1 1 Bowel Movement No No No Weight Measurement Method Built in [facility] Active Medications Acetaminophen (Tylenol -) 650 mg PO Q6H PRN PRN Reason: PAIN LEVEL 1-5 Last Admin: 10/20/18 04:17 Dose: 650 mg Apixaban (Eliquis -) 5 mg PO BID [facility] Last Admin: 10/26/18 23:03 Dose: Not Given Aspirin (Ecotrin -) 81 mg PO DAILY [facility] Last Admin: 10/27/18 10:20 Dose: Not Given Atorvastatin Calcium (Lipitor -) 10 mg PO HS [facility] Last Admin: 10/26/18 23:03 Dose: Not Given Bacitracin (Bacitracin -) 1 applic TP DAILY [facility] Last Admin: 10/26/18 09:13 Dose: 1 applic Furosemide (Lasix Injection -) 40 mg IVPUSH DAILY [facility] Gabapentin (Neurontin -) 300 mg PO DAILY [facility] Last Admin: 10/27/18 10:21 Dose: Not Given Dextrose/Sodium Chloride (D5-1/2ns -) 1,000 mls @ 75 mls/hr IV ASDIR [facility] Insulin Aspart (Novolog Vial Sliding Scale -) 1 vial SQ TIDAC [facility]; Protocol Last Admin: 10/27/18 06:55 Dose: Not Given Isosorbide Mononitrate (Imdur -) 30 mg PO DAILY [facility] Last Admin: 10/27/18 10:21 Dose: Not Given Metoprolol Tartrate (Lopressor -) 50 mg PO BID [facility] Last Admin: 10/27/18 10:21 Dose: Not Given Nystatin/Triamcinolone Acetonide (Mycolog Ii Ointment -) 1 applic TP BID [facility] Pantoprazole Sodium (Protonix -) 20 mg PO DAILY [facility] Last Admin: 10/27/18 10:21 Dose: Not Given Polyethylene Glycol (Miralax (For Daily Use) -) 17 gm PO DAILY [facility] Last Admin: 10/27/18 10:21 Dose: Not Given Sacubitril/Valsartan (Entresto 24 Mg-26 Mg Tablet) 1 tab PO BID [facility] Last Admin: 10/27/18 10:21 Dose: Not Given Spironolactone (Aldactone -) 25 mg PO DAILY [facility] Last Admin: 10/27/18 10:20 Dose: Not Given CBC, BMP 10/27/18 05:45 10/27/18 05:45 ct head- reviewed Physical Exam awake speech slurred facial droop cvs- s1, s2 irregular lungs- diminished at bases ext- lue- power 0/5 A/P Acute CVA Acute chf Atrial Fibrillation CAD HTN Diabetes PAD h/o L AKA Discussed with Dr. Pena - for MRI brain - neuro checks - - aspiration precautions - swallow eval, hold Eliquis today per neurology -- May need to start on heparin tomorrow- if unable to swallow mild hydration-- pt is diabetic d/c long acting insulin for now change lasix to i/v PT will follow Problem List - Problems (1) Right foot ulcer Code(s): L97.519 - NON-PRS CHRONIC ULCER OTH PRT RIGHT FOOT W UNSP SEVERITY (2) Pneumonia Code(s): J18.9 - PNEUMONIA, UNSPECIFIED ORGANISM (3) CHF exacerbation Code(s): I50.9 - HEART FAILURE, UNSPECIFIED (4) Afib Code(s): I48.91 - UNSPECIFIED ATRIAL FIBRILLATION (5) Cellulitis Code(s): L03.90 - CELLULITIS, UNSPECIFIED Qualifiers: Site of cellulitis: extremity Site of cellulitis of extremity: lower extremity Laterality: left Qualified Code(s): L03.116 - Cellulitis of left lower limb (6) Coronary artery disease Code(s): I25.10 - ATHSCL HEART DISEASE OF [place] CORONARY ARTERY W/O ANG PCTRS Qualifiers: (7) Diabetes mellitus Code(s): E11.9 - TYPE 2 DIABETES MELLITUS WITHOUT COMPLICATIONS (8) Hyperlipidemia Code(s): E78.5 - HYPERLIPIDEMIA, UNSPECIFIED (9) Ischemia of both lower extremities Code(s): I99.8 - OTHER DISORDER OF CIRCULATORY SYSTEM (10) S/P CABG (coronary artery bypass graft) Code(s): Z95.1 - PRESENCE OF AORTOCORONARY BYPASS GRAFT
--- NOTE | 2018-10-27 11:05 | EKG ---
Test Reason : Blood Pressure : / mmHG Vent. Rate : 067 BPM Atrial Rate : 267 BPM P-R Int : 000 ms QRS Dur : 136 ms QT Int : 432 ms P-R-T Axes : 000 -42 157 degrees QTc Int : 456 ms ATRIAL FIBRILLATION WITH PREMATURE VENTRICULAR OR ABERRANTLY CONDUCTED COMPLEXES LEFT AXIS DEVIATION NON-SPECIFIC INTRA-VENTRICULAR CONDUCTION BLOCK POSSIBLE LATERAL INFARCT (CITED ON OR BEFORE 14-OCT-2018) ABNORMAL ECG WHEN COMPARED WITH ECG OF 22-OCT-2018 09:35, QUESTIONABLE CHANGE IN INITIAL FORCES OF LATERAL LEADS T WAVE INVERSION LESS EVIDENT IN LATERAL LEADS Confirmed by LAN SHANKS MD ([id number]) on 10/27/2018 11:04:25 AM Referred By: Confirmed By:LAN SHANKS MD
[2018-10-27] MEDS: NYSTATIN/TRIAMCINOLONE TOPICAL OINTMENT 15 GM TUBE TP SCH ×2 (12:20→21:00)
[2018-10-27] MEDS: DEXTROSE 5%-0.45% SALINE 1,000 ML IV SCH (12:20)
--- NOTE | 2018-10-27 12:57 | PN ---
Progress Note (short form) - Note Progress Note: PULMONARY Overnight events noted, likely acute CVA. Remains on ventimask 35%. + nonproductive cough. Vital Signs Period Temp Pulse Resp BP Sys/Calderon Pulse Ox Last 24 Hr 97.5 F-98.6 F 62-70 14-21 120-150/41-73 94-99 Intake & Output 10/24/18 10/25/18 10/26/18 10/27/18 23:59 23:59 23:59 23:59 Intake Total 460 700 780 20 Output Total 2 1 850 Balance 458 699 -70 20 Weight 91.1 kg Gen: dysarthric Heart: irregular Lung: scattered rhonchi Abd:soft, nontender Ext: + edema, L AKA CBC, BMP 10/27/18 05:45 10/27/18 05:45 Active Medications Acetaminophen (Tylenol -) 650 mg PO Q6H PRN PRN Reason: PAIN LEVEL 1-5 Last Admin: 10/20/18 04:17 Dose: 650 mg Apixaban (Eliquis -) 5 mg PO BID [facility] Last Admin: 10/26/18 23:03 Dose: Not Given Aspirin (Ecotrin -) 81 mg PO DAILY [facility] Last Admin: 10/27/18 10:20 Dose: Not Given Atorvastatin Calcium (Lipitor -) 10 mg PO HS [facility] Last Admin: 10/26/18 23:03 Dose: Not Given Bacitracin (Bacitracin -) 1 applic TP DAILY [facility] Last Admin: 10/27/18 10:30 Dose: 1 applic Furosemide (Lasix Injection -) 40 mg IVPUSH DAILY [facility] Gabapentin (Neurontin -) 300 mg PO DAILY [facility] Last Admin: 10/27/18 10:21 Dose: Not Given Dextrose/Sodium Chloride (D5-1/2ns -) 1,000 mls @ 75 mls/hr IV ASDIR [facility] Last Admin: 10/27/18 12:20 Dose: 75 mls/hr Insulin Aspart (Novolog Vial Sliding Scale -) 1 vial SQ TIDAC [facility]; Protocol Last Admin: 10/27/18 12:17 Dose: Not Given Isosorbide Mononitrate (Imdur -) 30 mg PO DAILY [facility] Last Admin: 10/27/18 10:21 Dose: Not Given Metoprolol Tartrate (Lopressor -) 50 mg PO BID [facility] Last Admin: 10/27/18 10:21 Dose: Not Given Nystatin/Triamcinolone Acetonide (Mycolog Ii Ointment -) 1 applic TP BID [facility] Last Admin: 10/27/18 12:20 Dose: 1 applic Pantoprazole Sodium (Protonix -) 20 mg PO DAILY [facility] Last Admin: 10/27/18 10:21 Dose: Not Given Polyethylene Glycol (Miralax (For Daily Use) -) 17 gm PO DAILY [facility] Last Admin: 10/27/18 10:21 Dose: Not Given Sacubitril/Valsartan (Entresto 24 Mg-26 Mg Tablet) 1 tab PO BID [facility] Last Admin: 10/27/18 10:21 Dose: Not Given Spironolactone (Aldactone -) 25 mg PO DAILY [facility] Last Admin: 10/27/18 10:20 Dose: Not Given A/P r/o Acute CVA Acute on Chronic Systolic Heart Failure Atrial Fibrillation CAD HTN DM PAD h/o L AKA - for MRI brain - neuro checks - continue lasix, aldactone - entresto - rate conrol - continue anticoagulation - aspiration precautions - swallow eval, rehab/PT
--- NOTE | 2018-10-27 16:24 | CONSULT ---
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 No: Asthma, Bronchitis, Cancer, COPD, O2 Dependent, Previously Intubated, Pulmonary Embolus, Pulmonary Fibrosis Gastrointestinal: Yes: Diverticulitis, Peptic Ulcer Disease ...: No Heme/Onc: Yes: Anemia - Past Surgical History Past Surgical History: Yes: CABG (2012), Cholecystectomy, Hysterectomy, Mastectomy, Stent (L- leg), Tonsillectomy - Smoking History Smoking history: Former smoker Have you smoked in the past 12 months: No Aproximately how many cigarettes per day: 0 If you are a former smoker, when did you quit?: 2002 - Alcohol/Substance Use Hx Alcohol Use: No - Social History History of Recent Travel: No History - Admission Reason For Visit: CONGESTIVE HEART FAILURE - Diagnostics X-ray: Report Reviewed CT Scan: Report Reviewed MRI: Pending - General Mental Status: Alert and Oriented, Awake and Alert, Able to Follow Commands Attention: Intact Ability to Follow Directions: Good Head/Neck Control: Good - Hearing Hearing: Normal Hearing Aide: No With Patient: No Speech Evaluation - Communication Primary Language: ESTONIAN Communication: Yes: Dysarthria - Speech Production Able to Make Needs Known: Yes: Mildly Impaired Intelligibility: Yes: Mildly Impaired - Speech Characteristics Voice Loudness: Normal Voice Pitch: Yes: Normal Voice Phonatory-based Quality: Yes: Normal Speech Pattern: Impaired Speech Clarity: < 75% Nasal Resonance: Hypernasal Articulation: Yes: Imprecise Rate of Speech: Too Slow - Language/Auditory Comprehension Follows: Yes: 1 Stage Simple Commands Observation: Able to respond to yes/no queries: Yes, Yes/No Confusion: No, Comprehends Conversational Speech: Yes - Swallow Evaluation/Bedside Assessment Current Nutritional Intake: NPO Oral Secretions: Yes: WFL Dentition: Yes: Missing Teeth Facial Symmetry at Rest: Facial Droop Left Facial Symmetry on Retraction: Facial Droop Left Pucker Lips: Droops Left Smile: Droops Left Lingual Movement: Deviates Left Lingual Speed of Movement: Reduced Lingual Movement Strgth Against Opposition: Reduced Laryngeal Elevation: Impaired Bolus Size: Small Oral Prep Time: WFL A-P Transit: WFL Timing of Swallow: Absent ("I can't swallow") Coughing/Throat Clear: No (1/2 tsn of apple sause only, with inability to trigger a swallow.) Change in Voice: No Recommendations - Speech Evaluation, Impression/Plan Impression: Dysarthria/Dysphagia/left side weakness c/w CVA. MRI pending. Verbal. Oriented. - Dysphagia Impressions/Plan Swallowing Skills: Impaired Dysphagia Impressions: Suspect Aspiration *Silent aspiration: cannot be R/O at bedside Recommendations: Modified Barium Swallow (as improves), Other (NPO for medication as well.) - Recommendations Diet Consistency: NPO Liquids: NPO
[2018-10-27] MEDS ORDERED: FUROSEMIDE 40 MG/4 ML INJECTABLE VIAL IVPUSH ONE ×2 (20:16→22:24)
[2018-10-27] MEDS: APIXABAN 5 MG TABLET PO SCH (20:59)
[2018-10-27] MEDS: ATORVASTATIN CA 10 MG TABLET (FP) PO SCH (21:00)
[2018-10-27] MEDS ORDERED: METOPROLOL TARTRATE 5 MG/5 ML VIAL IVPUSH PRN (21:03)
[2018-10-27] MEDS ORDERED: ALBUTEROL SO4 0.083% IH SOL 2.5 MG/3 ML VIAL.NEB. NEB ONE (22:06)
[2018-10-27] MEDS ORDERED: ALBUTEROL SO4 0.5 % INH SOLN 2.5 MG/0.5 ML VIAL.NEB. NEB ONE (22:10)
--- NOTE | 2018-10-27 22:18 | CONSULT ---
Consultation: REQUESTING PROVIDER: CONSULT REQUEST: We have been asked to medically evaluate this patient for ( specify). HISTORY OF PRESENT ILLNESS: Nursing staff requested bedside evaluation after patient became tachycardic (HR 140's) and tachypneic (RR high 20's). Afib w/RVR. Lopressor (5 mg) with improvement in HR, RR BIPAP and Albuterol pending PROFESSOR OF CHEMISTRY discussed case with patient's HCP - states patient is DNR/DNI, advanced directives state patient does not want "breathing machine" REVIEW OF SYSTEMS: CONSTITUTIONAL: Absent: fever, chills, diaphoresis, generalized weakness, malaise, loss of appetite, weight change HEENT: Absent: rhinorrhea, nasal congestion, throat pain, throat swelling, difficulty swallowing, mouth swelling, ear pain, eye pain, visual changes CARDIOVASCULAR: Absent: chest pain, syncope, palpitations, irregular heart rate, lightheadedness , peripheral edema RESPIRATORY: Absent: cough, shortness of breath, dyspnea with exertion, orthopnea, wheezing, stridor, hemoptysis GASTROINTESTINAL: Absent: abdominal pain, abdominal distension, nausea, vomiting, diarrhea, constipation, melena, hematochezia GENITOURINARY: Absent: dysuria, frequency, urgency, hesitancy, hematuria, flank pain, genital pain MUSCULOSKELETAL: Absent: myalgia, arthralgia, joint swelling, back pain, neck pain SKIN: Absent: rash, itching, pallor HEMATOLOGIC/IMMUNOLOGIC: Absent: easy bleeding, easy bruising, lymphadenopathy, frequent infections ENDOCRINE: Absent: unexplained weight gain, unexplained weight loss, heat intolerance, cold intolerance NEUROLOGIC: Absent: headache, focal weakness or paresthesias, dizziness, unsteady gait, seizure, mental status changes, bladder or bowel incontinence PSYCHIATRIC: Absent: anxiety, depression, suicidal or homicidal ideation, hallucinations. PHYSICAL EXAMINATION Vital Signs - 24 hr 10/26/18 10/26/18 10/27/18 22:30 23:00 00:00 Temperature Pulse Rate 62 68 Respiratory 14 14 17 Rate Blood Pressure 150/50 L 141/73 O2 Sat by Pulse 99 Oximetry (%) 10/27/18 10/27/18 10/27/18 00:07 02:00 04:00 Temperature Pulse Rate 64 70 Respiratory 15 16 Rate Blood Pressure 125/65 139/51 L O2 Sat by Pulse 95 Oximetry (%) 10/27/18 10/27/18 10/27/18 06:00 08:00 08:22 Temperature 97.6 F Pulse Rate 63 68 65 Respiratory 18 16 Rate Blood Pressure 120/60 137/42 L O2 Sat by Pulse 97 Oximetry (%) 10/27/18 10/27/18 10/27/18 09:00 10:00 12:00 Temperature 97.8 F Pulse Rate 64 67 Respiratory 17 21 H Rate Blood Pressure 137/56 L 141/57 L O2 Sat by Pulse 96 Oximetry (%) 10/27/18 10/27/18 10/27/18 14:00 15:00 16:00 Temperature 98.1 F Pulse Rate 75 80 Respiratory 21 H 23 H Rate Blood Pressure 158/53 L 169/58 L O2 Sat by Pulse 92 L Oximetry (%) 10/27/18 10/27/18 17:50 17:54 Temperature 97.8 F Pulse Rate 86 Respiratory 21 H Rate Blood Pressure 174/55 H O2 Sat by Pulse 98 Oximetry (%) GENERAL: Awake, alert, and fully oriented, in no acute distress. HEAD: Normal with no signs of trauma. EYES: Pupils equal, round and reactive to light, extraocular movements intact, sclera anicteric, conjunctiva clear. No lid lag. EARS, NOSE, THROAT: Ears normal, nares patent, oropharynx clear without exudates. Moist mucous membranes. NECK: Normal range of motion, supple without lymphadenopathy, JVD, or masses. LUNGS: Breath sounds equal, clear to auscultation bilaterally. No wheezes, and no crackles. No accessory muscle use. HEART: Regular rate and rhythm, normal S1 and S2 without murmur, rub or gallop. ABDOMEN: Soft, nontender, not distended, normoactive bowel sounds, no guarding, no rebound, no masses. No hepatomegaly or splenomegaly. MUSCULOSKELETAL: Normal range of motion at all joints. No bony deformities or tenderness. No CVA tenderness. UPPER EXTREMITIES: 2+ pulses, warm, well-perfused. No cyanosis. No clubbing. Cap refill <2 seconds. No peripheral edema. LOWER EXTREMITIES: 2+ pulses, warm, well-perfused. No calf tenderness. No peripheral edema. NEUROLOGICAL: Cranial nerves II-XII intact. Normal speech. Normal gait. PSYCHIATRIC: Cooperative. Good eye contact. Appropriate mood and affect. SKIN: Warm, dry, normal turgor, no rashes or lesions noted. Laboratory Results - last 24 hr 10/26/18 10/26/18 10/26/18 22:10 22:10 22:10 WBC 6.3 RBC 4.15 Hgb 11.8 Hct 36.8 MCV 88.7 MCH 28.5 MCHC 32.2 RDW 15.5 Plt Count 178 MPV 9.0 Absolute Neuts (auto) 4.2 Neutrophils % 66.2 Lymphocytes % 16.4 Monocytes % 11.1 H Eosinophils % 5.3 H Basophils % 1.0 Nucleated RBC % 0 PT with INR 21.10 H INR 1.78 H PTT (Actin FS) 35.1 Sodium 136 Potassium 4.5 Chloride 93 L Carbon Dioxide 40 H Anion Gap 3 L BUN 24.5 H Creatinine 1.0 Est GFR (CKD-EPI)AfAm 62.05 Est GFR (CKD-EPI)NonAf 53.54 POC Glucometer Random Glucose 147 H Calcium 8.2 L Total Bilirubin 0.4 AST 12 L ALT 7 L Alkaline Phosphatase 96 Creatine Kinase 26 Troponin I 0.02 Total Protein 5.9 L Albumin 2.5 L Triglycerides 58 Cholesterol 112 Total LDL Cholesterol 57 HDL Cholesterol 46 Urine Color Urine Appearance Urine pH Ur Specific [place] Urine Protein Urine Glucose (UA) Urine Ketones Urine Blood Urine Nitrite Urine Bilirubin Urine Urobilinogen Ur Leukocyte Esterase Urine WBC (Auto) Urine RBC (Auto) Urine Casts (Auto) U Epithel Cells (Auto) Urine Bacteria (Auto) Blood Type Antibody Screen 10/26/18 10/26/18 10/27/18 22:10 23:15 05:45 WBC 6.1 RBC 3.93 Hgb 11.3 Hct 34.7 MCV 88.3 MCH 28.8 MCHC 32.6 RDW 15.3 Plt Count 178 MPV 9.0 Absolute Neuts (auto) 4.1 Neutrophils % 67.8 Lymphocytes % 16.7 Monocytes % 9.8 Eosinophils % 5.1 H Basophils % 0.6 Nucleated RBC % 0 PT with INR INR PTT (Actin FS) Sodium Potassium Chloride Carbon Dioxide Anion Gap BUN Creatinine Est GFR (CKD-EPI)AfAm Est GFR (CKD-EPI)NonAf POC Glucometer Random Glucose Calcium Total Bilirubin AST ALT Alkaline Phosphatase Creatine Kinase Troponin I Total Protein Albumin Triglycerides Cholesterol Total LDL Cholesterol HDL Cholesterol Urine Color Yellow Urine Appearance Clear Urine pH 5.5 Ur Specific [place] 1.015 Urine Protein Negative Urine Glucose (UA) Negative Urine Ketones Negative Urine Blood Negative Urine Nitrite Negative Urine Bilirubin Negative Urine Urobilinogen 0.2 Ur Leukocyte Esterase Negative Urine WBC (Auto) 1.9 Urine RBC (Auto) 1.3 Urine Casts (Auto) 11.6 U Epithel Cells (Auto) 0.5 Urine Bacteria (Auto) 0.0 Blood Type A POSITIVE Antibody Screen Negative 10/27/18 10/27/18 05:45 11:59 WBC RBC Hgb Hct MCV MCH MCHC RDW Plt Count MPV Absolute Neuts (auto) Neutrophils % Lymphocytes % Monocytes % Eosinophils % Basophils % Nucleated RBC % PT with INR INR PTT (Actin FS) Sodium 137 Potassium 4.3 Chloride 94 L Carbon Dioxide 38 H Anion Gap 4 L BUN 22.7 H Creatinine 0.9 Est GFR (CKD-EPI)AfAm 70.48 Est GFR (CKD-EPI)NonAf 60.81 POC Glucometer 132 Random Glucose 134 H Calcium 8.2 L Total Bilirubin 0.6 AST 10 L ALT 7 L Alkaline Phosphatase 93 Creatine Kinase Troponin I Total Protein 5.8 L Albumin 2.5 L Triglycerides Cholesterol Total LDL Cholesterol HDL Cholesterol Urine Color Urine Appearance Urine pH Ur Specific [place] Urine Protein Urine Glucose (UA) Urine Ketones Urine Blood Urine Nitrite Urine Bilirubin Urine Urobilinogen Ur Leukocyte Esterase Urine WBC (Auto) Urine RBC (Auto) Urine Casts (Auto) U Epithel Cells (Auto) Urine Bacteria (Auto) Blood Type Antibody Screen Active Medications Generic Name Dose Route Start Last Admin Trade Name Freq PRN Reason Stop Dose Admin Acetaminophen 650 mg 10/15/18 16:41 10/20/18 04:17 Tylenol - PO 650 mg Q6H PRN Administration PAIN LEVEL 1-5 Albuterol Sulfate 1 amp 10/27/18 22:10 Ventolin 0.5% - NEB 10/27/18 22:11 ONCE ONE Apixaban 5 mg 10/15/18 22:00 10/27/18 20:59 Eliquis - PO Not Given BID [facility]NER Aspirin 81 mg 10/16/18 10:00 10/27/18 10:20 Ecotrin - PO Not Given DAILY [facility] Atorvastatin Calcium 10 mg 10/15/18 22:00 10/27/18 21:00 Lipitor - PO Not Given HS [facility] [place] Bacitracin 1 applic 10/16/18 14:15 10/27/18 10:30 Bacitracin - TP 1 applic DAILY [facility] Administration Furosemide 40 mg 10/28/18 10:00 Lasix Injection - IVPUSH DAILY [facility] Gabapentin 300 mg 10/16/18 10:00 10/27/18 10:21 Neurontin - PO Not Given DAILY [facility] Dextrose/Sodium Chloride 1,000 mls @ 75 mls/hr 10/27/18 10:45 10/27/18 12:20 D5-1/2ns - IV 75 mls/hr ASDIR [facility] Administration Insulin Aspart 1 vial 10/15/18 11:00 10/27/18 18:09 Novolog Vial Sliding Scale - SQ Not Given TIDAC [facility] [place] Protocol Isosorbide Mononitrate 30 mg 10/15/18 10:00 10/27/18 10:21 Imdur - PO Not Given DAILY [facility] Metoprolol Tartrate 50 mg 10/15/18 10:00 10/27/18 21:00 Lopressor - PO Not Given BID WILNER Metoprolol Tartrate 5 mg 10/27/18 21:03 Lopressor Injection - IVPUSH Q6H PRN TACHYCARDIA Nystatin/Triamcinolone Acetonide 1 applic 10/27/18 11:30 10/27/18 21:00 Mycolog Ii Ointment - TP 1 applic BID [facility] Administration Pantoprazole Sodium 20 mg 10/15/18 10:00 10/27/18 10:21 Protonix - PO Not Given DAILY [facility] [place] Polyethylene Glycol 17 gm 10/26/18 17:00 10/27/18 10:21 Miralax (For Daily Use) - PO Not Given DAILY [facility] [place] Sacubitril/Valsartan 1 tab 10/19/18 10:00 10/27/18 20:59 Entresto 24 Mg-26 Mg Tablet PO Not Given BID WILNER Spironolactone 25 mg 10/21/18 13:45 10/27/18 10:20 Aldactone - PO Not Given DAILY [facility] [place] ASSESSMENT/PLAN: Dispo: We will continue to follow the patient. Thank you for this consultative opportunity. Visit type - Emergency Visit Emergency Visit: No - New Patient This patient is new to me today: Yes Date on this admission: 10/28/18 - Critical Care Critical Care patient: Yes Total Critical Care Time (in minutes): 10 ATTENDING PHYSICIAN STATEMENT I saw and evaluated the patient. I reviewed the resident's note and discussed the case with the resident. I agree with the resident's findings and plan as documented. SUBJECTIVE: OBJECTIVE: ASSESSMENT AND PLAN:
--- NOTE | 2018-10-27 22:38 | PN ---
Progress Note (short form) - Note Progress Note: Episodic Note 10/27/2018@10:15 pm Called by nurse patient respiratory status has worsened, she is using accessory muscles and lips are cyanotic. On venti mask 40% oxygen saturation was 87-88% and oxygen saturation improved on 100% nonrebreather. Patient was seen and examined at bedside. She is awake and responsive. Heart rate 140's and SBP >200. She is in atrial fibrillation with RVR . She received one dosage of IV lopressor and heart rate has improved into the low 100's She has wheezing present and she is using accessory muscles. STAT ABG done and patient was placed on BIPAP. She received a respiratory treatment and a dose of IV lasix 40 mg earlier today, she is incontinent and urine output not charted.She was receiving iV fluids which were discontinued. Spoke with daughter on the phone and patient is a DNR/DNI. Assessment/Plan Acute Pulmonary Edema/Acute on Chronic Systolic Congestive Heart Failure Atrial Fibrillation with RVR Uncontrolled Hypertension --Insert joyner and monitor strict I&O's --Give additional dosage of IV lasix 60 mg once joyner inserted --Give IV lopressor 5mg if heart rates remain elevated and blood pressure tolerates --PATIENT IS DNR/DNI STATUS Visit type - Emergency Visit Emergency Visit: No - New Patient This patient is new to me today: Yes Date on this admission: 10/27/18 - Critical Care Critical Care patient: Yes Total Critical Care Time (in minutes): 25
[2018-10-27 22:40] LABS: ARTERIAL BLD GAS O2 SATURATION 96.6 % (95-98); ARTERIAL BLOOD GAS BASE EXCESS 6.8 meq/l (-2-2); ARTERIAL BLOOD GAS PCO2 65.5 mmHg (35-45); ARTERIAL BLOOD GAS PO2 91.1 mmHg (80-105); ARTERIAL BLOOD GAS pH 7.34 (7.35-7.45)
[2018-10-27 22:43] LABS: ALLENS TEST POSITIVE
[2018-10-27 22:50] LABS: HEMATOCRIT 41.7 % (32.4-45.2); HEMOGLOBIN 13.4 GM/dL (10.7-15.3); MCH 28.8 pg (25.7-33.7); MCHC 32.2 g/dl (32.0-36.0); MEAN CELL VOLUME 89.4 fl (80-96); MEAN PLT VOLUME 9.1 fl (7.5-11.1); PLATELET COUNT 222 K/MM3 (134-434); RBC 4.67 M/mm3 (3.60-5.2); RDW 15.7 % (11.6-15.6); WHITE BLOOD COUNT 8.7 K/mm3 (4.0-10.0)
[2018-10-27 23:05] LABS: INR 1.42 (0.83-1.09); PROTHROMBIN TIME (PATIENT) 16.8 SEC (9.7-13.0)
[2018-10-27 23:08] LABS: ACTIVATED PTT 37.6 SECONDS (25.2-36.5)
[2018-10-27 23:09] LABS: BILIRUBIN,TOTAL 0.8 mg/dL (0.2-1); CALCIUM 9.1 mg/dL (8.5-10.1); POTASSIUM 4.5 mmol/L (3.5-5.1); TOT PROT 7.2 g/dl (6.4-8.2)
[2018-10-28] MEDS ORDERED: PANTOPRAZOLE SODIUM 40 MG VIAL IVPUSH ONE (02:04)
[2018-10-28] MEDS: INSULIN SLIDING SCALE (NOVOLOG) 1 VIAL SQ SCH ×3 (06:05→16:35)
[2018-10-28 06:44] LABS: BASO % 0.4 % (0-2.0); EOS % 0.1 % (0-4.5); HEMATOCRIT 38.2 % (32.4-45.2); HEMOGLOBIN 12.4 GM/dL (10.7-15.3); LYMPH % 6.9 % (8-40); MCH 28.9 pg (25.7-33.7); MCHC 32.5 g/dl (32.0-36.0); MEAN CELL VOLUME 88.9 fl (80-96); MEAN PLT VOLUME 9.3 fl (7.5-11.1); MONO % 6.6 % (3.8-10.2); PLATELET COUNT 188 K/MM3 (134-434); RBC 4.29 M/mm3 (3.60-5.2); RDW 15.4 % (11.6-15.6)
--- NOTE | 2018-10-28 08:35 | PN ---
Progress Note (short form) - Note Progress Note: Neurology - Admission Chief Complaint: SOB, RLE Swelling History of Present Illness: 78 y/o woman with significant medical history of Afib, CAD, CHF, HTN, IDDM, s/p L AKA, PVD presented to the ED with shortness of breath slowly worsening over the past week. Patient also endorsed increased swelling in her right leg since as well. At time of admission denied fevers, chills, nausea, vomiting. Denies chest pain and abdominal pain. Endorses compliance with medications. I was consulted as patient with LUE weakness overnight and placed in ICU where she is getting critical care monitoring. CT head completed showed no acute changes but there was evidence of R frontal chronic infarct. During my visit, she was awake but with slurred speech, dysarthria, limited movement on motor testing. Discussed with PCP, Dr. Salazar, these are reportedly new findings. Eliquis on hold, concern for thromboembolic CVA and thus bleed risk with AC. Brain MRI ordered, reportedly was not able to tolerate, therefore we'll order a repeat noncontrast head CT to reevaluate for new infarct. Neurologically no significant improvement and remains with left-sided deficits. Can restart anticoagulation. Allergies Allergy/AdvReac Type Severity Reaction Status Date / Time Anesthetics - Amide Type AdvReac Vomiting Verified 08/13/17 10:30 Active Medications Acetaminophen (Tylenol -) 650 mg PO Q6H PRN PRN Reason: PAIN LEVEL 1-5 Last Admin: 10/20/18 04:17 Dose: 650 mg Apixaban (Eliquis -) 5 mg PO BID [facility] Last Admin: 10/27/18 20:59 Dose: Not Given Aspirin (Ecotrin -) 81 mg PO DAILY [facility] Last Admin: 10/27/18 10:20 Dose: Not Given Atorvastatin Calcium (Lipitor -) 10 mg PO HS [facility] Last Admin: 10/27/18 21:00 Dose: Not Given Bacitracin (Bacitracin -) 1 applic TP DAILY [facility] Last Admin: 10/27/18 10:30 Dose: 1 applic Furosemide (Lasix Injection -) 40 mg IVPUSH DAILY [facility] Gabapentin (Neurontin -) 300 mg PO DAILY [facility] Last Admin: 10/27/18 10:21 Dose: Not Given Dextrose/Sodium Chloride (D5-1/2ns -) 1,000 mls @ 75 mls/hr IV ASDIR [facility] Last Admin: 10/27/18 12:20 Dose: 75 mls/hr Insulin Aspart (Novolog Vial Sliding Scale -) 1 vial SQ TIDAC [facility]; Protocol Last Admin: 10/28/18 06:05 Dose: Not Given Isosorbide Mononitrate (Imdur -) 30 mg PO DAILY [facility] Last Admin: 10/27/18 10:21 Dose: Not Given Metoprolol Tartrate (Lopressor -) 50 mg PO BID [facility] Last Admin: 10/27/18 21:00 Dose: Not Given Metoprolol Tartrate (Lopressor Injection -) 5 mg IVPUSH Q6H PRN PRN Reason: TACHYCARDIA Last Admin: 10/27/18 22:05 Dose: 5 mg Nystatin/Triamcinolone Acetonide (Mycolog Ii Ointment -) 1 applic TP BID [facility] Last Admin: 10/27/18 21:00 Dose: 1 applic Pantoprazole Sodium (Protonix Iv) 40 mg IVPUSH DAILY [facility] Polyethylene Glycol (Miralax (For Daily Use) -) 17 gm PO DAILY [facility] Last Admin: 10/27/18 10:21 Dose: Not Given Sacubitril/Valsartan (Entresto 24 Mg-26 Mg Tablet) 1 tab PO BID [facility] Last Admin: 10/27/18 20:59 Dose: Not Given Spironolactone (Aldactone -) 25 mg PO DAILY [facility] Last Admin: 10/27/18 10:20 Dose: Not Given Physical Examination Vital Signs Temperature 98 F 10/28/18 04:00 Pulse Rate 74 10/28/18 06:00 Respiratory Rate 15 10/28/18 06:00 Blood Pressure 156/52 L 10/28/18 06:00 O2 Sat by Pulse Oximetry (%) 96 10/28/18 06:51 Constitutional: Yes: Well Nourished, No Distress, Calm, Obese Eyes: Yes: WNL, Conjunctiva Clear, EOM Intact, PERRL HENT: Yes: WNL, Atraumatic, Normocephalic Neck: Yes: WNL, Supple, Trachea Midline Cardiovascular: Yes: Pulse Irregular, S1, S2 Respiratory: Yes: Diminished, On Nasal O2, Rales, SOB on Exertion Gastrointestinal: Yes: Normal Bowel Sounds, Soft, Abdomen, Obese Renal/: Yes: WNL Breast(s): Yes: Right (mastectomy) Extremities: Yes: Amputation (L-Aka) Edema: Yes Edema: RLE: 3+ Peripheral Pulses WNL: Yes Integumentary: Yes: Other (non pressure ulcers to R- toes) Wound/Incision: Yes: Reddened Neurological: Slurred speech, dyarthric, JEFF, EOMI, sensory intact, BKA, no effort on strength testing CBCD WBC 8.0 K/mm3 (4.0-10.0) 10/28/18 05:50 RBC 4.29 M/mm3 (3.60-5.2) 10/28/18 05:50 Hgb 12.4 GM/dL (10.7-15.3) 10/28/18 05:50 Hct 38.2 % (32.4-45.2) 10/28/18 05:50 MCV 88.9 fl (80-96) 10/28/18 05:50 MCHC 32.5 g/dl (32.0-36.0) 10/28/18 05:50 RDW 15.4 % (11.6-15.6) 10/28/18 05:50 Plt Count 188 K/MM3 (134-434) 10/28/18 05:50 MPV 9.3 fl (7.5-11.1) 10/28/18 05:50 CMP Sodium 135 mmol/L (136-145) L 10/27/18 22:20 Potassium 4.5 mmol/L (3.5-5.1) 10/27/18 22:20 Chloride 91 mmol/L (98-107) L 10/27/18 22:20 Carbon Dioxide 36 mmol/L (21-32) H 10/27/18 22:20 Anion Gap 8 MMOL/L (8-16) 10/27/18 22:20 BUN 20.0 mg/dL (7-18) H 10/27/18 22:20 Creatinine 1.0 mg/dL (0.55-1.3) 10/27/18 22:20 Random Glucose 235 mg/dL (74-106) H 10/27/18 22:20 Calcium 9.1 mg/dL (8.5-10.1) 10/27/18 22:20 Total Bilirubin 0.8 mg/dL (0.2-1) 10/27/18 22:20 AST 12 U/L (15-37) L 10/27/18 22:20 ALT 9 U/L (13-61) L 10/27/18 22:20 Alkaline Phosphatase 118 U/L (45-117) H 10/27/18 22:20 Total Protein 7.2 g/dl (6.4-8.2) 10/27/18 22:20 Albumin 3.0 g/dl (3.4-5.0) L 10/27/18 22:20 CARDIAC ENZYMES Creatine Kinase 26 U/L (26-192) 10/26/18 22:10 Troponin I 0.02 ng/ml (0.00-0.05) 10/26/18 22:10 Plan: 78 y/o woman with significant medical history of Afib, CAD, CHF, HTN, IDDM, s/p L AKA, PVD presented to the ED with shortness of breath slowly worsening over the past week. Patient also endorsed increased swelling in her right leg since as well. At time of admission denied fevers, chills, nausea, vomiting. Denies chest pain and abdominal pain. Endorses compliance with medications. I was consulted as patient with LUE weakness overnight and placed in ICU where she is getting critical care monitoring. CT head completed showed no acute changes but there was evidence of R frontal chronic infarct. During my visit, she was awake but with slurred speech, dysarthria, limited movement on motor testing. Discussed with PCP, Dr. Salazar, these are reportedly new findings. Eliquis on hold, concern for thromboembolic CVA and thus bleed risk with AC. Brain MRI ordered, reportedly was not able to tolerate, therefore we'll order a repeat noncontrast head CT to reevaluate for new infarct. Neurologically no significant improvement and remains with left-sided deficits. Can restart anticoagulation. Monitor bp, goal < 160/100, Carotid doppler, echo. Continue optimization of CHF and respiratory status, pulmonary following. Speech, swallow eval noted and appreciated. Cardiology follow up, monitor glucose, maintain euglycemic range. PT/OT as tolerated
[2018-10-28] MEDS ORDERED: METOPROLOL TARTRATE 5 MG/5 ML VIAL IVPUSH SCH (09:30)
[2018-10-28] MEDS: METOPROLOL TARTRATE 5 MG/5 ML VIAL IVPUSH SCH ×4 (09:35→21:24)
[2018-10-28] MEDS ORDERED: ENALAPRILAT DIHYDRATE 2.5 MG/2 ML VIAL IVPB ONE (09:37)
[2018-10-28] MEDS: FUROSEMIDE 40 MG/4 ML INJECTABLE VIAL IVPUSH SCH (09:44)
[2018-10-28] MEDS: ENALAPRILAT DIHYDRATE 1.25 MG/1 ML VIAL IVPB SCH ×3 (09:45→20:34)
[2018-10-28] MEDS: SPIRONOLACTONE 25 MG TABLET (FP) PO SCH (09:52)
[2018-10-28] MEDS: SACUBITRIL/VALSARTAN 24 MG-26 MG TABLET PO SCH ×2 (09:53→21:14)
[2018-10-28] MEDS: ISOSORBIDE MONONITRATE 30 MG TAB.SR.24H (FP) PO SCH (09:53)
[2018-10-28] MEDS: ASPIRIN COATED 81 MG TABLET.EC PO SCH (09:53)
[2018-10-28] MEDS: METOPROLOL TARTRATE 50 MG TABLET (FP) PO SCH ×2 (09:53→21:14)
[2018-10-28] MEDS: APIXABAN 5 MG TABLET PO SCH (09:53)
[2018-10-28] MEDS: POLYETHYLENE GLYCOL 3350 119 GM BTL PO SCH (09:53)
[2018-10-28] MEDS: NYSTATIN/TRIAMCINOLONE TOPICAL OINTMENT 15 GM TUBE TP SCH ×2 (09:54→21:26)
[2018-10-28] MEDS: GABAPENTIN 300 MG CAPSULE (FP) PO SCH (09:54)
[2018-10-28] MEDS: BACITRACIN 15 GM TUBE TOPICAL OINTMENT TP SCH (10:13)
--- NOTE | 2018-10-28 10:22 | PN ---
Progress Note (short form) - Note Progress Note: Events noted in ICU - for acute CVA Speech is slurred Unable to move left side of body NPO Vital Signs - 24 hr 10/27/18 10/27/18 10/27/18 14:00 15:00 16:00 Temperature 98.1 F Pulse Rate 75 80 Respiratory 21 H 23 H Rate Blood Pressure 158/53 L 169/58 L O2 Sat by Pulse 92 L Oximetry (%) 10/27/18 10/27/18 10/27/18 17:50 17:54 20:00 Temperature 97.8 F Pulse Rate 86 91 H Respiratory 21 H 26 H Rate Blood Pressure 174/55 H 173/70 H O2 Sat by Pulse 98 92 L Oximetry (%) 10/27/18 10/27/18 10/27/18 21:00 21:30 21:45 Temperature Pulse Rate Respiratory 14 Rate Blood Pressure O2 Sat by Pulse 95 87 L 90 L Oximetry (%) 10/27/18 10/27/18 10/27/18 22:00 22:05 22:38 Temperature 98.1 F Pulse Rate 126 H 152 H Respiratory 14 Rate Blood Pressure 206/104 H 206/104 H O2 Sat by Pulse 95 94 L Oximetry (%) 10/27/18 10/28/18 10/28/18 22:45 00:00 01:04 Temperature Pulse Rate 108 H 89 Respiratory 23 H 15 Rate Blood Pressure 166/123 H 143/44 L O2 Sat by Pulse 97 94 L Oximetry (%) 10/28/18 10/28/18 10/28/18 02:00 04:00 04:10 Temperature 97.8 F 98 F Pulse Rate 84 74 Respiratory 14 18 Rate Blood Pressure 131/56 L 155/61 O2 Sat by Pulse 98 98 98 Oximetry (%) 10/28/18 10/28/18 10/28/18 04:30 05:00 06:00 Temperature Pulse Rate 74 Respiratory 15 Rate Blood Pressure 156/52 L O2 Sat by Pulse 92 L 98 Oximetry (%) 10/28/18 10/28/18 10/28/18 06:51 08:00 09:00 Temperature 98.1 F Pulse Rate 81 86 Respiratory 18 18 Rate Blood Pressure 156/117 H 170/66 O2 Sat by Pulse 96 96 Oximetry (%) 10/28/18 10/28/18 10/28/18 09:32 09:35 10:00 Temperature Pulse Rate 71 86 85 Respiratory 18 Rate Blood Pressure 170/66 159/56 L O2 Sat by Pulse 96 Oximetry (%) 10/28/18 12:19 Temperature Pulse Rate Respiratory Rate Blood Pressure O2 Sat by Pulse 97 Oximetry (%) Current Medications Generic Name Dose Route Start Last Admin Trade Name Freq PRN Reason Stop Dose Admin Acetaminophen 650 mg 10/15/18 16:41 10/20/18 04:17 Tylenol - PO 650 mg Q6H PRN Administration PAIN LEVEL 1-5 Apixaban 5 mg 10/15/18 22:00 10/28/18 09:53 Eliquis - PO Not Given BID [facility] Aspirin 81 mg 10/16/18 10:00 10/28/18 09:53 Ecotrin - PO Not Given DAILY [facility] Atorvastatin Calcium 10 mg 10/15/18 22:00 10/27/18 21:00 Lipitor - PO Not Given HS [facility] Bacitracin 1 applic 10/16/18 14:15 10/28/18 10:13 Bacitracin - TP 1 applic DAILY [facility] Administration Enalaprilat 1.25 mg 10/28/18 09:45 10/28/18 09:45 Vasotec Injection - IVPB 1.25 mg Q6H-IV [facility] Administration Furosemide 40 mg 10/28/18 10:00 10/28/18 09:44 Lasix Injection - IVPUSH 40 mg DAILY [facility] Administration Gabapentin 300 mg 10/16/18 10:00 10/28/18 09:54 Neurontin - PO Not Given DAILY [facility] Amino Acids 1,000 mls @ 42 mls/hr 10/28/18 12:30 Clinimix - IV Q12H [facility] Insulin Aspart 1 vial 10/15/18 11:00 10/28/18 06:05 Novolog Vial Sliding Scale - SQ Not Given TIDAC [facility] Protocol Isosorbide Mononitrate 30 mg 10/15/18 10:00 10/28/18 09:53 Imdur - PO Not Given DAILY [facility] Metoprolol Tartrate 50 mg 10/15/18 10:00 10/28/18 09:53 Lopressor - PO Not Given BID [facility] Metoprolol Tartrate 5 mg 10/28/18 10:00 10/28/18 09:35 Lopressor Injection - IVPUSH 5 mg Q4H [facility] Administration Nystatin/Triamcinolone Acetonide 1 applic 10/27/18 11:30 10/28/18 09:54 Mycolog Ii Ointment - TP 1 applic BID [facility] Administration Pantoprazole Sodium 40 mg 10/29/18 10:00 Protonix Iv IVPUSH DAILY [facility] Polyethylene Glycol 17 gm 10/26/18 17:00 10/28/18 09:53 Miralax (For Daily Use) - PO Not Given DAILY [facility] Sacubitril/Valsartan 1 tab 10/19/18 10:00 10/28/18 09:53 Entresto 24 Mg-26 Mg Tablet PO Not Given BID [facility] Spironolactone 25 mg 10/21/18 13:45 10/28/18 09:52 Aldactone - PO Not Given DAILY [facility] Laboratory Results - last 24 hr 10/27/18 10/27/18 10/27/18 18:06 22:20 22:20 WBC RBC Hgb Hct MCV MCH MCHC RDW Plt Count MPV Absolute Neuts (auto) Neutrophils % Lymphocytes % Monocytes % Eosinophils % Basophils % Nucleated RBC % PT with INR 16.80 H INR 1.42 H PTT (Actin FS) 37.6 H Anticoagulation Therapy No Result Required. Puncture Site Left radial ABG pH 7.34 L ABG pCO2 at Pt Temp 65.5 H ABG pO2 at Pt Temp 91.1 ABG HCO3 34.5 H ABG O2 Sat (Measured) 96.6 ABG O2 Content 18.5 ABG Base Excess 6.8 H Len Test Positive O2 Delivery Device Bipap Oxygen Flow Rate 50 Vent Mode No Result Required. Vent Rate 16 Mechanical Rate No Result Required. Pressure Support Vent 12/6 Sodium Potassium Chloride Carbon Dioxide Anion Gap BUN Creatinine Est GFR (CKD-EPI)AfAm Est GFR (CKD-EPI)NonAf POC Glucometer 169 Random Glucose Lactic Acid Calcium Total Bilirubin AST ALT Alkaline Phosphatase Total Protein Albumin Stool Occult Blood 10/27/18 10/27/18 10/27/18 22:20 22:20 22:20 WBC 8.7 RBC 4.67 Hgb 13.4 Hct 41.7 D MCV 89.4 MCH 28.8 MCHC 32.2 RDW 15.7 H Plt Count 222 D MPV 9.1 Absolute Neuts (auto) Neutrophils % Lymphocytes % Monocytes % Eosinophils % Basophils % Nucleated RBC % PT with INR INR PTT (Actin FS) Anticoagulation Therapy Puncture Site ABG pH ABG pCO2 at Pt Temp ABG pO2 at Pt Temp ABG HCO3 ABG O2 Sat (Measured) ABG O2 Content ABG Base Excess Len Test O2 Delivery Device Oxygen Flow Rate Vent Mode Vent Rate Mechanical Rate Pressure Support Vent Sodium 135 L Potassium 4.5 Chloride 91 L Carbon Dioxide 36 H Anion Gap 8 BUN 20.0 H Creatinine 1.0 Est GFR (CKD-EPI)AfAm 62.05 Est GFR (CKD-EPI)NonAf 53.54 POC Glucometer Random Glucose 235 H Lactic Acid 2.5 H* Calcium 9.1 Total Bilirubin 0.8 AST 12 L ALT 9 L Alkaline Phosphatase 118 H Total Protein 7.2 Albumin 3.0 L Stool Occult Blood 10/27/18 10/28/18 10/28/18 22:20 05:50 07:41 WBC 8.0 RBC 4.29 Hgb 12.4 Hct 38.2 MCV 88.9 MCH 28.9 MCHC 32.5 RDW 15.4 Plt Count 188 MPV 9.3 Absolute Neuts (auto) 6.9 Neutrophils % 86.0 H D Lymphocytes % 6.9 L D Monocytes % 6.6 Eosinophils % 0.1 D Basophils % 0.4 Nucleated RBC % 0 PT with INR INR PTT (Actin FS) Anticoagulation Therapy Puncture Site ABG pH ABG pCO2 at Pt Temp ABG pO2 at Pt Temp ABG HCO3 ABG O2 Sat (Measured) ABG O2 Content ABG Base Excess Len Test O2 Delivery Device Oxygen Flow Rate Vent Mode Vent Rate Mechanical Rate Pressure Support Vent Sodium Potassium Chloride Carbon Dioxide Anion Gap BUN Creatinine Est GFR (CKD-EPI)AfAm Est GFR (CKD-EPI)NonAf POC Glucometer 163 Random Glucose Lactic Acid Calcium Total Bilirubin AST ALT Alkaline Phosphatase Total Protein Albumin Stool Occult Blood Positive Physical exam. Constitutional: Yes: No Distress, Obese. comfortable Eyes: Yes: Conjunctiva Clear Neck: Yes: Supple. 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 , speech slurred left arm-- unable to lift arm Assessment/Plan iv lasix on Eliquis and ASA unable to get TPA as pt is on chronic AC repeat CT head pending could not tolerate MRI Neurology eval noted swallow eval noted-- remains NPO dc iv fluids and start IV clinimix continue with meds Problem List - Problems (1) CHF exacerbation Code(s): I50.9 - HEART FAILURE, UNSPECIFIED (2) Pleural effusion due to CHF (congestive heart failure) Code(s): I50.9 - HEART FAILURE, UNSPECIFIED (3) Acute on chronic systolic and diastolic heart failure, NYHA class 1 Code(s): I50.43 - ACUTE ON CHRONIC COMBINED SYSTOLIC AND DIASTOLIC HRT FAIL (4) Afib Code(s): I48.91 - UNSPECIFIED ATRIAL FIBRILLATION (5) CHF (congestive heart failure) Code(s): I50.9 - HEART FAILURE, UNSPECIFIED Qualifiers: Heart failure type: unspecified Heart failure chronicity: unspecified Qualified Code(s): I50.9 - Heart failure, unspecified (6) CVA (cerebral vascular accident) Code(s): I63.9 - CEREBRAL INFARCTION, UNSPECIFIED
[2018-10-28] MEDS: DEXTROSE 5%-0.45% SALINE 1,000 ML IV SCH (11:00)
[2018-10-28] MEDS: AMINO ACIDS 4.25%/D5W 1,000 ML IV SCH (13:28)
--- NOTE | 2018-10-28 13:28 | PN ---
Progress Note, [employer] - Note Progress Note: Selected Entries 10/27/18 10/27/18 10/27/18 06:00 10:00 14:00 Supper Temperature 97.6 F 97.8 F 98.1 F 10/27/18 10/27/18 10/27/18 17:50 18:44 21:00 Supper NPO NPO Temperature 97.8 F 10/27/18 10/28/18 10/28/18 22:00 02:00 04:00 Supper Temperature 98.1 F 97.8 F 98 F 10/28/18 09:00 Supper Temperature 98.1 F Laboratory Tests 10/28/18 05:50 WBC 8.[address] unremarkable. Pending MRI. Pt verbal, Dysarthria, slightly better. On VM. Swallow reassessed. Initially very labored swallow initiation, but improved with each swallow trigger. Overtly tolerated 1/3 tsp applesauce. Liquids not yet assessed. Suggest- Mouth care Trial of Magic cup. 1/3 tsp at at time. Tell pt to put chin down and swallow hard. Allow 2-3 swallows before next trial. Monitor tolerance. Suction/NPO if indicated MBS when stable.
[2018-10-28] MEDS ORDERED: FUROSEMIDE 40 MG/4 ML INJECTABLE VIAL IVPUSH ONE (14:36)
--- NOTE | 2018-10-28 14:36 | PN ---
Progress Note (short form) - Note Progress Note: PULMONARY Now on BiPAP. Unable to perform MRI. Vital Signs Period Temp Pulse Resp BP Sys/Calderon Pulse Ox Last 24 Hr 97.8 F-98.1 F 71-152 14-26 131-206/44-123 87-98 Gen: dysarthric Heart: irregular Lung: scattered rhonchi Abd:soft, nontender Ext: + edema, L AKA CBC, BMP 10/28/18 05:50 10/27/18 22:20 Active Medications Acetaminophen (Tylenol -) 650 mg PO Q6H PRN PRN Reason: PAIN LEVEL 1-5 Last Admin: 10/20/18 04:17 Dose: 650 mg Apixaban (Eliquis -) 5 mg PO BID [facility] Last Admin: 10/28/18 09:53 Dose: Not Given Aspirin (Ecotrin -) 81 mg PO DAILY [facility] Last Admin: 10/28/18 09:53 Dose: Not Given Atorvastatin Calcium (Lipitor -) 10 mg PO HS [facility] Last Admin: 10/27/18 21:00 Dose: Not Given Bacitracin (Bacitracin -) 1 applic TP DAILY [facility] Last Admin: 10/28/18 10:13 Dose: 1 applic Enalaprilat (Vasotec Injection -) 1.25 mg IVPB Q6H-IV [facility] Last Admin: 10/28/18 09:45 Dose: 1.25 mg Furosemide (Lasix Injection -) 40 mg IVPUSH DAILY [facility] Last Admin: 10/28/18 09:44 Dose: 40 mg Gabapentin (Neurontin -) 300 mg PO DAILY [facility] Last Admin: 10/28/18 09:54 Dose: Not Given Amino Acids (Clinimix -) 1,000 mls @ 42 mls/hr IV Q12H [facility] Last Admin: 10/28/18 13:28 Dose: 42 mls/hr Insulin Aspart (Novolog Vial Sliding Scale -) 1 vial SQ TIDAC [facility]; Protocol Last Admin: 10/28/18 12:36 Dose: Not Given Isosorbide Mononitrate (Imdur -) 30 mg PO DAILY [facility] Last Admin: 10/28/18 09:53 Dose: Not Given Metoprolol Tartrate (Lopressor -) 50 mg PO BID [facility] Last Admin: 10/28/18 09:53 Dose: Not Given Metoprolol Tartrate (Lopressor Injection -) 5 mg IVPUSH Q4H [facility] Last Admin: 10/28/18 14:22 Dose: 5 mg Nystatin/Triamcinolone Acetonide (Mycolog Ii Ointment -) 1 applic TP BID [facility] Last Admin: 10/28/18 09:54 Dose: 1 applic Pantoprazole Sodium (Protonix Iv) 40 mg IVPUSH DAILY [facility] Polyethylene Glycol (Miralax (For Daily Use) -) 17 gm PO DAILY [facility] Last Admin: 10/28/18 09:53 Dose: Not Given Sacubitril/Valsartan (Entresto 24 Mg-26 Mg Tablet) 1 tab PO BID [facility] Last Admin: 10/28/18 09:53 Dose: Not Given Spironolactone (Aldactone -) 25 mg PO DAILY [facility] Last Admin: 10/28/18 09:52 Dose: Not Given A/P r/o Acute CVA Acute on Chronic Systolic Heart Failure Atrial Fibrillation CAD HTN DM PAD h/o L AKA - neuro checks - continue lasix, aldactone - will give additional dose of lasix today - entresto - rate conrol - continue anticoagulation - aspiration precautions - swallow eval, rehab/PT
--- NOTE | 2018-10-28 19:37 | PN ---
Progress Note, Physician Chief Complaint: Pt alert, great trouble moving left arm even slightly; mildly slurred speech Able to move right leg easily, but says ability to move stump of left leg is difficult. She does not like to use the CPAP mask. History of Present Illness: 10/14/18 23:45 The patient is a 78 year old white female, with a significant PMH of CAD, severe systolic CHF, IDDM, s/p L AKA, multiple vascular issues, including left BKA, , hypertension, vascular insufficiency, CAD s/p CABG , breast cancer (s/p mastectomy), who presents to the emergency department with 1 week of progressively worsening shortness of breath. The patient also endorses increased right leg swelling, toes ulcerated. The patient denies chest pain, headache and dizziness. Denies fever, chills, nausea, vomiting, diarrhea and constipation. Denies dysuria, frequency, urgency and hematuria. Denies any other symptoms. Allergies: NKA Past surgical history: Mastectomy, Cholecystectomy, OPEN HEART SX (CABG) 2011: 3 BLOCKAGES Social history: Former smoker, quit 2002. PCP: Dr. Sandrita Salazar Vascular Surgeon: Dr. Angelica White - Current Medication List Current Medications: Active Medications Acetaminophen (Tylenol -) 650 mg PO Q6H PRN PRN Reason: PAIN LEVEL 1-5 Last Admin: 10/20/18 04:17 Dose: 650 mg Aspirin (Ecotrin -) 81 mg PO DAILY [facility] Last Admin: 10/28/18 09:53 Dose: Not Given Atorvastatin Calcium (Lipitor -) 10 mg PO HS [facility] Last Admin: 10/27/18 21:00 Dose: Not Given Bacitracin (Bacitracin -) 1 applic TP DAILY [facility] Last Admin: 10/28/18 10:13 Dose: 1 applic Enalaprilat (Vasotec Injection -) 1.25 mg IVPB Q6H-IV [facility] Last Admin: 10/28/18 15:17 Dose: 1.25 mg Enoxaparin Sodium (Lovenox -) 90 mg SQ BID [facility] Furosemide (Lasix Injection -) 40 mg IVPUSH DAILY [facility] Last Admin: 10/28/18 09:44 Dose: 40 mg Gabapentin (Neurontin -) 300 mg PO DAILY [facility] Last Admin: 10/28/18 09:54 Dose: Not Given Amino Acids (Clinimix -) 1,000 mls @ 42 mls/hr IV Q12H [facility] Last Admin: 10/28/18 13:28 Dose: 42 mls/hr Insulin Aspart (Novolog Vial Sliding Scale -) 1 vial SQ TIDAC [facility]; Protocol Last Admin: 10/28/18 16:35 Dose: 4 units Isosorbide Mononitrate (Imdur -) 30 mg PO DAILY [facility] Last Admin: 10/28/18 09:53 Dose: Not Given Metoprolol Tartrate (Lopressor -) 50 mg PO BID [facility] Last Admin: 10/28/18 09:53 Dose: Not Given Metoprolol Tartrate (Lopressor Injection -) 5 mg IVPUSH Q4H [facility] Last Admin: 10/28/18 17:59 Dose: 5 mg Nystatin/Triamcinolone Acetonide (Mycolog Ii Ointment -) 1 applic TP BID [facility] Last Admin: 10/28/18 09:54 Dose: 1 applic Pantoprazole Sodium (Protonix Iv) 40 mg IVPUSH DAILY [facility] Polyethylene Glycol (Miralax (For Daily Use) -) 17 gm PO DAILY [facility] Last Admin: 10/28/18 09:53 Dose: Not Given Sacubitril/Valsartan (Entresto 24 Mg-26 Mg Tablet) 1 tab PO BID [facility] Last Admin: 10/28/18 09:53 Dose: Not Given Spironolactone (Aldactone -) 25 mg PO DAILY [facility] Last Admin: 10/28/18 09:52 Dose: Not Given - Objective Vital Signs: Vital Signs Temperature 98.5 F 10/28/18 18:00 Pulse Rate 99 H 10/28/18 18:00 Respiratory Rate 16 10/28/18 16:00 Blood Pressure 138/61 10/28/18 18:00 O2 Sat by Pulse Oximetry (%) 93 L 10/28/18 15:27 Constitutional: Yes: Anxious Eyes: Yes: WNL HENT: Yes: WNL Neck: Yes: WNL Cardiovascular: Yes: Pulse Irregular, S1 (varies in intensity), S2 Respiratory: Yes: Diminished Gastrointestinal: Yes: Soft ...Rectal Exam: Yes: Deferred Genitourinary: No: Anuria Labs: CBC, BMP 10/28/18 05:50 10/27/18 22:20 INR, PTT INR 1.42 (0.83-1.09) H 10/27/18 22:20 Problem List - Problems (1) Acute on chronic systolic and diastolic heart failure, NYHA class 1 Assessment/Plan: Now on Entresto, as well as metoprolol; furosemide, spironolactone f/u BUN/Cr and electrolytes, Is and Os, daily weight. Code(s): I50.43 - ACUTE ON CHRONIC COMBINED SYSTOLIC AND DIASTOLIC HRT FAIL (2) Afib Code(s): I48.91 - UNSPECIFIED ATRIAL FIBRILLATION (3) Hyperlipidemia Code(s): E78.5 - HYPERLIPIDEMIA, UNSPECIFIED (4) Hypertension Code(s): I10 - ESSENTIAL (PRIMARY) HYPERTENSION Qualifiers: Hypertension type: essential hypertension Qualified Code(s): I10 - Essential (primary) hypertension (5) Ischemia of both lower extremities Code(s): I99.8 - OTHER DISORDER OF CIRCULATORY SYSTEM (6) Obesity Code(s): E66.9 - OBESITY, UNSPECIFIED (7) S/P CABG (coronary artery bypass graft) Code(s): Z95.1 - PRESENCE OF AORTOCORONARY BYPASS GRAFT (9) Diabetes mellitus Code(s): E11.9 - TYPE 2 DIABETES MELLITUS WITHOUT COMPLICATIONS (10) CVA (cerebral vascular accident) Assessment/Plan: Pt's intial CT head showed no acute pathology. Pt did not tolerate MRI yesterday; for repeat CT head today. Addendum: CT head today was unchanged (no acute pathology). Discussed with Dr. Guaman: pt can restart anticoagulation (AF). Presently NPO; will start Lovenox 1 mg/kg BW; discontinue Lovenox when able to restart apixaban 5 mg bid. Etiology of neurologic changes still uncertain. Code(s): I63.9 - CEREBRAL INFARCTION, UNSPECIFIED
[2018-10-28] MEDS ORDERED: ACETAMINOPHEN 1000 MG/100 ML VIAL (NON FORMULARY) IVPB ONE (20:13)
[2018-10-28] MEDS: ATORVASTATIN CA 10 MG TABLET (FP) PO SCH (21:14)
[2018-10-28] MEDS: ENOXAPARIN NA (PORCINE) 100 MG/1 ML DISP.SYRIN SQ SCH (21:25)
[2018-10-29] MEDS ORDERED: MELATONIN 5 MG TABLETS PO ONE (02:04)
[2018-10-29] MEDS: AMINO ACIDS 4.25%/D5W 1,000 ML IV SCH ×2 (02:09→13:05)
[2018-10-29] MEDS: ENALAPRILAT DIHYDRATE 1.25 MG/1 ML VIAL IVPB SCH ×4 (02:34→22:00)
[2018-10-29] MEDS: METOPROLOL TARTRATE 5 MG/5 ML VIAL IVPUSH SCH ×6 (02:34→21:59)
[2018-10-29] MEDS: INSULIN SLIDING SCALE (NOVOLOG) 1 VIAL SQ SCH ×3 (06:09→16:10)
[2018-10-29 06:41] LABS: ALLENS TEST POSITIVE
[2018-10-29 06:46] LABS: ARTERIAL BLD GAS O2 SATURATION 97.1 % (95-98); ARTERIAL BLOOD GAS BASE EXCESS 12.5 meq/l (-2-2); ARTERIAL BLOOD GAS PCO2 66.2 mmHg (35-45); ARTERIAL BLOOD GAS PO2 91.7 mmHg (80-100)
[2018-10-29 07:58] LABS: BASO % 0.8 % (0-2.0); EOS % 0.6 % (0-4.5); HEMATOCRIT 34.1 % (32.4-45.2); HEMOGLOBIN 11.2 GM/dL (10.7-15.3); LYMPH % 7.8 % (8-40); MCHC 32.9 g/dl (32.0-36.0); MEAN CELL VOLUME 88.1 fl (80-96); MEAN PLT VOLUME 9.5 fl (7.5-11.1); MONO % 7.3 % (3.8-10.2); NEUT % 83.5 % (42.8-82.8); PLATELET COUNT 170 K/MM3 (134-434); RBC 3.87 M/mm3 (3.60-5.2); RDW 15.6 % (11.6-15.6); WHITE BLOOD COUNT 8.4 K/mm3 (4.0-10.0)
[2018-10-29] MEDS: PANTOPRAZOLE SODIUM 40 MG VIAL IVPUSH SCH (09:24)
[2018-10-29] MEDS: FUROSEMIDE 40 MG/4 ML INJECTABLE VIAL IVPUSH SCH (09:24)
[2018-10-29] MEDS: SPIRONOLACTONE 25 MG TABLET (FP) PO SCH (09:36)
[2018-10-29] MEDS: ASPIRIN COATED 81 MG TABLET.EC PO SCH (09:36)
[2018-10-29] MEDS: SACUBITRIL/VALSARTAN 24 MG-26 MG TABLET PO SCH (09:37)
[2018-10-29] MEDS: ENOXAPARIN NA (PORCINE) 100 MG/1 ML DISP.SYRIN SQ SCH ×2 (09:37→21:59)
[2018-10-29] MEDS: METOPROLOL TARTRATE 50 MG TABLET (FP) PO SCH (09:37)
[2018-10-29] MEDS: ISOSORBIDE MONONITRATE 30 MG TAB.SR.24H (FP) PO SCH (09:37)
[2018-10-29] MEDS: GABAPENTIN 300 MG CAPSULE (FP) PO SCH (09:38)
[2018-10-29] MEDS: POLYETHYLENE GLYCOL 3350 119 GM BTL PO SCH (09:38)
[2018-10-29] MEDS: NYSTATIN/TRIAMCINOLONE TOPICAL OINTMENT 15 GM TUBE TP SCH ×2 (09:50→22:00)
[2018-10-29] MEDS: BACITRACIN 15 GM TUBE TOPICAL OINTMENT TP SCH (09:50)
--- NOTE | 2018-10-29 10:01 | PN ---
Progress Note (short form) - Note Progress Note: Events noted in ICU - for acute CVA Speech is slurred Unable to move left side of body NPO was SOB yesterday Vital Signs - 24 hr 10/28/18 10/28/18 10/28/18 12:00 12:19 14:00 Temperature 98.5 F Pulse Rate 82 86 Respiratory 15 18 Rate Blood Pressure 140/68 143/76 O2 Sat by Pulse 97 Oximetry (%) 10/28/18 10/28/18 10/28/18 14:22 15:27 16:00 Temperature 98.0 F Pulse Rate 88 92 H Respiratory 16 Rate Blood Pressure 143/76 143/60 O2 Sat by Pulse 93 L Oximetry (%) 10/28/18 10/28/18 10/28/18 17:59 18:00 20:00 Temperature 98.5 F 98.2 F Pulse Rate 99 H 99 H 90 Respiratory 23 H Rate Blood Pressure 143/60 138/61 137/63 O2 Sat by Pulse Oximetry (%) 10/28/18 10/28/18 10/28/18 21:00 21:24 22:00 Temperature Pulse Rate 109 H 85 Respiratory 24 H Rate Blood Pressure 137/63 131/70 O2 Sat by Pulse 98 Oximetry (%) 10/29/18 10/29/18 10/29/18 00:00 02:00 02:34 Temperature Pulse Rate 80 85 87 Respiratory 19 27 H Rate Blood Pressure 146/64 158/76 158/76 O2 Sat by Pulse Oximetry (%) 10/29/18 10/29/18 10/29/18 04:00 06:00 06:08 Temperature 97.9 F Pulse Rate 82 83 80 Respiratory 23 H 26 H Rate Blood Pressure 135/80 149/55 L 149/55 L O2 Sat by Pulse 97 100 Oximetry (%) 10/29/18 10/29/18 10/29/18 06:45 08:53 09:49 Temperature 97.5 F L Pulse Rate 110 H 94 H Respiratory 22 H Rate Blood Pressure 153/72 145/70 O2 Sat by Pulse 96 96 Oximetry (%) 10/29/18 10:00 Temperature Pulse Rate 85 Respiratory 25 H Rate Blood Pressure 149/71 O2 Sat by Pulse Oximetry (%) Current Medications Generic Name Dose Route Start Last Admin Trade Name Freq PRN Reason Stop Dose Admin Acetaminophen 650 mg 10/15/18 16:41 10/20/18 04:17 Tylenol - PO 650 mg Q6H PRN Administration PAIN LEVEL 1-5 Aspirin 81 mg 10/16/18 10:00 10/29/18 09:36 Ecotrin - PO Not Given DAILY [facility] Atorvastatin Calcium 10 mg 10/15/18 22:00 10/28/18 21:14 Lipitor - PO Not Given HS [facility] Bacitracin 1 applic 10/16/18 14:15 10/29/18 09:50 Bacitracin - TP 1 applic DAILY [facility] Administration Enalaprilat 1.25 mg 10/28/18 09:45 10/29/18 09:24 Vasotec Injection - IVPB 1.25 mg Q6H-IV [facility] Administration Enoxaparin Sodium 90 mg 10/28/18 22:00 10/29/18 09:37 Lovenox - SQ Not Given BID [facility] Furosemide 40 mg 10/28/18 10:00 10/29/18 09:24 Lasix Injection - IVPUSH 40 mg DAILY [facility] Administration Gabapentin 300 mg 10/16/18 10:00 10/29/18 09:38 Neurontin - PO Not Given DAILY [facility] Amino Acids 1,000 mls @ 42 mls/hr 10/28/18 12:30 10/29/18 02:09 Clinimix - IV Not Given Q12H [facility] Insulin Aspart 1 vial 10/15/18 11:00 10/29/18 10:43 Novolog Vial Sliding Scale - SQ 2 units TIDAC [facility] Administration Protocol Isosorbide Mononitrate 30 mg 10/15/18 10:00 10/29/18 09:37 Imdur - PO Not Given DAILY [facility] Metoprolol Tartrate 50 mg 10/15/18 10:00 10/29/18 09:37 Lopressor - PO Not Given BID [facility] Metoprolol Tartrate 5 mg 10/28/18 10:00 10/29/18 09:49 Lopressor Injection - IVPUSH 5 mg Q4H [facility] Administration Nystatin/Triamcinolone Acetonide 1 applic 10/27/18 11:30 10/29/18 09:50 Mycolog Ii Ointment - TP 1 applic BID [facility] Administration Pantoprazole Sodium 40 mg 10/29/18 10:00 10/29/18 09:24 Protonix Iv IVPUSH 40 mg DAILY [facility] Administration Polyethylene Glycol 17 gm 10/26/18 17:00 10/29/18 09:38 Miralax (For Daily Use) - PO Not Given DAILY [facility] Sacubitril/Valsartan 1 tab 10/19/18 10:00 10/29/18 09:37 Entresto 24 Mg-26 Mg Tablet PO Not Given BID [facility] Spironolactone 25 mg 10/21/18 13:45 10/29/18 09:36 Aldactone - PO Not Given DAILY [facility] Laboratory Results - last 24 hr 10/28/18 10/28/18 10/28/18 12:29 16:18 21:55 WBC RBC Hgb Hct MCV MCH MCHC RDW Plt Count MPV Absolute Neuts (auto) Neutrophils % Lymphocytes % Monocytes % Eosinophils % Basophils % Nucleated RBC % Anticoagulation Therapy Puncture Site ABG pH ABG pCO2 at Pt Temp ABG pO2 at Pt Temp ABG HCO3 ABG O2 Sat (Measured) ABG O2 Content ABG Base Excess Len Test O2 Delivery Device Oxygen Flow Rate Vent Mode Vent Rate Mechanical Rate Pressure Support Vent POC Glucometer 161 228 156 10/29/18 10/29/18 10/29/18 06:06 06:26 06:55 WBC 8.4 RBC 3.87 Hgb 11.2 Hct 34.1 MCV 88.1 MCH 29.0 MCHC 32.9 RDW 15.6 Plt Count 170 MPV 9.5 Absolute Neuts (auto) 7.1 Neutrophils % 83.5 H Lymphocytes % 7.8 L Monocytes % 7.3 Eosinophils % 0.6 D Basophils % 0.8 Nucleated RBC % 0 Anticoagulation Therapy No Result Required. Puncture Site Left radial ABG pH 7.40 ABG pCO2 at Pt Temp 66.2 H ABG pO2 at Pt Temp 91.7 ABG HCO3 40.1 H ABG O2 Sat (Measured) 97.1 ABG O2 Content 18.6 ABG Base Excess 12.5 H Len Test Positive O2 Delivery Device Bipap Oxygen Flow Rate 50% Vent Mode S/t Vent Rate 16 Mechanical Rate Bipap Pressure Support Vent 12/6 POC Glucometer 173 10/29/18 10:40 WBC RBC Hgb Hct MCV MCH MCHC RDW Plt Count MPV Absolute Neuts (auto) Neutrophils % Lymphocytes % Monocytes % Eosinophils % Basophils % Nucleated RBC % Anticoagulation Therapy Puncture Site ABG pH ABG pCO2 at Pt Temp ABG pO2 at Pt Temp ABG HCO3 ABG O2 Sat (Measured) ABG O2 Content ABG Base Excess Len Test O2 Delivery Device Oxygen Flow Rate Vent Mode Vent Rate Mechanical Rate Pressure Support Vent POC Glucometer 170 Physical exam. Constitutional: Yes: No Distress, Obese. comfortable Eyes: Yes: Conjunctiva Clear Neck: Yes: Supple. 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 , speech slurred left arm-- unable to lift arm Assessment/Plan iv lasix repeat CT head remains unchanged on lovenox sc full dose as pt is NPO and can not take pills could not tolerate MRI Neurology eval noted swallow eval noted-- remains NPO IV clinimix continue with meds was sob yesterday CXR show increased fluid spoke with pt about GT -- she is agreeable if not able to swallow Problem List - Problems (1) CHF exacerbation Code(s): I50.9 - HEART FAILURE, UNSPECIFIED (2) Pleural effusion due to CHF (congestive heart failure) Code(s): I50.9 - HEART FAILURE, UNSPECIFIED (3) Acute on chronic systolic and diastolic heart failure, NYHA class 1 Code(s): I50.43 - ACUTE ON CHRONIC COMBINED SYSTOLIC AND DIASTOLIC HRT FAIL (4) Afib Code(s): I48.91 - UNSPECIFIED ATRIAL FIBRILLATION (5) CHF (congestive heart failure) Code(s): I50.9 - HEART FAILURE, UNSPECIFIED Qualifiers: Heart failure type: unspecified Heart failure chronicity: unspecified Qualified Code(s): I50.9 - Heart failure, unspecified (6) CVA (cerebral vascular accident) Code(s): I63.9 - CEREBRAL INFARCTION, UNSPECIFIED
--- NOTE | 2018-10-29 10:12 | PN ---
Progress Note (short form) - Note Progress Note: Neurology - Admission Chief Complaint: SOB, RLE Swelling History of Present Illness: 78 y/o woman with significant medical history of Afib, CAD, CHF, HTN, IDDM, s/p L AKA, PVD presented to the ED with shortness of breath slowly worsening over the past week. Patient also endorsed increased swelling in her right leg since as well. At time of admission denied fevers, chills, nausea, vomiting. Denies chest pain and abdominal pain. Endorses compliance with medications. I was consulted as patient with LUE weakness overnight and placed in ICU where she is getting critical care monitoring. CT head completed showed no acute changes but there was evidence of R frontal chronic infarct. During my visit, she was awake but with slurred speech, dysarthria, limited movement on motor testing. Discussed with PCP, Dr. Salazar, these are reportedly new findings. Eliquis on hold, concern for thromboembolic CVA and thus bleed risk with AC. Brain MRI ordered, reportedly was not able to tolerate, therefore repeat noncontrast head CT completed and no infarct noted. Neurologically no significant improvement and remains with left-sided deficits. Would be reluctant to sedate for MRI given her respiratory status. Would recommend continuing to treat as CVA. Called by police detective last night as noted can restart AC. MRI not likely change mgmt as she is on AC already and adding further blood thinners would increase risk of CVA. Would proceed as CVA patient as clinically this what her presentation appears to be. Allergies Allergy/AdvReac Type Severity Reaction Status Date / Time Anesthetics - Amide Type AdvReac Vomiting Verified 08/13/17 10:30 Active Medications Acetaminophen (Tylenol -) 650 mg PO Q6H PRN PRN Reason: PAIN LEVEL 1-5 Last Admin: 10/20/18 04:17 Dose: 650 mg Aspirin (Ecotrin -) 81 mg PO DAILY [facility] Last Admin: 10/29/18 09:36 Dose: Not Given Atorvastatin Calcium (Lipitor -) 10 mg PO HS [facility] Last Admin: 10/28/18 21:14 Dose: Not Given Bacitracin (Bacitracin -) 1 applic TP DAILY [facility] Last Admin: 10/29/18 09:50 Dose: 1 applic Enalaprilat (Vasotec Injection -) 1.25 mg IVPB Q6H-IV [facility] Last Admin: 10/29/18 09:24 Dose: 1.25 mg Enoxaparin Sodium (Lovenox -) 90 mg SQ BID [facility] Last Admin: 10/29/18 09:37 Dose: Not Given Furosemide (Lasix Injection -) 40 mg IVPUSH DAILY [facility] Last Admin: 10/29/18 09:24 Dose: 40 mg Gabapentin (Neurontin -) 300 mg PO DAILY [facility] Last Admin: 10/29/18 09:38 Dose: Not Given Amino Acids (Clinimix -) 1,000 mls @ 42 mls/hr IV Q12H [facility] Last Admin: 10/29/18 02:09 Dose: Not Given Insulin Aspart (Novolog Vial Sliding Scale -) 1 vial SQ TIDAC [facility]; Protocol Last Admin: 10/29/18 06:09 Dose: 2 units Isosorbide Mononitrate (Imdur -) 30 mg PO DAILY [facility] Last Admin: 10/29/18 09:37 Dose: Not Given Metoprolol Tartrate (Lopressor -) 50 mg PO BID [facility] Last Admin: 10/29/18 09:37 Dose: Not Given Metoprolol Tartrate (Lopressor Injection -) 5 mg IVPUSH Q4H [facility] Last Admin: 10/29/18 09:49 Dose: 5 mg Nystatin/Triamcinolone Acetonide (Mycolog Ii Ointment -) 1 applic TP BID [facility] Last Admin: 10/29/18 09:50 Dose: 1 applic Pantoprazole Sodium (Protonix Iv) 40 mg IVPUSH DAILY [facility] Last Admin: 10/29/18 09:24 Dose: 40 mg Polyethylene Glycol (Miralax (For Daily Use) -) 17 gm PO DAILY [facility] Last Admin: 10/29/18 09:38 Dose: Not Given Sacubitril/Valsartan (Entresto 24 Mg-26 Mg Tablet) 1 tab PO BID [facility] Last Admin: 10/29/18 09:37 Dose: Not Given Spironolactone (Aldactone -) 25 mg PO DAILY [facility] Last Admin: 10/29/18 09:36 Dose: Not Given Physical Examination Vital Signs Period Temp Pulse Resp BP Sys/Calderon Pulse Ox Last 24 Hr 97.5 F-98.5 F 80-110 15-27 131-158/55-80 93-100 Constitutional: Yes: Well Nourished, No Distress, Calm, Obese Eyes: Yes: WNL, Conjunctiva Clear, EOM Intact, PERRL HENT: Yes: WNL, Atraumatic, Normocephalic Neck: Yes: WNL, Supple, Trachea Midline Cardiovascular: Yes: Pulse Irregular, S1, S2 Respiratory: Yes: Diminished, On Nasal O2, Rales, SOB on Exertion Gastrointestinal: Yes: Normal Bowel Sounds, Soft, Abdomen, Obese Renal/: Yes: WNL Breast(s): Yes: Right (mastectomy) Extremities: Yes: Amputation (L-Aka) Edema: Yes Edema: RLE: 3+ Peripheral Pulses WNL: Yes Integumentary: Yes: Other (non pressure ulcers to R- toes) Wound/Incision: Yes: Reddened Neurological: Slurred speech, dyarthric, JEFF, EOMI, sensory intact, BKA, no effort on strength testing CBCD WBC 8.4 K/mm3 (4.0-10.0) 10/29/18 06:55 RBC 3.87 M/mm3 (3.60-5.2) 10/29/18 06:55 Hgb 11.2 GM/dL (10.7-15.3) 10/29/18 06:55 Hct 34.1 % (32.4-45.2) 10/29/18 06:55 MCV 88.1 fl (80-96) 10/29/18 06:55 MCHC 32.9 g/dl (32.0-36.0) 10/29/18 06:55 RDW 15.6 % (11.6-15.6) 10/29/18 06:55 Plt Count 170 K/MM3 (134-434) 10/29/18 06:55 MPV 9.5 fl (7.5-11.1) 10/29/18 06:55 CMP Sodium 135 mmol/L (136-145) L 10/27/18 22:20 Potassium 4.5 mmol/L (3.5-5.1) 10/27/18 22:20 Chloride 91 mmol/L (98-107) L 10/27/18 22:20 Carbon Dioxide 36 mmol/L (21-32) H 10/27/18 22:20 Anion Gap 8 MMOL/L (8-16) 10/27/18 22:20 BUN 20.0 mg/dL (7-18) H 10/27/18 22:20 Creatinine 1.0 mg/dL (0.55-1.3) 10/27/18 22:20 Random Glucose 235 mg/dL (74-106) H 10/27/18 22:20 Calcium 9.1 mg/dL (8.5-10.1) 10/27/18 22:20 Total Bilirubin 0.8 mg/dL (0.2-1) 10/27/18 22:20 AST 12 U/L (15-37) L 10/27/18 22:20 ALT 9 U/L (13-61) L 10/27/18 22:20 Alkaline Phosphatase 118 U/L (45-117) H 10/27/18 22:20 Total Protein 7.2 g/dl (6.4-8.2) 10/27/18 22:20 Albumin 3.0 g/dl (3.4-5.0) L 10/27/18 22:20 CARDIAC ENZYMES Creatine Kinase 26 U/L (26-192) 10/26/18 22:10 Troponin I 0.02 ng/ml (0.00-0.05) 10/26/18 22:10 Plan: 89 y/o woman with significant medical history of Afib, CAD, CHF, HTN, IDDM, s/ p L AKA, PVD presented to the ED with shortness of breath slowly worsening over the past week. Patient also endorsed increased swelling in her right leg since as well. At time of admission denied fevers, chills, nausea, vomiting. Denies chest pain and abdominal pain. Endorses compliance with medications. I was consulted as patient with LUE weakness overnight and placed in ICU where she is getting critical care monitoring. CT head completed showed no acute changes but there was evidence of R frontal chronic infarct. During my visit, she was awake but with slurred speech, dysarthria, limited movement on motor testing. Discussed with PCP, Dr. Salazar, these are reportedly new findings. Eliquis on hold, concern for thromboembolic CVA and thus bleed risk with AC. Brain MRI ordered, reportedly was not able to tolerate, therefore repeat noncontrast head CT completed and no infarct noted. Neurologically no significant improvement and remains with left-sided deficits. Would be reluctant to sedate for MRI given her respiratory status. Would recommend continuing to treat as CVA. Called by police detective last night as noted can restart AC. MRI not likely change mgmt as she is on AC already and adding further blood thinners would increase risk of CVA. Would proceed as CVA patient as clinically this what her presentation appears to be. Monitor bp, goal < 140/90, Carotid doppler, echo. Continue optimization of CHF and respiratory status, pulmonary following. Speech , swallow eval noted and appreciated. Cardiology follow up, defer to AC to cards , no objection to AC as patient with Afib. Monitor glucose, maintain euglycemic range. PT/OT as tolerated
--- NOTE | 2018-10-29 10:26 | PN ---
Progress Note, Physician History of Present Illness: The patient is a 78 year old female, with a significant PMH of CAD, severe systolic CHF, IDDM, s/p L AKA, multiple vascular issues, hypertension, vascular insufficiency, CAD s/p CABG , breast cancer (s/p mastectomy), who presents to the emergency department with 1 week of progressively worsening shortness of breath. The patient also endorses increased right leg swelling. The patient denies chest pain, headache and dizziness. Denies fever, chills, nausea, vomiting, diarrhea and constipation. Denies dysuria, frequency, urgency and hematuria. Denies any other symptoms. Allergies: NKA Past surgical history: Mastectomy, Cholecystectomy, OPEN HEART SX (CABG) 2011: 3 BLOCKAGES Social history: Former smoker, quit 2002. PCP: Dr. Sandrita Salazar Vascular Surgeon: Dr. Angelica White - Current Medication List Current Medications: Active Medications Acetaminophen (Tylenol -) 650 mg PO Q6H PRN PRN Reason: PAIN LEVEL 1-5 Last Admin: 10/20/18 04:17 Dose: 650 mg Aspirin (Ecotrin -) 81 mg PO DAILY [facility] Last Admin: 10/29/18 09:36 Dose: Not Given Atorvastatin Calcium (Lipitor -) 10 mg PO HS [facility] Last Admin: 10/28/18 21:14 Dose: Not Given Bacitracin (Bacitracin -) 1 applic TP DAILY [facility] Last Admin: 10/29/18 09:50 Dose: 1 applic Enalaprilat (Vasotec Injection -) 1.25 mg IVPB Q6H-IV [facility] Last Admin: 10/29/18 09:24 Dose: 1.25 mg Enoxaparin Sodium (Lovenox -) 90 mg SQ BID [facility] Last Admin: 10/29/18 09:37 Dose: Not Given Furosemide (Lasix Injection -) 40 mg IVPUSH DAILY [facility] Last Admin: 10/29/18 09:24 Dose: 40 mg Gabapentin (Neurontin -) 300 mg PO DAILY [facility] Last Admin: 10/29/18 09:38 Dose: Not Given Amino Acids (Clinimix -) 1,000 mls @ 42 mls/hr IV Q12H [facility] Last Admin: 10/29/18 02:09 Dose: Not Given Insulin Aspart (Novolog Vial Sliding Scale -) 1 vial SQ TIDAC [facility]; Protocol Last Admin: 10/29/18 06:09 Dose: 2 units Isosorbide Mononitrate (Imdur -) 30 mg PO DAILY [facility] Last Admin: 10/29/18 09:37 Dose: Not Given Metoprolol Tartrate (Lopressor -) 50 mg PO BID [facility] Last Admin: 10/29/18 09:37 Dose: Not Given Metoprolol Tartrate (Lopressor Injection -) 5 mg IVPUSH Q4H [facility] Last Admin: 10/29/18 09:49 Dose: 5 mg Nystatin/Triamcinolone Acetonide (Mycolog Ii Ointment -) 1 applic TP BID [facility] Last Admin: 10/29/18 09:50 Dose: 1 applic Pantoprazole Sodium (Protonix Iv) 40 mg IVPUSH DAILY [facility] Last Admin: 10/29/18 09:24 Dose: 40 mg Polyethylene Glycol (Miralax (For Daily Use) -) 17 gm PO DAILY [facility] Last Admin: 10/29/18 09:38 Dose: Not Given Sacubitril/Valsartan (Entresto 24 Mg-26 Mg Tablet) 1 tab PO BID [facility] Last Admin: 10/29/18 09:37 Dose: Not Given Spironolactone (Aldactone -) 25 mg PO DAILY [facility] Last Admin: 10/29/18 09:36 Dose: Not Given - Objective Vital Signs: Vital Signs Temperature 97.5 F L 10/29/18 08:53 Pulse Rate 94 H 10/29/18 09:49 Respiratory Rate 23 H 10/29/18 08:53 Blood Pressure 145/70 10/29/18 09:49 O2 Sat by Pulse Oximetry (%) 96 10/29/18 08:53 Eyes: Yes: WNL, Conjunctiva Clear, EOM Intact HENT: Yes: WNL, Atraumatic, Normocephalic Neck: Yes: WNL, Supple, Trachea Midline Cardiovascular: Yes: Pulse Irregular, S1, S2 Respiratory: Yes: Diminished Gastrointestinal: Yes: WNL, Normal Bowel Sounds Genitourinary: Yes: WNL Musculoskeletal: Yes: WNL Extremities: Yes: Amputation (L aka) Edema: No Integumentary: Yes: WNL Neurological: Yes: Weakness (left sided) ...Motor Strength: WNL Psychiatric: Yes: WNL Labs: CBC, BMP 10/29/18 06:55 10/27/18 22:20 INR, PTT INR 1.42 (0.83-1.09) H 10/27/18 22:20 Assessment/Plan - Problems (1) Acute on chronic systolic and diastolic heart failure, NYHA class 1 Assessment/Plan: Now on Entresto, as well as metoprolol; furosemide, spironolactone f/u BUN/Cr and electrolytes, Is and Os, daily weight. Code(s): I50.43 - ACUTE ON CHRONIC COMBINED SYSTOLIC AND DIASTOLIC HRT FAIL (2) Afib Code(s): I48.91 - UNSPECIFIED ATRIAL FIBRILLATION (3) Hyperlipidemia Code(s): E78.5 - HYPERLIPIDEMIA, UNSPECIFIED (4) Hypertension Code(s): I10 - ESSENTIAL (PRIMARY) HYPERTENSION Qualifiers: Hypertension type: essential hypertension Qualified Code(s): I10 - Essential (primary) hypertension (5) Ischemia of both lower extremities Code(s): I99.8 - OTHER DISORDER OF CIRCULATORY SYSTEM (6) Obesity Code(s): E66.9 - OBESITY, UNSPECIFIED (7) S/P CABG (coronary artery bypass graft) Code(s): Z95.1 - PRESENCE OF AORTOCORONARY BYPASS GRAFT (9) Diabetes mellitus Code(s): E11.9 - TYPE 2 DIABETES MELLITUS WITHOUT COMPLICATIONS (10) CVA (cerebral vascular accident) Assessment/Plan: Pt's intial CT head showed no acute pathology. Pt did not tolerate MRI yesterday; repeat CT head done was unchanged (no acute pathology). Neurology input appreciated. pt can restart anticoagulation (AF). Presently NPO; will start Lovenox 1 mg/kg BW; discontinue Lovenox when able to restart apixaban 5 mg bid. Etiology of neurologic changes still uncertain. Code(s): I63.9 - CEREBRAL INFARCTION, UNSPECIFIED cc time spent 40 min
--- NOTE | 2018-10-29 10:31 | PN ---
Progress Note, VIBRATING SCREED OPERATOR - Note Progress Note: Selected Entries 10/28/18 10/28/18 10/28/18 02:00 04:00 09:00 Supper Temperature 97.8 F 98 F 98.1 F 10/28/18 10/28/18 10/28/18 10:00 14:00 16:00 Supper NPO Temperature 98.5 F 98.0 F 10/28/18 10/28/18 10/28/18 18:00 20:00 22:00 Supper NPO Temperature 98.5 F 98.2 F 10/29/18 10/29/18 04:00 08:53 Supper NPO Temperature 97.9 F 97.5 F L Laboratory Tests 10/29/18 06:55 WBC 8.4 Dysarthric. On VM. MRI pending, if possible. PO trials not initiated. Pt required BIPAP yesterday. CXR noted. Nursing reports pt becomes SOB when moved. PO deferred at this time.
[2018-10-29] MEDS ORDERED: ACETAMINOPHEN 1000 MG/100 ML VIAL (NON FORMULARY) IVPB PRN (11:27)
[2018-10-29] MEDS: ASPIRIN 300 MG SUPP.RECT PR SCH (11:50)
--- NOTE | 2018-10-29 12:27 | PN ---
Progress Note (short form) - Note Progress Note: PULMONARY Remains on BiPAP. CXR still with significant congestion. Vital Signs Period Temp Pulse Resp BP Sys/Calderon Pulse Ox Last 24 Hr 97.5 F-98.5 F 80-110 16-27 131-158/55-80 93-100 Intake & Output 10/26/18 10/27/18 10/28/18 10/29/18 23:59 23:59 23:59 23:59 Intake Total 780 622 360 562 Output Total 038 240 9054 Balance -70 422 -1840 562 Weight 91.1 kg 89.857 kg Gen: dysarthric Heart: irregular Lung: scattered rhonchi Abd:soft, nontender Ext: + edema, L AKA CBC, BMP 10/29/18 06:55 10/27/18 22:20 Active Medications Acetaminophen (Ofirmev Injection -) 1,000 mg IVPB Q6H PRN PRN Reason: FEVER Aspirin (Asa -) 300 mg MS DAILY [facility] Last Admin: 10/29/18 11:50 Dose: Not Given Bacitracin (Bacitracin -) 1 applic TP DAILY [facility] Last Admin: 10/29/18 09:50 Dose: 1 applic Enalaprilat (Vasotec Injection -) 1.25 mg IVPB Q6H-IV [facility] Last Admin: 10/29/18 09:24 Dose: 1.25 mg Enoxaparin Sodium (Lovenox -) 90 mg SQ BID [facility] Last Admin: 10/29/18 09:37 Dose: Not Given Furosemide (Lasix Injection -) 40 mg IVPUSH DAILY [facility] Last Admin: 10/29/18 09:24 Dose: 40 mg Amino Acids (Clinimix -) 1,000 mls @ 42 mls/hr IV Q12H [facility] Last Admin: 10/29/18 02:09 Dose: Not Given Insulin Aspart (Novolog Vial Sliding Scale -) 1 vial SQ TIDAC [facility]; Protocol Last Admin: 10/29/18 10:43 Dose: 2 units Lorazepam (Ativan Injection -) 1 mg IVPUSH Q6H PRN PRN Reason: ANXIETY Metoprolol Tartrate (Lopressor Injection -) 5 mg IVPUSH Q4H [facility] Last Admin: 10/29/18 09:49 Dose: 5 mg Nystatin/Triamcinolone Acetonide (Mycolog Ii Ointment -) 1 applic TP BID [facility] Last Admin: 10/29/18 09:50 Dose: 1 applic Pantoprazole Sodium (Protonix Iv) 40 mg IVPUSH DAILY [facility] Last Admin: 10/29/18 09:24 Dose: 40 mg A/P r/o Acute CVA Acute on Chronic Systolic Heart Failure Atrial Fibrillation CAD HTN DM PAD h/o L AKA - neuro checks - continue lasix, aldactone - will give additional dose of lasix today - entresto - rate conrol - continue anticoagulation - aspiration precautions - swallow eval, rehab/PT
[2018-10-29] MEDS ORDERED: PT OWN MED DRAWER 7, Y5N ONE ×3 (13:04→21:48)
[2018-10-29] MEDS: LORazepam 2 MG/ML SDV VIAL IVPUSH PRN ×2 (13:06→23:17)
[2018-10-29] MEDS ORDERED: FUROSEMIDE 40 MG/4 ML INJECTABLE VIAL IVPUSH ONE (16:00)
[2018-10-29 16:13] VITALS: BMI 31.9
[2018-10-30] MEDS: AMINO ACIDS 4.25%/D5W 1,000 ML IV SCH ×2 (01:25→17:29)
[2018-10-30] MEDS: METOPROLOL TARTRATE 5 MG/5 ML VIAL IVPUSH SCH ×6 (01:25→21:55)
[2018-10-30] MEDS: ENALAPRILAT DIHYDRATE 1.25 MG/1 ML VIAL IVPB SCH ×4 (02:45→21:56)
[2018-10-30] MEDS: INSULIN SLIDING SCALE (NOVOLOG) 1 VIAL SQ SCH ×3 (06:25→17:37)
[2018-10-30 06:29] LABS: BASO % 0.9 % (0-2.0); EOS % 2.4 % (0-4.5); HEMATOCRIT 34.9 % (32.4-45.2); HEMOGLOBIN 11.3 GM/dL (10.7-15.3); MCH 28.7 pg (25.7-33.7); MCHC 32.2 g/dl (32.0-36.0); MEAN CELL VOLUME 89.1 fl (80-96); MEAN PLT VOLUME 9.6 fl (7.5-11.1); MONO % 10.9 % (3.8-10.2); NEUT % 74.8 % (42.8-82.8); PLATELET COUNT 157 K/MM3 (134-434); RBC 3.92 M/mm3 (3.60-5.2); RDW 15.3 % (11.6-15.6); WHITE BLOOD COUNT 7.8 K/mm3 (4.0-10.0)
[2018-10-30 07:36] LABS: ALBUMIN 2.4 g/dl (3.4-5.0); BILIRUBIN,TOTAL 0.7 mg/dL (0.2-1); BLOOD UREA NITROGEN 29.8 mg/dL (7-18); CALCIUM 8.3 mg/dL (8.5-10.1); CREATININE 0.7 mg/dL (0.55-1.3); MAGNESIUM 1.5 mg/dL (1.8-2.4); PHOSPHOROUS 2.6 mg/dL (2.5-4.9); POTASSIUM 3.8 mmol/L (3.5-5.1)
--- NOTE | 2018-10-30 08:37 | PN ---
Progress Note (short form) - Note Progress Note: Neurology - Admission Chief Complaint: SOB, RLE Swelling History of Present Illness: 78 y/o woman with significant medical history of Afib, CAD, CHF, HTN, IDDM, s/p L AKA, PVD presented to the ED with shortness of breath slowly worsening over the past week. Patient also endorsed increased swelling in her right leg since as well. At time of admission denied fevers, chills, nausea, vomiting. Denies chest pain and abdominal pain. Endorses compliance with medications. I was consulted as patient with LUE weakness overnight and placed in ICU where she is getting critical care monitoring. CT head completed showed no acute changes but there was evidence of R frontal chronic infarct. During my visit, she was awake but with slurred speech, dysarthria, limited movement on motor testing. Discussed with PCP, Dr. Salazar, these are reportedly new findings. Eliquis on hold, concern for thromboembolic CVA and thus bleed risk with AC. Brain MRI ordered, reportedly was not able to tolerate, therefore repeat noncontrast head CT completed and no infarct noted. Neurologically no significant improvement and remains with left-sided deficits. Would be reluctant to sedate for MRI given her respiratory status. Would recommend continuing to treat as CVA. Restarted on AC. MRI not likely change mgmt as she is on AC already and adding further blood thinners would increase risk of CVA. Would proceed as CVA patient as clinically this what her presentation appears to be. Discussed with nurse this morning, no significant changes in exam, remains neurologically the same. Active Medications Acetaminophen (Ofirmev Injection -) 1,000 mg IVPB Q6H PRN PRN Reason: FEVER Aspirin (Asa -) 300 mg [place] DAILY [facility] Bacitracin (Bacitracin -) 1 applic TP DAILY [facility] Last Admin: 10/29/18 09:50 Dose: 1 applic Enalaprilat (Vasotec Injection -) 1.25 mg IVPB Q6H-IV [facility] Last Admin: 10/30/18 02:45 Dose: 1.25 mg Enoxaparin Sodium (Lovenox -) 90 mg SQ BID [facility] Last Admin: 10/29/18 21:59 Dose: 90 mg Furosemide (Lasix Injection -) 40 mg IVPUSH DAILY [facility] Last Admin: 10/29/18 09:24 Dose: 40 mg Amino Acids (Clinimix -) 1,000 mls @ 42 mls/hr IV Q12H [facility] Last Admin: 10/30/18 01:25 Dose: 42 mls/hr Insulin Aspart (Novolog Vial Sliding Scale -) 1 vial SQ TIDAC [facility]; Protocol Last Admin: 10/30/18 06:25 Dose: 2 units Lorazepam (Ativan Injection -) 1 mg IVPUSH Q6H PRN PRN Reason: ANXIETY Last Admin: 10/29/18 23:17 Dose: 1 mg Metoprolol Tartrate (Lopressor Injection -) 5 mg IVPUSH Q4H [facility] Last Admin: 10/30/18 06:21 Dose: 5 mg Nystatin/Triamcinolone Acetonide (Mycolog Ii Ointment -) 1 applic TP BID [facility] Last Admin: 10/29/18 22:00 Dose: 1 applic Pantoprazole Sodium (Protonix Iv) 40 mg IVPUSH DAILY [facility] Last Admin: 10/29/18 09:24 Dose: 40 mg Physical Examination Vital Signs Period Temp Pulse Resp BP Sys/Calderon Pulse Ox Last 24 Hr 97.5 F-98.5 F 74-110 17-25 122-153/53-82 94-100 Constitutional: Yes: Well Nourished, No Distress, Calm, Obese Eyes: Yes: WNL, Conjunctiva Clear, EOM Intact, PERRL HENT: Yes: WNL, Atraumatic, Normocephalic Neck: Yes: WNL, Supple, Trachea Midline Cardiovascular: Yes: Pulse Irregular, S1, S2 Respiratory: Yes: Diminished, On Nasal O2, Rales, SOB on Exertion Gastrointestinal: Yes: Normal Bowel Sounds, Soft, Abdomen, Obese Renal/: Yes: WNL Breast(s): Yes: Right (mastectomy) Extremities: Yes: Amputation (L-Aka) Edema: Yes Edema: RLE: 3+ Peripheral Pulses WNL: Yes Integumentary: Yes: Other (non pressure ulcers to R- toes) Wound/Incision: Yes: Reddened Neurological: Slurred speech, dyarthric, JEFF, EOMI, sensory intact, BKA, no effort on strength testing CBCD WBC 7.8 K/mm3 (4.0-10.0) 10/30/18 05:45 RBC 3.92 M/mm3 (3.60-5.2) 10/30/18 05:45 Hgb 11.3 GM/dL (10.7-15.3) 10/30/18 05:45 Hct 34.9 % (32.4-45.2) 10/30/18 05:45 MCV 89.1 fl (80-96) 10/30/18 05:45 MCHC 32.2 g/dl (32.0-36.0) 10/30/18 05:45 RDW 15.3 % (11.6-15.6) 10/30/18 05:45 Plt Count 157 K/MM3 (134-434) 10/30/18 05:45 MPV 9.6 fl (7.5-11.1) 10/30/18 05:45 CMP Sodium 138 mmol/L (136-145) 10/30/18 05:45 Potassium 3.8 mmol/L (3.5-5.1) 10/30/18 05:45 Chloride 91 mmol/L (98-107) L 10/30/18 05:45 Carbon Dioxide 41 mmol/L (21-32) H 10/30/18 05:45 Anion Gap 5 MMOL/L (8-16) L 10/30/18 05:45 BUN 29.8 mg/dL (7-18) H 10/30/18 05:45 Creatinine 0.7 mg/dL (0.55-1.3) 10/30/18 05:45 Random Glucose 176 mg/dL (74-106) H 10/30/18 05:45 Calcium 8.3 mg/dL (8.5-10.1) L 10/30/18 05:45 Total Bilirubin 0.7 mg/dL (0.2-1) 10/30/18 05:45 AST 10 U/L (15-37) L 10/30/18 05:45 ALT 8 U/L (13-61) L 10/30/18 05:45 Alkaline Phosphatase 81 U/L (45-117) 10/30/18 05:45 Total Protein 6.0 g/dl (6.4-8.2) L 10/30/18 05:45 Albumin 2.4 g/dl (3.4-5.0) L 10/30/18 05:45 CARDIAC ENZYMES Creatine Kinase 26 U/L (26-192) 10/26/18 22:10 Troponin I 0.02 ng/ml (0.00-0.05) 10/26/18 22:10 Plan: 89 y/o woman with significant medical history of Afib, CAD, CHF, HTN, IDDM, s/ p L AKA, PVD presented to the ED with shortness of breath slowly worsening over the past week. Patient also endorsed increased swelling in her right leg since as well. At time of admission denied fevers, chills, nausea, vomiting. Denies chest pain and abdominal pain. Endorses compliance with medications. I was consulted as patient with LUE weakness overnight and placed in ICU where she is getting critical care monitoring. CT head completed showed no acute changes but there was evidence of R frontal chronic infarct. During my visit, she was awake but with slurred speech, dysarthria, limited movement on motor testing. Discussed with PCP, Dr. Salazar, these are reportedly new findings. Eliquis on hold, concern for thromboembolic CVA and thus bleed risk with AC. Brain MRI ordered, reportedly was not able to tolerate, therefore repeat noncontrast head CT completed and no infarct noted. Neurologically no significant improvement and remains with left-sided deficits. Would be reluctant to sedate for MRI given her respiratory status. Would recommend continuing to treat as CVA. Called by tenant coordinator last night as noted can restart AC. MRI not likely change mgmt as she is on AC already and adding further blood thinners would increase risk of CVA. Would proceed as CVA patient as clinically this what her presentation appears to be. Monitor bp, goal < 140/90, Carotid doppler, echo. LDL 55. Continue optimization of CHF and respiratory status, pulmonary following. Speech, swallow eval noted and appreciated. Cardiology follow up, defer to AC to cards, no objection to AC as patient with Afib. Discussed with nurse this morning, no significant changes in exam, remains neurologically the same. Monitor glucose, maintain euglycemic range. PT/OT as tolerated, rehab.
[2018-10-30] MEDS ORDERED: PT OWN MED DRAWER 7, Y5N ONE ×2 (09:47→12:34)
[2018-10-30] MEDS: NYSTATIN/TRIAMCINOLONE TOPICAL OINTMENT 15 GM TUBE TP SCH ×2 (09:55→21:56)
[2018-10-30] MEDS: ENOXAPARIN NA (PORCINE) 100 MG/1 ML DISP.SYRIN SQ SCH (10:00)
[2018-10-30] MEDS: FUROSEMIDE 40 MG/4 ML INJECTABLE VIAL IVPUSH SCH (10:59)
[2018-10-30] MEDS: PANTOPRAZOLE SODIUM 40 MG VIAL IVPUSH SCH (10:59)
[2018-10-30] MEDS: BACITRACIN 15 GM TUBE TOPICAL OINTMENT TP SCH (11:02)
[2018-10-30] MEDS: ASPIRIN 300 MG SUPP.RECT PR SCH (11:02)
--- NOTE | 2018-10-30 11:16 | PN ---
Progress Note (short form) - Note Progress Note: Events noted in ICU - for acute CVA Speech is slurred Unable to move left side of body NPO lethargic today mouth full of secretions per RN ' Vital Signs - 24 hr 10/29/18 10/29/18 10/29/18 11:55 14:00 15:54 Temperature 98.1 F 97.8 F 97.5 F L Pulse Rate 88 86 74 Respiratory 22 H 22 H 20 Rate Blood Pressure 134/68 131/58 L 137/62 O2 Sat by Pulse Oximetry (%) 10/29/18 10/29/18 10/29/18 17:58 20:00 20:30 Temperature Pulse Rate 88 86 Respiratory 25 H 25 H Rate Blood Pressure 144/61 142/82 O2 Sat by Pulse 96 Oximetry (%) 10/29/18 10/29/18 10/29/18 21:00 21:59 22:00 Temperature 98.5 F Pulse Rate 88 86 Respiratory 22 H Rate Blood Pressure 142/82 140/63 O2 Sat by Pulse 98 Oximetry (%) 10/29/18 10/30/18 10/30/18 23:33 00:00 01:25 Temperature Pulse Rate 87 82 Respiratory 22 H Rate Blood Pressure 146/60 133/55 L O2 Sat by Pulse 94 L Oximetry (%) 10/30/18 10/30/18 10/30/18 02:00 04:00 04:02 Temperature Pulse Rate 81 80 Respiratory 18 20 Rate Blood Pressure 127/58 L 146/68 O2 Sat by Pulse 98 Oximetry (%) 10/30/18 10/30/18 10/30/18 06:00 06:21 06:51 Temperature Pulse Rate 81 84 Respiratory 18 Rate Blood Pressure 137/70 146/68 O2 Sat by Pulse 98 Oximetry (%) 10/30/18 10/30/18 10/30/18 08:00 09:00 10:00 Temperature 97.5 F L Pulse Rate 74 73 Respiratory 17 21 H Rate Blood Pressure 122/53 L 142/54 L O2 Sat by Pulse 100 100 Oximetry (%) 10/30/18 11:01 Temperature Pulse Rate 73 Respiratory Rate Blood Pressure 142/54 L O2 Sat by Pulse Oximetry (%) Current Medications Generic Name Dose Route Start Last Admin Trade Name Freq PRN Reason Stop Dose Admin Acetaminophen 1,000 mg 10/29/18 11:27 Ofirmev Injection - IVPB Q6H PRN FEVER Aspirin 300 mg 10/29/18 11:30 10/30/18 11:02 Asa - [place] Not Given DAILY [facility] Bacitracin 1 applic 10/16/18 14:15 10/30/18 11:02 Bacitracin - TP 1 applic DAILY [facility] Administration Enalaprilat 1.25 mg 10/28/18 09:45 10/30/18 09:55 Vasotec Injection - IVPB 1.25 mg Q6H-IV [facility] Administration Enoxaparin Sodium 90 mg 10/28/18 22:00 10/30/18 10:00 Lovenox - SQ 90 mg BID [facility] Administration Furosemide 40 mg 10/28/18 10:00 10/30/18 10:59 Lasix Injection - IVPUSH 40 mg DAILY [facility] Administration Furosemide 40 mg 10/30/18 16:00 Lasix Injection - IVPUSH 10/30/18 16:01 ONCE ONE Amino Acids 1,000 mls @ 42 mls/hr 10/28/18 12:30 10/30/18 01:25 Clinimix - IV 42 mls/hr Q12H [facility] Administration Insulin Aspart 1 vial 10/15/18 11:00 10/30/18 06:25 Novolog Vial Sliding Scale - SQ 2 units TIDAC [facility] Administration Protocol Lorazepam 1 mg 10/29/18 11:49 10/29/18 23:17 Ativan Injection - IVPUSH 1 mg Q6H PRN Administration ANXIETY Metoprolol Tartrate 5 mg 10/28/18 10:00 10/30/18 11:01 Lopressor Injection - IVPUSH 5 mg Q4H [facility] Administration Nystatin/Triamcinolone Acetonide 1 applic 10/27/18 11:30 10/30/18 09:55 Mycolog Ii Ointment - TP 1 applic BID [facility] Administration Pantoprazole Sodium 40 mg 10/29/18 10:00 10/30/18 10:59 Protonix Iv IVPUSH 40 mg DAILY [facility] Administration Laboratory Results - last 24 hr 10/29/18 10/30/18 10/30/18 16:09 05:45 05:45 WBC 7.8 RBC 3.92 Hgb 11.3 Hct 34.9 MCV 89.1 MCH 28.7 MCHC 32.2 RDW 15.3 Plt Count 157 MPV 9.6 Absolute Neuts (auto) 5.9 Neutrophils % 74.8 Lymphocytes % 11.0 D Monocytes % 10.9 H Eosinophils % 2.4 D Basophils % 0.9 Nucleated RBC % 0 Anticoagulation Therapy O2 Delivery Device Oxygen Flow Rate Vent Mode Vent Rate Mechanical Rate Pressure Support Vent Sodium 138 Potassium 3.8 Chloride 91 L Carbon Dioxide 41 H Anion Gap 5 L BUN 29.8 H Creatinine 0.7 Est GFR (CKD-EPI)AfAm 95.51 Est GFR (CKD-EPI)NonAf 82.41 POC Glucometer 149 Random Glucose 176 H Calcium 8.3 L Phosphorus 2.6 Magnesium 1.5 L Total Bilirubin 0.7 AST 10 L ALT 8 L Alkaline Phosphatase 81 Total Protein 6.0 L Albumin 2.4 L 10/30/18 10/30/18 06:23 11:15 WBC RBC Hgb Hct MCV MCH MCHC RDW Plt Count MPV Absolute Neuts (auto) Neutrophils % Lymphocytes % Monocytes % Eosinophils % Basophils % Nucleated RBC % Anticoagulation Therapy No Result Required. O2 Delivery Device No Result Required. Oxygen Flow Rate No Result Required. Vent Mode No Result Required. Vent Rate No Result Required. Mechanical Rate No Result Required. Pressure Support Vent No Result Required. Sodium Potassium Chloride Carbon Dioxide Anion Gap BUN Creatinine Est GFR (CKD-EPI)AfAm Est GFR (CKD-EPI)NonAf POC Glucometer 154 Random Glucose Calcium Phosphorus Magnesium Total Bilirubin AST ALT Alkaline Phosphatase Total Protein Albumin Physical exam. Constitutional: Yes: No Distress, Obese. comfortable Eyes: Yes: Conjunctiva Clear Neck: Yes: Supple. 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 , speech slurred left arm-- unable to lift arm Assessment/Plan iv lasix repeat CT head remains unchanged on lovenox sc full dose as pt is NPO and can not take pills-- >hold it as pt will need thoracentesis- likely tomorrow hold ASA could not tolerate MRI Neurology eval noted swallow eval noted-- remains NPO IV clinimix continue with meds CXR show increased fluid -- >effusion increased right spoke with daughter at bedside pt will GT as well Problem List - Problems (1) CHF exacerbation Code(s): I50.9 - HEART FAILURE, UNSPECIFIED (2) Pleural effusion due to CHF (congestive heart failure) Code(s): I50.9 - HEART FAILURE, UNSPECIFIED (3) Acute on chronic systolic and diastolic heart failure, NYHA class 1 Code(s): I50.43 - ACUTE ON CHRONIC COMBINED SYSTOLIC AND DIASTOLIC HRT FAIL (4) Afib Code(s): I48.91 - UNSPECIFIED ATRIAL FIBRILLATION (5) CHF (congestive heart failure) Code(s): I50.9 - HEART FAILURE, UNSPECIFIED Qualifiers: Heart failure type: unspecified Heart failure chronicity: unspecified Qualified Code(s): I50.9 - Heart failure, unspecified (6) CVA (cerebral vascular accident) Code(s): I63.9 - CEREBRAL INFARCTION, UNSPECIFIED
--- NOTE | 2018-10-30 11:36 | PN ---
Progress Note (short form) - Note Progress Note: PULMONARY On 50% ventimask. More lethargic today. CXR still with significant congestion. Vital Signs Period Temp Pulse Resp BP Sys/Calderon Pulse Ox Last 24 Hr 97.5 F-98.5 F 73-88 17-25 122-146/53-82 94-100 Intake & Output 10/27/18 10/28/18 10/29/18 10/30/18 23:59 23:59 23:59 23:59 Intake Total 289 466 2331 529 Output Total 200 2200 900 Balance 422 -1840 316 529 Weight 91.1 kg 89.857 kg 85.82 kg Gen: lethargic Heart: irregular Lung: scattered rhonchi Abd:soft, nontender Ext: + edema, L AKA CBC, BMP 10/30/18 05:45 10/30/18 05:45 Active Medications Acetaminophen (Ofirmev Injection -) 1,000 mg IVPB Q6H PRN PRN Reason: FEVER Aspirin (Asa -) 300 mg [place] DAILY [facility] Last Admin: 10/30/18 11:02 Dose: Not Given Bacitracin (Bacitracin -) 1 applic TP DAILY [facility] Last Admin: 10/30/18 11:02 Dose: 1 applic Enalaprilat (Vasotec Injection -) 1.25 mg IVPB Q6H-IV [facility] Last Admin: 10/30/18 09:55 Dose: 1.25 mg Enoxaparin Sodium (Lovenox -) 90 mg SQ BID [facility] Last Admin: 10/30/18 10:00 Dose: 90 mg Furosemide (Lasix Injection -) 40 mg IVPUSH DAILY [facility] Last Admin: 10/30/18 10:59 Dose: 40 mg Amino Acids (Clinimix -) 1,000 mls @ 42 mls/hr IV Q12H [facility] Last Admin: 10/30/18 01:25 Dose: 42 mls/hr Insulin Aspart (Novolog Vial Sliding Scale -) 1 vial SQ TIDAC [facility]; Protocol Last Admin: 10/30/18 06:25 Dose: 2 units Lorazepam (Ativan Injection -) 1 mg IVPUSH Q6H PRN PRN Reason: ANXIETY Last Admin: 10/29/18 23:17 Dose: 1 mg Metoprolol Tartrate (Lopressor Injection -) 5 mg IVPUSH Q4H [facility] Last Admin: 10/30/18 11:01 Dose: 5 mg Nystatin/Triamcinolone Acetonide (Mycolog Ii Ointment -) 1 applic TP BID [facility] Last Admin: 10/30/18 09:55 Dose: 1 applic Pantoprazole Sodium (Protonix Iv) 40 mg IVPUSH DAILY [facility] Last Admin: 10/30/18 10:59 Dose: 40 mg A/P r/o Acute CVA Acute on Chronic Systolic Heart Failure Atrial Fibrillation CAD HTN DM PAD h/o L AKA - neuro checks - continue lasix, aldactone - will give additional dose of lasix today - hold anticoagulation, may benefit from right thoracentesis - entresto - rate conrol - aspiration precautions - swallow eval, rehab/PT
[2018-10-30 12:41] LABS: ARTERIAL BLD GAS O2 SATURATION 95.7 % (95-98); ARTERIAL BLOOD GAS BASE EXCESS 13.2 meq/l (-2-2); ARTERIAL BLOOD GAS PO2 85.1 mmHg (80-100); ARTERIAL BLOOD GAS pH 7.34 (7.35-7.45)
[2018-10-30 12:59] LABS: ALLENS TEST POSITIVE
[2018-10-30 13:06] LABS: ARTERIAL BLOOD GAS PCO2 79.2 mmHg (35-45)
--- NOTE | 2018-10-30 13:14 | PN ---
Progress Note, [employer] - Note Progress Note: Selected Entries 10/30/18 10/30/18 10/30/18 04:02 06:51 08:00 Breakfast Temperature O2 Sat by Pulse 98 98 100 Oximetry (%) Oxygen Delivery Bi-pap Method 10/30/18 10/30/18 09:00 10:00 Breakfast NPO Temperature 97.5 F L O2 Sat by Pulse 100 Oximetry (%) Oxygen Delivery Bi-pap Method Laboratory Tests 10/29/18 10/29/18 10/30/18 06:26 06:55 05:45 WBC 8.4 7.8 ABG pCO2 at Pt Temp 66.2 H 10/30/18 11:15 WBC ABG pCO2 at Pt Temp 79.2 H* Now on BIPAP. NPO. Pending thoracentesis. Plan is for GT Left sided weakness, Dysarthria, Dysphagia. Hopefully pt will improve medically and benefit from speech/swallow tx
[2018-10-30] MEDS ORDERED: AMINO ACIDS 4.25%/D5W 1,000 ML IV SCH (13:58)
[2018-10-30] MEDS ORDERED: FUROSEMIDE 40 MG/4 ML INJECTABLE VIAL IVPUSH ONE (16:00)
--- NOTE | 2018-10-30 16:16 | ECHO ---
Name: EVANGELISTA, LISA Exam:Adult Echocardiogram Study Date: 10/30/2018 12:18 PM Age: 78 yrs Height: 66 in Weight: 189 lb BSA: 2.0 m2 MMode/2D Measurements & Calculations IVSd: 1.1 cm Ao root diam: 2.6 cm LVIDd: 5.2 cm LA dimension: 4.1 cm LVIDs: 4.6 cm LVPWd: 1.1 cm EDV(Teich): 132.3 ml LVOT diam: 2.0 cm ESV(Teich): 96.2 ml LAV (MOD-bp): 111.0 ml Doppler Measurements & Calculations MV E max waqar: 115.0 cm/sec Ao V2 max: 169.7 cm/sec MV dec time: 0.17 sec Ao max P.5 mmHg KENDY(V,D): 1.3 cm2 LV V1 max P.8 mmHg MR max waqar: 499.8 cm/sec LV V1 max: 67.9 cm/sec MR max P.9 mmHg TR max waqar: 262.9 cm/sec PA V2 max: 112.7 cm/sec TR max P.9 mmHg PA max P.1 mmHg Med Peak E' Waqar: 3.6 cm/sec PI Vmax: 120.8 cm/sec Med E/e': 32.0 Lat Peak E' Waqar: 4.4 cm/sec Lat E/e': 26.4 Procedure A complete two-dimensional transthoracic echocardiogram was performed (2D, M-mode, Doppler and color flow Doppler). Left Ventricle The left ventricle is normal in size. Left ventricular systolic function is severely reduced. Ejectio n Fraction = 15-20%. There is severe global hypokinesis of the left ventricle. Right Ventricle The right ventricle is normal in size and function. Atria The left atrium is mildly dilated. Right atrial size is normal. Mitral Valve There is trace mitral regurgitation. Tricuspid Valve There is trace tricuspid regurgitation. Right ventricular systolic pressure is normal. Aortic Valve No hemodynamically significant valvular aortic stenosis. No aortic regurgitation is present. Pulmonic Valve There is no pulmonic valvular regurgitation. Great Vessels The aortic root is normal size. Pericardium/Pleura There is no pericardial effusion. There is a pleural effusion present. Interpretation Summary Left ventricular systolic function is severely reduced. There is severe global hypokinesis of the left ventricle. The right ventricle is normal in size and function. The left atrium is mildly dilated. There is trace mitral regurgitation. There is trace tricuspid regurgitation. There is a pleural effusion present. MD Tolu Marques 10/30/2018 04:15 PM
[2018-10-30 18:19] VITALS: TEMP 97.1
[2018-10-30 23:21] VITALS: BP 157/63; PULSE 80
[2018-10-30] MEDS: LORazepam 2 MG/ML SDV VIAL IVPUSH PRN (23:48)
--- NOTE | 2018-11-02 11:52 | DS ---
Physical Examination Vital Signs: Vital Signs Temperature 97.1 F L 10/30/18 18:00 Pulse Rate 80 10/30/18 22:00 Respiratory Rate 16 10/30/18 22:00 Blood Pressure 157/63 10/30/18 22:00 O2 Sat by Pulse Oximetry (%) 99 10/30/18 20:59 Findings/Remarks: see progress note Labs: CBC, BMP 10/30/18 05:45 10/30/18 05:45 Discharge Summary Reason For Visit: CONGESTIVE HEART FAILURE Hospital Course: patient admitted for shortness of breath CHF Pneumonia Patient--had acute CVA in the hospital Condition deteriorated Went into cardiopulmonary rest--- On October 31 I had expressed my condolences to patient's daughter Condition: - Instructions Disposition: - Home Medications Comprehensive Discharge Medication List: Ambulatory Orders Aspirin [ASA -] 162 mg PO BID 02/27/12 Insulin Sliding Scale [Novolog Vial Sliding Scale -] 1 vial SQ TIDAC units 10/26 Amlodipine Besylate 10 mg PO DAILY 10/14/18 Clopidogrel Bisulfate [Clopidogrel] 75 mg PO DAILY 10/14/18 Docusate Sodium [Colace -] 100 mg PO HS 10/14/18 Gabapentin 300 mg PO DAILY 10/14/18 Insulin Detemir [Levemir Flextouch] 14 units SQ HS 10/14/18 Insulin Detemir [Levemir Flextouch] 20 units SQ DAILY 10/14/18 Isosorbide Mononitrate [Isosorbide Mononitrate ER] 30 mg PO DAILY 10/14/18 Lisinopril 20 mg PO DAILY 10/14/18 Metoprolol Tartrate 50 mg PO BID 10/14/18 Pantoprazole Sodium [Protonix -] 20 mg PO DAILY 10/14/18
== END 2018-10-31 01:06 | disposition expired | DRG 291 ==
LOC: JER 18:58 → JERBED 10-15 00:33 → J5S 10-15 05:19 → JICU 10-26 21:50
PROVIDERS: ADMIT Internal Medicine; ATTEND Internal Medicine
PROC: 5A09457 Assistance with Respiratory Ventilation, 24-96 Consecutive Hours, Continuous Positive Airway Pressure (ICD-10-PCS; principal; 2018-10-28)
DX: I11.0 Hypertensive heart disease with heart failure (principal); I63.9 Cerebral infarction, unspecified; N39.0 Urinary tract infection, site not specified; L03.115 Cellulitis of right lower limb; I50.43 Acute on chronic combined systolic (congestive) and diastolic (congestive) heart failure; E11.621 Type 2 diabetes mellitus with foot ulcer; I48.91 Unspecified atrial fibrillation; G83.24 Monoplegia of upper limb affecting left nondominant side; R47.9 Unspecified speech disturbances; R47.1 Dysarthria and anarthria; R29.810 Facial weakness; I25.10 Atherosclerotic heart disease of native coronary artery without angina pectoris; L97.519 Non-pressure chronic ulcer of other part of right foot with unspecified severity; I45.81 Long QT syndrome; E78.5 Hyperlipidemia, unspecified; E66.9 Obesity, unspecified; G47.33 Obstructive sleep apnea (adult) (pediatric); Z95.1 Presence of aortocoronary bypass graft; Z89.612 Acquired absence of left leg above knee; Z85.3 Personal history of malignant neoplasm of breast; Z87.891 Personal history of nicotine dependence; I44.4 Left anterior fascicular block; Z79.4 Long term (current) use of insulin; F03.90 Unspecified dementia, unspecified severity, without behavioral disturbance, psychotic disturbance, mood disturbance, and anxiety; K57.30 Diverticulosis of large intestine without perforation or abscess without bleeding; Z68.30 Body mass index [BMI] 30.0-30.9, adult; Z90.11 Acquired absence of right breast and nipple; I99.8 Other disorder of circulatory system; Z66 Do not resuscitate; I73.9 Peripheral vascular disease, unspecified
CPT/HCPCS: 36415; 36600; 70450-TC; 71045-TC-FY; 73630-TC-RT-FY; 80048; 80053; 80061; 81003; 82272; 82550; 82607; 82803; 82962; 83036; 83605; 83721; 83735; 83880; 84100; 84484; 85025; 85027; 85610; 85730; 86850; 86900; 86901; 87040; 87086; 87186; 87899; 93005; 93010; 93306-TC; 93926-TC; 93971-TC; 94640; 94660; 97162-GP; 99285-25; J0131